=== PATIENT | male | born 1965 | race Caucasian/White ===

== ENCOUNTER 2020-08-06 10:02 | Inpatient (IN) | payer BC ==
[~2020-08-06 10:02] MED LIST: LIDOCAINE 1% (10MG/ML) FOR IV START INTRADERMA PRN
[2020-08-06] MEDS: LACTATED RINGERS 1,000 ML IV SCH (10:32)
[2020-08-06] MEDS ORDERED: PROPOFOL 10 MG/ML 20 ML VIAL IV ONE ×2 (10:53)
--- NOTE | 2020-08-06 11:28 | P.PCN ---
Date of Procedure: 08/06/20 Description of Procedure: BRIEF HISTORY: Patient is a 54-year-old male presenting for outpatient colonoscopy for evaluation of diarrhea. He reports 3 months of frequent loose bowel movements up to 15 times occurring during the day and night. He denies any blood per rectum. No abdominal pain. No family history of colon cancer or inflammatory bowel disease. No prior colonoscopies. PROCEDURE PERFORMED: Colonoscopy incomplete/aborted with biopsies and tattoo. PREOPERATIVE DIAGNOSIS: Diarrhea, no prior colonoscopies. ESTIMATED BLOOD LOSS: Minimal. IV sedation per Anesthesia. PROCEDURE: After informed consent was obtained, the patient, was brought into the endoscopy unit. IV sedation was administered by Anesthesia under continuous monitoring. Digital rectal examination was normal. Initially the Olympus pediatric then inserted in the rectum, gradually advanced into the rectum where a mass was noted approximately 10 cm from the anal verge. The mass was circumferential and encompassing approximately 90% of the lumen and malignant appearing with multiple biopsies taken and a tattoo placed just distal to the mass. The endoscope was unable to traverse the lumen and the procedure was aborted. The patient tolerated the procedure well. IMPRESSION: Malignant-appearing rectal mass, biopsied and tattooed. Incomplete colonoscopy/aborted colonoscopy, secondary to obstructing rectal mass which was unable to be traversed by the endoscope. RECOMMENDATIONS: Findings of this examination were discussed with the patient and his family. The surgical service has been consulted to see the patient in the postoperative area and plan will be either for close follow-up for results of biopsies in the GI clinic this week or possible direct admission for surgical intervention which will be discussed with the patient's family.
[2020-08-06] MEDS ORDERED: ONDANSETRON 4 MG/2 ML VIAL IVP PRN (12:21)
[2020-08-06] MEDS ORDERED: LACTATED RINGERS 1,000 ML IV ONE (12:21)
[2020-08-06] MEDS ORDERED: NALOXONE 0.4 MG/ML 1 ML VIAL IV PRN (12:21)
[2020-08-06] MEDS ORDERED: ACETAMINOPHEN TAB 325 MG TAB PO PRN (12:21)
[2020-08-06] MEDS ORDERED: HYDROmorphone 0.5 MG/0.5 ML SYRINGE IVP PRN (12:21)
[2020-08-06] MEDS ORDERED: IOPAMIDOL CONTRAST (ORAL USE) VIAL PO PRN (12:42)
--- NOTE | 2020-08-06 12:56 | P.CONS ---
History of Present Illness - Reason for Consult Consult date: 08/06/20 Rectal mass Requesting physician: Byron Frankel - Chief Complaint Rectal mass, diarrhea - History of Present Illness 54-year-old male with no significant prior medical history who presented for outpatient colonoscopy after experiencing 3 months of diarrhea and was subsequently found to have a rectal mass. The patient had reported 3 months of frequent loose bowel movement saying he had multiple bowel movements daily up to 15 per day. He denied any signs or symptoms of GI bleeding in association with the bowel movements. No pain in the abdomen associated with his diarrhea. He denied any prior episodes of similar complaints. He denies any family history of colon cancer or inflammatory bowel disease. He had not previously had any endoscopic evaluation with colonoscopy in the past. The patient was taken for colonoscopy on 08/06/20 with findings of a near complete obstructing rectal mass approximately 10 cm from the anal verge the mass was circumferential and malignant-appearing encompassing approximately 90% of the lumen. Multiple biopsies were taken of the mass and a tattoo was placed just proximal to the mass. The surgical service was called to see the patient and decision was made for direct admission for further evaluation. Review of Systems REVIEW OF SYSTEMS: CONSTITUTIONAL: Denies any fevers, chills, weight change or fatigue. CARDIOVASCULAR: Denies any chest pain, palpitations high or low blood pressures RESPIRATORY: Denies any shortness of breath, hemoptysis or cough. GENITOURINARY: No dysuria or hematuria. MUSCULOSKELETAL: No weakness reported. SKIN: Denies any new rashes or lesions, jaundice or pallor. PSYCHIATRIC: Denies any depression or anxiety. NEUROLOGY: Denies headache, denies any new focal deficits. EARS/NOSE/THROAT: No recent hearing change, congestion, nasal discharge or sore throat. EYES: No pain in eyes, discharge or change in vision. GASTROINTESTINAL: As per HPI. Past Medical History Past Medical History: GERD/Reflux Additional Past Medical History / Comment(s): freq diarrhea History of Any Multi-Drug Resistant Organisms: None Reported Past Surgical History: Orthopedic Surgery Additional Past Surgical History / Comment(s): knee repair Past Anesthesia/Blood Transfusion Reactions: No Reported Reaction Smoking Status: Never smoker - Past Family History Mother Family Medical History: No Reported History Medications and Allergies Home Medications Medication Instructions Recorded Confirmed Type Acetaminophen [Tylenol] 325 mg PO Q4H PRN 07/31/20 08/06/20 History Naproxen Sodium [Aleve] 220 mg PO BID PRN 07/31/20 08/06/20 History Allergies Allergy/AdvReac Type Severity Reaction Status Date / Time No Known Allergies Allergy Verified 08/06/20 10:23 Physical Exam Vitals: Vital Signs Temp Pulse Resp BP Pulse Ox 08/06/20 12:00 79 16 144/91 96 08/06/20 11:40 81 16 147/91 97 08/06/20 11:24 83 18 130/85 98 08/06/20 10:18 98.2 F 91 16 139/93 100 Intake and Output 08/05/20 08/06/20 08/06/20 22:59 06:59 14:59 Intake Total 600 Balance 600 Intake: IV 600 Other: Weight 66.7 kg On physical examination, patient appears comfortable in no apparent distress. HEAD: Normocephalic, atraumatic. EYES: No scleral icterus. No conjunctival injection. MOUTH: No lesions, tongue midline. NECK: Trachea midline, no gross abnormalities. CHEST: Clear to auscultation with no wheezing or rhonchi appreciated. HEART: Regular rate and rhythm. ABDOMEN: Soft, thin and nontender. Bowel sounds are positive. No organomegaly. No guarding or rigidity. EXTREMITIES: No pedal edema. SKIN: No rashes, no jaundice. NEUROLOGIC: Alert and oriented x3. No focal deficits. Results Comments: Colonoscopy with findings of rectal mass. Assessment and Plan (1) Mass in rectum Narrative/Plan: 54-year-old male who presented for outpatient colonoscopy for evaluation of diarrhea. Colonoscopy was significant for an almost completely obstructing rectal mass located approximately 10 cm from the anal verge circumferential and encompassing approximately 90% of the lumen with multiple biopsies taken. Plan was discussed with the surgical team and plan is for admission for further workup per their service. Current Visit: Yes Status: Acute Code(s): K62.89 - OTHER SPECIFIED DISEASES OF ANUS AND RECTUM SNOMED Code(s): 530060956 (2) Diarrhea Current Visit: Yes Status: Acute Code(s): R19.7 - DIARRHEA, UNSPECIFIED SNOMED Code(s): 53654577 Plan: Supportive care Clear liquid diet Surgical service is admitted the patient for further evaluation Plan is for imaging for further evaluation, to be ordered by the surgical service Await pathology from biopsies The case has been discussed with the patient and his mother at length who agree with the treatment plan Further recommendations will be continued on findings of the patient's continued workup Thank you for allowing us to participate in the care of the patient
[2020-08-06] MEDS ORDERED: IOPAMIDOL CONTRAST (ORAL USE) VIAL PO ONE (13:15)
[2020-08-06 13:31] LABS: Basophils # (A) 0.1 k/uL (0-0.2); Basophils % (A) 1 %; Eosinophils # (A) 0.1 k/uL (0-0.7); Eosinophils % (A) 1 %; Hypochromasia Marked; Lymphocytes # (A) 1.9 k/uL (1.0-4.8); Lymphocytes % (A) 17 %; MCH 18.5 pg (25.0-35.0); MCV 63.7 fL (80.0-100.0); Mean Platelet Volume 6.5; Microcytosis Marked; Monocytes # (A) 0.8 k/uL (0-1.0); Monocytes % (A) 8 %; Neutrophils # (A) 7.9 k/uL (1.3-7.7); Neutrophils % (A) 72 %; Platelet Count 607 k/uL (150-450); RBC 4.87 m/uL (4.30-5.90); RDW 15.7 % (11.5-15.5)
[2020-08-06 13:48] LABS: ALT 20 U/L (4-49); AST 33 U/L (17-59); African American GFR (CKD) >90 (>60 ml/min/1.73 sqM); Alkaline Phosphatase 144 U/L (38-126); Anion Gap 8 mmol/L; Blood Urea Nitrogen 11 mg/dL (9-20); Calcium 9.2 mg/dL (8.4-10.2); Carbon Dioxide 32 mmol/L (22-30); Chloride 97 mmol/L (98-107); Glucose 86 mg/dL (74-99); Non-African American GFR(CKD) >90 (>60 ml/min/1.73 sqM); Potassium 4.6 mmol/L (3.5-5.1); Sodium 137 mmol/L (137-145); Total Bilirubin 0.5 mg/dL (0.2-1.3); Total Protein 6.5 g/dL (6.3-8.2)
--- NOTE | 2020-08-06 15:12 | CT ---
EXAMINATION TYPE: CT abdomen pelvis w con DATE OF EXAM: 08/06/2020 COMPARISON: None HISTORY: Diarrhea. Rectal mass. CT DLP: 744.2 mGycm CONTRAST: CT scan of the abdomen and pelvis is performed with Oral Contrast and with IV Contrast, patient injec ernie with 100 mL of Isovue 300. FINDINGS: LUNG BASES-: No visible nodule. No infiltrate. LIVER/GB: Large infiltrative mass occupying most of the right hepatic lobe measuring 11.8 x 10.2 cm. The left hepatic lobe appears to be free of mass lesion at this time. The gallbladder is unremarkable . PANCREAS: No inflammation. No distinct mass. SPLEEN: No splenic enlargement. No lesion seen. ADRENALS: No nodule. No thickening. KIDNEYS/BLADDER: No hydronephrosis. No nephrolithiasis. No distinct renal mass. Urinary bladder g rossly unremarkable. BOWEL: Circumferential mass at the rectosigmoid junction to reflect malignancy until proven otherwise . There is a luminal narrowing noted with moderate fecal stasis noted proximally. GENITAL ORGANS: No gross abnormality. LYMPH NODES: No greater than 1cm abdominal or pelvic lymph nodes are appreciated. AORTA: No significant abnormality. OSSEOUS STRUCTURES: No significant abnormality is seen. OTHER: No significant additional abnormality is seen. IMPRESSION: 1. Rectosigmoid circumferential mass felt to reflect malignancy until proven otherwise. 2. Large infiltrative mass right hepatic lobe
--- NOTE | 2020-08-06 17:21 | P.GSHP ---
History of Present Illness H&P Date: 08/06/20 Chief Complaint: Rectal mass 54-year-old male came for colonoscopy after describing a 6-7 month history of intermittent abdominal cramps and frequent loose stools. Patient says he was having up to 15 bowel movements per day. Some bloating. Mild nausea at times. Mild cramps at times. No family history of colon cancer. Patient underwent colonoscopy by GI earlier today and was found to have a large rectal mass at approximately 10 cm. This was not able to be traversed by the endoscope. Biopsies were taken. We were consulted during the procedure and I evaluated the patient in the recovery room. Since his CAT scan the patient went for CT abdomen and pelvis. He was able to drink most of the oral contrast. Some abdominal cramps. He has had some additional loose stools since the CAT scan. White blood cell count is 11, hemoglobin is 9.0. CEA level is pending. CAT scan unfortunate shows a large mass involving the right lobe of the liver. No additional masses seen. The rectal masses also evident with mild to moderate proximal colonic dilation evident. - Review of Systems Comment: The patient denies any acute changes in vision or hearing, no dysphagia or odynophagia, no chest pain or shortness of breath, no dysuria or hematuria, no headache, no runny nose, no rectal bleeding or melena, no unexplained weight loss Past Medical History Past Medical History: GERD/Reflux Additional Past Medical History / Comment(s): freq diarrhea History of Any Multi-Drug Resistant Organisms: None Reported Past Surgical History: Orthopedic Surgery Additional Past Surgical History / Comment(s): knee repair Past Anesthesia/Blood Transfusion Reactions: No Reported Reaction Smoking Status: Never smoker - Past Family History Mother Family Medical History: No Reported History Medications and Allergies Home Medications Medication Instructions Recorded Confirmed Type Acetaminophen [Tylenol] 325 mg PO Q4H PRN 07/31/20 08/06/20 History Naproxen Sodium [Aleve] 220 mg PO BID PRN 07/31/20 08/06/20 History Allergies Allergy/AdvReac Type Severity Reaction Status Date / Time No Known Allergies Allergy Verified 08/06/20 10:23 Surgical - Exam Vital Signs Temp Pulse Resp BP Pulse Ox 98.2 F 91 16 139/93 100 08/06/20 10:18 08/06/20 10:18 08/06/20 10:18 08/06/20 10:18 08/06/20 10:18 Physical exam: General: Well-developed, well-nourished HEENT: Normocephalic, sclerae nonicteric Abdomen: Nontender, mild distention Extremities: No edema Neuro: Alert and oriented Results - Labs 08/06/20 13:12 08/06/20 13:15 Abnormal Lab Results - Last 24 Hours (Table) 08/06/20 08/06/20 Range/Units 13:12 13:15 WBC 11.0 H (3.8-10.6) k/uL Hgb 9.0 L (13.0-17.5) gm/dL Hct 31.0 L (39.0-53.0) % MCV 63.7 L (80.0-100.0) fL MCH 18.5 L (25.0-35.0) pg MCHC 29.0 L (31.0-37.0) g/dL RDW 15.7 H (11.5-15.5) % Plt Count 607 H (150-450) k/uL Neutrophils # 7.9 H (1.3-7.7) k/uL Chloride 97 L (98-107) mmol/L Carbon Dioxide 32 H (22-30) mmol/L Alkaline Phosphatase 144 H (38-126) U/L Diabetes panel 08/06/20 Range/Units 13:15 Sodium 137 (137-145) mmol/L Potassium 4.6 (3.5-5.1) mmol/L Chloride 97 L (98-107) mmol/L Carbon Dioxide 32 H (22-30) mmol/L BUN 11 (9-20) mg/dL Creatinine 0.79 (0.66-1.25) mg/dL Glucose 86 (74-99) mg/dL Calcium 9.2 (8.4-10.2) mg/dL AST 33 (17-59) U/L ALT 20 (4-49) U/L Alkaline Phosphatase 144 H (38-126) U/L Total Protein 6.5 (6.3-8.2) g/dL Albumin 4.0 (3.5-5.0) g/dL Calcium panel 08/06/20 Range/Units 13:15 Calcium 9.2 (8.4-10.2) mg/dL Albumin 4.0 (3.5-5.0) g/dL Pituitary panel 08/06/20 Range/Units 13:15 Sodium 137 (137-145) mmol/L Potassium 4.6 (3.5-5.1) mmol/L Chloride 97 L (98-107) mmol/L Carbon Dioxide 32 H (22-30) mmol/L BUN 11 (9-20) mg/dL Creatinine 0.79 (0.66-1.25) mg/dL Glucose 86 (74-99) mg/dL Calcium 9.2 (8.4-10.2) mg/dL Adrenal panel 08/06/20 Range/Units 13:15 Sodium 137 (137-145) mmol/L Potassium 4.6 (3.5-5.1) mmol/L Chloride 97 L (98-107) mmol/L Carbon Dioxide 32 H (22-30) mmol/L BUN 11 (9-20) mg/dL Creatinine 0.79 (0.66-1.25) mg/dL Glucose 86 (74-99) mg/dL Calcium 9.2 (8.4-10.2) mg/dL Total Bilirubin 0.5 (0.2-1.3) mg/dL AST 33 (17-59) U/L ALT 20 (4-49) U/L Alkaline Phosphatase 144 H (38-126) U/L Total Protein 6.5 (6.3-8.2) g/dL Albumin 4.0 (3.5-5.0) g/dL Assessment and Plan (1) Mass in rectum Narrative/Plan: Endoscopic findings, lab work, and CAT scan findings discussed in detail with the patient and his mother. Clinical scenario reviewed and options discussed. 2 primary options at this point would be diverting loop colostomy or tertiary care evaluation for possible endoscopic stent placement. Given the findings in the liver would favor tertiary care evaluation. Patient will consider and notify me of his decision. Meanwhile continue clear liquids and inpatient observation. Await CEA level. Monitor closely for signs of complete colonic obstruction. Current Visit: Yes Status: Acute Code(s): K62.89 - OTHER SPECIFIED DISEASES OF ANUS AND RECTUM SNOMED Code(s): 148980336
[2020-08-06] MEDS: HEPARIN SODIUM,PORCINE/PF 5,000 UNIT/0.5 ML SYRINGE SQ SCH ×2 (18:07→23:01)
[2020-08-07] MEDS: HEPARIN SODIUM,PORCINE/PF 5,000 UNIT/0.5 ML SYRINGE SQ SCH ×3 (08:43→23:34)
[2020-08-07] MEDS: LACTATED RINGERS 1,000 ML IV SCH (08:45)
--- NOTE | 2020-08-07 11:55 | P.DS ---
Providers Date of admission: 08/06/20 12:21 Expected date of discharge: 08/07/20 Attending physician: Byron Frankel Consults: 08/06/20 11:21 Consult Physician Routine Consulting Provider: Byron Frankel Consult Reason/Comments: Rectal mass Do you want consulting provider notified?: Already Contacted 08/06/20 12:21 Consult Physician Routine Consulting Provider: Darlene Corbin Consult Reason/Comments: med mgmt Do you want consulting provider notified?: Yes Consult Physician Routine Consulting Provider: James Hahn Consult Reason/Comments: rectal mass Do you want consulting provider notified?: Already Contacted 08/07/20 10:16 Consult Physician Urgent Consulting Provider: Ventura Glies Consult Reason/Comments: RECTAL MASS, LIVER LESIONS Do you want consulting provider notified?: Yes Primary care physician: Jovan Francois - Discharge Diagnosis(es) (1) Mass in rectum Patient minute yesterday after colonoscopy showed a near obstructing rectal mass. CAT scan showed both rectal mass and large right-sided liver mass. Hemoglobin 9.0, CEA over 200. Results discussed in detail with the patient and his family. Options were discussed in detail. At this time we are requesting transfer to [facility] for both colorectal surgery, advanced endoscopy, and hepatic surgery evaluation. Anticipate possible rectal stent placement with neoadjuvant chemoradiation. Patient is doing better today. Denies bloating. He did have multiple small loose stools. No pain. Current Visit: Yes Status: Acute Plan - Discharge Summary Discharge Rx Participant: No New Discharge Prescriptions: No Action Naproxen Sodium [Aleve] 220 mg PO BID PRN PRN Reason: Pain Acetaminophen [Tylenol] 325 mg PO Q4H PRN PRN Reason: Pain Discharge Medication List Acetaminophen [Tylenol] 325 mg PO Q4H PRN 07/31/20 [History] Naproxen Sodium [Aleve] 220 mg PO BID PRN 07/31/20 [History] Patient Instructions/Handouts: *Surgery [facility] - (Anesthesia) Endoscopy Discharge Instructions, Colonoscopy (DC)
[2020-08-07] MEDS ORDERED: RX INFO: IV CONTRAST WAS GIVEN 1 EACH MISC MISCELLANE PRN (13:35)
--- NOTE | 2020-08-07 13:35 | P.CONS ---
History of Present Illness - Reason for Consult Consult date: 08/07/20 Rectal Mass and Liver Lesions Requesting physician: Giuliana Zelaya - Chief Complaint New Rectal Mass with metastatic disease liver - History of Present Illness Beni is a 54-year-old male patient who was complained of intermittent abdominal cramping and diarrhea that started approximately 6 months ago. He feels a bit bloated, he set up colonoscopy with Dr. Frankel who found to have a large rectal mass at approximately [address] abdomen and pelvis revealed a large right liver lesion as well, suspicious for metastatic disease, however unable to fully characterize without further work-up. We have been asked to evaluate regarding the high suspicion of metastatic malignancy. Patient is being set up for transfer to tertiary care for stent placement, and can follow-up after he returns. Long discussion with patient later this evening, we did review pathology as pos itive poorly differentiated adenocarcinoma colorectal. Review of Systems All systems: negative Constitutional: Reports as per HPI Past Medical History Past Medical History: GERD/Reflux Additional Past Medical History / Comment(s): freq diarrhea History of Any Multi-Drug Resistant Organisms: None Reported Past Surgical History: Orthopedic Surgery Additional Past Surgical History / Comment(s): right knee repair Past Anesthesia/Blood Transfusion Reactions: No Reported Reaction Past Psychological History: No Psychological Hx Reported Smoking Status: Never smoker Past Alcohol Use History: Occasional Past Drug Use History: None Reported - Past Family History Mother Family Medical History: No Reported History Medications and Allergies Home Medications Medication Instructions Recorded Confirmed Type Acetaminophen [Tylenol] 325 mg PO Q4H PRN 07/31/20 08/06/20 History Naproxen Sodium [Aleve] 220 mg PO BID PRN 07/31/20 08/06/20 History Allergies Allergy/AdvReac Type Severity Reaction Status Date / Time No Known Allergies Allergy Verified 08/06/20 10:23 Physical Exam Vitals: Vital Signs Temp Pulse Resp BP Pulse Ox 08/07/20 08:21 97.8 F 77 13 142/83 97 08/07/20 01:14 98.4 F 73 14 141/90 96 08/06/20 19:28 98.9 F 77 14 139/84 97 08/06/20 18:08 98.6 F 81 18 143/86 98 08/06/20 15:00 84 16 144/90 98 Intake and Output 08/06/20 08/07/2008/07/21 22:59 06:59 14:59 Other: # Voids 2 # Bowel Movements 2 Weight 66.7 kg - Constitutional General appearance: cooperative, no acute distress - EENT Eyes: EOMI, PERRLA ENT: NA/AT - Neck Neck: normal ROM - Respiratory Respiratory: bilateral: CTA - Cardiovascular Rhythm: regular - Gastrointestinal General gastrointestinal: tenderness - Integumentary Integumentary: pale - Neurologic Neurologic: CNII-XII intact - Musculoskeletal Musculoskeletal: generalized weakness, strength equal bilaterally - Psychiatric Psychiatric: A&O x's 3, appropriate affect, intact judgment & insight Results CBC & Chem 7: 08/07/20 14:08 08/06/20 13:15 Labs: Abnormal Lab Results - Last 24 Hours (Table) 08/06/20 08/06/20 Range/Units 13:12 13:15 Chloride 97 L (98-107) mmol/L Carbon Dioxide 32 H (22-30) mmol/L Alkaline Phosphatase 144 H (38-126) U/L Carcinoembryonic Ag 205.0 H (0.0-4.9) ng/mL CT scan - abdomen: report reviewed CT scan - pelvis: report reviewed Assessment and Plan (1) Liver mass, right lobe Current Visit: Yes Status: Acute Code(s): R16.0 - HEPATOMEGALY, NOT ELSEWHERE CLASSIFIED SNOMED Code(s): 094135072 (2) Mass in rectum Current Visit: Yes Status: Acute Code(s): K62.89 - OTHER SPECIFIED DISEASES OF ANUS AND RECTUM SNOMED Code(s): 092775952 (3) Anemia Current Visit: Yes Status: Acute Code(s): D64.9 - ANEMIA, UNSPECIFIED SNOMED Code(s): 099137510 Plan: Large Rectal Mass and Lesion in liver. - Highly suspicious for a metastatic colorectal picture - CEA is increased 200 - CT chest and Bone scan will be ordered - Iron studies for likely gi blood loss anemia Pathology is positive for colorectal adenocarcinoma Prefer least invasive procedure to initiate treatment course chemo roberta He will need mediport placement Patient to follow-up after discharged from tertiary care and surgical intervention All patient questions answered Send tissue for molecular testing and PDL1 Follow-up after discharge [facility] Thank you for allowing us to participate in the care of this patient we will follow along
--- NOTE | 2020-08-07 13:48 | P.CONS ---
History of Present Illness - Reason for Consult Leukocytosis, colon Cancer - History of Present Illness 54-year-old male the was having frequent loose stools because of which patient underwent colonoscopy which showed a rectal mass about 10 cm. Patient is also found to have metastatic disease in the liver. Patient probably has rectal cancer. General surgery was consulted patient was subsequently admitted to general surgery for further evaluation and possible colectomy and the colostomy. Since patient has a metastatic disease patient either need just a diverticulum colostomy are a colonic stent and the patient chose to have colonic stent rather than diverticulitis colostomy. Patient is being transferred to [facility] for that reason patient does have leukocytosis without any fever chi lls. Patient denied any fever chills denied any cough denied any dysuria. Review of Systems REVIEW OF SYSTEMS: CONSTITUTIONAL: No fever, no malaise, no fatigue. HEENT: No recent visual problems or hearing problems. Denied any sore throat. CARDIOVASCULAR: No chest pain, orthopnea, PND, no palpitations, no syncope. PULMONARY: No shortness of breath, no cough, no hemoptysis. GASTROINTESTINAL: As mentioned in HPI NEUROLOGICAL: No headaches, no weakness, no numbness. HEMATOLOGICAL: Denies any bleeding or petechiae. GENITOURINARY: Denies any burning micturition, frequency, or urgency. MUSCULOSKELETAL/RHEUMATOLOGICAL: Denies any joint pain, swelling, or any muscle pain. ENDOCRINE: Denies any polyuria or polydipsia. The rest of the 14-point review of systems is negative. Past Medical History Past Medical History: GERD/Reflux Additional Past Medical History / Comment(s): freq diarrhea History of Any Multi-Drug Resistant Organisms: None Reported Past Surgical History: Orthopedic Surgery Additional Past Surgical History / Comment(s): right knee repair Past Anesthesia/Blood Transfusion Reactions: No Reported Reaction Past Psychological History: No Psychological Hx Reported Smoking Status: Never smoker Past Alcohol Use History: Occasional Past Drug Use History: None Reported - Past Family History Mother Family Medical History: No Reported History Medications and Allergies Home Medications Medication Instructions Recorded Confirmed Type Acetaminophen [Tylenol] 325 mg PO Q4H PRN 07/31/20 08/06/20 History Naproxen Sodium [Aleve] 220 mg PO BID PRN 07/31/20 08/06/20 History Allergies Allergy/AdvReac Type Severity Reaction Status Date / Time No Known Allergies Allergy Verified 08/06/20 10:23 Physical Exam Vitals: Vital Signs Temp Pulse Resp BP Pulse Ox 08/07/20 08:21 97.8 F 77 13 142/83 97 08/07/20 01:14 98.4 F 73 14 141/90 96 08/06/20 19:28 98.9 F 77 14 139/84 97 08/06/20 18:08 98.6 F 81 18 143/86 98 08/06/20 15:00 84 16 144/90 98 Intake and Output 08/06/20 08/07/20 08/07/20 22:59 06:59 14:59 Other: # Voids 2 # Bowel Movements 2 Weight 66.7 kg PHYSICAL EXAMINATION: GENERAL: The patient is alert and oriented x3, not in any acute distress. Well developed, well nourished. HEENT: Pupils are round and equally reacting to light. EOMI. No scleral icterus. No conjunctival pallor. Normocephalic, atraumatic. No pharyngeal erythema. No thyromegaly. CARDIOVASCULAR: S1 and S2 present. No murmurs, rubs, or gallops. PULMONARY: Chest is clear to auscultation, no wheezing or crackles. ABDOMEN: Soft, nontender, nondistended, normoactive bowel sounds. No palpable organomegaly. MUSCULOSKELETAL: No joint swelling or deformity. EXTREMITIES: No cyanosis, clubbing, or pedal edema. NEUROLOGICAL: Gross neurological examination did not reveal any focal deficits. SKIN: No rashes. Results CBC & Chem 7: 08/06/20 13:12 08/06/20 13:15 Labs: Abnormal Lab Results - Last 24 Hours (Table) 08/06/20 08/06/20 Range/Units 13:12 13:15 Chloride 97 L (98-107) mmol/L Carbon Dioxide 32 H (22-30) mmol/L Alkaline Phosphatase 144 H (38-126) U/L Carcinoembryonic Ag 205.0 H (0.0-4.9) ng/mL Assessment and Plan Plan: -Possible colon cancer: Patient is being transferred to [facility] for colonic stent placement. Patient is status post colonoscopy and biopsies. leukocytosis reactive without any evidence of infection clinically -Hepatic mass probably metastatic lesion.
[2020-08-07 14:40] LABS: Partial Thromboplastin Time 22.5 sec (22.0-30.0)
[2020-08-07 14:59] VITALS: BMI 23.7
--- NOTE | 2020-08-07 16:31 | P.PN ---
Subjective Progress Note Date: 08/07/20 Principal diagnosis: Rectal mass Subjective 54-year-old male patient who had an outpatient colonoscopy yesterday with complains of multiple episodes of loose stools for over the past year. Upon doing his colonoscopy he was found to have a obstructing rectal mass, for which the colonoscopy had to be aborted. Gen. surgery was consulted, Dr. Frankel and the patient have agreed on a plan of care to transfer the patient to a tertiary center such as [facility] for stent placement. Today the patient denies any abdominal pain, nausea, or vomiting. He denies any bowel movements today. His CEA came back elevated at 205. Objective - Vital Signs Vital signs: Vital Signs Temp 97.8 F 08/07/20 08:21 Pulse 77 08/07/20 08:21 Resp 13 08/07/20 08:21 BP 142/83 08/07/20 08:21 Pulse Ox 97 08/07/20 08:21 Intake & Output 08/06/20 08/07/20 08/07/20 18:59 06:59 18:59 Intake Total 950 Balance 950 Weight 66.7 kg Intake: IV 950 Other: # Voids 2 # Bowel Movements 2 - Exam General appearance: The patient is alert, oriented, appears in no acute distress. HET: Head is normocephalic and atraumatic. Conjunctiva pink. Sclera anicteric. Neck: Supple without lymphadenopathy. Abdomen: Soft, thin, nontender, nondistended with bowel sounds. No guarding or rigidity. Extremities: Normal skin color and turgor. No pedal edema Skin: No rashes, no jaundice Neurological: No focal deficits. Alert and oriented 3. - Labs CBC & Chem 7: 08/06/20 13:12 08/06/20 13:15 Labs: Abnormal Lab Results - Last 24 Hours (Table) 08/06/20 08/06/20 08/06/20 Range/Units 13:12 13:12 13:15 WBC 11.0 H (3.8-10.6) k/uL Hgb 9.0 L (13.0-17.5) gm/dL Hct 31.0 L (39.0-53.0) % MCV 63.7 L (80.0-100.0) fL MCH 18.5 L (25.0-35.0) pg MCHC 29.0 L (31.0-37.0) g/dL RDW 15.7 H (11.5-15.5) % Plt Count 607 H (150-450) k/uL Neutrophils # 7.9 H (1.3-7.7) k/uL Chloride 97 L (98-107) mmol/L Carbon Dioxide 32 H (22-30) mmol/L Alkaline Phosphatase 144 H (38-126) U/L Carcinoembryonic Ag 205.0 H (0.0-4.9) ng/mL Assessment and Plan (1) Mass in rectum Narrative/Plan: 54-year-old male who presented for outpatient colonoscopy for evaluation of diarrhea. Colonoscopy was significant for an almost completely obstructing rectal mass located approximately 10 cm from the anal verge circumferential and encompassing approximately 90% of the lumen with multiple biopsies taken. Plan was discussed with the surgical team and plan is for admission for further workup per their service. Current Visit: Yes Status: Acute Code(s): K62.89 - OTHER SPECIFIED DISEASES OF ANUS AND RECTUM SNOMED Code(s): 615485605 (2) Diarrhea Current Visit: Yes Status: Acute Code(s): R19.7 - DIARRHEA, UNSPECIFIED SNOMED Code(s): 72324823 Plan: Supportive care Clear liquid diet Surgical service admitted the patient for further evaluation CT of abdomen reviewed, with liver lesions noted Oncology service is consulted Await pathology from biopsies Patient is awaiting transfer to [facility] for advanced endoscopy, stent placement Further recommendations will be continued on findings of the patient's continued workup Thank you for this consultation, we will continue to follow Dr. Jackie De La Rosa I agree with the dictator's note, documented as a scribe by Giuliana Fatima.
[2020-08-07 19:21] LABS: HCT 29.9 % (39.6-50.0); HGB 8.4 g/dL (13.0-17.0); MCH 18.3 pg (27.0-32.0); MCHC 28.1 g/dL (32.0-37.0); MCV 65.1 fL (80.0-97.0); Mean Platelet Volume 9.9 fL (9.5-12.2); Platelet Count 626 X 10*3/uL (140-440); RBC 4.59 X 10*6/uL (4.40-5.60); Reticulocyte % 1.29 % (0.10-1.80); WBC 8.48 X 10*3/uL (4.50-10.00)
--- NOTE | 2020-08-07 19:22 | CT ---
EXAMINATION TYPE: CT chest w con DATE OF EXAM: 08/07/2020 COMPARISON: None HISTORY: follow up abnormal ct a/p CT DLP: 282 mGycm Automated exposure control for dose reduction was used. CONTRAST: Performed with IV Contrast, patient injected with 100 mL of Isovue 300. Images obtained from the thoracic inlet to the diaphragm with IV contrast. There is a minimal reticular infiltrate in the superior segment of the left lower lobe posteriorly. T here is no pleural effusion. Heart and mediastinum are normal. There are no hilar masses. Thoracic ao rta is intact. There is no evidence of aneurysm or dissection. There is no pericardial effusion. The thoracic spine is intact. There is no compression fracture. Sternum is intact. The ribs appear intact . There is large irregular hypodense area in the posterior right lobe of the liver measuring 12 cm. IMPRESSION: Minimal infiltrate in the left lower lobe superior segment is nonspecific. Inflammatory process more likely. No suspicious pulmonary mass. Large low density liver mass not changed compared to yesterday.
[2020-08-07 20:29] LABS: Basophils # (A) 0.04 X 10*3/uL (0.00-0.10); Basophils % (A) 0.5 %; Eosinophils # (A) 0.13 X 10*3/uL (0.04-0.35); Eosinophils % (A) 1.5 %; Lymphocytes # (A) 1.43 X 10*3/uL (0.90-5.00); Lymphocytes % (A) 16.9 %; Microcytosis (M) 2+; Monocytes # (A) 0.79 X 10*3/uL (0.20-1.00); Monocytes % (A) 9.3 %; Neutrophils # (A) 6.07 X 10*3/uL (1.80-7.70); Neutrophils % (A) 71.6 %
[2020-08-08 03:34] LABS: % Iron Saturation 1.92 (15.00-50.00); African American GFR (CKD) 118.2 (60.0-200.0); Albumin 4.1 g/dL (3.80-4.90); Albumin/Globulin Ratio 1.78 (1.60-3.17); Anion Gap 13.7 mmol/L (4.00-12.00); BUN/Creat Ratio 12.5 Ratio (12.00-20.00); Calcium 8.8 mg/dL (8.7-10.3); Carbon Dioxide 24.3 mmol/L (21.6-31.8); Ferritin 19.6 ng/mL (22.0-322.0); Folate, Serum 14.6 ng/mL; Globulin 2.3 g/dL (1.6-3.3); Potassium 4.3 mmol/L (3.5-5.5); Total Bilirubin 0.4 mg/dL (0.2-1.2); Total Protein 6.4 g/dL (6.2-8.2)
[2020-08-08 04:39] LABS: INR 1.06 (0.90-1.11); Prothrombin Time 11.5 sec (9.9-11.9)
[2020-08-08] MEDS: LACTATED RINGERS 1,000 ML IV SCH (08:40)
[2020-08-08] MEDS: HEPARIN SODIUM,PORCINE/PF 5,000 UNIT/0.5 ML SYRINGE SQ SCH ×3 (08:40→23:53)
--- NOTE | 2020-08-08 10:16 | P.PN ---
Subjective Progress Note Date: 08/08/20 Principal diagnosis: New colorectal cancer Iron deficiency noted secondary GI blood loss from Colorectal mass. IV Iron ordered and will start now, if transferred prior to completion on three doses can resume as outpatient or at tertiary clinic. CT Chest reviewed without definitive metastatic disease to Chest Bone Scan Pending Pathology did return yesterday positive for poorly differentiated carcinoma consistent with colorectal primary, molecular testing will be requested. Objective - Vital Signs Vital signs: Vital Signs Temp 98.5 F 08/08/20 08:03 Pulse 79 08/08/20 08:03 Resp 15 08/08/20 08:03 BP 137/83 08/08/20 08:03 Pulse Ox 96 08/08/20 08:03 Intake & Output 08/07/20 08/08/20 08/08/20 18:59 06:59 18:59 Weight 66.7 kg Other: # Voids 2 # Bowel Movements 4 - Exam - Constitutional General appearance: cooperative, no acute distress - EENT Eyes: EOMI, PERRLA ENT: NA/AT - Neck Neck: normal ROM - Respiratory Respiratory: bilateral: CTA - Cardiovascular Rhythm: regular - Gastrointestinal General gastrointestinal: tenderness - Integumentary Integumentary: pale - Neurologic Neurologic: CNII-XII intact - Musculoskeletal Musculoskeletal: generalized weakness, strength equal bilaterally - Psychiatric Psychiatric: A&O x's 3, appropriate affect, intact judgment & insight - Labs CBC & Chem 7: 08/07/20 14:08 08/07/20 14:08 Labs: Abnormal Lab Results - Last 24 Hours (Table) 08/07/20 08/07/20 Range/Units 14:08 14:08 Hgb 8.4 L (13.0-17.0) g/dL Hct 29.9 L (39.6-50.0) % MCV 65.1 L (80.0-97.0) fL MCH 18.3 L (27.0-32.0) pg MCHC 28.1 L (32.0-37.0) g/dL RDW 17.0 H (11.5-14.5) % Plt Count 626 H (140-440) X 10*3/uL Plt Count Comment INCREASED A Anion Gap 13.70 H (4.00-12.00) mmol/L Glucose 128 H (70-110) mg/dL Iron 7 L (65-175) ug/dL % Saturation 1.92 L (15.00-50.00) Ferritin 19.6 L (22.0-322.0) ng/mL Alkaline Phosphatase 137 H (41-126) U/L Vitamin D 25-Hydroxy 19.0 L (30.0-100.0) ng/mL Assessment and Plan (1) Liver mass, right lobe Current Visit: Yes Status: Acute Code(s): R16.0 - HEPATOMEGALY, NOT ELSEWHERE CLASSIFIED SNOMED Code(s): 371044302 (2) Mass in rectum Current Visit: Yes Status: Acute Code(s): K62.89 - OTHER SPECIFIED DISEASES OF ANUS AND RECTUM SNOMED Code(s): 391702318 (3) Anemia Current Visit: Yes Status: Acute Code(s): D64.9 - ANEMIA, UNSPECIFIED SNOMED Code(s): 035481087 Plan: Large Rectal Mass and Lesion in liver. - Liver lesion unable to be confirmed as metastatic given its large size and location (MRI and/or biopsy) for differential such as hemangioma - CEA is increased 200 - CT chest negative for metastatic disease - Bone scan pending - Iron studies for likely gi blood loss anemia show need for parental iron replacement, IV Ferrlicit ordered and will attempt three doses although if transferred prior will resume through [facility] care and/or outpatient Liver Lesion: - Not characteristic of metastatic lesion, therefore further characterizing needs to be determined. MRI with hemangioma protocol ordered Pathology is positive for colorectal adenocarcinoma Prefer least invasive procedure to initiate treatment course chemo roberta He will need mediport placement Patient to follow-up after discharged from tertiary care and surgical intervention stenting versus diverting ostomy All patient questions answered Send tissue for molecular testing and PDL1 Follow-up after discharge [facility] Physician attest: I have completed the full history and physical and developed the above impression and plan, agree with [employer] OPERATOR HELPER dictation, dictated as a scribe.
[2020-08-08] MEDS: SODIUM FERRIC GLUCONAT-SUCROSE 125 MG in SODIUM CHLORIDE 0.9% 100 ML IVPB SCH (12:31)
--- NOTE | 2020-08-08 13:12 | P.PN ---
Subjective Progress Note Date: 08/08/20 Principal diagnosis: Rectal mass Patient has been accepted for transfer to [facility]. Waiting for a bed at this time. In the meanwhile oncology was consulted. CT chest, bone scan, and liver MRI were ordered. Those results are pending. Patient is otherwise doing fairly well. Tolerating clear liquids. He has had 2 small bowel movements since yesterday. No significant abdominal pain. Objective - Vital Signs Vital signs: Vital Signs Temp 98.5 F 08/08/20 08:03 Pulse 79 08/08/20 08:03 Resp 15 08/08/20 08:03 BP 137/83 08/08/20 08:03 Pulse Ox 96 08/08/20 08:03 Intake & Output 08/07/20 08/08/20 08/08/20 18:59 06:59 18:59 Weight 66.7 kg Other: Voiding Method Toilet # Voids 2 # Bowel Movements 4 - Exam Abdomen: Soft, nontender, nondistended - Labs CBC & Chem 7: 08/07/20 14:08 08/07/20 14:08 Labs: Abnormal Lab Results - Last 24 Hours (Table) 08/07/20 08/07/20 Range/Units 14:08 14:08 Hgb 8.4 L (13.0-17.0) g/dL Hct 29.9 L (39.6-50.0) % MCV 65.1 L (80.0-97.0) fL MCH 18.3 L (27.0-32.0) pg MCHC 28.1 L (32.0-37.0) g/dL RDW 17.0 H (11.5-14.5) % Plt Count 626 H (140-440) X 10*3/uL Plt Count Comment INCREASED A Anion Gap 13.70 H (4.00-12.00) mmol/L Glucose 128 H (70-110) mg/dL Iron 7 L (65-175) ug/dL % Saturation 1.92 L (15.00-50.00) Ferritin 19.6 L (22.0-322.0) ng/mL Alkaline Phosphatase 137 H (41-126) U/L Vitamin D 25-Hydroxy 19.0 L (30.0-100.0) ng/mL Assessment and Plan (1) Mass in rectum Narrative/Plan: Patient doing well today. Await transfer to [facility] for possible rectal stent placement and evaluation of large hepatic mass. Current Visit: Yes Status: Acute Code(s): K62.89 - OTHER SPECIFIED DISEASES OF ANUS AND RECTUM SNOMED Code(s): 463210648
--- NOTE | 2020-08-08 13:41 | P.PN ---
Subjective 54-year-old male the was having frequent loose stools because of which patient underwent colonoscopy which showed a rectal mass about 10 cm. Patient is also found to have metastatic disease in the liver. Patient probably has rectal cancer. General surgery was consulted patient was subsequently admitted to general surgery for further evaluation and possible colectomy and the colostomy. Since patient has a metastatic disease patient either need just a diverticulum colostomy are a colonic stent and the patient chose to have colonic stent rather than diverticulitis colostomy. Patient is being transferred to [facility] for that reason patient does have leukocytosis without any fever chills. Patient denied any fever chills denied any cough denied any dysuria. 08/08/2020 and patient is on clear liquid diet the patient didn't have any bowel movements. Patient is awaiting discharge to [facility]. Constitutional: Denied any fatigue denied any fever. Cardio vascular: denied any chest pain, palpitations Gastrointestinal denied any nausea vomiting Pulmonary: Denied any shortness of breath cough Neurologic denied any new focal deficits All inpatient medications were reviewed and appropriate changes in these medicat ions as dictated in the interval history and assessment and plan. Objective - Vital Signs Vital signs: Vital Signs Temp 98.5 F 08/08/20 08:03 Pulse 79 08/08/20 08:03 Resp 15 08/08/20 08:03 BP 137/83 08/08/20 08:03 Pulse Ox 96 08/08/20 08:03 Intake & Output 08/07/20 08/08/20 08/08/20 18:59 06:59 18:59 Weight 66.7 kg Other: Voiding Method Toilet # Voids 2 # Bowel Movements 4 - Exam PHYSICAL EXAMINATION: GENERAL: The patient is alert and oriented x3, not in any acute distress. Well developed, well nourished. HEENT: Pupils are round and equally reacting to light. EOMI. No scleral icterus. No conjunctival pallor. Normocephalic, atraumatic. No pharyngeal erythema. No thyromegaly. CARDIOVASCULAR: S1 and S2 present. No murmurs, rubs, or gallops. PULMONARY: Chest is clear to auscultation, no wheezing or crackles. ABDOMEN: Soft, nontender, nondistended, normoactive bowel sounds. No palpable organomegaly. MUSCULOSKELETAL: No joint swelling or deformity. EXTREMITIES: No cyanosis, clubbing, or pedal edema. NEUROLOGICAL: Gross neurological examination did not reveal any focal deficits. SKIN: No rashes. - Labs CBC & Chem 7: 08/07/20 14:08 08/07/20 14:08 Labs: Abnormal Lab Results - Last 24 Hours (Table) 08/07/20 08/07/20 Range/Units 14:08 14:08 Hgb 8.4 L (13.0-17.0) g/dL Hct 29.9 L (39.6-50.0) % MCV 65.1 L (80.0-97.0) fL MCH 18.3 L (27.0-32.0) pg MCHC 28.1 L (32.0-37.0) g/dL RDW 17.0 H (11.5-14.5) % Plt Count 626 H (140-440) X 10*3/uL Plt Count Comment INCREASED A Anion Gap 13.70 H (4.00-12.00) mmol/L Glucose 128 H (70-110) mg/dL Iron 7 L (65-175) ug/dL % Saturation 1.92 L (15.00-50.00) Ferritin 19.6 L (22.0-322.0) ng/mL Alkaline Phosphatase 137 H (41-126) U/L Vitamin D 25-Hydroxy 19.0 L (30.0-100.0) ng/mL Assessment and Plan Plan: -Possible colon cancer: Patient is being transferred to [facility] for colonic stent placement. Patient is status post colonoscopy and biopsies. leukocytosis reactive without any evidence of infection clinically -Hepatic mass probably metastatic lesion.
--- NOTE | 2020-08-08 14:17 | NM ---
EXAMINATION TYPE: NM bone scan whole body DATE OF EXAM: 08/08/2020 COMPARISON: CT chest from yesterday. CT abdomen and pelvis from 2 days ago. HISTORY: Newly diagnosed colon cancer. Delayed whole-body scanning was performed following the injection of 23.3 mCi Tc 99m MDP. Images acq uired 5 hours post injection. FINDINGS: No increased radiotracer uptake to suggest metastatic disease to the bone or other abnormality. There is leak of urine noted overlying the lower pelvis. IMPRESSION: As above. Findings correlated with recent CT studies.
--- NOTE | 2020-08-08 15:42 | P.PN ---
Subjective Progress Note Date: 08/08/20 Principal diagnosis: Rectal mass Subjective 54-year-old male patient who had an outpatient colonoscopy yesterday with complains of multiple episodes of loose stools for over the past year. Upon doing his colonoscopy he was found to have a obstructing rectal mass, for which the colonoscopy had to be aborted. Gen. surgery was consulted, Dr. Frankel and the patient have agreed on a plan of care to transfer the patient to a tertiary center such as [facility] for stent placement. Still awaiting a bed at [facility]. Oncology is on consult, patient's post be scheduled for a PET scan today and possible MRI. He denies any abdominal pain, nausea, or vomiting. States he had loose bowel movement yesterday and none today. Objective - Vital Signs Vital signs: Vital Signs Temp 97.7 F 08/08/20 14:00 Pulse 87 08/08/20 14:00 Resp 12 08/08/20 14:00 BP 133/87 08/08/20 14:00 Pulse Ox 99 08/08/20 14:00 Intake & Output 08/07/20 08/08/20 08/08/20 18:59 06:59 18:59 Weight 66.7 kg Other: Voiding Method Toilet # Voids 2 # Bowel Movements 4 - Exam General appearance: The patient is alert, oriented, appears in no acute distress. HET: Head is normocephalic and atraumatic. Conjunctiva pink. Sclera anicteric. Neck: Supple without lymphadenopathy. Abdomen: Soft, thin, nontender, nondistended with bowel sounds. No guarding or rigidity. Extremities: Normal skin color and turgor. No pedal edema Skin: No rashes, no jaundice Neurological: No focal deficits. Alert and oriented 3. - Labs CBC & Chem 7: 08/07/20 14:08 08/07/20 14:08 Labs: Abnormal Lab Results - Last 24 Hours (Table) 08/07/20 08/07/20 Range/Units 14:08 14:08 Hgb 8.4 L (13.0-17.0) g/dL Hct 29.9 L (39.6-50.0) % MCV 65.1 L (80.0-97.0) fL MCH 18.3 L (27.0-32.0) pg MCHC 28.1 L (32.0-37.0) g/dL RDW 17.0 H (11.5-14.5) % Plt Count 626 H (140-440) X 10*3/uL Plt Count Comment INCREASED A Anion Gap 13.70 H (4.00-12.00) mmol/L Glucose 128 H (70-110) mg/dL Iron 7 L (65-175) ug/dL % Saturation 1.92 L (15.00-50.00) Ferritin 19.6 L (22.0-322.0) ng/mL Alkaline Phosphatase 137 H (41-126) U/L Vitamin D 25-Hydroxy 19.0 L (30.0-100.0) ng/mL Assessment and Plan (1) Mass in rectum Narrative/Plan: 54-year-old male who presented for outpatient colonoscopy for evaluation of diarrhea. Colonoscopy was significant for an almost completely obstructing rectal mass located approximately 10 cm from the anal verge circumferential and encompassing approximately 90% of the lumen with multiple biopsies taken. Plan was discussed with the surgical team and plan is for admission for further workup per their service. Current Visit: Yes Status: Acute Code(s): K62.89 - OTHER SPECIFIED DISEASES OF ANUS AND RECTUM SNOMED Code(s): 788124752 (2) Diarrhea Current Visit: Yes Status: Acute Code(s): R19.7 - DIARRHEA, UNSPECIFIED SNOMED Code(s): 73154676 Plan: Supportive care Clear liquid diet Surgical service admitted the patient for further evaluation CT of abdomen reviewed, with liver lesions noted Oncology service is consulted Await pathology from biopsies Patient is awaiting transfer to [facility] for advanced endoscopy, stent placement Further recommendations will be continued on findings of the patient's continued workup Thank you for this consultation, we will sign off at this time Dr. Hahn I agree with the dictator's note, documented as a scribe by Giuliana Fatima.
--- NOTE | 2020-08-08 16:10 | MR ---
EXAMINATION TYPE: MR liver wo/w con DATE OF EXAM: 08/08/2020 COMPARISON: CT abdomen and pelvis 2 days ago HISTORY: Metastatic versus hemangioma, abnormal CT. Newly diagnosed colorectal cancer. CONTRAST: Standard multiplanar, multisequence MRI departmental protocol utilizing 7 mL intravenous Gadavist yazan olinium contrast. Imaging performed of the abdomen focusing on the liver. FINDINGS: Liver: Corresponding to CT there is a large lobulated heterogeneous enhancing mass occupying posterio r right hepatic lobe measuring approximately 12.3 x 9.5 cm AP diameter axial image 39 series 601 by 1 1.5 cm craniocaudal diameter coronal image 25 series 301 thought to reflect large metastatic mass giv en patient's history, some smaller adjacent metastatic satellite nodules are identified along the per iphery of the lesion. Central nonenhancement or necrosis is present. Large hemangioma felt unlikely. Overall liver measures upper limits of normal in size. No ductal dilatation. No surrounding ascites. Other: The spleen, pancreas, both adrenal glands appear within normal limits. There is no concerning renal mass or hydronephrosis. No suspicious small or large bowel dilatation. Slight underlying scolio tic curvature. IMPRESSION: Confirmation of heterogeneous lobulated enhancing right hepatic lobe mass thought to refl ect metastatic lesion given the patient's history of recent colorectal cancer diagnosis.
[2020-08-09] MEDS: HEPARIN SODIUM,PORCINE/PF 5,000 UNIT/0.5 ML SYRINGE SQ SCH ×3 (07:46→23:07)
[2020-08-09] MEDS: LACTATED RINGERS 1,000 ML IV SCH (10:28)
[2020-08-09] MEDS: SODIUM FERRIC GLUCONAT-SUCROSE 125 MG in SODIUM CHLORIDE 0.9% 100 ML IVPB SCH (11:59)
--- NOTE | 2020-08-09 12:15 | P.PN ---
Subjective Progress Note Date: 08/09/20 Principal diagnosis: New colorectal cancer MRI reviewed and suspicious for malignant process, however with the presentation of the lesion a biopsy will need to further characterize if metastatic versus second primary. Discussed with RN, Radiology and patient. Will not hold disch arge to tertiary care for biopsy, however last phone call, there was no beds available and did not appear to plan transfer today. Objective - Vital Signs Vital signs: Vital Signs Temp 99.1 F 08/09/20 08:06 Pulse 88 08/09/20 12:06 Resp 16 08/09/20 12:06 BP 118/78 08/09/20 12:06 Pulse Ox 97 08/09/20 12:06 Intake & Output 08/08/20 08/09/20 08/09/20 18:59 06:59 18:59 Other: Voiding Method Toilet Toilet # Voids 2 1 - Exam - Constitutional General appearance: cooperative, no acute distress - EENT Eyes: EOMI, PERRLA ENT: NA/AT - Neck Neck: normal ROM - Respiratory Respiratory: bilateral: CTA - Cardiovascular Rhythm: regular - Gastrointestinal General gastrointestinal: tenderness - Integumentary Integumentary: pale - Neurologic Neurologic: CNII-XII intact - Musculoskeletal Musculoskeletal: generalized weakness, strength equal bilaterally - Psychiatric Psychiatric: A&O x's 3, appropriate affect, intact judgment & insight - Labs CBC & Chem 7: 08/07/20 14:08 08/07/20 14:08 Assessment and Plan (1) Liver mass, right lobe Current Visit: Yes Status: Acute Code(s): R16.0 - HEPATOMEGALY, NOT ELSEWHERE CLASSIFIED SNOMED Code(s): 564721870 (2) Mass in rectum Current Visit: Yes Status: Acute Code(s): K62.89 - OTHER SPECIFIED DISEASES OF ANUS AND RECTUM SNOMED Code(s): 174057722 (3) Anemia Current Visit: Yes Status: Acute Code(s): D64.9 - ANEMIA, UNSPECIFIED SNOMED Code(s): 614917949 Plan: Large Rectal Mass and Lesion in liver. - Liver lesion unable to be confirmed as metastatic given its large size and location (MRI and/or biopsy) for differential such as hemangioma - CEA is increased 200 - CT chest negative for metastatic disease - Bone scan pending - Iron studies for likely gi blood loss anemia show need for parental iron replacement, IV Ferrlicit ordered and will attempt three doses although if transferred prior will resume through [facility] care and/or outpatient Liver Lesion: - Not characteristic of metastatic lesion, therefore further characterizing needs to be determined. MRI with hemangioma protocol ordered Pathology is positive for colorectal adenocarcinoma Prefer least invasive procedure to initiate treatment course chemo roberta He will need mediport placement Patient to follow-up after discharged from tertiary care and surgical intervention stenting versus diverting ostomy All patient questions answered Send tissue for molecular testing and PDL1 Follow-up after discharge [facility] Biopsy of liver lesion not to delay transfer, discussed with radiology planning today IV Iron Discussed with Dr. Dowell and nursing Patient initially hesitant about liver biopsy Physician attest: I have completed the full history and physical and developed the above impression and plan, agree with STOCK HANGER dictation, dictated as a scribe.
--- NOTE | 2020-08-09 12:39 | P.PN ---
Subjective Progress Note Date: 08/09/20 Principal diagnosis: Rectal mass Patient without new complaints. Went for bone scan and MRI yesterday. Results noted. He is currently scheduled for percutaneous liver biopsy today. Apparently per [facility] the expected bed to be available later today. He has had a few small loose stools since yesterday. Denies pain. Objective - Vital Signs Vital signs: Vital Signs Temp 99.1 F 08/09/20 08:06 Pulse 87 08/09/20 12:15 Resp 16 08/09/20 12:15 BP 121/76 08/09/20 12:15 Pulse Ox 95 08/09/20 12:15 Intake & Output 08/08/20 08/09/20 08/09/20 18:59 06:59 18:59 Other: Voiding Method Toilet Toilet # Voids 2 1 - Exam Abdomen: Soft, nontender, nondistended - Labs CBC & Chem 7: 08/07/20 14:08 08/07/20 14:08 Assessment and Plan (1) Mass in rectum Narrative/Plan: 54-year-old male with recently diagnosed rectal cancer and suspected liver metastasis. Agree with plans for liver biopsy. Await tertiary care transferred for possible rectal stent placement. Current Visit: Yes Status: Acute Code(s): K62.89 - OTHER SPECIFIED DISEASES OF ANUS AND RECTUM SNOMED Code(s): 057913005
--- NOTE | 2020-08-09 13:28 | US ---
EXAMINATION TYPE: US biopsy liver DATE OF EXAM: 08/09/2020 HISTORY: Right lobe liver mass. FINDINGS: Maximal barrier technique was utilized. Hand hygiene achieved with soap and water and alco hol-based hand rub. The skin overlying a suitable path to the patient's mass in the right lobe of the liver was localized with ultrasound and the overlying skin prepped and draped. Ultrasound was utili zed with sterile technique. Lidocaine was used for local anesthesia. A skin vy was made with a georgi alpel. An 18-gauge needle was advanced under direct ultrasound guidance and core specimen obtained o f the mass. Single pass made. Specimen submitted in formalin to Pathology. Following the procedure, hemostasis achieved and the patient is discharged in stable condition without complication. IMPRESSION:STATUS POST ULTRASOUND GUIDED CORE BIOPSY OF liver MASS, PATHOLOGY IS PENDING. THIS PROCE DURE IS PERFORMED BY THE UNDERSIGNED.
--- NOTE | 2020-08-09 16:22 | P.CONS ---
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 The patient is currently hospitalized, and we planned to discuss the role of radiation in his treatment. The patient reports that he has had an abnormal change in his bowel habits for approximately 1 year. He states that at some point over the past year, his bowel movements became more loose. They have become increasingly frequent, especially over the past few months. He states he was having to wake up every couple hours to move his bowels and he wasn't sleeping well. He was referred for an outpatient colonoscopy which was performed on August 06. This revealed an obstructing rectal mass approximately 10 cm from the anal verge occupying 90% of the lumen. The pediatric scope could not traverse the mass. Biopsies from this procedure revealed adenocarcinoma consistent with colorectal origin arising and high-grade dysplasia. The patient was subsequently admitted for his workup. A CT scan of the abdomen and pelvis was performed later that same day. This revealed an approximate 12 x 10 cm mass occupying much of the right hepatic lobe. CEA testing was elevated at 205. The patient's CT scan of the chest was unremarkable. He subsequently underwent an MRI of the liver on August 08 revealing a heterogeneous, enhancing mass measuring 12 x 10 x 11 cm and the right hepatic lobe. There are a few smaller peripheral satellite nodules outside of the primary lesion. The patient underwent ultrasound-guided biopsy of the liver mass today. The patient reports at this time that he has continued to have loose stools, but has been moving his bowels every day. He denies difficulty with abdominal pain, and reports no pain when moving his bowels. He does report a nearly 20 pound weight loss over the past year. Review of Systems Constitutional: Denies chills, Denies fever Eyes: denies blurred vision Ears, nose, mouth and throat: Denies headache Cardiovascular: Denies chest pain, Denies dyspnea on exertion Respiratory: Denies cough Gastrointestinal: Reports change in bowel habits, Reports diarrhea, Denies BRBPR, Denies nausea, Denies vomiting Genitourinary: Denies dysuria Musculoskeletal: Denies low back pain Integumentary: Denies rash Neurological: Denies aphasia, Denies ataxia, Denies confusion Psychiatric: Denies anxiety, Denies depression Past Medical History Past Medical History: GERD/Reflux Additional Past Medical History / Comment(s): freq diarrhea History of Any Multi-Drug Resistant Organisms: None Reported Past Surgical History: Orthopedic Surgery Additional Past Surgical History / Comment(s): right knee repair Past Anesthesia/Blood Transfusion Reactions: No Reported Reaction Past Psychological History: No Psychological Hx Reported Smoking Status: Never smoker Past Alcohol Use History: Occasional Past Drug Use History: None Reported - Past Family History Mother Family Medical History: No Reported History Medications and Allergies Home Medications Medication Instructions Recorded Confirmed Type Acetaminophen [Tylenol] 325 mg PO Q4H PRN 07/31/20 08/06/20 History Naproxen Sodium [Aleve] 220 mg PO BID PRN 07/31/20 08/06/20 History Allergies Allergy/AdvReac Type Severity Reaction Status Date / Time No Known Allergies Allergy Verified 08/06/20 10:23 Physical Exam Vitals: Vital Signs Temp Pulse Resp BP Pulse Ox 08/09/20 12:45 98.4 F 91 112/74 91 L 08/09/20 12:30 98.4 F 89 135/77 99 08/09/20 12:15 87 16 121/76 95 08/09/20 12:06 88 16 118/78 97 08/09/20 11:56 89 16 134/87 100 08/09/20 08:06 99.1 F 84 12 120/77 96 08/09/20 00:00 98.5 F 76 14 120/76 97 08/08/20 20:00 99.2 F 88 18 133/80 96 Intake and Output 08/09/20 08/09/20 08/09/20 06:59 14:59 22:59 Other: # Voids 1 Weight 66.7 kg - Constitutional General appearance: no acute distress - EENT Eyes: EOMI, PERRLA ENT: hearing grossly normal - Neck Neck: no lymphadenopathy - Respiratory Respiratory: bilateral: CTA - Cardiovascular Rhythm: regular - Gastrointestinal General gastrointestinal: no distended, no tenderness - Integumentary Integumentary: no calor, no flushed - Neurologic Neurologic: CNII-XII intact - Musculoskeletal Musculoskeletal: no generalized weakness - Psychiatric Psychiatric: A&O x's 3, appropriate affect Results CBC & Chem 7: 08/07/20 14:08 08/07/20 14:08 CT scan - abdomen: report reviewed, image reviewed CT scan - chest: report reviewed, image reviewed CT scan - pelvis: report reviewed, image reviewed MRI - abdomen: report reviewed, image reviewed Assessment and Plan Assessment: The patient is a 54-year-old male with a history of a recently diagnosed 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 The patient is currently hospitalized, and we planned to discuss the role of radiation in his treatment. Plan: 1. Rectal mass: 90% lumen obstruction. I discussed with the patient that often the fastest way to alleviate bowel obstruction would be to have a diverting colostomy. The patient explained that he does not wish to have a diversion performed. He is tentatively planned to transfer to [facility] for discussion of a rectal stent placement, although they have not had any open beds for him. I am skeptical that a rectal stent would be very helpful in his situation. The patient at this time has no overt obstructive symptoms outside of the persistent loose bowels. I explained to the patient and may be reasonable to simply initiate his chemotherapy well keeping him on a specific diet targeted towards keeping the bowel movements loose. I explained that radiation therapy can help to decrease tumor size, but that this response typically takes longer than would be expected from a diversion procedure. 2. Likely metastatic disease to liver (large mass right lobe): Biopsy performed today, we'll hopefully have results early next week. I explained to the patient this was highly suspicious on imaging. This is why I feel the patient would likely benefit from starting chemotherapy in the near future, as he is likely to have treatment with multiagent chemotherapy to ensure response/lack of elsewhere progression before consideration of any local therapy to the liver or rectum. We will continue to follow along with the patient, but as he is not complaining of significant pain or bleeding and has no overt clinical obstruction I do not feel there is any urgent need for radiation at this time. Time: I spent 35 minutes with this patient, of which greater than 50% of that time was spent counseling and coordinating care. Time with Patient: Greater than 30
--- NOTE | 2020-08-09 17:09 | P.PN ---
Subjective Progress Note Date: 08/09/20 54-year-old male the was having frequent loose stools because of which patient underwent colonoscopy which showed a rectal mass about 10 cm. Patient is also found to have metastatic disease in the liver. Patient probably has rectal cancer. General surgery was consulted patient was subsequently admitted to general surgery for further evaluation and possible colectomy and the colostomy. Since patient has a metastatic disease patient either need just a diverticulum colostomy are a colonic stent and the patient chose to have colonic stent rather than diverticulitis colostomy. Patient is being transferred to [facility] for that reason patient does have leukocytosis without any fever chills . Patient denied any fever chills denied any cough denied any dysuria. 08/09/2020 Patient is seen and evaluated by radiation oncology for rectal mass which causes 90% luminal obstruction; patient has been refusing diversion colostomy; plan is for possible transfer to [facility] for possible corrective stent placement; patient is recommended possibly initiating chemotherapy along with radiation therapy to decrease tumor size Objective - Vital Signs Vital signs: Vital Signs Temp 98.4 F 08/09/20 12:45 Pulse 82 08/09/20 15:30 Resp 16 08/09/20 12:15 BP 122/71 08/09/20 15:30 Pulse Ox 96 08/09/20 15:30 Intake & Output 08/08/20 08/09/20 08/09/20 18:59 06:59 18:59 Weight 66.7 kg Other: Voiding Method Toilet Toilet # Voids 2 1 - Exam GENERAL: The patient is alert and oriented x3, not in any acute distress. Well developed, well nourished. HEENT: Pupils are round and equally reacting to light. EOMI. No scleral icterus. No conjunctival pallor. Normocephalic, atraumatic. No pharyngeal erythema. No thyromegaly. CARDIOVASCULAR: S1 and S2 present. No murmurs, rubs, or gallops. PULMONARY: Chest is clear to auscultation, no wheezing or crackles. ABDOMEN: Soft, nontender, nondistended, normoactive bowel sounds. No palpable organomegaly. MUSCULOSKELETAL: No joint swelling or deformity. EXTREMITIES: No cyanosis, clubbing, or pedal edema. NEUROLOGICAL: Gross neurological examination did not reveal any focal deficits. SKIN: No rashes. - Labs CBC & Chem 7: 05/26/21 14:08 08/07/20 14:08 Assessment and Plan Assessment: -Possible colon cancer: Patient is being transferred to [facility] for colonic stent placement. Patient is status post colonoscopy and biopsies. leukocytosis reactive without any evidence of infection clinically -Hepatic mass probably metastatic lesion.
[2020-08-10 08:03] VITALS: BP 139/82; PULSE 78; RESP 18; TEMP 98.3
[2020-08-10] MEDS: LACTATED RINGERS 1,000 ML IV SCH (09:48)
[2020-08-10] MEDS: SODIUM FERRIC GLUCONAT-SUCROSE 125 MG in SODIUM CHLORIDE 0.9% 100 ML IVPB SCH (09:48)
[2020-08-10] MEDS: HEPARIN SODIUM,PORCINE/PF 5,000 UNIT/0.5 ML SYRINGE SQ SCH (09:48)
--- NOTE | 2020-08-10 10:24 | P.DS ---
Providers Date of admission: 08/06/20 12:21 Expected date of discharge: 08/10/20 Attending physician: Byron Frankel Consults: 08/06/20 11:21 Consult Physician Routine Consulting Provider: Byron Frankel Consult Reason/Comments: Rectal mass Do you want consulting provider notified?: Already Contacted 08/06/20 12:21 Consult Physician Routine Consulting Provider: Darlene Corbin Consult Reason/Comments: med mgmt Do you want consulting provider notified?: Yes 08/07/20 10:16 Consult Physician Urgent Consulting Provider: Ventura Giles Consult Reason/Comments: RECTAL MASS, LIVER LESIONS Do you want consulting provider notified?: Yes 08/08/20 19:40 Consult Physician Routine Consulting Provider: Kirk Dowell Consult Reason/Comments: ?metastatic colorectal. Thoughts on stent versus initiation of treatment, Do you want consulting provider notified?: Yes Primary care physician: Jovan Francois - Discharge Diagnosis(es) (1) Mass in rectum Patient was newly diagnosed rectal mass. Biopsies are showing invasive adenocarcinoma. Workup has demonstrated a large liver mass as well. Patient was admitted after his endoscopy given the suggestion by history and endoscopic findings that this rectal mass was nearly obstructive. Patient has done well on a liquid diet post endoscopy. He has had liver biopsy, liver MRI, bone scan, CT chest in addition to abdomen and pelvis. Patient early on was given options of diverting ostomy versus neoadjuvant therapy versus stent placement. Given the degree of obstructive symptoms initially and the patient's refusal to have a diverting ostomy we asked for transfer to [facility] for evaluation and possible rectal stent placement. We have been waiting for a few days for transfer to take place in these other studies have taken place in the interim. He has now had a bed made available to him and we will pursue transfer although the patient realizes that rectal stent placement would be discussed with the oncology team at [facility] and we'll await their recommendations. Status: Acute Plan - Discharge Summary Discharge Rx Participant: No New Discharge Prescriptions: No Action Naproxen Sodium [Aleve] 220 mg PO BID PRN PRN Reason: Pain Acetaminophen [Tylenol] 325 mg PO Q4H PRN PRN Reason: Pain Discharge Medication List Acetaminophen [Tylenol] 325 mg PO Q4H PRN 07/31/20 [History] Naproxen Sodium [Aleve] 220 mg PO BID PRN 07/31/20 [History] Patient Instructions/Handouts: *Surgery [facility] - (Anesthesia) Endoscopy Discharge Instructions, Colonoscopy (DC) Discharge Disposition: TRANSFER TO SHORT TERM HOSP
== END 2020-08-10 09:59 | disposition short-term general hospital (02) | DRG 375 ==
LOC: ORWHC2ENDO 10:02 → 4SSUR 12:21
PROVIDERS: ADMIT Surgery; ATTEND Surgery
PROC: 0DBP8ZX Excision of Rectum, Via Natural or Artificial Opening Endoscopic, Diagnostic (ICD-10-PCS; principal; 2020-08-06 10:40)
DX: C19 Malignant neoplasm of rectosigmoid junction (principal); C78.7 Secondary malignant neoplasm of liver and intrahepatic bile duct; K92.89 Other specified diseases of the digestive system; K21.9 Gastro-esophageal reflux disease without esophagitis; E61.1 Iron deficiency; D72.829 Elevated white blood cell count, unspecified; D64.9 Anemia, unspecified; Z20.822 Contact with and (suspected) exposure to COVID-19
CPT/HCPCS: 44404; 45380; 47000; 71260; 74177; 74183; 76942; 78306; 80053; 82306; 82378; 82607; 82728; 82746; 83540; 83550; 83921; 84443; 85025; 85045; 85610; 85730; 87635; 88305; 88307; 88341; 88342

== ENCOUNTER → 2020-08-23 | Outpatient (CLI) | payer BC ==
--- NOTE | 2020-08-26 07:42 | PE ---
EXAMINATION TYPE: PET CT fusion skull to thigh DATE OF EXAM: 08/23/2020 COMPARISON: Chest CT August 07, 2020. CT abdomen and pelvis August 06, 2020 HISTORY: Colorectal cancer with liver metastatic disease on recent liver biopsy. TECHNIQUE: Following the intravenous administration of 9.8 mCi of F-18 FDG, whole body images are pe rformed from the skull base to the midthigh. Images are reviewed on the computer in the coronal, axi al, and sagittal planes. Reconstructed rotating images are created on independent workstation and re viewed on the computer. A localization and attenuation correction CT is performed in conjunction wi th the PET scan. Blood glucose level equals 92. SCAN: Initial Scan FINDINGS: SKULL BASE AND NECK: No areas of abnormal hypermetabolic uptake. CHEST, MEDIASTINUM, AND HILAR REGION: No areas of abnormal hypermetabolic uptake. ABDOMEN AND PELVIS: Large lobulated hypodense mass in the right hepatic lobe posterior aspect is hype rmetabolic, and measures roughly 13.2 cm long axis axial image 121 The max SUV is 10.68 along inferio r aspect axial image 139. Probable small adjacent satellite lesion inferiorly versus loculated extens ion of mass. Severe concentric wall thickening in the sigmoid rectal colon beginning near axial image 202 extendin g inferiorly to 220. Max SUV is 11.71 on axial image 208. OSSEOUS STRUCTURES: No areas of abnormal hypermetabolic uptake. OTHER CT: Coronary artery calcification is present. Nasal septum deviated to right of midline. Enlarged prostate consistent with BPH. Slight underlying scoliotic curvature. IMPRESSION: Rectosigmoid colonic neoplasm with large hepatic metastatic lesion. No additional metasta tic disease seen.
== END | disposition home or self-care (01) ==
LOC: RADPETMAIN 11:08
PROVIDERS: ATTEND Internal Medicine Hematology & Oncology
DX: C19 Malignant neoplasm of rectosigmoid junction (principal); C78.7 Secondary malignant neoplasm of liver and intrahepatic bile duct
CPT/HCPCS: 78815; A9552

== ENCOUNTER 2020-08-30 09:17 | Day surgery (SDC) | payer BC ==
[2020-08-29 13:02] VITALS: BMI 22.2
--- NOTE | 2020-08-30 08:12 | P.GSHP ---
History of Present Illness H&P Date: 08/30/20 Chief Complaint: Colon cancer 54-year-old male recently hospitalized after diagnosis of a nearly obstructing mass involving the rectosigmoid. Patient was found have a single liver metastasis. Patient initiated radiation therapy with improvement in his obstructive symptoms. Here today for Port-A-Cath for the initiation of neoadjuvant chemotherapy. Past Medical History Past Medical History: Cancer Additional Past Medical History / Comment(s): Hx freq diarrhea. Rectal cancer, mets to liver History of Any Multi-Drug Resistant Organisms: None Reported Past Surgical History: Orthopedic Surgery Additional Past Surgical History / Comment(s): Right knee repair. Colonoscopy 08/06/20 Past Anesthesia/Blood Transfusion Reactions: No Reported Reaction Smoking Status: Never smoker - Past Family History Mother Family Medical History: No Reported History Medications and Allergies Home Medications Medication Instructions Recorded Confirmed Type Acetaminophen [Tylenol] 500 - 1,000 mg PO Q4H PRN 07/31/20 08/29/20 History Naproxen Sodium [Aleve] 440 mg PO BID PRN 07/31/20 08/29/20 History Allergies Allergy/AdvReac Type Severity Reaction Status Date / Time No Known Allergies Allergy Verified 08/29/20 12:48 Surgical - Exam Physical exam: General: Well-developed, well-nourished HEENT: Normocephalic, sclerae nonicteric Abdomen: Nontender, nondistended Extremities: No edema Neuro: Alert and oriented - General severe distress Assessment and Plan (1) Colorectal cancer Narrative/Plan: 54-year-old male with recent diagnosis of colorectal cancer. We'll proceed with Port-A-Cath placement at this time. Risks of bleeding, infection, DVT, pneumothorax, catheter malfunction, anesthesia related complications were discussed. The patient understands and wishes to proceed. Status: Acute Code(s): C19 - MALIGNANT NEOPLASM OF RECTOSIGMOID JUNCTION SNOMED Code(s): 510292170
[~2020-08-30 09:17] MED LIST changes: +ACETAMINOPHEN TAB 500 MG TAB PO PRN; +DEXAMETHASONE SOD PHOSPHATE 4 MG/ML 1 ML VIAL IV ONE; +HEPARIN SODIUM,PORCINE/PF 5,000 UNIT/0.5 ML SYRINGE SQ PRN; +HYDROmorphone 0.5 MG/0.5 ML SYRINGE IVP PRN; +LACTATED RINGERS 1,000 ML IV SCH; -LIDOCAINE 1% (10MG/ML) FOR IV START INTRADERMA PRN; +MIDAZOLAM 2 MG/2 ML VIAL IV PRN; +ONDANSETRON 4 MG/2 ML VIAL IVP ONE; +Pre Op ABX Message 1 EACH MISC MISCELLANE ONE; +SCOPOLAMINE 1.5MG/72HR PATCH TRANSDERM ONE
[2020-08-30] MEDS ORDERED: LIDOCAINE 1% (10MG/ML) FOR IV START INTRADERMA ONE (09:46)
[2020-08-30] MEDS ORDERED: ONDANSETRON 4 MG/2 ML VIAL IVP ONE (09:54)
[2020-08-30] MEDS ORDERED: DEXAMETHASONE SOD PHOSPHATE 4 MG/ML 1 ML VIAL IVP ONE (09:54)
[2020-08-30] MEDS ORDERED: HEPARIN SODIUM,PORCINE 5,000 UNIT/ML 1 ML VIAL SQ ONE (09:55)
[2020-08-30] MEDS ORDERED: SCOPOLAMINE 1.5MG/72HR PATCH TRANSDERM ONE (09:55)
[2020-08-30] MEDS ORDERED: MIDAZOLAM 2 MG/2 ML VIAL ONE (10:42)
[2020-08-30] MEDS ORDERED: LIDOCAINE 1% INJ 10MG/ML (20 ML MDV) ONE (10:42)
[2020-08-30] MEDS ORDERED: fentaNYL (PF) 50 MCG/ML 2 ML AMP ONE (10:42)
[2020-08-30] MEDS ORDERED: PROPOFOL 10 MG/ML 20 ML VIAL IV ONE (10:42)
[2020-08-30] MEDS ORDERED: SODIUM CHLORIDE 0.9% 100 ML with ceFAZolin 2,000 MG IV ONE ×2 (10:43)
[2020-08-30] MEDS ORDERED: LACTATED RINGERS 1,000 ML IV ONE (10:56)
[2020-08-30] MEDS ORDERED: LIDOCAINE 1% INJ 10MG/ML (20 ML MDV) SQ ONE ×2 (11:06)
[2020-08-30] MEDS ORDERED: NALOXONE 0.4 MG/ML 1 ML VIAL IV PRN (11:39)
--- NOTE | 2020-08-30 11:41 | P.OP ---
Date of Procedure: 08/30/20 Procedure(s) Performed: PREOPERATIVE DIAGNOSIS: Colorectal cancer POSTOPERATIVE DIAGNOSIS: Same PROCEDURE: Port-A-Cath placement with fluoroscopic and ultrasound guidance SURGEON: Marlys EBL: Minimal ANESTHESIA: Sedation COMPLICATIONS: None OPERATIVE PROCEDURE: Patient was brought and placed on the operative table in the supine position. The patient was sedated per anesthesia that time. The chest and neck were prepped and draped in usual sterile fashion. The ultrasound probe was used to identify the location of the right internal jugular vein. The skin was localized with lidocaine. The Seldinger needle was advanced into the IJ under ultrasound guidance. The wire was advanced through the needle under fluoroscopic guidance into the superior vena cava. A port pocket was created in the right infraclavicular location. The catheter was tunneled from the wire entrance site to the port pocket. The port was then connected to the catheter. The dilator introducer was threaded over the guidewire. The guidewire and dilator were then removed. The catheter was advanced through the introducer and introducer was then removed. The tip was seen to be in the right atrial junction via fluoroscopy. A picture of the radiograph showing the tip at the radial digital junction was taken. Port was flushed with both saline and a Hep- Lock solution. There was good flow both in and out of the port. The port was sutured in underlying tissues using 3-0 silk sutures. The subcutaneous tissues were reapproximated using 3-0 Vicryl sutures and the skin at both locations using 4-0 Monocryl sutures. Skin glue and sterile dressings then applied. DISPOSITION: Stable to recovery room
[2020-08-30 11:43] VITALS: TEMP 98
--- NOTE | 2020-08-30 11:53 | FL ---
Fluoroscopy INDICATION: Pain FINDINGS: Fluoroscopy time: 5 seconds. Images obtained: 1. IMPRESSIONS: 1. Documentation of fluoroscopy.
[2020-08-30 12:07] VITALS: RESP 16
--- NOTE | 2020-08-30 12:07 | XR ---
EXAMINATION TYPE: XR chest 1V confirm line [facility] DATE OF EXAM: 08/30/2020 COMPARISON: NONE HISTORY: Line placement TECHNIQUE: Single frontal view of the chest is obtained. FINDINGS: The right-sided central line terminates in the superior vena cava region. Lungs are grossly clear. Cardiac silhouette is not enlarged. IMPRESSION: No acute process.
[2020-08-30 12:37] VITALS: BP 137/90; PULSE 73
== END 2020-08-30 12:52 | disposition home or self-care (01) ==
LOC: OR 09:17
PROVIDERS: ATTEND Surgery
DX: C19 Malignant neoplasm of rectosigmoid junction (principal); C78.7 Secondary malignant neoplasm of liver and intrahepatic bile duct
CPT/HCPCS: 77001; 36561; C1788; J2250; J1644; J1100; J2405; J0690; J2001; J3010; J1642; J2704

== ENCOUNTER → 2020-10-25 | Outpatient (CLI) | payer BC ==
[2020-10-25 10:59] LABS: African American GFR (CKD) >90 (>60 ml/min/1.73 sqM); Blood Urea Nitrogen 14 mg/dL (9-20); Non-African American GFR(CKD) >90 (>60 ml/min/1.73 sqM)
--- NOTE | 2020-10-25 12:55 | CT ---
EXAMINATION TYPE: CT ChestAbdPelvis w con DATE OF EXAM: 10/25/2020 COMPARISON: PET/CT 08/23/2020, MRI liver 08/08/2020 HISTORY: Rectal Cancer CT DLP: 1339 mGycm Automated exposure control for dose reduction was used. CONTRAST: CT scan of the chest, abdomen and pelvis is performed with Oral Contrast and with IV Contrast, patien t injected with 100 ml mL of Isovue 300. FINDINGS: LUNGS: The lungs are grossly clear, there is no concerning parenchymal mass or nodule identified. T here is no pleural effusion or pneumothorax seen. The tracheobronchial tree is patent. MEDIASTINUM: There are no greater than 1 cm hilar or mediastinal lymph nodes. No pericardial effusi on is seen. Coronary artery calcification. OTHER: No additional significant abnormality is seen. LIVER/GB: There is an 8.7 x 6.2 x 6.2 cm liver mass reduced in size from the prior MRI report measure d 12.3 cm in greatest dimension. PANCREAS: No significant abnormality is seen. SPLEEN: No significant abnormality is seen. ADRENALS: No significant abnormality is seen. KIDNEYS: No significant abnormality is seen. BOWEL: There is thickening of the wall of the left colon. Mild thickening of the rectal wall and sig moid colon noted. No evidence of bowel obstruction. LYMPH NODES: No greater than 1 cm abdominal or pelvic lymph nodes are appreciated. OSSEOUS STRUCTURES: Hypertrophic and degenerative changes of the spine OTHER: Mild bladder wall thickening. Prostate calcifications are seen. IMPRESSION: 1. Interval reduction in size of a large hepatic mass now measuring 8.7 x 6.2 x 6.2 cm and previously measuring 13.2 cm in greatest axis. 2. There is thickening of the wall the left colon, sigmoid colon and rectum. Although this could be i nflammatory consider direct visualization to exclude other etiologies including neoplasm. 3. Bladder wall thickening correlate for cystitis. 4. Prostate enlargement correlate with PSA.
== END | disposition home or self-care (01) ==
LOC: RADCTMAIN 10:00
PROVIDERS: ATTEND Internal Medicine Hematology & Oncology
DX: C20 Malignant neoplasm of rectum (principal); N40.0 Benign prostatic hyperplasia without lower urinary tract symptoms
CPT/HCPCS: 82565; 84520; 71260; 74177; J1642; Q9967

== ENCOUNTER 2021-01-08 16:53 | Emergency (ER) | payer BC ==
[2021-01-08 17:49] VITALS: TEMP 98.6
[2021-01-08 19:55] LABS: ALT 48 U/L (4-49); AST 45 U/L (17-59); African American GFR (CKD) >90 (>60 ml/min/1.73 sqM); Albumin 3.4 g/dL (3.5-5.0); Alkaline Phosphatase 216 U/L (38-126); Anion Gap 7 mmol/L; Blood Urea Nitrogen 15 mg/dL (9-20); Calcium 8.6 mg/dL (8.4-10.2); Carbon Dioxide 23 mmol/L (22-30); Chloride 102 mmol/L (98-107); Glucose 98 mg/dL (74-99); Non-African American GFR(CKD) >90 (>60 ml/min/1.73 sqM); Potassium 3.4 mmol/L (3.5-5.1); Sodium 132 mmol/L (137-145); Total Bilirubin 0.9 mg/dL (0.2-1.3); Total Protein 5.9 g/dL (6.3-8.2)
--- NOTE | 2021-01-08 19:56 | ED ---
General Adult HPI - General Chief complaint: Recheck/Abnormal Lab/Rx Stated complaint: Needs blood transfusion per PCP Time Seen by Provider: 01/08/21 19:14 Source: patient, RN notes reviewed, old records reviewed Mode of arrival: ambulatory Limitations: no limitations - History of Present Illness Initial comments: 55-year-old male history of metastatic rectal cancer presents for evaluation of anemia and thrombocytopenia. Patient had lab testing today and it indicated to his oncologist that he had had some rectal bleeding as well as hematuria. And nosebleeds. He was referred to the emergency department for evaluation. Patient denies significant pain. He is one-week status post chemotherapy. He is scheduled for his next chemotherapy in one week. He is not on any anticoagulation. - Related Data Home Medications Medication Instructions Recorded Confirmed Acetaminophen [Tylenol] 500 - 1,000 mg PO Q4H PRN 07/31/20 08/29/20 Naproxen Sodium [Aleve] 440 mg PO BID PRN 07/31/20 08/29/20 Allergies Allergy/AdvReac Type Severity Reaction Status Date / Time No Known Allergies Allergy Verified 01/08/21 17:49 Review of Systems ROS Statement: Those systems with pertinent positive or pertinent negative responses have been documented in the HPI. ROS Other: All systems not noted in ROS Statement are negative. Past Medical History Past Medical History: Cancer Additional Past Medical History / Comment(s): Hx freq diarrhea. Rectal cancer, mets to liver History of Any Multi-Drug Resistant Organisms: None Reported Past Surgical History: Orthopedic Surgery Additional Past Surgical History / Comment(s): Right knee repair. Colonoscopy 08/06/20 Past Anesthesia/Blood Transfusion Reactions: No Reported Reaction Past Psychological History: No Psychological Hx Reported Smoking Status: Never smoker Past Alcohol Use History: None Reported Past Drug Use History: None Reported - Past Family History Mother Family Medical History: No Reported History General Exam Limitations: no limitations General appearance: alert, in no apparent distress Head exam: Present: atraumatic, normocephalic Eye exam: Present: normal appearance, PERRL ENT exam: Present: normal exam Neck exam: Present: normal inspection. Absent: tenderness, meningismus Respiratory exam: Present: normal lung sounds bilaterally. Absent: respiratory distress, wheezes Cardiovascular Exam: Present: normal rhythm, tachycardia GI/Abdominal exam: Present: soft. Absent: distended, tenderness, guarding Extremities exam: Present: normal inspection, normal capillary refill. Absent: pedal edema Neurological exam: Present: alert, oriented X3, CN II-XII intact. Absent: motor sensory deficit Psychiatric exam: Present: normal affect, normal mood Skin exam: Present: warm, dry, pallor Course Vital Signs 01/08/21 01/08/21 01/08/21 17:47 19:58 20:43 Temperature 98.6 F Pulse Rate 111 H 101 H 99 Respiratory 20 18 16 Rate Blood Pressure 113/77 129/92 132/98 O2 Sat by Pulse 99 99 95 Oximetry EKG Findings - EKG Comments: EKG Findings:: EKG: Normal sinus rhythm, rate of 92, ME interval 140, QRS duration 76, QTC 452, no ST segment elevation. Medical Decision Making - Medical Decision Making 55-year-old male who had presented for evaluation of anemia and from cytopenia. Patient is currently undergoing chemotherapy for metastatic rectal cancer. He states he had some blood-tinged rectal bleeding and on nosebleed. He denies significant hemorrhage. He states that he was brought by the staff at his oncologist office to present to the emergency department. Patient denies anticoagulation. He states that he was told by his oncologist that one of the chemotherapeutic agents that he is currently receiving could cause minor bleeding. I did repeat his CBC, PT/INR, and CMP. His white blood cell count is 1.5 which is critical. There is no fever or infectious symptoms. Patient has a hemoglobin of 9.8 which is stable. His platelet count is 37. I did discuss case with Dr. Martins, who does not recommend transfusion at this time. Patient should have repeat laboratory testing done as an outpatient. He should monitor the minimal bleeding and return with increased bleeding. - Lab Data Result diagrams: 01/08/21 20:41 01/08/21 19:16 Lab Results 01/08/21 01/08/21 01/08/21 Range/Units 19:16 19:16 19:41 WBC (3.8-10.6) k/uL RBC (4.30-5.90) m/uL Hgb (13.0-17.5) gm/dL Hct (39.0-53.0) % MCV (80.0-100.0) fL MCH (25.0-35.0) pg MCHC (31.0-37.0) g/dL RDW (11.5-15.5) % Plt Count (150-450) k/uL MPV Neutrophils % (Manual) % Band Neuts % (Manual) % Lymphocytes % (Manual) % Monocytes % (Manual) % Neutrophils # (Manual) (1.3-7.7) k/uL Lymphocytes # (Manual) (1.0-4.8) k/uL Monocytes # (Manual) (0-1.0) k/uL Nucleated RBCs (0-0) /100 WBC Differential Comment Large Platelets Polychromasia Anisocytosis Macrocytosis PT (9.0-12.0) sec INR (<1.2) APTT (22.0-30.0) sec Sodium 132 L (137-145) mmol/L Potassium 3.4 L (3.5-5.1) mmol/L Chloride 102 (98-107) mmol/L Carbon Dioxide 23 (22-30) mmol/L Anion Gap 7 mmol/L BUN 15 (9-20) mg/dL Creatinine 0.58 L (0.66-1.25) mg/dL Est GFR (CKD-EPI)AfAm >90 (>60 ml/min/1.73 sqM) Est GFR (CKD-EPI)NonAf >90 (>60 ml/min/1.73 sqM) Glucose 98 (74-99) mg/dL Calcium 8.6 (8.4-10.2) mg/dL Total Bilirubin 0.9 (0.2-1.3) mg/dL AST 45 (17-59) U/L ALT 48 (4-49) U/L Alkaline Phosphatase 216 H (38-126) U/L Total Protein 5.9 L (6.3-8.2) g/dL Albumin 3.4 L (3.5-5.0) g/dL Blood Type B Positive Blood Type Confirm B Positive Blood Type Recheck No Previous Record Bld Type Recheck Status CABO Indicated Antibody Screen NEGATIVE Spec Expiration Date 01/11/2021 - 231501/08/21 01/08/21 Range/Units 20:41 20:41 WBC 1.3 L* (3.8-10.6) k/uL RBC 2.95 L (4.30-5.90) m/uL Hgb 9.8 L (13.0-17.5) gm/dL Hct 28.2 L (39.0-53.0) % MCV 95.5 (80.0-100.0) fL MCH 33.1 (25.0-35.0) pg MCHC 34.6 (31.0-37.0) g/dL RDW 20.5 H (11.5-15.5) % Plt Count 37 L (150-450) k/uL MPV 9.6 Neutrophils % (Manual) 62 % Band Neuts % (Manual) 1 % Lymphocytes % (Manual) 24 % Monocytes % (Manual) 13 % Neutrophils # (Manual) 0.80 L (1.3-7.7) k/uL Lymphocytes # (Manual) 0.31 L (1.0-4.8) k/uL Monocytes # (Manual) 0.17 (0-1.0) k/uL Nucleated RBCs 0 (0-0) /100 WBC Differential Comment P Large Platelets Present Polychromasia Present Anisocytosis Moderate Macrocytosis Slight PT 10.8 (9.0-12.0) sec INR 1.0 (<1.2) APTT 23.5 (22.0-30.0) sec Sodium (137-145) mmol/L Potassium (3.5-5.1) mmol/L Chloride (98-107) mmol/L Carbon Dioxide (22-30) mmol/L Anion Gap mmol/L BUN (9-20) mg/dL Creatinine (0.66-1.25) mg/dL Est GFR (CKD-EPI)AfAm (>60 ml/min/1.73 sqM) Est GFR (CKD-EPI)NonAf (>60 ml/min/1.73 sqM) Glucose (74-99) mg/dL Calcium (8.4-10.2) mg/dL Total Bilirubin (0.2-1.3) mg/dL AST (17-59) U/L ALT (4-49) U/L Alkaline Phosphatase (38-126) U/L Total Protein (6.3-8.2) g/dL Albumin (3.5-5.0) g/dL Blood Type Blood Type Confirm Blood Type Recheck Bld Type Recheck Status Antibody Screen Spec Expiration Date Disposition Clinical Impression: Anemia, Colorectal cancer, Leukopenia, Pancytopenia Disposition: HOME SELF-CARE Condition: Fair Instructions (If sedation given, give patient instructions): Anemia (ED), Pancytopenia (DC) Is patient prescribed a controlled substance at d/c from ED?: No Referrals: Ventura Giles MD [Family Provider] - 1-2 days Time of Disposition: 21:46
[2021-01-08 20:50] LABS: Anisocytosis Moderate; HCT 28.2 % (39.0-53.0); HGB 9.8 gm/dL (13.0-17.5); MCH 33.1 pg (25.0-35.0); MCHC 34.6 g/dL (31.0-37.0); MCV 95.5 fL (80.0-100.0); Macrocytosis Slight; Mean Platelet Volume 9.6; RBC 2.95 m/uL (4.30-5.90); RDW 20.5 % (11.5-15.5)
[2021-01-08 20:59] LABS: Partial Thromboplastin Time 23.5 sec (22.0-30.0); Prothrombin Time 10.8 sec (9.0-12.0)
[2021-01-08 21:04] LABS: WBC 1.3 k/uL (3.8-10.6)
[2021-01-08 22:00] LABS: Band Neutrophils % 1 %; Large Platelets Present; Lymphocytes # (M) 0.31 k/uL (1.0-4.8); Monocytes # (M) 0.17 k/uL (0-1.0); Neutrophils % (M) 62 %; Nucleated Red Blood Cells 0 /100 WBC (0-0); Platelet Count 37 k/uL (150-450); Polychromasia Present; Total Cells Counted 100
[2021-01-08 22:21] VITALS: BP 142/106; PULSE 88; RESP 18
== END 2021-01-08 22:20 | disposition home or self-care (01) ==
LOC: EC 16:53
DX: C19 Malignant neoplasm of rectosigmoid junction (principal); D64.9 Anemia, unspecified; D61.818 Other pancytopenia; D72.819 Decreased white blood cell count, unspecified
CPT/HCPCS: 36415; 80053; 85025; 85610; 85730; 86850; 86900; 86901; 93005; 99284

== ENCOUNTER 2021-01-22 00:53 | Inpatient (IN) | payer BC ==
[2021-01-22] MEDS ORDERED: SODIUM CHLORIDE 0.9% 1,000 ML IV STA ×2 (01:08→02:40)
[2021-01-22] MEDS ORDERED: ACETAMINOPHEN TAB 500 MG TAB PO STA (01:08)
[2021-01-22] MEDS ORDERED: IBUPROFEN 600 MG TAB PO STA (01:15)
--- NOTE | 2021-01-22 01:42 | ED ---
General Adult HPI - General Chief complaint: Weakness Stated complaint: Weakness Time Seen by Provider: 01/22/21 00:55 Source: patient, EMS Mode of arrival: EMS Limitations: no limitations - History of Present Illness Initial comments: 55-year-old male with a past medical history of rectal cancer, liver cancer on chemotherapy with the last treatment being Wednesday presents to the emergency room for a chief complaint of not feeling well. Patient states he is lightheaded. Patient states he has felt this way for the past several days. States he hasn't had anything be in 3 days and only has had minimal fluid intake. Patient denies fevers. Denies upper respiratory symptoms. Patient has no other complaints at this time including shortness of breath, chest pain, abdominal pain, nausea or vomiting, headache, or visual changes. - Related Data Home Medications Medication Instructions Recorded Confirmed Acetaminophen [Tylenol] 500 - 1,000 mg PO Q4H PRN 07/31/20 08/29/20 Naproxen Sodium [Aleve] 440 mg PO BID PRN 07/31/20 08/29/20 Allergies Allergy/AdvReac Type Severity Reaction Status Date / Time No Known Allergies Allergy Verified 01/08/21 17:49 Review of Systems ROS Statement: Those systems with pertinent positive or pertinent negative responses have been documented in the HPI. ROS Other: All systems not noted in ROS Statement are negative. Past Medical History Past Medical History: Cancer Additional Past Medical History / Comment(s): Hx freq diarrhea. Rectal cancer, mets to liver History of Any Multi-Drug Resistant Organisms: None Reported Past Surgical History: Orthopedic Surgery Additional Past Surgical History / Comment(s): Right knee repair. Colonoscopy 08/06/20 Past Anesthesia/Blood Transfusion Reactions: No Reported Reaction Past Psychological History: No Psychological Hx Reported Smoking Status: Never smoker Past Alcohol Use History: None Reported Past Drug Use History: None Reported - Past Family History Mother Family Medical History: No Reported History General Exam Limitations: no limitations General appearance: alert, in no apparent distress Head exam: Present: atraumatic Eye exam: Present: normal appearance, PERRL, EOMI. Absent: scleral icterus, conjunctival injection ENT exam: Present: normal exam, mucous membranes moist Neck exam: Present: normal inspection, full ROM. Absent: tenderness Respiratory exam: Present: normal lung sounds bilaterally. Absent: respiratory distress, wheezes Cardiovascular Exam: Present: regular rate, normal rhythm, normal heart sounds GI/Abdominal exam: Present: soft, normal bowel sounds. Absent: distended, tenderness Neurological exam: Present: alert Course Vital Signs 01/22/21 01:08 Temperature 100.4 F H Pulse Rate 137 H Respiratory 16 Rate Blood Pressure 130/85 O2 Sat by Pulse 100 Oximetry EKG Findings - EKG Comments: EKG Findings:: sinus tach, vent rate 139, NM int 122, QTc 429 Procedures - Sepsis Sepsis Focused Exam #1 Time Sepsis Criteria Met: 01:55 Sepsis Focused Exam Date: 01/22/21 Sepsis Focused Exam Time: 02:15 Sepsis Focused Exam Complete: Yes Vital Signs & RN Notes Reviewed: Yes Capillary Refill: < 2 Seconds: Fingers, Toes Peripheral Pulses: Normal: Radial (R) Skin Color: Normal for Patient, Ashen Respiratory Exam: normal lung sounds Cardiovascular Exam: tachycardia Medical Decision Making - Medical Decision Making Patient presents with a fever of 100.4 and tachycardia of 137. Suspect tachycardia secondary to fever as well as dehydration. Patient does appear very dry. EKG shows a sinus tachycardia. CBC was obtained which shows leukopenia with a white blood cell, 0.4. CMP does show evidence of dehydration. Lactic acid is 7.3. Chest x-ray showed no acute process. Urinalysis will be cultured. Patient started on broad-spectrum IV antibiotics and given 30 mL/kg of fluids. pt admitted for IV abx, case discussed with Tania. Blood cultures pending. - Lab Data Result diagrams: 01/22/21 01:30 01/22/21 01:30 Lab Results 01/22/21 01/22/21 01/22/21 Range/Units 01:29 01:30 01:30 WBC 0.4 L* (3.8-10.6) k/uL RBC 2.59 L (4.30-5.90) m/uL Hgb 8.8 L (13.0-17.5) gm/dL Hct 26.5 L (39.0-53.0) % MCV 102.4 H D (80.0-100.0) fL MCH 34.2 (25.0-35.0) pg MCHC 33.4 (31.0-37.0) g/dL RDW 21.0 H (11.5-15.5) % Plt Count 88 L D (150-450) k/uL MPV 10.2 Anisocytosis Moderate Macrocytosis Marked A Sodium 138 (137-145) mmol/L Potassium 3.9 (3.5-5.1) mmol/L Chloride 106 (98-107) mmol/L Carbon Dioxide 15 L (22-30) mmol/L Anion Gap 17 mmol/L BUN 41 H (9-20) mg/dL Creatinine 1.01 (0.66-1.25) mg/dL Est GFR (CKD-EPI)AfAm >90 (>60 ml/min/1.73 sqM) Est GFR (CKD-EPI)NonAf 84 (>60 ml/min/1.73 sqM) Glucose 165 H (74-99) mg/dL Plasma Lactic Acid Amado 7.3 H* (0.7-2.0) mmol/L Calcium 8.0 L (8.4-10.2) mg/dL Magnesium 2.3 (1.6-2.3) mg/dL Total Bilirubin 0.8 (0.2-1.3) mg/dL AST 35 (17-59) U/L ALT 55 H (4-49) U/L Alkaline Phosphatase 169 H (38-126) U/L Total Protein 5.4 L (6.3-8.2) g/dL Albumin 2.9 L (3.5-5.0) g/dL Coronavirus (PCR) (Not Detectd) 01/22/21 Range/Units 02:25 WBC (3.8-10.6) k/uL RBC (4.30-5.90) m/uL Hgb (13.0-17.5) gm/dL Hct (39.0-53.0) % MCV (80.0-100.0) fL MCH (25.0-35.0) pg MCHC (31.0-37.0) g/dL RDW (11.5-15.5) % Plt Count (150-450) k/uL MPV Anisocytosis Macrocytosis Sodium (137-145) mmol/L Potassium (3.5-5.1) mmol/L Chloride (98-107) mmol/L Carbon Dioxide (22-30) mmol/L Anion Gap mmol/L BUN (9-20) mg/dL Creatinine (0.66-1.25) mg/dL Est GFR (CKD-EPI)AfAm (>60 ml/min/1.73 sqM) Est GFR (CKD-EPI)NonAf (>60 ml/min/1.73 sqM) Glucose (74-99) mg/dL Plasma Lactic Acid Amado (0.7-2.0) mmol/L Calcium (8.4-10.2) mg/dL Magnesium (1.6-2.3) mg/dL Total Bilirubin (0.2-1.3) mg/dL AST (17-59) U/L ALT (4-49) U/L Alkaline Phosphatase (38-126) U/L Total Protein (6.3-8.2) g/dL Albumin (3.5-5.0) g/dL Coronavirus (PCR) Not Detected (Not Detectd) Disposition Clinical Impression: Dehydration Disposition: ADMITTED IP TO THIS HOSP Is patient prescribed a controlled substance at d/c from ED?: No Referrals: Joavn Francois DO [Primary Care Provider] - 1-2 days Time of Disposition: 03:19
[2021-01-22 01:49] LABS: Anisocytosis Moderate; HCT 26.5 % (39.0-53.0); HGB 8.8 gm/dL (13.0-17.5); MCH 34.2 pg (25.0-35.0); MCHC 33.4 g/dL (31.0-37.0); Macrocytosis Marked; Mean Platelet Volume 10.2; RBC 2.59 m/uL (4.30-5.90)
[2021-01-22 01:57] LABS: WBC 0.4 k/uL (3.8-10.6)
[2021-01-22 01:58] LABS: MCV 102.4 fL (80.0-100.0)
[2021-01-22 02:10] LABS: AST 35 U/L (17-59); African American GFR (CKD) >90 (>60 ml/min/1.73 sqM); Albumin 2.9 g/dL (3.5-5.0); Alkaline Phosphatase 169 U/L (38-126); Anion Gap 17 mmol/L; Blood Urea Nitrogen 41 mg/dL (9-20); Carbon Dioxide 15 mmol/L (22-30); Chloride 106 mmol/L (98-107); Glucose 165 mg/dL (74-99); Magnesium 2.3 mg/dL (1.6-2.3); Non-African American GFR(CKD) 84 (>60 ml/min/1.73 sqM); Potassium 3.9 mmol/L (3.5-5.1); Sodium 138 mmol/L (137-145); Total Bilirubin 0.8 mg/dL (0.2-1.3); Total Protein 5.4 g/dL (6.3-8.2)
[2021-01-22] MEDS ORDERED: VANCOMYCIN IV PER PHARMACY 1 EACH MISC MISCELLANE PRN (02:42)
[2021-01-22 02:48] LABS: Appearance,Urine Cloudy (Clear); Bacteria,Urine Rare /hpf; Bilirubin,Urine 1+ (Negative); Blood,Urine Large (Negative); Color,Urine Dark Brown; Glucose,Urine (UA) Negative (Negative); Hyaline Casts,Urine 124 /lpf (0-2); Ketones,Urine Negative (Negative); Leukocyte Esterase,Urine Trace (Negative); Mucus,Urine Few /hpf; Nitrite,Urine Negative (Negative); PH, Urine 5.5 (5.0-8.0); Protein,Urine 2+ (Negative); RBC,Urine >182 /hpf (0-5); Specific Gravity,Urine 1.029 (1.001-1.035); Squamous Epithelial Cell,Urine <1 /hpf (0-4); WBC,Urine 32 /hpf (0-5)
[2021-01-22] MEDS ORDERED: ONDANSETRON 4 MG/2 ML VIAL IVP STA (02:48)
[2021-01-22 02:57] LABS: ALT 55 U/L (4-49)
[2021-01-22] MEDS ORDERED: VANCOMYCIN 1,000 MG in SODIUM CHLORIDE 0.9% 250 ML IVPB ONE (03:00)
[2021-01-22] MEDS ORDERED: PIPERACILLIN-TAZOBACTAM 3.375 GM in SODIUM CHLORIDE 0.9% 100 ML IVPB ONE (03:00)
--- NOTE | 2021-01-22 03:07 | XR ---
EXAMINATION TYPE: XR chest 2V DATE OF EXAM: 01/22/2021 COMPARISON: 08/30/2020 HISTORY: Fever TECHNIQUE: 2 views FINDINGS: Heart and mediastinum are normal. Lungs are clear. Diaphragm is normal. There is right cent ral venous catheter with tip in the superior vena cava. There are chest leads. Bony thorax is intact. IMPRESSION: No active cardiopulmonary disease. Normal heart. No change.
[2021-01-22] MEDS ORDERED: NALOXONE 0.4 MG/ML 1 ML VIAL IV PRN (03:11)
[2021-01-22] MEDS ORDERED: IBUPROFEN 400 MG TAB PO PRN (03:11)
[2021-01-22] MEDS ORDERED: ONDANSETRON 4 MG/2 ML VIAL IVP PRN (03:11)
[2021-01-22] MEDS ORDERED: ACETAMINOPHEN TAB 325 MG TAB PO PRN (03:11)
[2021-01-22 03:35] LABS: Platelet Count 88 k/uL (150-450)
[2021-01-22 03:36] LABS: Poikilocytosis (M) Present
[2021-01-22] MEDS ORDERED: diphenhydrAMINE 50 MG/ML 1 ML VIAL IVP STA (03:36)
[2021-01-22] MEDS ORDERED: METOCLOPRAMIDE 5 MG/ML 2 ML VIAL IVP STA (03:36)
[2021-01-22] MEDS ORDERED: MORPHINE SULFATE 4 MG/ML SYRINGE IVP STA (03:36)
[2021-01-22] MEDS: SODIUM CHLORIDE 0.9% 1,000 ML IV SCH (04:00)
[2021-01-22 15:56] LABS: INR 1.5 (<1.2)
[2021-01-22 16:00] LABS: Partial Thromboplastin Time 18.6 sec (22.0-30.0)
[2021-01-22] MEDS ORDERED: VANCOMYCIN 1,000 MG in SODIUM CHLORIDE 0.9% 250 ML IVPB SCH (16:00)
--- NOTE | 2021-01-22 19:06 | P.CONS ---
History of Present Illness - Reason for Consult Consult date: 01/22/21 Neutropenic Fever Requesting physician: Tommy Dow - Chief Complaint Neutropenia and fever - History of Present Illness Mr. Montelongo is well known to us for treatment of metastatic rectal cancer. He recently completed cycle 10 of FOLFIRINOX on 12/17, neulasta on 12/18. He presents to Emergency with fevers and neutropenia. Blood cultures x2 (one port and one peripheral) urine cultures, and Chest xray and covid testing performed and pending. Broad spectrum antibiotics initiated in emergency department. Review of Systems All systems: negative Constitutional: Reports as per HPI Past Medical History Past Medical History: Cancer Additional Past Medical History / Comment(s): Hx freq diarrhea. Rectal cancer, mets to liver History of Any Multi-Drug Resistant Organisms: None Reported Past Surgical History: Orthopedic Surgery Additional Past Surgical History / Comment(s): Right knee repair. Colonoscopy 08/06/20, right side chemoport Past Anesthesia/Blood Transfusion Reactions: No Reported Reaction Past Psychological History: No Psychological Hx Reported Smoking Status: Never smoker Past Alcohol Use History: None Reported Past Drug Use History: None Reported - Past Family History Mother Family Medical History: No Reported History Medications and Allergies Home Medications Medication Instructions Recorded Confirmed Type Lidocaine-Prilocaine Cream [Emla 1 applic TOPICAL DAILY PRN 01/22/21 01/22/21 History Cream 2.5%/2.5%] Ondansetron Odt [Zofran Odt] 8 mg PO Q8HR PRN 01/22/21 01/22/21 History Vitamin B Complex 1 cap PO DAILY 01/22/21 01/22/21 History polyethylene glycoL 3350 [Miralax] 8.5 - 17 gm PO DAILY PRN 01/22/21 01/22/21 History Allergies Allergy/AdvReac Type Severity Reaction Status Date / Time gabapentin AdvReac dizzy Verified 01/22/21 06:53 Physical Exam Vitals: Vital Signs Temp Pulse Pulse Resp BP BP Pulse Ox 01/22/21 08:00 98.2 F 114 H 16 127/91 97 01/22/21 06:20 113 H 16 122/88 97 01/22/21 04:51 118 H 15 115/81 98 01/22/21 03:40 97.8 F 129 H 16 127/91 97 01/22/21 01:08 100.4 F H 137 H 16 130/85 100 Intake and Output 01/21/21 01/22/21 01/22/21 22:59 06:59 14:59 Other: Voiding Method Urinal Weight 55.338 kg - Constitutional General appearance: cooperative, no acute distress - EENT Eyes: EOMI, PERRLA ENT: NA/AT, normal oropharynx - Respiratory Respiratory: bilateral: diminished - Cardiovascular Rhythm: regularly irregular - Gastrointestinal General gastrointestinal: soft, tenderness - Integumentary Integumentary: pale - Neurologic Neurologic: CNII-XII intact - Musculoskeletal Musculoskeletal: generalized weakness - Psychiatric Psychiatric: A&O x's 3, appropriate affect, intact judgment & insight Results CBC & Chem 7: 01/23/21 10:18 01/23/21 06:13 Labs: Abnormal Lab Results - Last 24 Hours (Table) 01/22/21 01/22/21 01/22/21 Range/Units 01:29 01:30 01:30 WBC 0.4 L* (3.8-10.6) k/uL RBC 2.59 L (4.30-5.90) m/uL Hgb 8.8 L (13.0-17.5) gm/dL Hct 26.5 L (39.0-53.0) % MCV 102.4 H D (80.0-100.0) fL RDW 21.0 H (11.5-15.5) % Plt Count 88 L D (150-450) k/uL Macrocytosis Marked A Carbon Dioxide 15 L (22-30) mmol/L BUN 41 H (9-20) mg/dL Glucose 165 H (74-99) mg/dL Plasma Lactic Acid Amado 7.3 H* (0.7-2.0) mmol/L Calcium 8.0 L (8.4-10.2) mg/dL ALT 55 H (4-49) U/L Alkaline Phosphatase 169 H (38-126) U/L Total Protein 5.4 L (6.3-8.2) g/dL Albumin 2.9 L (3.5-5.0) g/dL Urine Protein (Negative) Urine Blood (Negative) Urine Bilirubin (Negative) Ur Leukocyte Esterase (Negative) Urine RBC (0-5) /hpf Urine WBC (0-5) /hpf Urine Bacteria (None) /hpf Hyaline Casts (0-2) /lpf Urine Mucus (None) /hpf 01/22/21 01/22/21 Range/Units 02:24 04:17 WBC (3.8-10.6) k/uL RBC (4.30-5.90) m/uL Hgb (13.0-17.5) gm/dL Hct (39.0-53.0) % MCV (80.0-100.0) fL RDW (11.5-15.5) % Plt Count (150-450) k/uL Macrocytosis Carbon Dioxide (22-30) mmol/L BUN (9-20) mg/dL Glucose (74-99) mg/dL Plasma Lactic Acid Amado 2.4 H* (0.7-2.0) mmol/L Calcium (8.4-10.2) mg/dL ALT (4-49) U/L Alkaline Phosphatase (38-126) U/L Total Protein (6.3-8.2) g/dL Albumin (3.5-5.0) g/dL Urine Protein 2+ H (Negative) Urine Blood Large H (Negative) Urine Bilirubin 1+ H (Negative) Ur Leukocyte Esterase Trace H (Negative) Urine RBC >182 H (0-5) /hpf Urine WBC 32 H (0-5) /hpf Urine Bacteria Rare H (None) /hpf Hyaline Casts 124 H (0-2) /lpf Urine Mucus Few H (None) /hpf Microbiology - Last 24 Hours (Table) 01/22/21 02:24 Urine Culture - Preliminary Urine,Voided Chest x-ray: report reviewed Assessment and Plan (1) Febrile neutropenia Current Visit: Yes Status: Acute Code(s): D70.9 - NEUTROPENIA, UNSPECIFIED; R50.81 - FEVER PRESENTING WITH CONDITIONS CLASSIFIED ELSEWHERE SNOMED Code(s): 918799354 (2) Rectal adenocarcinoma Current Visit: Yes Status: Acute Code(s): C20 - MALIGNANT NEOPLASM OF RECTUM SNOMED Code(s): 032204925 (3) Pancytopenia due to antineoplastic chemotherapy Current Visit: Yes Status: Acute Code(s): D61.810 - ANTINEOPLASTIC CHEMOTHERAPY INDUCED PANCYTOPENIA; T45.1X5A - ADVERSE EFFECT OF ANTINEOPLASTIC AND IMMUNOSUP DRUGS, INIT SNOMED Code(s): 727917884724413 (4) Fever Current Visit: Yes Status: Acute Code(s): R50.9 - FEVER, UNSPECIFIED SNOMED Code(s): 728096329 Plan: Assessment and Recommendations: GI Blood Loss Anemia:Likely secondary to vascular malignancy - PRBC Transfusions today - NPO - General Surgery - DIC Work-up - Platelet transfusion - If fibrinogen less than 100 give Cryoprecipitate - If INR increased FFP Febrile Neutropenia: - Continue antibiotics - ID following - Await brush culture results - Not a candidate for GCSF as he received neulasta on 01/18/21 Await brush Cultures Await surgery recs PPI BID IVp Stool Studies NPO neutropenic Colitis risk ID is following Keep Fibrinogen >150 - If not Cryoprecipitate if active bleeding Keep INR <1.5 - If not FFP if active bleeding Platelets above 50K if active bleeding Hemoglobin >7 NO NSAIDS, ASA or Anticoagulation Discussed in detail with patient and Mother
--- NOTE | 2021-01-22 23:14 | P.HPIM ---
History of Present Illness H&P Date: 01/22/21 Chief Complaint: Generalized weakness. Patient is a 55-year-old male with a known history of colorectal cancer with mets to liver and is currently undergoing chemotherapy cycle of 10, last dose on 12/17/2020 presents to ER with complaints of fever, generalized weakness and un able to take any oral intake. Patient was seen at [facility] yesterday and was given IV fluids and sent home. Patient was brought to the hospital due to generalized weakness and not tolerating oral diet and was also getting more weaker. Denied any complaints of chest pain or shortness breath. Patient does have nausea. No vomiting. No abdominal pain. No headache. On admission blood pressure 130/85 pulse is 137 respirations 16 and pulse ox 90% on room air and T-max 100.4. Chest x-ray showed no active cardiopulmonary disease. Normal heart. EKG showed sinus tachycardia Laboratory data showed Urinalysis showed 2+ protein, large blood, 1+ bilirubin, trace leukoesterase and elevated RBCs and WBCs 32 COVID-19 PCR not detected. WBCs 0.4 hemoglobin 8.8 and platelets 88 Sodium 138 potassium 3.9 chloride 25026 bicarb is 15 BUN 41 and creatinine 1.01 and blood sugar is 165 lactic acid 7.3 on admission Albumin 2.9 Review of Systems Constitutional: Patient does have fever at home. No chills. Generalized weakness, lethargy and loss of appetite.. Abdomen: + Nausea. Patient denied vomiting. + diarrhea and abdominal pain. Cardiovascular: Patient denies any chest pain or short of breath no palpitations. Respiratory: patient denied any cough or sputum production. No shortness of breath Neurologic: Patient denied any numbness or tingling headache. Musculoskeletal: Patient denies any complaints of joint swelling or deformity. Skin: Negative Psychiatric: Negative Endocrine: No heat or cold intolerance. No recent weight gain. Genitourinary: No dysuria or hematuria. All other 14 point ROS negative except the above Past Medical History Past Medical History: Cancer Additional Past Medical History / Comment(s): Hx freq diarrhea. Rectal cancer, mets to liver History of Any Multi-Drug Resistant Organisms: None Reported Past Surgical History: Orthopedic Surgery Additional Past Surgical History / Comment(s): Right knee repair. Colonoscopy 08/06/20, right side chemoport Past Anesthesia/Blood Transfusion Reactions: No Reported Reaction Past Psychological History: No Psychological Hx Reported Smoking Status: Never smoker Past Alcohol Use History: None Reported Past Drug Use History: None Reported - Past Family History Mother Family Medical History: No Reported History Medications and Allergies Home Medications Medication Instructions Recorded Confirmed Type Lidocaine-Prilocaine Cream [Emla 1 applic TOPICAL DAILY PRN 01/22/21 01/22/21 History Cream 2.5%/2.5%] Ondansetron Odt [Zofran Odt] 8 mg PO Q8HR PRN 01/22/21 01/22/21 History Vitamin B Complex 1 cap PO DAILY 01/22/21 01/22/21 History polyethylene glycoL 3350 [Miralax] 8.5 - 17 gm PO DAILY PRN 01/22/21 01/22/21 History Allergies Allergy/AdvReac Type Severity Reaction Status Date / Time gabapentin AdvReac dizzy Verified 01/22/21 06:53 Physical Exam Vitals: Vital Signs Temp Pulse Pulse Resp BP BP Pulse Ox 01/22/21 08:00 98.2 F 114 H 16 127/91 97 01/22/21 06:20 113 H 16 122/88 97 01/22/21 04:51 118 H 15 115/81 98 01/22/21 03:40 97.8 F 129 H 16 127/91 97 01/22/21 01:08 100.4 F H 137 H 16 130/85 100 Intake and Output 01/21/21 01/22/21 01/22/21 22:59 06:59 14:59 Other: Voiding Method Urinal Weight 55.338 kg PHYSICAL EXAMINATION: Patient is lying in the bed comfortably, no acute distress, awake alert and or iented.Patient is lethargic and cachectic.. HEENT: Normocephalic. Neck is supple. Pupils reactive. Nostrils clear. Oral cavity is dry. Neck reveals no JVD, carotid bruits, or thyromegaly. CHEST EXAMINATION: Trachea is central. Symmetrical expansion.Bibasilar diminished sounds. Lung melendrez clear to auscultation and percussion. CARDIAC: Normal S1, S2 with no gallops. No murmurs ABDOMEN: Soft. Bowel sounds normal. No organomegaly. No abdominal bruits. Extremities: reveal no edema. No clubbing or cyanosis Neurologically awake, alert, oriented x3 with well-coordinated movements. No focal deficits noted Skin: No rash or skin lesions. Psychiatric: Cooperative. Nonsuicidal Musculoskeletal: No joint swelling or deformity. Normal range of motion. Results CBC & Chem 7: 01/22/21 01:30 01/22/21 01:30 Labs: Abnormal Lab Results - Last 24 Hours (Table) 01/22/21 01/22/21 01/22/21 Range/Units 01:29 01:30 01:30 WBC 0.4 L* (3.8-10.6) k/uL RBC 2.59 L (4.30-5.90) m/uL Hgb 8.8 L (13.0-17.5) gm/dL Hct 26.5 L (39.0-53.0) % MCV 102.4 H D (80.0-100.0) fL RDW 21.0 H (11.5-15.5) % Plt Count 88 L D (150-450) k/uL Macrocytosis Marked A Carbon Dioxide 15 L (22-30) mmol/L BUN 41 H (9-20) mg/dL Glucose 165 H (74-99) mg/dL Plasma Lactic Acid Amado 7.3 H* (0.7-2.0) mmol/L Calcium 8.0 L (8.4-10.2) mg/dL ALT 55 H (4-49) U/L Alkaline Phosphatase 169 H (38-126) U/L Total Protein 5.4 L (6.3-8.2) g/dL Albumin 2.9 L (3.5-5.0) g/dL Urine Protein (Negative) Urine Blood (Negative) Urine Bilirubin (Negative) Ur Leukocyte Esterase (Negative) Urine RBC (0-5) /hpf Urine WBC (0-5) /hpf Urine Bacteria (None) /hpf Hyaline Casts (0-2) /lpf Urine Mucus (None) /hpf 01/22/21 01/22/21 Range/Units 02:24 04:17 WBC (3.8-10.6) k/uL RBC (4.30-5.90) m/uL Hgb (13.0-17.5) gm/dL Hct (39.0-53.0) % MCV (80.0-100.0) fL RDW (11.5-15.5) % Plt Count (150-450) k/uL Macrocytosis Carbon Dioxide (22-30) mmol/L BUN (9-20) mg/dL Glucose (74-99) mg/dL Plasma Lactic Acid Amado 2.4 H* (0.7-2.0) mmol/L Calcium (8.4-10.2) mg/dL ALT (4-49) U/L Alkaline Phosphatase (38-126) U/L Total Protein (6.3-8.2) g/dL Albumin (3.5-5.0) g/dL Urine Protein 2+ H (Negative) Urine Blood Large H (Negative) Urine Bilirubin 1+ H (Negative) Ur Leukocyte Esterase Trace H (Negative) Urine RBC >182 H (0-5) /hpf Urine WBC 32 H (0-5) /hpf Urine Bacteria Rare H (None) /hpf Hyaline Casts 124 H (0-2) /lpf Urine Mucus Few H (None) /hpf Microbiology - Last 24 Hours (Table) 01/22/21 02:24 Urine Culture - Preliminary Urine,Voided Thrombosis Risk Factor Assmnt - DVT/VTE Prophylaxis DVT/VTE Prophylaxis: Mechanical Prophylaxis ordered - Choose All That Apply Any of the Below Risk Factors Present?: Yes Each Factor Represents 1 point: Age 41-60 years, Sepsis (< 1month) Other Risk Factors: No Other congenital or acquired thrombophilia - If yes, enter type in comment: No Thrombosis Risk Factor Assessment Total Risk Factor Score: 2 Thrombosis Risk Factor Assessment Level: Low Risk Assessment and Plan Assessment: Neutropenic fever. Lactic acidosis 7.3 due to dehydration volume depletion Colorectal cancer/adenocarcinoma with mets to liver. Currently on cycle 10 chemotherapy last dose about 5 days back Pancytopenia secondary to chemotherapy Asymptomatic bacteriuria Mild to moderate protein calorie malnutrition Mild elevated liver enzymes Metabolic acidosis DVT prophylaxis not on heparin due to thrombocytopenia. Plan: Patient will be continued on IV hydration with normal saline and continue with broad-spectrum antibiotics. Follow-up urine and blood cultures. Continue symptomatic management for nausea and increase oral intake. ID and oncology was consulted. Continue to follow closely. Discussed with his mother at bedside in detail. Prognosis guarded at this time. Time with Patient: Greater than 30
[2021-01-22] MEDS ORDERED: IOPAMIDOL CONTRAST (ORAL USE) VIAL PO PRN (23:38)
--- NOTE | 2021-01-22 23:43 | P.CONS ---
History of Present Illness - Reason for Consult Consult date: 01/22/21 Febrile neutropenia Requesting physician: Yaquelin Chen - Chief Complaint Fever and weakness x 1 day - History of Present Illness History of present illness : Patient is 55-year male with a past medical history significant for metastatic colorectal cancer with mets to the liver in this patient on chemotherapy with the last chemo was on Wednesday about a week ago patient did have a Neulasta on Wednesday patient started not feeling well and weak on Wednesday that is 2 days before presentation to the hospital and the patient was evaluated: Yesterday and received IV fluid for possible dehydration patient did not have any fever at that time patient has been brought to the ER around midnight for evaluation of fever generalized weakness and unable to take anything oral has been feeling nauseated vomiting is also complaining of some diarrhea he also has some dull aching pain 3-4 out of 10 radiation with the symptom the patient was evaluated by ER physician on arrival to the ER the patient has been 100.4 degree form height patient did have a white count of 0.4 creatinine was normal lactic acid was elevated patient did have a UA mostly hematuria and also some pyuria patient is here to dose of Zosyn patient was also started on vancomycin has been admitted to hospital infectious was consulted for febrile neutropenia Review of system: CONSTITUTIONAL: Positive for weakness along with the fever. EYES: No complaint. ENT: No complaint. RESPIRATORY: No complaint. CARDIOVASCULAR: No complaint. GENITOURINARY: No complaint. GASTROINTESTINAL as per history of present illness. MUSCULOSKELETAL: No complaint. INTEGUMENTARY: No complaint. PSYCHOLOGIC: No complaint. ENDOCRINE: No complaint. NEUROLOGIC: No complaint. Past medical history : Reviewed, documented below Past surgical history : Reviewed, documented below Social history: Reviewed, documented below Medications: Reviewed, as documented below EXAMINATION: Vital sigans= Reviewed and documented below GENERAL DESCRIPTION: Middle-aged male lying in bed, no distress. No tachypnea or accessory muscle of respiration use. HEENT: Shows Pallor , no scleral icterus. Oral mucous membrane is dry. NECK: Trachea central, no thyromegaly. LUNGS: Unlabored breathing. Decreased breath sound at the base. No wheeze or crackle. HEART: S1, S2, regular rate and rhythm. ABDOMEN: Soft, mild tenderness , guarding or rigidity EXTREMITIES: No edema of feet. SKIN: No rash, no masses palpable. NEUROLOGICAL: The patient is awake, alert, oriented x3, mood and affect normal. LABS AND RADIOLOGY: Reviewed results see below Assessment : Patient presented to hospital with sepsis and suspected have fever significant leukopenia and neutropenia this patient who did have history of metastatic colorectal cancer with mets to the liver with last chemo about a week ago mostly with a GI symptom possible GI source of this infection and no need to cover for the enteric gram-negative with a likely pathogen less likely gram- positive infection Plan: 1-we will obtain a CT of abdominal pelvis with contrast 2-discontinue vancomycin 3-we will start the patient on Zosyn 3.375 g every 8 hours 4-check a stool for C. difficile in view of significant diarrhea We will follow on clinical condition and cultures to further adjust medication if needed Thank you for this consultation we will follow the patient along with you Past Medical History Past Medical History: Cancer Additional Past Medical History / Comment(s): Hx freq diarrhea. Rectal cancer, mets to liver History of Any Multi-Drug Resistant Organisms: None Reported Past Surgical History: Orthopedic Surgery Additional Past Surgical History / Comment(s): Right knee repair. Colonoscopy 08/06/20, right side chemoport Past Anesthesia/Blood Transfusion Reactions: No Reported Reaction Past Psychological History: No Psychological Hx Reported Smoking Status: Never smoker Past Alcohol Use History: None Reported Past Drug Use History: None Reported - Past Family History Mother Family Medical History: No Reported History Medications and Allergies Home Medications Medication Instructions Recorded Confirmed Type Lidocaine-Prilocaine Cream [Emla 1 applic TOPICAL DAILY PRN 01/22/21 01/22/21 History Cream 2.5%/2.5%] Ondansetron Odt [Zofran Odt] 8 mg PO Q8HR PRN 01/22/21 01/22/21 History Vitamin B Complex 1 cap PO DAILY 01/22/21 01/22/21 History polyethylene glycoL 3350 [Miralax] 8.5 - 17 gm PO DAILY PRN 01/22/21 01/22/21 History Allergies Allergy/AdvReac Type Severity Reaction Status Date / Time gabapentin AdvReac dizzy Verified 01/22/21 06:53 Physical Exam Vitals: Vital Signs Temp Pulse Pulse Resp BP BP Pulse Ox 01/22/21 20:00 98.1 F 105 H 18 119/78 99 01/22/21 17:22 110 H 18 124/87 97 01/22/21 14:00 110 H 15 01/22/21 12:00 110 H 15 125/90 98 01/22/21 08:00 98.2 F 114 H 16 127/91 97 01/22/21 06:20 113 H 16 122/88 97 01/22/21 04:51 118 H 15 115/81 98 01/22/21 03:40 97.8 F 129 H 16 127/91 97 01/22/21 01:08 100.4 F H 137 H 16 130/85 100 Intake and Output 01/22/21 01/22/21 01/23/21 14:59 22:59 06:59 Output Total 525 Balance -525 Output: Urine 525 Other: Voiding Method Urinal Urinal # Voids 1 # Bowel Movements 1 Results CBC & Chem 7: 01/22/21 01:30 01/22/21 01:30 Labs: Abnormal Lab Results - Last 24 Hours (Table) 01/22/21 01/22/21 01/22/21 Range/Units 01:29 01:30 01:30 WBC 0.4 L* (3.8-10.6) k/uL RBC 2.59 L (4.30-5.90) m/uL Hgb 8.8 L (13.0-17.5) gm/dL Hct 26.5 L (39.0-53.0) % MCV 102.4 H D (80.0-100.0) fL RDW 21.0 H (11.5-15.5) % Plt Count 88 L D (150-450) k/uL Macrocytosis Marked A PT (9.0-12.0) sec INR (<1.2) APTT (22.0-30.0) sec D-Dimer (<0.60) mg/L FEU Carbon Dioxide 15 L (22-30) mmol/L BUN 41 H (9-20) mg/dL Glucose 165 H (74-99) mg/dL Plasma Lactic Acid Amado 7.3 H* (0.7-2.0) mmol/L Calcium 8.0 L (8.4-10.2) mg/dL ALT 55 H (4-49) U/L Alkaline Phosphatase 169 H (38-126) U/L Total Protein 5.4 L (6.3-8.2) g/dL Albumin 2.9 L (3.5-5.0) g/dL Urine Protein (Negative) Urine Blood (Negative) Urine Bilirubin (Negative) Ur Leukocyte Esterase (Negative) Urine RBC (0-5) /hpf Urine WBC (0-5) /hpf Urine Bacteria (None) /hpf Hyaline Casts (0-2) /lpf Urine Mucus (None) /hpf 01/22/21 01/22/21 01/22/21 Range/Units 02:24 04:17 12:57 WBC (3.8-10.6) k/uL RBC (4.30-5.90) m/uL Hgb (13.0-17.5) gm/dL Hct (39.0-53.0) % MCV (80.0-100.0) fL RDW (11.5-15.5) % Plt Count (150-450) k/uL Macrocytosis PT 15.0 H (9.0-12.0) sec INR 1.5 H (<1.2) APTT 18.6 L (22.0-30.0) sec D-Dimer 0.77 H (<0.60) mg/L FEU Carbon Dioxide (22-30) mmol/L BUN (9-20) mg/dL Glucose (74-99) mg/dL Plasma Lactic Acid Amado 2.4 H* (0.7-2.0) mmol/L Calcium (8.4-10.2) mg/dL ALT (4-49) U/L Alkaline Phosphatase (38-126) U/L Total Protein (6.3-8.2) g/dL Albumin (3.5-5.0) g/dL Urine Protein 2+ H (Negative) Urine Blood Large H (Negative) Urine Bilirubin 1+ H (Negative) Ur Leukocyte Esterase Trace H (Negative) Urine RBC >182 H (0-5) /hpf Urine WBC 32 H (0-5) /hpf Urine Bacteria Rare H (None) /hpf Hyaline Casts 124 H (0-2) /lpf Urine Mucus Few H (None) /hpf Microbiology - Last 24 Hours (Table) 01/22/21 02:24 Urine Culture - Preliminary Urine,Voided
[2021-01-23] MEDS: PIPERACILLIN-TAZOBACTAM 3.375 GM in SODIUM CHLORIDE 0.9% 100 ML IVPB SCH ×3 (02:24→17:15)
[2021-01-23] MEDS: SODIUM CHLORIDE 0.9% 1,000 ML IV SCH ×5 (02:25→18:51)
[2021-01-23 08:03] LABS: ALT 31 U/L (4-49); AST 33 U/L (17-59); African American GFR (CKD) >90 (>60 ml/min/1.73 sqM); Albumin 2.1 g/dL (3.5-5.0); Alkaline Phosphatase 94 U/L (38-126); Anion Gap 5 mmol/L; Blood Urea Nitrogen 30 mg/dL (9-20); Calcium 7.1 mg/dL (8.4-10.2); Carbon Dioxide 19 mmol/L (22-30); Chloride 111 mmol/L (98-107); Glucose 88 mg/dL (74-99); Non-African American GFR(CKD) >90 (>60 ml/min/1.73 sqM); Potassium 3.7 mmol/L (3.5-5.1); Sodium 135 mmol/L (137-145); Total Bilirubin 0.7 mg/dL (0.2-1.3); Total Protein 4.1 g/dL (6.3-8.2)
[2021-01-23 08:28] LABS: Anisocytosis Moderate; MCHC 34.1 g/dL (31.0-37.0); MCV 102.4 fL (80.0-100.0); Macrocytosis Marked; Mean Platelet Volume 9.9; RBC 1.56 m/uL (4.30-5.90); RDW 21.2 % (11.5-15.5)
[2021-01-23 08:37] LABS: HCT 15.9 % (39.0-53.0); HGB 5.4 gm/dL (13.0-17.5)
[2021-01-23 08:39] LABS: WBC 0.2 k/uL (3.8-10.6)
[2021-01-23 09:17] LABS: Platelet Count 23 k/uL (150-450)
[2021-01-23 09:19] LABS: Tear Drop Cells Present
--- NOTE | 2021-01-23 09:43 | P.PN ---
Subjective Progress Note Date: 01/23/21 Principal diagnosis: Febrile Neutropenia Fever 100.2 within the last 24 hours, Infectious disease is following. CUltures pending. Spoke with nursing this am, active clots and bleeding noted. Hemoglobin 5.6, Platelets 23K today. PRBC has been ordered, not transfused yet. Will draw DIC Work-up and order platelets. General surgery to evaluate. Patient was at CT when attempted to see prior in day, seen later on in afternoon after transfer to ICU. Mother Keiko at bedside. He states he started bleeding and vomiting coffee ground emesis yesterday. INR 1.8. Hemoglobin down. PLatelets 23K. He was transfused a unit of platelets, then PRBC then FFP. Fibrogen ordered. Objective - Vital Signs Vital signs: Vital Signs Temp 98.5 F 01/23/21 04:00 Pulse 109 H 01/23/21 04:00 Resp 16 01/23/21 04:00 BP 95/61 01/23/21 04:00 Pulse Ox 98 01/23/21 04:00 Intake & Output 01/22/21 01/23/21 01/23/21 18:59 06:59 18:59 Intake Total 1160 Output Total 525 300 Balance -525 1160 -300 Weight 57.2 kg Intake: Intake, IV Titration 1040 Amount Sodium Chloride 0.9% 1, 1040 000 ml @ 130 mls/hr IV . Q7H42M [facility] Rx#:[id number] Oral 120 Output: Urine 525 300 Other: Voiding Method Urinal Urinal # Voids 1 8 # Bowel Movements 8 - Exam ALert and Oriented NAD Neck: Supple Lungs: CTA Heart: Tachy Abd: Tender Ext: No edema Calm - Labs CBC & Chem 7: 01/23/21 10:18 01/23/21 06:13 Labs: Abnormal Lab Results - Last 24 Hours (Table) 01/22/21 01/23/21 01/23/21 Range/Units 12:57 06:13 06:13 WBC 0.2 L* (3.8-10.6) k/uL RBC 1.56 L (4.30-5.90) m/uL Hgb 5.4 L* D (13.0-17.5) gm/dL Hct 15.9 L* (39.0-53.0) % MCV 102.4 H (80.0-100.0) fL RDW 21.2 H (11.5-15.5) % Plt Count 23 L D (150-450) k/uL Macrocytosis Marked A PT 15.0 H (9.0-12.0) sec INR 1.5 H (<1.2) APTT 18.6 L (22.0-30.0) sec D-Dimer 0.77 H (<0.60) mg/L FEU Sodium 135 L (137-145) mmol/L Chloride 111 H (98-107) mmol/L Carbon Dioxide 19 L (22-30) mmol/L BUN 30 H (9-20) mg/dL Calcium 7.1 L (8.4-10.2) mg/dL Total Protein 4.1 L (6.3-8.2) g/dL Albumin 2.1 L (3.5-5.0) g/dL Microbiology - Last 24 Hours (Table) 01/22/21 02:09 Blood Culture - Preliminary Blood No Growth after 24 hours 01/22/21 01:29 Blood Culture - Preliminary Blood No Growth after 24 hours 01/22/21 02:24 Urine Culture - Preliminary Urine,Voided Assessment and Plan (1) Febrile neutropenia Current Visit: Yes Status: Acute Code(s): D70.9 - NEUTROPENIA, UNSPECIFIED; R50.81 - FEVER PRESENTING WITH CONDITIONS CLASSIFIED ELSEWHERE SNOMED Code(s): 724482871 (2) Rectal adenocarcinoma Current Visit: Yes Status: Acute Code(s): C20 - MALIGNANT NEOPLASM OF RECTUM SNOMED Code(s): 761504864 (3) Pancytopenia due to antineoplastic chemotherapy Current Visit: Yes Status: Acute Code(s): D61.810 - ANTINEOPLASTIC CHEMOTHERAPY INDUCED PANCYTOPENIA; T45.1X5A - ADVERSE EFFECT OF ANTINEOPLASTIC AND IMMUNOSUP DRUGS, INIT SNOMED Code(s): 968905020125836 (4) Fever Current Visit: Yes Status: Acute Code(s): R50.9 - FEVER, UNSPECIFIED SNOMED Code(s): 782756334 Plan: Assessment and Recommendations: GI Blood Loss Anemia: - PRBC Transfusions today - NPO - General Surgery - DIC Work-up - Platelet transfusion - If fibrinogen less than 100 give Cryoprecipitate - If INR increased FFP Febrile Neutropenia: - Continue antibiotics - ID following - Await brush culture results - Not a candidate for GCSF as he received neulasta on 01/18/21 Await brush Cultures Await surgery recs PPI BID IVp Stool Studies NPO neutropenic Colitis risk ID is following Keep Fibrinogen >150 - If not Cryoprecipitate if active bleeding Keep INR <1.5 - If not FFP if active bleeding Platelets above 50K if active bleeding Hemoglobin >7 Discussed in detail with patient and Mother
[2021-01-23] MEDS: NON FORMULARY DRUG (Vitamin B Complex [Vitamin B Complex] 1 EACH Capsule) PO SCH (10:01)
[2021-01-23] MEDS: PANTOPRAZOLE 40 MG/10 ML VIAL IVP SCH ×2 (10:19→21:31)
--- NOTE | 2021-01-23 10:27 | CT ---
EXAMINATION TYPE: CT abdomen pelvis w con DATE OF EXAM: 01/23/2021 COMPARISON: Most recent CT October 25, 2020 and older studies HISTORY: Rectal cancer with liver mets CT DLP: 686.1 mGycm, Automated Exposure Control for Dose Reduction was Utilized. CONTRAST: CT scan of the abdomen and pelvis is performed with oral and with IV Contrast, patient injected with 100 ml mL of Isovue 300. FINDINGS: LUNG BASES: Coronary artery calcification or likely stent in the RCA distribution. LIVER/GB: Improved right hepatic irregular and lobulated metastatic lesion measuring 7.0 cm long axi s axial image 14 versus 9.1 cm prior study. Better definition of lesion on current study. Small amoun t of new adjacent ascites. PANCREAS: No significant abnormality is seen. SPLEEN: No significant abnormality is seen. ADRENALS: Stable thickening to both adrenal glands favors benign aplasia. KIDNEYS: Symmetric cortical uptake and excretion without hydronephrosis seen bilaterally. New Severe wall thickening of the urinary bladder BOWEL: Oral contrast only reaches jejunal loops in the left midabdomen. Stomach shows no suspicious d ilatation. There is prominence of small bowel loops with moderate wall thickening beginning at ligame nt of [place] extending into jejunal loops in the left abdomen. There is moderate to severe wall thick ening of small bowel loops in the right lower quadrant including terminal ileum. There is moderate to severe wall thickening in the cecum. Mild wall thickening with some dilatation of the transverse col on. Moderate to severe wall thickening from splenic flexure through the rectum. Mild prominence at th is level. No free air. PROSTATE/SEMINAL VESICLES: No gross abnormality seen. LYMPH NODES: No greater than 1cm abdominal or pelvic lymph nodes are appreciated. OSSEOUS STRUCTURES: Underlying scoliosis. Loss of normal lumbar lordosis. Multilevel spurring and dis c space narrowing. There is severe narrowing with sclerosis right L5-S1 level. OTHER: No significant additional abnormality is seen. IMPRESSION: 1. Continued positive treatment response to the posterior right hepatic lobe metastatic lesion. 2. There is however new moderate to severe wall thickening consistent with multifocal and diffuse ent erocolitis as detailed above. Findings could reflect nondesired posttreatment response, versus inflam matory, ischemic, and/or infectious etiologies. Relate clinically. There is new severe wall thickenin g in the bladder with similar differential, nondesired posttreatment response versus infectious and/o r inflammatory etiology. A Yellow level critical message alert has been initiated for Camelia Chapman MD via the [employer] Critical Results System on 01/23/2021 10:22 AM. This message alert has been sent to Camelia Chapman MD via the preferences provided by the clinician for the receipt of Radiology Critical Findings. [facility] ID [id number].
[2021-01-23 10:56] LABS: INR 1.8 (<1.2); Partial Thromboplastin Time 36.7 sec (22.0-30.0)
[2021-01-23 11:52] LABS: Glucose,Whole Blood 75 mg/dL (75-99)
--- NOTE | 2021-01-23 11:59 | P.GSCN ---
<Ora Haro - Last Filed: 01/23/21 11:37> History of Present Illness Consult date: 01/23/21 History of present illness: CHIEF COMPLAINT: Generalized weakness HISTORY OF PRESENT ILLNESS: This is a 55-year-old male with a known history of colorectal cancer with metastatic disease to the liver and his last chemotherapy was this past Wednesday. He presented to the emergency room with complaints of generalized weakness and poor oral intake. He is found to be neutropenic. He started on antibiotics with neutropenic sepsis. This morning patient started passing bright red blood with clots per rectum. He's had about 6 episodes since 8:00 this morning. He also had one episode of small amount of coffee ground emesis. He is complaining of some epigastric abdominal pain. He did have a low -grade temperature 100.2 last night has been mildly tachycardic and borderline hypotensive. Hemoglobin did drop from 8.8-5.4. He is scheduled to receive 1 unit of blood. He is being transferred to the ICU. His last colonoscopy was on 08/06/2020 and that was when the rectal mass was discovered. PAST MEDICAL HISTORY: See list. PAST SURGICAL HISTORY: See list. MEDICATIONS: See list. ALLERGIES: See list. SOCIAL HISTORY: No illicit drug use. REVIEW OF SYSTEMS: CONSTITUTIONAL: Denies fever or chills. HEENT: Denies blurred vision, vision changes, or eye pain. Denies hemoptysis CARDIOVASCULAR: Denies chest pain or pressure. RESPIRATORY: No shortness of breath. GASTROINTESTINAL: See HPI for pertinent findings HEMATOLOGIC: Denies bleeding disorders. GENITOURINARY: Denies any blood in urine or increased urinary frequency. SKIN: Denies pruitis. Denies rash. PHYSICAL EXAM: VITAL SIGNS: Reviewed GENERAL: Well-developed in no acute distress. HEENT: No sclera icterus. Extraocular movements grossly intact. Moist buccal mucosa. Head is atraumatic, normocephalic. No nasal drainage. ABDOMEN: Soft. Nondistended. Epigastric tenderness NEUROLOGIC: Alert and oriented. Cranial nerves II through XII grossly intact. LABORATORY DATA: WBC 0.2 HGB has dropped from 8.8-5.4 platelets 23 INR 1.8 d-dimer 1.13 Sodium 135 potassium 3.7 BUN 30 creatinine 0.81 Lactic acid 7.3 down to 1.6 Sodium 135 potassium 3.7 Na 130 creatinine 0.81 magnesium 2.3 AST 33 ALT 55, 31 alk phos 169 down to 94 albumin 2.1 IMAGING: Computed tomography scan abdomen and pelvis shows continued positive treatment response to the posterior right hepatic lobe metastatic lesion. There is however new moderate to severe wall thickening consistent with multifocal and diffuse enterocolitis as detailed above. Findings could reflect non-desired post treatment response versus inflammatory ischemic and/or infectious etiologies. Relate clinically. There is new severe wall thickening in the bladder was similar differential, non-desired post treatment response versus infectious and/or inflammatory etiology. ASSESSMENT: 1. Acute GI bleed with bright red blood with blood clots per rectum and an episode of coffee ground emesis. 2. Acute blood loss anemia due to GI bleed 3. Epigastric abdominal pain 4. There is moderate wall thickening into the jejunal loops in the left abdomen. Moderate to severe wall thickening of small bowel loops in the right lower quadrant including terminal ileum. And moderate to severe wall thickening of the cecum noted on computed tomography scan consistent with multifocal and diffuse enterocolitis. Findings could reflect non-desired post treatment response versus inflammatory ischemic and/or infectious etiologies 5. History of colorectal cancer with metastatic disease to the liver has been undergoing chemotherapy 6. Febrile Neutropenia PLAN: -Agree with transfusing patient with 1 unit of blood and platelets -Agree with transfer to ICU for closer monitoring -Continue IV fluids -Continue Protonix -Keep patient nothing by mouth -Continue to monitor CBC every 6 -Further recommendations forthcoming per surgeon Thank you for this consultation Physician Bag Machine Set Up Operator note has been reviewed by physician. Signing provider agrees with the documented findings, assessment, and plan of care. Past Medical History Past Medical History: Cancer Additional Past Medical History / Comment(s): Hx freq diarrhea. Rectal cancer, mets to liver History of Any Multi-Drug Resistant Organisms: None Reported Past Surgical History: Orthopedic Surgery Additional Past Surgical History / Comment(s): Right knee repair. Colonoscopy , right side chemoport Past Anesthesia/Blood Transfusion Reactions: No Reported Reaction Past Psychological History: No Psychological Hx Reported Smoking Status: Never smoker Past Alcohol Use History: None Reported Past Drug Use History: None Reported - Past Family History Mother Family Medical History: No Reported History Medications and Allergies Home Medications Medication Instructions Recorded Confirmed Type Lidocaine-Prilocaine Cream [Emla 1 applic TOPICAL DAILY PRN 01/22/21 01/22/21 History Cream 2.5%/2.5%] Ondansetron Odt [Zofran Odt] 8 mg PO Q8HR PRN 01/22/21 01/22/21 History Vitamin B Complex 1 cap PO DAILY 01/22/21 01/22/21 History polyethylene glycoL 3350 [Miralax] 8.5 - 17 gm PO DAILY PRN 01/22/21 01/22/21 History Allergies Allergy/AdvReac Type Severity Reaction Status Date / Time gabapentin AdvReac dizzy Verified 01/22/21 06:53 Surgical - Exam Vital Signs Temp Pulse Resp BP Pulse Ox 100.4 F H 137 H 16 130/85 100 01/22/21 01:08 01/22/21 01:08 01/22/21 01:08 01/22/21 01:08 01/22/21 01:08 Results - Labs 01/23/21 06:13 01/23/21 06:13 Abnormal Lab Results - Last 24 Hours (Table) 01/22/21 01/23/21 01/23/21 Range/Units 12:57 06:13 06:13 WBC 0.2 L* (3.8-10.6) k/uL RBC 1.56 L (4.30-5.90) m/uL Hgb 5.4 L* D (13.0-17.5) gm/dL Hct 15.9 L* (39.0-53.0) % MCV 102.4 H (80.0-100.0) fL RDW 21.2 H (11.5-15.5) % Plt Count 23 L D (150-450) k/uL Macrocytosis Marked A PT 15.0 H (9.0-12.0) sec INR 1.5 H (<1.2) APTT 18.6 L (22.0-30.0) sec Fibrinogen (200-500) mg/dL D-Dimer 0.77 H (<0.60) mg/L FEU Sodium 135 L (137-145) mmol/L Chloride 111 H (98-107) mmol/L Carbon Dioxide 19 L (22-30) mmol/L BUN 30 H (9-20) mg/dL Calcium 7.1 L (8.4-10.2) mg/dL Total Protein 4.1 L (6.3-8.2) g/dL Albumin 2.1 L (3.5-5.0) g/dL 01/23/21 Range/Units 10:18 WBC (3.8-10.6) k/uL RBC (4.30-5.90) m/uL Hgb (13.0-17.5) gm/dL Hct (39.0-53.0) % MCV (80.0-100.0) fL RDW (11.5-15.5) % Plt Count (150-450) k/uL Macrocytosis PT 18.0 H (9.0-12.0) sec INR 1.8 H (<1.2) APTT 36.7 H (22.0-30.0) sec Fibrinogen 534 H (200-500) mg/dL D-Dimer 1.13 H (<0.60) mg/L FEU Sodium (137-145) mmol/L Chloride (98-107) mmol/L Carbon Dioxide (22-30) mmol/L BUN (9-20) mg/dL Calcium (8.4-10.2) mg/dL Total Protein (6.3-8.2) g/dL Albumin (3.5-5.0) g/dL Microbiology - Last 24 Hours (Table) 01/22/21 02:09 Blood Culture - Preliminary Blood No Growth after 24 hours 01/22/21 01:29 Blood Culture - Preliminary Blood No Growth after 24 hours 01/22/21 02:24 Urine Culture - Preliminary Urine,Voided Diabetes panel 01/23/21 Range/Units 06:13 Sodium 135 L (137-145) mmol/L Potassium 3.7 (3.5-5.1) mmol/L Chloride 111 H (98-107) mmol/L Carbon Dioxide 19 L (22-30) mmol/L BUN 30 H (9-20) mg/dL Creatinine 0.81 (0.66-1.25) mg/dL Glucose 88 (74-99) mg/dL Calcium 7.1 L (8.4-10.2) mg/dL AST 33 (17-59) U/L ALT 31 (4-49) U/L Alkaline Phosphatase 94 (38-126) U/L Total Protein 4.1 L (6.3-8.2) g/dL Albumin 2.1 L (3.5-5.0) g/dL Calcium panel 01/23/21 Range/Units 06:13 Calcium 7.1 L (8.4-10.2) mg/dL Albumin 2.1 L (3.5-5.0) g/dL Pituitary panel 01/23/21 Range/Units 06:13 Sodium 135 L (137-145) mmol/L Potassium 3.7 (3.5-5.1) mmol/L Chloride 111 H (98-107) mmol/L Carbon Dioxide 19 L (22-30) mmol/L BUN 30 H (9-20) mg/dL Creatinine 0.81 (0.66-1.25) mg/dL Glucose 88 (74-99) mg/dL Calcium 7.1 L (8.4-10.2) mg/dL Adrenal panel 01/23/21 Range/Units 06:13 Sodium 135 L (137-145) mmol/L Potassium 3.7 (3.5-5.1) mmol/L Chloride 111 H (98-107) mmol/L Carbon Dioxide 19 L (22-30) mmol/L BUN 30 H (9-20) mg/dL Creatinine 0.81 (0.66-1.25) mg/dL Glucose 88 (74-99) mg/dL Calcium 7.1 L (8.4-10.2) mg/dL Total Bilirubin 0.7 (0.2-1.3) mg/dL AST 33 (17-59) U/L ALT 31 (4-49) U/L Alkaline Phosphatase 94 (38-126) U/L Total Protein 4.1 L (6.3-8.2) g/dL Albumin 2.1 L (3.5-5.0) g/dL <Byron Frankel - Last Filed: 01/23/21 16:58> History of Present Illness History of present illness: As above. Patient is known to our service from previous diagnosis of rectal cancer in July of this year. Patient has undergone neoadjuvant chemotherapy. Has a large mass in the liver as well. Patient came to the hospital with increased weakness. Labs demonstrated significant neutropenia and thrombocytopenia. Patient's blood count noted to be quite low. Patient had complaints of some mild epigastric pain and had a single episode of coffee- ground emesis. He has had significant hiccups. This has been going on for the last 2-3 days. Patient has had multiple bloody stools today although seems to be decreasing in frequency. INR is 1.8 platelets are 23 hemoglobin less than 5. Patient is not on pressors. He appears comfortable in bed in the ICU. No abdominal tenderness. Etiology unclear but certainly significant hematologic abnormalities need to be corrected. Will follow closely with you to decide on additional endoscopic intervention. Surgical - Exam Vital Signs Temp Pulse Resp BP Pulse Ox 100.4 F H 137 H 16 130/85 100 01/22/21 01:08 01/22/21 01:08 01/22/21 01:08 01/22/21 01:08 01/22/21 01:08 Results - Labs 01/23/21 10:18 01/23/21 06:13 Abnormal Lab Results - Last 24 Hours (Table) 01/23/21 01/23/21 01/23/21 Range/Units 06:12 06:13 06:13 WBC 0.2 L* (3.8-10.6) k/uL RBC 1.56 L (4.30-5.90) m/uL Hgb 5.4 L* D (13.0-17.5) gm/dL Hct 15.9 L* (39.0-53.0) % MCV 102.4 H (80.0-100.0) fL MCH (25.0-35.0) pg RDW 21.2 H (11.5-15.5) % Plt Count 23 L D (150-450) k/uL Macrocytosis Marked A PT (9.0-12.0) sec INR (<1.2) APTT (22.0-30.0) sec Fibrinogen (200-500) mg/dL D-Dimer (<0.60) mg/L FEU Sodium 135 L (137-145) mmol/L Chloride 111 H (98-107) mmol/L Carbon Dioxide 19 L (22-30) mmol/L BUN 30 H (9-20) mg/dL Calcium 7.1 L (8.4-10.2) mg/dL Iron 9 L (65-175) ug/dL TIBC 200 L (228-460) ug/dL % Saturation 4.49 L (15.00-50.00) Transferrin 143.0 L (204.0-354.0) mg/dL Ferritin 1207.0 H (22.0-322.0) ng/mL Total Protein 4.1 L (6.3-8.2) g/dL Albumin 2.1 L (3.5-5.0) g/dL Vitamin B12 >2000.0 H (200.0-944.0) pg/mL Crossmatch 01/23/21 01/23/21 01/23/21 Range/Units 10:18 10:18 10:18 WBC 0.2 L* (3.8-10.6) k/uL RBC 1.37 L (4.30-5.90) m/uL Hgb 4.8 L* (13.0-17.5) gm/dL Hct 14.1 L* (39.0-53.0) % MCV 103.2 H (80.0-100.0) fL MCH 35.5 H (25.0-35.0) pg RDW 21.5 H (11.5-15.5) % Plt Count 20 L (150-450) k/uL Macrocytosis Marked A PT 18.0 H (9.0-12.0) sec INR 1.8 H (<1.2) APTT 36.7 H (22.0-30.0) sec Fibrinogen 534 H (200-500) mg/dL D-Dimer 1.13 H (<0.60) mg/L FEU Sodium (137-145) mmol/L Chloride (98-107) mmol/L Carbon Dioxide (22-30) mmol/L BUN (9-20) mg/dL Calcium (8.4-10.2) mg/dL Iron (65-175) ug/dL TIBC (228-460) ug/dL % Saturation (15.00-50.00) Transferrin (204.0-354.0) mg/dL Ferritin (22.0-322.0) ng/mL Total Protein (6.3-8.2) g/dL Albumin (3.5-5.0) g/dL Vitamin B12 (200.0-944.0) pg/mL Crossmatch See Detail Microbiology - Last 24 Hours (Table) 01/22/21 02:24 Urine Culture - Final Urine,Voided 01/22/21 02:09 Blood Culture - Preliminary Blood No Growth after 24 hours 01/22/21 01:29 Blood Culture - Preliminary Blood No Growth after 24 hours Diabetes panel 01/23/21 Range/Units 06:13 Sodium 135 L (137-145) mmol/L Potassium 3.7 (3.5-5.1) mmol/L Chloride 111 H (98-107) mmol/L Carbon Dioxide 19 L (22-30) mmol/L BUN 30 H (9-20) mg/dL Creatinine 0.81 (0.66-1.25) mg/dL Glucose 88 (74-99) mg/dL Calcium 7.1 L (8.4-10.2) mg/dL AST 33 (17-59) U/L ALT 31 (4-49) U/L Alkaline Phosphatase 94 (38-126) U/L Total Protein 4.1 L (6.3-8.2) g/dL Albumin 2.1 L (3.5-5.0) g/dL Calcium panel 01/23/21 Range/Units 06:13 Calcium 7.1 L (8.4-10.2) mg/dL Albumin 2.1 L (3.5-5.0) g/dL Pituitary panel 01/23/21 Range/Units 06:13 Sodium 135 L (137-145) mmol/L Potassium 3.7 (3.5-5.1) mmol/L Chloride 111 H (98-107) mmol/L Carbon Dioxide 19 L (22-30) mmol/L BUN 30 H (9-20) mg/dL Creatinine 0.81 (0.66-1.25) mg/dL Glucose 88 (74-99) mg/dL Calcium 7.1 L (8.4-10.2) mg/dL Adrenal panel 01/23/21 Range/Units 06:13 Sodium 135 L (137-145) mmol/L Potassium 3.7 (3.5-5.1) mmol/L Chloride 111 H (98-107) mmol/L Carbon Dioxide 19 L (22-30) mmol/L BUN 30 H (9-20) mg/dL Creatinine 0.81 (0.66-1.25) mg/dL Glucose 88 (74-99) mg/dL Calcium 7.1 L (8.4-10.2) mg/dL Total Bilirubin 0.7 (0.2-1.3) mg/dL AST 33 (17-59) U/L ALT 31 (4-49) U/L Alkaline Phosphatase 94 (38-126) U/L Total Protein 4.1 L (6.3-8.2) g/dL Albumin 2.1 L (3.5-5.0) g/dL
[2021-01-23 12:31] LABS: Anisocytosis Moderate; MCH 35.5 pg (25.0-35.0); MCHC 34.4 g/dL (31.0-37.0); MCV 103.2 fL (80.0-100.0); Macrocytosis Marked; Mean Platelet Volume 9.8; RBC 1.37 m/uL (4.30-5.90); RDW 21.5 % (11.5-15.5)
[2021-01-23 13:29] LABS: Platelet Count 20 k/uL (150-450); WBC 0.2 k/uL (3.8-10.6)
[2021-01-23 13:34] LABS: HGB 4.8 gm/dL (13.0-17.5)
[2021-01-23 13:35] LABS: HCT 14.1 % (39.0-53.0)
[2021-01-23 16:35] LABS: % Iron Saturation 4.49 (15.00-50.00); Iron 9 ug/dL (65-175); Total Iron Binding Capacity 200 ug/dL (228-460)
[2021-01-23 16:56] LABS: Vitamin B12 >2000.0 pg/mL (200.0-944.0)
[2021-01-23] MEDS: PROCHLORPERAZINE INJ 10 MG/2 ML VIAL IVP PRN (16:57)
[2021-01-23] MEDS: CHOLESTYRAMINE (WITH SUGAR) 4 GM PACKET PO SCH (17:02)
[2021-01-23 20:50] LABS: Anisocytosis Moderate; MCHC 34.4 g/dL (31.0-37.0); MCV 98.7 fL (80.0-100.0); Macrocytosis Moderate; Mean Platelet Volume 11.3; RBC 1.77 m/uL (4.30-5.90); RDW 20.3 % (11.5-15.5)
[2021-01-23 21:01] LABS: INR 1.4 (<1.2); Partial Thromboplastin Time 32.2 sec (22.0-30.0); Prothrombin Time 13.9 sec (9.0-12.0)
[2021-01-23 21:12] LABS: Platelet Count 22 k/uL (150-450); WBC 0.3 k/uL (3.8-10.6)
[2021-01-23 21:14] LABS: HCT 17.5 % (39.0-53.0)
--- NOTE | 2021-01-23 22:17 | PN ---
PROGRESS NOTE DATE OF SERVICE: 01/23/2021 REASON FOR FOLLOWUP: Febrile neutropenia and enteritis. INTERVAL HISTORY: The patient is afebrile today. The patient is hemodynamically stable. The patient denies having any chest pain or shortness of breath or cough. Still complaining of abdominal pain. Did have diarrhea. Some nausea but no vomiting. PHYSICAL EXAMINATION: Blood pressure 119/79, pulse of 98, temperature 98. He is 99% on room air. General description is a middle-aged male lying in bed in no distress. Respiratory system: Unlabored breathing, decreased intensity of breath sounds. No wheeze. Heart S1, S2. Regular rate and rhythm. Abdomen soft, mildly tender. No guarding or rigidity. LABS: Hemoglobin is 6, white count 0.3, creatinine 0.81. Stool for C difficile was negative. Blood culture has been negative so far. Patient did have a CT of abdomen and pelvis completed this morning with moderate to severe wall thickening, concern for enterocolitis. DIAGNOSTIC IMPRESSION AND PLAN: Patient presented to hospital with and possible abdominal source with evidence of enterocolitis on the CT. Patient is currently covered with Zosyn. Stool studies have been requested. The patient seems to have some clinical improvement compared to yesterday. Continue with supportive care. MMODL / IJN: [id number] /
--- NOTE | 2021-01-23 22:22 | P.PN ---
Subjective Progress Note Date: 01/23/21 Patient is a 55-year-old male with a known history of colorectal cancer with mets to liver and is currently undergoing chemotherapy cycle of 10, last dose on 12/17/2020 presents to ER with complaints of fever, generalized weakness and unable to take any oral intake. Patient was seen at [facility] yesterday and was given IV fluids and sent home. Patient was brought to the hospital due to generalized weakness and not tolerating oral diet and was also getting more weaker. Denied any complaints of chest pain or shortness breath. Patient does have nausea. No vomiting. No abdominal pain. No headache. On admission blood pressure 130/85 pulse is 137 respirations 16 and pulse ox 90% on room air and T-max 100.4. Chest x-ray showed no active cardiopulmonary disease. Normal heart. EKG showed sinus tachycardia Laboratory data showed Urinalysis showed 2+ protein, large blood, 1+ bilirubin, trace leukoesterase and elevated RBCs and WBCs 32 COVID-19 PCR not detected. WBCs 0.4 hemoglobin 8.8 and platelets 88 Sodium 138 potassium 3.9 chloride 42410 bicarb is 15 BUN 41 and creatinine 1.01 and blood sugar is 165 lactic acid 7.3 on admission Albumin 2.9 01/23/2021 Patient was noted to have blood clots in the stool this morning as per nursing staff. Hemoglobin went down to 5.4 and platelet count 23,000. PRBC transfusion was ordered and patient was transferred to ICU for close monitoring. General surgery was consulted due to GI bleed. CT of the abdomen pelvis showed continued positive treatment response to the posterior right hepatic lobe metastatic lesion. There is however a new moderate to severe wall thickening consistent with multifocal and diffuse enterocolitis. There is new severe wall thickening in the bladder with similar differential nondesired posttreatment response versus infectious/inflammatory etiology. Patient is being continued antibiotics in the form of Zosyn. Vancomycin has been discontinued. ID and oncology is on board. Patient is being continued on IV hydration. Current medications reviewed. Objective - Vital Signs Vital signs: Vital Signs Temp 99.2 F 01/23/21 21:51 Pulse 121 H 01/23/21 21:51 Resp 18 01/23/21 21:51 BP 130/84 01/23/21 21:51 Pulse Ox 98 01/23/21 21:41 Intake & Output 01/23/21 01/23/21 01/24/21 06:59 18:59 06:59 Intake Total 1160 756 327 Output Total 300 Balance 1160 456 327 Weight 57.2 kg 57.2 kg Intake: IV 130 Sodium Chloride 0.9% 1, 130 000 ml @ 130 mls/hr IV . Q7H42M [facility] Rx#:[id number] Intake, IV Titration 1040 Amount Sodium Chloride 0.9% 1, 1040 000 ml @ 130 mls/hr IV . Q7H42M [facility] Rx#:[id number] Oral 120 Blood Product 626 327 Ffp 24 Cpd Unit 0 327 [id number] Platelet Pheresis Pas 316 Psoralen Unit [id number] Rc As-1 Unit 310 [id number] Rc As-1 Unit 0 [id number] Output: Urine 300 Other: Voiding Method Urinal Urinal # Voids 8 1 1 # Bowel Movements 8 1 1 - Exam PHYSICAL EXAMINATION: Patient is lying in the bed comfortably, no acute distress, awake alert and oriented. Patient is weak, lethargic and cachectic.. HEENT: Normocephalic. Neck is supple. Pupils reactive. Nostrils clear. Oral cavity is dry. Neck reveals no JVD, carotid bruits, or thyromegaly. CHEST EXAMINATION: Trachea is central. Symmetrical expansion.Bibasilar diminished sounds. Lung melendrez clear to auscultation and percussion. CARDIAC: Normal S1, S2 with no gallops. No murmurs ABDOMEN: Soft. Bowel sounds normal. No organomegaly. No abdominal bruits. Extremities: reveal no edema. No clubbing or cyanosis Neurologically awake, alert, oriented x3 with well-coordinated movements. No focal deficits noted Skin: No rash or skin lesions. Psychiatric: Cooperative. Nonsuicidal Musculoskeletal: No joint swelling or deformity. Normal range of motion. - Labs CBC & Chem 7: 01/23/21 20:45 01/23/21 06:13 Labs: Abnormal Lab Results - Last 24 Hours (Table) 01/23/21 01/23/21 01/23/21 Range/Units 06:12 06:13 06:13 WBC 0.2 L* (3.8-10.6) k/uL RBC 1.56 L (4.30-5.90) m/uL Hgb 5.4 L* D (13.0-17.5) gm/dL Hct 15.9 L* (39.0-53.0) % MCV 102.4 H (80.0-100.0) fL MCH (25.0-35.0) pg RDW 21.2 H (11.5-15.5) % Plt Count 23 L D (150-450) k/uL Macrocytosis Marked A PT (9.0-12.0) sec INR (<1.2) APTT (22.0-30.0) sec Fibrinogen (200-500) mg/dL D-Dimer (<0.60) mg/L FEU Sodium 135 L (137-145) mmol/L Chloride 111 H (98-107) mmol/L Carbon Dioxide 19 L (22-30) mmol/L BUN 30 H (9-20) mg/dL Calcium 7.1 L (8.4-10.2) mg/dL Iron 9 L (65-175) ug/dL TIBC 200 L (228-460) ug/dL % Saturation 4.49 L (15.00-50.00) Transferrin 143.0 L (204.0-354.0) mg/dL Ferritin 1207.0 H (22.0-322.0) ng/mL Total Protein 4.1 L (6.3-8.2) g/dL Albumin 2.1 L (3.5-5.0) g/dL Vitamin B12 >2000.0 H (200.0-944.0) pg/mL Crossmatch 01/23/21 01/23/21 01/23/21 Range/Units 10:18 10:18 10:18 WBC 0.2 L* (3.8-10.6) k/uL RBC 1.37 L (4.30-5.90) m/uL Hgb 4.8 L* (13.0-17.5) gm/dL Hct 14.1 L* (39.0-53.0) % MCV 103.2 H (80.0-100.0) fL MCH 35.5 H (25.0-35.0) pg RDW 21.5 H (11.5-15.5) % Plt Count 20 L (150-450) k/uL Macrocytosis Marked A PT 18.0 H (9.0-12.0) sec INR 1.8 H (<1.2) APTT 36.7 H (22.0-30.0) sec Fibrinogen 534 H (200-500) mg/dL D-Dimer 1.13 H (<0.60) mg/L FEU Sodium (137-145) mmol/L Chloride (98-107) mmol/L Carbon Dioxide (22-30) mmol/L BUN (9-20) mg/dL Calcium (8.4-10.2) mg/dL Iron (65-175) ug/dL TIBC (228-460) ug/dL % Saturation (15.00-50.00) Transferrin (204.0-354.0) mg/dL Ferritin (22.0-322.0) ng/mL Total Protein (6.3-8.2) g/dL Albumin (3.5-5.0) g/dL Vitamin B12 (200.0-944.0) pg/mL Crossmatch See Detail 01/23/21 01/23/21 Range/Units 20:45 20:45 WBC 0.3 L* (3.8-10.6) k/uL RBC 1.77 L (4.30-5.90) m/uL Hgb 6.0 L* (13.0-17.5) gm/dL Hct 17.5 L* (39.0-53.0) % MCV (80.0-100.0) fL MCH (25.0-35.0) pg RDW 20.3 H (11.5-15.5) % Plt Count 22 L (150-450) k/uL Macrocytosis PT 13.9 H (9.0-12.0) sec INR 1.4 H (<1.2) APTT 32.2 H (22.0-30.0) sec Fibrinogen 591 H (200-500) mg/dL D-Dimer (<0.60) mg/L FEU Sodium (137-145) mmol/L Chloride (98-107) mmol/L Carbon Dioxide (22-30) mmol/L BUN (9-20) mg/dL Calcium (8.4-10.2) mg/dL Iron (65-175) ug/dL TIBC (228-460) ug/dL % Saturation (15.00-50.00) Transferrin (204.0-354.0) mg/dL Ferritin (22.0-322.0) ng/mL Total Protein (6.3-8.2) g/dL Albumin (3.5-5.0) g/dL Vitamin B12 (200.0-944.0) pg/mL Crossmatch Microbiology - Last 24 Hours (Table) 01/22/21 02:24 Urine Culture - Final Urine,Voided 01/22/21 02:09 Blood Culture - Preliminary Blood No Growth after 24 hours 01/22/21 01:29 Blood Culture - Preliminary Blood No Growth after 24 hours Assessment and Plan Assessment: Acute GI bleed with bright red blood per rectum and an episode of coffee-ground emesis. Acute blood loss anemia due to GI bleed Moderate wall thickening in the jejunal loops inflammatory versus posttreatment response. Neutropenic fever. Lactic acidosis 7.3 due to dehydration volume depletion Colorectal cancer/adenocarcinoma with mets to liver. Currently on cycle 10 chem otherapy last dose about 5 days back Pancytopenia secondary to chemotherapy Asymptomatic bacteriuria Mild to moderate protein calorie malnutrition Mild elevated liver enzymes Metabolic acidosis DVT prophylaxis not on heparin due to thrombocytopenia. Plan: Patient was transferred to MICU due to new onset acute GI bleed and blood loss anemia. Patient is being transfused with 1 unit of PRBC and monitor H&H and respiratory status closely. Patient is being cannula IV hydration and antibiotics involve Zosyn. Continue with PPI. General surgery was consulted due to GI bleed. Follow-up urine and blood cultures. Continue symptomatic management for nausea and increase oral intake. ID and oncology was consulted. Continue to follow closely. Discussed with his mother at bedside in detail. Prognosis is guarded at this time. Time with Patient: Greater than 30
[2021-01-24] MEDS: MORPHINE SULFATE 4 MG/ML SYRINGE IVP PRN (00:53)
[2021-01-24] MEDS: PIPERACILLIN-TAZOBACTAM 3.375 GM in SODIUM CHLORIDE 0.9% 100 ML IVPB SCH ×3 (00:56→17:16)
[2021-01-24] MEDS: SODIUM CHLORIDE 0.9% 1,000 ML IV SCH ×3 (02:35→17:22)
[2021-01-24 05:45] LABS: ALT 30 U/L (4-49); AST 35 U/L (17-59); African American GFR (CKD) >90 (>60 ml/min/1.73 sqM); Albumin 2.1 g/dL (3.5-5.0); Alkaline Phosphatase 84 U/L (38-126); Anion Gap 5 mmol/L; Blood Urea Nitrogen 18 mg/dL (9-20); Calcium 7.2 mg/dL (8.4-10.2); Carbon Dioxide 21 mmol/L (22-30); Chloride 110 mmol/L (98-107); Glucose 90 mg/dL (74-99); LDH 489 U/L (313-618); Non-African American GFR(CKD) >90 (>60 ml/min/1.73 sqM); Potassium 3.2 mmol/L (3.5-5.1); Sodium 136 mmol/L (137-145); Total Bilirubin 0.9 mg/dL (0.2-1.3); Total Protein 4.2 g/dL (6.3-8.2)
[2021-01-24 05:59] LABS: INR 1.3 (<1.2); Partial Thromboplastin Time 33.1 sec (22.0-30.0); Prothrombin Time 13.6 sec (9.0-12.0)
[2021-01-24 06:19] LABS: Anisocytosis Slight; HCT 20.7 % (39.0-53.0); MCH 32.6 pg (25.0-35.0); MCHC 33.3 g/dL (31.0-37.0); MCV 98.2 fL (80.0-100.0); Macrocytosis Slight; Mean Platelet Volume 9.5; RBC 2.11 m/uL (4.30-5.90); RDW 18.6 % (11.5-15.5)
[2021-01-24 06:44] LABS: WBC 0.4 k/uL (3.8-10.6)
[2021-01-24 06:45] LABS: Platelet Count 20 k/uL (150-450)
[2021-01-24 06:47] LABS: HGB 6.9 gm/dL (13.0-17.5)
[2021-01-24] MEDS: PROCHLORPERAZINE INJ 10 MG/2 ML VIAL IVP PRN (06:59)
[2021-01-24] MEDS: POTASSIUM CHLORIDE 20 MEQ in WATER FOR INJECTION 1 100ML.BAG IVPB SCH ×2 (06:59→08:51)
[2021-01-24] MEDS: PANTOPRAZOLE 40 MG/10 ML VIAL IVP SCH ×2 (08:52→20:43)
[2021-01-24] MEDS: CHOLESTYRAMINE (WITH SUGAR) 4 GM PACKET PO SCH ×2 (08:52→17:16)
[2021-01-24 10:02] LABS: Poikilocytosis (M) Present
--- NOTE | 2021-01-24 10:34 | P.PN ---
<ZekeOra lópez - Last Filed: 01/24/21 10:16> Subjective Progress Note Date: 01/24/21 CHIEF COMPLAINT: Generalized weakness HISTORY OF PRESENT ILLNESS: Patient was sent to the ICU yesterday due to GI bleed. Patient is passing blood per rectum every hour. Sometimes it contains blood clots and a small amount of stool. He also is having hematuria. Patient reports that the hematuria is not new. He denies any abdominal pain. Denies any further nausea or vomiting. He does report feeling lightheaded and having some shortness of breath. He did get a total of 2 units of packed red blood cells, 1 unit of FFP and platelets. Hemoglobin did drop to 4.8 yesterday and is trending upwards to 6.9. WBC 0.4 platelets 20 sodium 136 potassium 3.2 BUN 18 creatinine 0.71 INR 1.3 d-dimer 4.49 stool cultures pending PHYSICAL EXAM: VITAL SIGNS: Reviewed. GENERAL: Well-developed in no acute distress. HEENT: No sclera icterus. Extraocular movements grossly intact. Moist buccal mucosa. Head is atraumatic, normocephalic. ABDOMEN: Soft. Nondistended. Nontender. NEUROLOGIC: Alert and oriented. Cranial nerves II through XII grossly intact. ASSESSMENT: 1. Acute GI bleed with bright red blood with blood clots per rectum and 1 episode of coffee ground emesis. 2. Acute blood loss anemia due to GI bleed 3. Epigastric abdominal pain improved 4. There is moderate wall thickening into the jejunal loops in the left abdomen. Moderate to severe wall thickening of small bowel loops in the right lower quadrant including terminal ileum. And moderate to severe wall thickening of the cecum noted on computed tomography scan consistent with multifocal and diffuse enterocolitis. Findings could reflect non-desired post treatment response versus inflammatory ischemic and/or infectious etiologies 5. History of colorectal cancer with metastatic disease to the liver has been undergoing chemotherapy 6. Febrile Neutropenia PLAN: -transfuse 1 unit PRBCs for hemoglobin is 6.9 with active bleeding, shortness of breath and dizziness -Continue to monitor hemoglobin -Continue to monitor signs and symptoms of bleeding -Continue IV Protonix -Continue IV fluids -Continue supportive care -Continue ICU management -Continue antibiotics per ID -Further recommendations forthcoming per surgeon -continue to follow closely and will make further decision on endoscopic intervention Physician Platform Power Technician note has been reviewed by physician. Signing provider agrees with the documented findings, assessment, and plan of care. Objective - Vital Signs Vital signs: Vital Signs Temp 98.4 F 01/24/21 04:00 Pulse 94 01/24/21 07:00 Resp 12 01/24/21 07:00 BP 133/90 01/24/21 07:00 Pulse Ox 98 01/24/21 07:00 Intake & Output 01/23/21 01/24/21 01/24/21 18:59 06:59 18:59 Intake Total 756 1257 230 Output Total 300 Balance 456 1257 230 Weight 57.2 kg 58.9 kg Intake: IV 130 620 230 Piperacillin-Tazobactam 3 100 .375 gm In Sodium Chloride 0.9% 100 ml @ 25 mls/hr IVPB Q8HR [facility] Rx# :[id number] Potassium Chloride 20 meq 100 In Water For Injection 1 100ml.bag @ 50 mls/hr IVPB Q2H [facility] Rx#: [id number] Sodium Chloride 0.9% 1, 130 520 130 000 ml @ 130 mls/hr IV . Q7H42M [facility] Rx#:[id number] Blood Product 626 637 Ffp 24 Cpd Unit 0 327 [id number] Platelet Pheresis Pas 316 Psoralen Unit [id number] Rc As-1 Unit 310 [id number] Rc As-1 Unit 310 [id number] Output: Urine 300 Other: Voiding Method Urinal Urinal # Voids 1 1 1 # Bowel Movements 1 1 1 - Labs CBC & Chem 7: 01/24/21 04:45 01/24/21 04:45 Labs: Abnormal Lab Results - Last 24 Hours (Table) 01/23/21 01/23/21 01/23/21 Range/Units 06:12 10:18 10:18 WBC (3.8-10.6) k/uL RBC (4.30-5.90) m/uL Hgb (13.0-17.5) gm/dL Hct (39.0-53.0) % MCV (80.0-100.0) fL MCH (25.0-35.0) pg RDW (11.5-15.5) % Plt Count (150-450) k/uL Macrocytosis PT 18.0 H (9.0-12.0) sec INR 1.8 H (<1.2) APTT 36.7 H (22.0-30.0) sec Fibrinogen 534 H (200-500) mg/dL D-Dimer 1.13 H (<0.60) mg/L FEU Sodium (137-145) mmol/L Potassium (3.5-5.1) mmol/L Chloride (98-107) mmol/L Carbon Dioxide (22-30) mmol/L Calcium (8.4-10.2) mg/dL Iron 9 L (65-175) ug/dL TIBC 200 L (228-460) ug/dL % Saturation 4.49 L (15.00-50.00) Transferrin 143.0 L (204.0-354.0) mg/dL Ferritin 1207.0 H (22.0-322.0) ng/mL Total Protein (6.3-8.2) g/dL Albumin (3.5-5.0) g/dL Vitamin B12 >2000.0 H (200.0-944.0) pg/mL Crossmatch See Detail 01/23/21 01/23/21 01/23/21 Range/Units 10:18 20:45 20:45 WBC 0.2 L* 0.3 L* (3.8-10.6) k/uL RBC 1.37 L 1.77 L (4.30-5.90) m/uL Hgb 4.8 L* 6.0 L* (13.0-17.5) gm/dL Hct 14.1 L* 17.5 L* (39.0-53.0) % MCV 103.2 H (80.0-100.0) fL MCH 35.5 H (25.0-35.0) pg RDW 21.5 H 20.3 H (11.5-15.5) % Plt Count 20 L 22 L (150-450) k/uL Macrocytosis Marked A PT 13.9 H (9.0-12.0) sec INR 1.4 H (<1.2) APTT 32.2 H (22.0-30.0) sec Fibrinogen 591 H (200-500) mg/dL D-Dimer (<0.60) mg/L FEU Sodium (137-145) mmol/L Potassium (3.5-5.1) mmol/L Chloride (98-107) mmol/L Carbon Dioxide (22-30) mmol/L Calcium (8.4-10.2) mg/dL Iron (65-175) ug/dL TIBC (228-460) ug/dL % Saturation (15.00-50.00) Transferrin (204.0-354.0) mg/dL Ferritin (22.0-322.0) ng/mL Total Protein (6.3-8.2) g/dL Albumin (3.5-5.0) g/dL Vitamin B12 (200.0-944.0) pg/mL Crossmatch 01/24/21 01/24/21 01/24/21 Range/Units 04:45 04:45 04:45 WBC 0.4 L* (3.8-10.6) k/uL RBC 2.11 L (4.30-5.90) m/uL Hgb 6.9 L* (13.0-17.5) gm/dL Hct 20.7 L (39.0-53.0) % MCV (80.0-100.0) fL MCH (25.0-35.0) pg RDW 18.6 H (11.5-15.5) % Plt Count 20 L (150-450) k/uL Macrocytosis PT 13.6 H (9.0-12.0) sec INR 1.3 H (<1.2) APTT 33.1 H (22.0-30.0) sec Fibrinogen 617 H (200-500) mg/dL D-Dimer 4.49 H (<0.60) mg/L FEU Sodium 136 L (137-145) mmol/L Potassium 3.2 L (3.5-5.1) mmol/L Chloride 110 H (98-107) mmol/L Carbon Dioxide 21 L (22-30) mmol/L Calcium 7.2 L (8.4-10.2) mg/dL Iron (65-175) ug/dL TIBC (228-460) ug/dL % Saturation (15.00-50.00) Transferrin (204.0-354.0) mg/dL Ferritin (22.0-322.0) ng/mL Total Protein 4.2 L (6.3-8.2) g/dL Albumin 2.1 L (3.5-5.0) g/dL Vitamin B12 (200.0-944.0) pg/mL Crossmatch Microbiology - Last 24 Hours (Table) 01/22/21 02:09 Blood Culture - Preliminary Blood No Growth after 48 hours 01/22/21 01:29 Blood Culture - Preliminary Blood No Growth after 48 hours 01/23/21 17:09 Stool Culture - Preliminary Stool 01/22/21 02:24 Urine Culture - Final Urine,Voided <Byron Frankel - Last Filed: 01/24/21 14:18> Subjective Patient denies abdominal pain or significant bloating. Having loose stools that are blood-tinged. Had some blood in his urine as well. Receiving additional transfusion today. Hemodynamically stable. No pressors. Continue supportive care. We'll follow Objective - Vital Signs Vital signs: Vital Signs Temp 98.2 F 01/24/21 13:24 Pulse 100 01/24/21 14:00 Resp 12 01/24/21 14:00 BP 126/96 01/24/21 14:00 Pulse Ox 100 01/24/21 13:24 Intake & Output 01/23/21 01/24/21 01/24/21 18:59 06:59 18:59 Intake Total 756 1257 1130 Output Total 300 Balance 456 1257 1130 Weight 57.2 kg 58.9 kg Intake: IV 130 620 820 Piperacillin-Tazobactam 3 100 100 .375 gm In Sodium Chloride 0.9% 100 ml @ 25 mls/hr IVPB Q8HR [facility] Rx# :[id number] Potassium Chloride 20 meq 200 In Water For Injection 1 100ml.bag @ 50 mls/hr IVPB Q2H [facility] Rx#: [id number] Sodium Chloride 0.9% 1, 130 520 520 000 ml @ 130 mls/hr IV . Q7H42M [facility] Rx#:[id number] Blood Product 626 637 310 Ffp 24 Cpd Unit 0 327 [id number] Platelet Pheresis Pas 316 Psoralen Unit [id number] Rc As-1 Unit 310 [id number] Rc As-1 Unit 310 [id number] Rc As-1 Unit 310 [id number] Output: Urine 300 Other: Voiding Method Urinal Urinal Bedside Commode # Voids 1 1 3 # Bowel Movements 1 1 3 - Labs CBC & Chem 7: 01/24/21 04:45 01/24/21 04:45 Labs: Abnormal Lab Results - Last 24 Hours (Table) 01/23/21 01/23/21 01/23/21 Range/Units 06:12 10:18 20:45 WBC 0.3 L* (3.8-10.6) k/uL RBC 1.77 L (4.30-5.90) m/uL Hgb 6.0 L* (13.0-17.5) gm/dL Hct 17.5 L* (39.0-53.0) % RDW 20.3 H (11.5-15.5) % Plt Count 22 L (150-450) k/uL PT (9.0-12.0) sec INR (<1.2) APTT (22.0-30.0) sec Fibrinogen (200-500) mg/dL D-Dimer (<0.60) mg/L FEU Sodium (137-145) mmol/L Potassium (3.5-5.1) mmol/L Chloride (98-107) mmol/L Carbon Dioxide (22-30) mmol/L Calcium (8.4-10.2) mg/dL Iron 9 L (65-175) ug/dL TIBC 200 L (228-460) ug/dL % Saturation 4.49 L (15.00-50.00) Transferrin 143.0 L (204.0-354.0) mg/dL Ferritin 1207.0 H (22.0-322.0) ng/mL Total Protein (6.3-8.2) g/dL Albumin (3.5-5.0) g/dL Vitamin B12 >2000.0 H (200.0-944.0) pg/mL Crossmatch See Detail 01/23/21 01/24/21 01/24/21 Range/Units 20:45 04:45 04:45 WBC (3.8-10.6) k/uL RBC (4.30-5.90) m/uL Hgb (13.0-17.5) gm/dL Hct (39.0-53.0) % RDW (11.5-15.5) % Plt Count (150-450) k/uL PT 13.9 H 13.6 H (9.0-12.0) sec INR 1.4 H 1.3 H (<1.2) APTT 32.2 H 33.1 H (22.0-30.0) sec Fibrinogen 591 H 617 H (200-500) mg/dL D-Dimer 4.49 H (<0.60) mg/L FEU Sodium 136 L (137-145) mmol/L Potassium 3.2 L (3.5-5.1) mmol/L Chloride 110 H (98-107) mmol/L Carbon Dioxide 21 L (22-30) mmol/L Calcium 7.2 L (8.4-10.2) mg/dL Iron (65-175) ug/dL TIBC (228-460) ug/dL % Saturation (15.00-50.00) Transferrin (204.0-354.0) mg/dL Ferritin (22.0-322.0) ng/mL Total Protein 4.2 L (6.3-8.2) g/dL Albumin 2.1 L (3.5-5.0) g/dL Vitamin B12 (200.0-944.0) pg/mL Crossmatch 01/24/21 Range/Units 04:45 WBC 0.4 L* (3.8-10.6) k/uL RBC 2.11 L (4.30-5.90) m/uL Hgb 6.9 L* (13.0-17.5) gm/dL Hct 20.7 L (39.0-53.0) % RDW 18.6 H (11.5-15.5) % Plt Count 20 L (150-450) k/uL PT (9.0-12.0) sec INR (<1.2) APTT (22.0-30.0) sec Fibrinogen (200-500) mg/dL D-Dimer (<0.60) mg/L FEU Sodium (137-145) mmol/L Potassium (3.5-5.1) mmol/L Chloride (98-107) mmol/L Carbon Dioxide (22-30) mmol/L Calcium (8.4-10.2) mg/dL Iron (65-175) ug/dL TIBC (228-460) ug/dL % Saturation (15.00-50.00) Transferrin (204.0-354.0) mg/dL Ferritin (22.0-322.0) ng/mL Total Protein (6.3-8.2) g/dL Albumin (3.5-5.0) g/dL Vitamin B12 (200.0-944.0) pg/mL Crossmatch Microbiology - Last 24 Hours (Table) 01/22/21 02:09 Blood Culture - Preliminary Blood No Growth after 48 hours 01/22/21 01:29 Blood Culture - Preliminary Blood No Growth after 48 hours 01/23/21 17:09 Stool Culture - Preliminary Stool 01/22/21 02:24 Urine Culture - Final Urine,Voided
--- NOTE | 2021-01-24 11:02 | P.CNPUL ---
History of Present Illness Consult date: 01/24/21 Requesting physician: Darlene Corbin Reason for consult: other (Critical care management) Chief complaint: Dizziness, weakness, poor appetite History of present illness: This is a very pleasant 55-year-old gentleman who was diagnosed with metastatic adenocarcinoma from colorectal cancer with metastasis to the liver in July 2020. He had declined bowel resection with diverting ostomy. 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 He was transferred to [facility] in August 2020 for possible colon stent placement due to 90% mechanical obstruction. They were unable to place a stent. He was given radiation treatments 5. The plan was to return there for possible bowel surgery 6 weeks after completion of his chemotherapy. He did undergo 10 of planned 12 rounds of Folfirinox with his 10th cycle being completed on 01/17/2021. He received Neulasta on 01/18/2021. presented here to the emergency room on 01/22/2021 with fever, weakness, poor appetite. He developed GI bleeding with liquid bright red/brown stools. He also had some coffee-ground emesis. He was transferred here to the intensive care unit yesterday afternoon. He is receiving his third unit of packed red blood cells this morning. He received 1 unit of fresh frozen plasma and 1 unit of platelets. White count 0.4. RBC 2.11. Hemoglobin 6.9. Platelets 20,000. PT 13.6. INR 1.3. PTT 33.1. Fibrinogen 617. D-dimer 4.49. Sodium 136. Potassium 3.2. Creatinine 0.71. Calcium 7.2. AST 35. ALT 30. Alk phos 84. LDH 489. Vitamin B12 greater than 2000. Chest x-ray reveals no active cardiopulmonary process. Presently, he is resting comfortably in bed. Awake and alert in no acute distress. He denies any shortness of breath, cough or congestion. Maintaining O2 saturations in the 90s on room air. Some dizziness and lightheadedness. Blood pressure stable in the 1 teens over 80s. Currently afebrile. He has 0.9 normal saline at 130 ML's per hour. He is currently on Zosyn. Computed tomography scan of the abdomen and pelvis revealed positive treatment response of the posterior right hepatic lobe metastatic lesion. There is however new moderate to severe wall thickening consistent with multifocal and diffuse enterocolitis. Could reflect no undesired posttreatment response versus inflammatory, ischemic or infectious etiologies. There is new severe wall thickening in the bladder with similar differential, no undesired post treatment response versus infectious/inflammatory etiology. Review of Systems REVIEW OF SYSTEMS: CONSTITUTIONAL: Positive for ongoing weight loss. EYES: Denies change in vision. EARS, NOSE, MOUTH, THROAT: Denies headaches, denies sore throat. CARDIOVASCULAR: Denies chest pain, palpitations or syncopal episodes. RESPIRATORY: Denies shortness of breath, cough, congestion or hemoptysis. GASTROINTESTINAL: Positive for change in appetite, abdominal pain and bloody diarrhea GENITOURINARY: Denies hematuria, denies infections. MUSKULOSKELETAL: Denies pain, denies swelling. INTEGUMENTARY: Denies rash, denies eczema. NEUROLOGICAL: Denies recent memory loss, no recent seizure activity. PSYCHIATRIC: Denies anxiety, denies depression. HEMATOLOGIC/LYMPHATIC: Denies anemia, denies enlarged lymph nodes. Past Medical History Past Medical History: Cancer Additional Past Medical History / Comment(s): Hx freq diarrhea. Rectal cancer, mets to liver History of Any Multi-Drug Resistant Organisms: None Reported Past Surgical History: Orthopedic Surgery Additional Past Surgical History / Comment(s): Right knee repair. Colonoscopy 08/06/20, right side chemoport Past Anesthesia/Blood Transfusion Reactions: No Reported Reaction Past Psychological History: No Psychological Hx Reported Smoking Status: Never smoker Past Alcohol Use History: None Reported Past Drug Use History: None Reported - Past Family History Mother Family Medical History: No Reported History Medications and Allergies Home Medications Medication Instructions Recorded Confirmed Type Lidocaine-Prilocaine Cream [Emla 1 applic TOPICAL DAILY PRN 01/22/21 01/22/21 History Cream 2.5%/2.5%] Ondansetron Odt [Zofran Odt] 8 mg PO Q8HR PRN 01/22/21 01/22/21 History Vitamin B Complex 1 cap PO DAILY 01/22/21 01/22/21 History polyethylene glycoL 3350 [Miralax] 8.5 - 17 gm PO DAILY PRN 01/22/21 01/22/21 History Allergies Allergy/AdvReac Type Severity Reaction Status Date / Time gabapentin AdvReac dizzy Verified 01/22/21 06:53 Physical Exam Vitals: Vital Signs Temp Pulse Resp BP Pulse Ox 01/24/21 10:00 88 13 113/80 01/24/21 09:00 87 10 L 124/87 99 01/24/21 08:00 98 F 96 11 L 118/81 100 01/24/21 07:00 94 12 133/90 98 01/24/21 06:00 94 16 112/80 01/24/21 05:00 94 11 L 108/79 01/24/21 04:00 98.4 F 100 12 109/77 97 01/24/21 03:00 105 H 13 119/78 97 01/24/21 02:00 104 H 11 L 113/72 95 01/24/21 01:00 113 H 15 120/89 94 L 01/24/21 00:46 118 H 10 L 120/89 98 01/24/21 00:00 117 H 24 127/81 96 01/23/21 23:53 99.1 F 117 H 13 120/89 97 01/23/21 23:00 134 H 21 135/82 97 01/23/21 22:21 99.2 F 112 H 16 114/57 01/23/21 22:00 137 H 22 130/84 96 01/23/21 21:51 99.2 F 121 H 18 130/84 01/23/21 21:41 99.1 F 106 H 16 130/84 98 01/23/21 21:00 106 H 18 121/80 97 01/23/21 20:00 98.9 F 104 H 16 119/79 99 01/23/21 19:06 98.0 F 98 18 119/79 99 01/23/21 19:00 99 14 129/92 98 01/23/21 18:24 98.0 F 129 H 18 129/92 100 01/23/21 18:00 99 17 111/83 99 01/23/21 17:54 98.1 F 98 18 130/93 100 01/23/21 17:44 98.1 F 99 18 111/83 100 01/23/21 17:00 99 20 127/84 99 01/23/21 16:41 98.1 F 99 18 124/84 100 01/23/21 16:00 98.1 F 101 H 15 123/85 99 01/23/21 15:19 98.2 F 96 18 115/73 100 01/23/21 15:00 103 H 21 110/76 99 01/23/21 14:49 98.1 F 101 H 19 110/76 98 01/23/21 14:39 98.1 F 102 H 18 120/82 99 01/23/21 14:20 98.2 F 102 H 18 121/79 99 01/23/21 14:00 130 H 23 116/74 100 01/23/21 13:28 97.9 F 97 18 105/73 99 01/23/21 13:00 33 H 124/74 100 01/23/21 12:58 97.9 F 105 H 18 94/68 100 01/23/21 12:48 98.1 F 104 H 17 109/80 99 01/23/21 12:00 98.1 F 98 13 100/70 100 Intake and Output 01/23/21 01/24/21 01/24/21 22:59 06:59 14:59 Intake Total 637 930 820 Balance 637 930 820 Intake: IV 620 820 Piperacillin-Tazobactam 3 100 100 .375 gm In Sodium Chloride 0.9% 100 ml @ 25 mls/hr IVPB Q8HR [facility] Rx# :[id number] Potassium Chloride 20 meq 200 In Water For Injection 1 100ml.bag @ 50 mls/hr IVPB Q2H [facility] Rx#: [id number] Sodium Chloride 0.9% 1, 520 520 000 ml @ 130 mls/hr IV . Q7H42M [facility] Rx#:[id number] Blood Product 637 310 Ffp 24 Cpd Unit 327 [id number] Rc As-1 Unit 310 [id number] Rc As-1 Unit 0 310 [id number] Other: Voiding Method Urinal Urinal Bedside Commode # Voids 1 1 1 # Bowel Movements 1 1 1 Weight 58.9 kg GENERAL EXAM: Alert, very pleasant 55-year-old gentleman, on room air,, comfortable in no apparent distress. HEAD: Normocephalic. EYES: Normal reaction of pupils, equal size. NOSE: Clear with pink turbinates. THROAT: No erythema or exudates. NECK: No masses, no JVD. CHEST: No chest wall deformity. LUNGS: Equal air entry with no crackles, wheeze, rhonchi or dullness. CVS: S1 and S2 normal with no audible murmur, regular rhythm. ABDOMEN: No hepatosplenomegaly, normal bowel sounds, no guarding or rigidity. SPINE: No scoliosis or deformity SKIN: No rashes CENTRAL NERVOUS SYSTEM: No focal deficits, tone is normal in all 4 extremities. EXTREMITIES: There is no peripheral edema. No clubbing, no cyanosis. Peripheral pulses are intact. Results - Laboratory Findings CBC and BMP: 01/24/21 04:45 01/24/21 04:45 PT/INR, D-dimer PT 13.6 sec (9.0-12.0) H 01/24/21 04:45 INR 1.3 (<1.2) H 01/24/21 04:45 D-Dimer 4.49 mg/L FEU (<0.60) H 01/24/21 04:45 Abnormal lab findings: Abnormal Labs 01/22/21 01/22/21 01/22/21 01:29 01:30 01:30 WBC 0.4 L* RBC 2.59 L Hgb 8.8 L Hct 26.5 L MCV 102.4 H D MCH RDW 21.0 H Plt Count 88 L D Macrocytosis Marked A PT INR APTT Fibrinogen D-Dimer Sodium Potassium Chloride Carbon Dioxide 15 L BUN 41 H Glucose 165 H Plasma Lactic Acid Amado 7.3 H* Calcium 8.0 L Iron TIBC % Saturation Transferrin Ferritin ALT 55 H Alkaline Phosphatase 169 H Total Protein 5.4 L Albumin 2.9 L Vitamin B12 Urine Protein Urine Blood Urine Bilirubin Ur Leukocyte Esterase Urine RBC Urine WBC Urine Bacteria Hyaline Casts Urine Mucus Crossmatch 01/22/21 01/22/21 01/22/21 02:24 04:17 12:57 WBC RBC Hgb Hct MCV MCH RDW Plt Count Macrocytosis PT 15.0 H INR 1.5 H APTT 18.6 L Fibrinogen D-Dimer 0.77 H Sodium Potassium Chloride Carbon Dioxide BUN Glucose Plasma Lactic Acid Amado 2.4 H* Calcium Iron TIBC % Saturation Transferrin Ferritin ALT Alkaline Phosphatase Total Protein Albumin Vitamin B12 Urine Protein 2+ H Urine Blood Large H Urine Bilirubin 1+ H Ur Leukocyte Esterase Trace H Urine RBC >182 H Urine WBC 32 H Urine Bacteria Rare H Hyaline Casts 124 H Urine Mucus Few H Crossmatch 01/23/21 01/23/21 01/23/21 06:12 06:13 06:13 WBC 0.2 L* RBC 1.56 L Hgb 5.4 L* D Hct 15.9 L* MCV 102.4 H MCH RDW 21.2 H Plt Count 23 L D Macrocytosis Marked A PT INR APTT Fibrinogen D-Dimer Sodium 135 L Potassium Chloride 111 H Carbon Dioxide 19 L BUN 30 H Glucose Plasma Lactic Acid Amado Calcium 7.1 L Iron 9 L TIBC 200 L % Saturation 4.49 L Transferrin 143.0 L Ferritin 1207.0 H ALT Alkaline Phosphatase Total Protein 4.1 L Albumin 2.1 L Vitamin B12 >2000.0 H Urine Protein Urine Blood Urine Bilirubin Ur Leukocyte Esterase Urine RBC Urine WBC Urine Bacteria Hyaline Casts Urine Mucus Crossmatch 01/23/21 01/23/21 01/23/21 10:18 10:18 10:18 WBC 0.2 L* RBC 1.37 L Hgb 4.8 L* Hct 14.1 L* MCV 103.2 H MCH 35.5 H RDW 21.5 H Plt Count 20 L Macrocytosis Marked A PT 18.0 H INR 1.8 H APTT 36.7 H Fibrinogen 534 H D-Dimer 1.13 H Sodium Potassium Chloride Carbon Dioxide BUN Glucose Plasma Lactic Acid Amado Calcium Iron TIBC % Saturation Transferrin Ferritin ALT Alkaline Phosphatase Total Protein Albumin Vitamin B12 Urine Protein Urine Blood Urine Bilirubin Ur Leukocyte Esterase Urine RBC Urine WBC Urine Bacteria Hyaline Casts Urine Mucus Crossmatch See Detail 01/23/21 01/23/21 01/24/21 20:45 20:45 04:45 WBC 0.3 L* RBC 1.77 L Hgb 6.0 L* Hct 17.5 L* MCV MCH RDW 20.3 H Plt Count 22 L Macrocytosis PT 13.9 H INR 1.4 H APTT 32.2 H Fibrinogen 591 H D-Dimer Sodium 136 L Potassium 3.2 L Chloride 110 H Carbon Dioxide 21 L BUN Glucose Plasma Lactic Acid Amado Calcium 7.2 L Iron TIBC % Saturation Transferrin Ferritin ALT Alkaline Phosphatase Total Protein 4.2 L Albumin 2.1 L Vitamin B12 Urine Protein Urine Blood Urine Bilirubin Ur Leukocyte Esterase Urine RBC Urine WBC Urine Bacteria Hyaline Casts Urine Mucus Crossmatch 01/24/21 01/24/21 04:45 04:45 WBC 0.4 L* RBC 2.11 L Hgb 6.9 L* Hct 20.7 L MCV MCH RDW 18.6 H Plt Count 20 L Macrocytosis PT 13.6 H INR 1.3 H APTT 33.1 H Fibrinogen 617 H D-Dimer 4.49 H Sodium Potassium Chloride Carbon Dioxide BUN Glucose Plasma Lactic Acid Amado Calcium Iron TIBC % Saturation Transferrin Ferritin ALT Alkaline Phosphatase Total Protein Albumin Vitamin B12 Urine Protein Urine Blood Urine Bilirubin Ur Leukocyte Esterase Urine RBC Urine WBC Urine Bacteria Hyaline Casts Urine Mucus Crossmatch - Diagnostic Findings Chest x-ray: image reviewed (No acute pulmonary process) Assessment and Plan Assessment: 1 Acute neutropenic fever secondary to round 10 of 12 planned FOLFOX completed 01/17/2021 2 Acute gastrointestinal bleeding with liquid bloody stools, coffee-ground emesis. Computed tomography scan of the abdomen reveals new moderate to severe wall thickening consistent with multifocal and diffuse enterocolitis. There is also new severe wall thickening in the bladder. The patient did receive radiation 5 at [facility] in August 2020 3 History of metastatic adenocarcinoma, colorectal primary with metastasis to the liver 4 Colonic mass unable to receive bowel stent at [facility] but may be considered for bowel surgery 6 weeks following chemotherapy 5 Acute GI blood loss anemia receiving his third unit of packed red blood cells today 6 Pancytopenia secondary to above, received 1 unit of fresh frozen plasma, one unit of platelets 7 Diarrhea status post colonoscopy with biopsy and found to have metastatic adenocarcinoma in July 2020 Plan: The patient was seen and evaluated by Dr. Morales Currently stable from the pulmonary standpoint Continue to monitor blood pressure, blood counts here in the ICU Surgical services on consult Continue to replace blood products as needed We will continue to follow and make further recommendations based on his clinical status I, the cosigning physician, performed a history & physical examination of the patient. Lungs sounds are clear. Maintaining good O2 saturations in the 90s on room air. I discussed the assessment and plan of care with my nurse practitioner, Rody Patel. I attest to the above consultation as dictated by her. Time with Patient: Greater than 30
--- NOTE | 2021-01-24 13:35 | P.PN ---
Subjective Progress Note Date: 01/24/21 Principal diagnosis: GI bleed In f/u today pt states ongoing penile bleeding, stool is brown and he denies BRBPR. No fever, vomiting, no other bleeding to report. Mother is at bedside Objective - Vital Signs Vital signs: Vital Signs Temp 98 F 01/24/21 12:00 Pulse 91 01/24/21 13:00 Resp 14 01/24/21 13:00 BP 137/102 01/24/21 13:00 Pulse Ox 99 01/24/21 12:00 Intake & Output 01/23/21 01/24/21 01/24/21 18:59 06:59 18:59 Intake Total 756 1257 1130 Output Total 300 Balance 456 1257 1130 Weight 57.2 kg 58.9 kg Intake: IV 130 620 820 Piperacillin-Tazobactam 3 100 100 .375 gm In Sodium Chloride 0.9% 100 ml @ 25 mls/hr IVPB Q8HR [facility] Rx# :[id number] Potassium Chloride 20 meq 200 In Water For Injection 1 100ml.bag @ 50 mls/hr IVPB Q2H [facility] Rx#: [id number] Sodium Chloride 0.9% 1, 130 520 520 000 ml @ 130 mls/hr IV . Q7H42M [facility] Rx#:[id number] Blood Product 626 637 310 Ffp 24 Cpd Unit 0 327 [id number] Platelet Pheresis Pas 316 Psoralen Unit [id number] Rc As-1 Unit 310 [id number] Rc As-1 Unit 310 [id number] Rc As-1 Unit 310 [id number] Output: Urine 300 Other: Voiding Method Urinal Urinal Bedside Commode # Voids 1 1 3 # Bowel Movements 1 1 3 - Constitutional General appearance: Present: cooperative, no acute distress, thin - EENT Eyes: Present: anicteric sclerae, EOMI ENT: Present: hearing grossly normal, normal oropharynx - Respiratory Respiratory: bilateral: CTA - Cardiovascular Heart sounds: normal: S1, S2 - Gastrointestinal General gastrointestinal: Present: normal bowel sounds, soft - Neurologic Neurologic: Present: CNII-XII intact - Musculoskeletal Musculoskeletal: Present: generalized weakness - Psychiatric Psychiatric: Present: A&O x's 3, appropriate affect, intact judgment & insight - Labs CBC & Chem 7: 01/24/21 04:45 01/24/21 04:45 Labs: Abnormal Lab Results - Last 24 Hours (Table) 01/23/21 01/23/21 01/23/21 Range/Units 06:12 10:18 10:18 WBC 0.2 L* (3.8-10.6) k/uL RBC 1.37 L (4.30-5.90) m/uL Hgb 4.8 L* (13.0-17.5) gm/dL Hct 14.1 L* (39.0-53.0) % MCV 103.2 H (80.0-100.0) fL MCH 35.5 H (25.0-35.0) pg RDW 21.5 H (11.5-15.5) % Plt Count 20 L (150-450) k/uL Macrocytosis Marked A PT (9.0-12.0) sec INR (<1.2) APTT (22.0-30.0) sec Fibrinogen (200-500) mg/dL D-Dimer (<0.60) mg/L FEU Sodium (137-145) mmol/L Potassium (3.5-5.1) mmol/L Chloride (98-107) mmol/L Carbon Dioxide (22-30) mmol/L Calcium (8.4-10.2) mg/dL Iron 9 L (65-175) ug/dL TIBC 200 L (228-460) ug/dL % Saturation 4.49 L (15.00-50.00) Transferrin 143.0 L (204.0-354.0) mg/dL Ferritin 1207.0 H (22.0-322.0) ng/mL Total Protein (6.3-8.2) g/dL Albumin (3.5-5.0) g/dL Vitamin B12 >2000.0 H (200.0-944.0) pg/mL Crossmatch See Detail 01/23/21 01/23/21 01/24/21 Range/Units 20:45 20:45 04:45 WBC 0.3 L* (3.8-10.6) k/uL RBC 1.77 L (4.30-5.90) m/uL Hgb 6.0 L* (13.0-17.5) gm/dL Hct 17.5 L* (39.0-53.0) % MCV (80.0-100.0) fL MCH (25.0-35.0) pg RDW 20.3 H (11.5-15.5) % Plt Count 22 L (150-450) k/uL Macrocytosis PT 13.9 H (9.0-12.0) sec INR 1.4 H (<1.2) APTT 32.2 H (22.0-30.0) sec Fibrinogen 591 H (200-500) mg/dL D-Dimer (<0.60) mg/L FEU Sodium 136 L (137-145) mmol/L Potassium 3.2 L (3.5-5.1) mmol/L Chloride 110 H (98-107) mmol/L Carbon Dioxide 21 L (22-30) mmol/L Calcium 7.2 L (8.4-10.2) mg/dL Iron (65-175) ug/dL TIBC (228-460) ug/dL % Saturation (15.00-50.00) Transferrin (204.0-354.0) mg/dL Ferritin (22.0-322.0) ng/mL Total Protein 4.2 L (6.3-8.2) g/dL Albumin 2.1 L (3.5-5.0) g/dL Vitamin B12 (200.0-944.0) pg/mL Crossmatch 01/24/21 01/24/21 Range/Units 04:45 04:45 WBC 0.4 L* (3.8-10.6) k/uL RBC 2.11 L (4.30-5.90) m/uL Hgb 6.9 L* (13.0-17.5) gm/dL Hct 20.7 L (39.0-53.0) % MCV (80.0-100.0) fL MCH (25.0-35.0) pg RDW 18.6 H (11.5-15.5) % Plt Count 20 L (150-450) k/uL Macrocytosis PT 13.6 H (9.0-12.0) sec INR 1.3 H (<1.2) APTT 33.1 H (22.0-30.0) sec Fibrinogen 617 H (200-500) mg/dL D-Dimer 4.49 H (<0.60) mg/L FEU Sodium (137-145) mmol/L Potassium (3.5-5.1) mmol/L Chloride (98-107) mmol/L Carbon Dioxide (22-30) mmol/L Calcium (8.4-10.2) mg/dL Iron (65-175) ug/dL TIBC (228-460) ug/dL % Saturation (15.00-50.00) Transferrin (204.0-354.0) mg/dL Ferritin (22.0-322.0) ng/mL Total Protein (6.3-8.2) g/dL Albumin (3.5-5.0) g/dL Vitamin B12 (200.0-944.0) pg/mL Crossmatch Microbiology - Last 24 Hours (Table) 01/22/21 02:09 Blood Culture - Preliminary Blood No Growth after 48 hours 01/22/21 01:29 Blood Culture - Preliminary Blood No Growth after 48 hours 01/23/21 17:09 Stool Culture - Preliminary Stool 01/22/21 02:24 Urine Culture - Final Urine,Voided Assessment and Plan (1) Pancytopenia due to antineoplastic chemotherapy Narrative/Plan: 1 unit today for Hgb 6.9. Transfuse to keep Hgb 7 or higher. Plt 20K, pt still having bleeding, 1 unit SDP ordered. Pt received GCSF on 01/17, anticipate increase in WBC in the next 36-48 hours, no additional GCSF at this time. Current Visit: Yes Status: Acute Priority: High Code(s): D61.810 - ANTINEOPLASTIC CHEMOTHERAPY INDUCED PANCYTOPENIA; T45.1X5A - ADVERSE EFFECT OF ANTINEOPLASTIC AND IMMUNOSUP DRUGS, INIT SNOMED Code(s): 021224549683850 (2) Rectal adenocarcinoma Narrative/Plan: New diagnosis, metastatic disease. He has stage IV disease but, was being treated with intent of reevaluation of liver lesions to eval number and size to see local therapy would be an option. Unfortunately, pt had not tolerated the last 3 cycles of treatment very well. He stated today that he no longer wants to do chemo. His appts for the same will be cancelled. Kept f/u appt with Dr. Giles. Current Visit: Yes Status: Acute Priority: High Code(s): C20 - MALIGNANT NEOPLASM OF RECTUM SNOMED Code(s): 934942174
[2021-01-24] MEDS: NON FORMULARY DRUG (Vitamin B Complex [Vitamin B Complex] 1 EACH Capsule) PO SCH (14:47)
[2021-01-24 15:02] LABS: Anisocytosis Slight; HCT 31.4 % (39.0-53.0); MCH 33.1 pg (25.0-35.0); MCHC 33.9 g/dL (31.0-37.0); MCV 97.8 fL (80.0-100.0); Macrocytosis Slight; Mean Platelet Volume 9.9; RBC 3.21 m/uL (4.30-5.90); RDW 17.5 % (11.5-15.5); WBC 2.6 k/uL (3.8-10.6)
[2021-01-24 15:11] LABS: HGB 10.6 gm/dL (13.0-17.5); Platelet Count 42 k/uL (150-450)
--- NOTE | 2021-01-24 17:40 | PN ---
PROGRESS NOTE DATE OF SERVICE: 01/24/2021 REASON FOR FOLLOWUP: Febrile neutropenia and enterocolitis. INTERVAL HISTORY: The patient is afebrile. The patient is feeling slightly better today. He is breathing comfortably. No chest pain, shortness of breath or cough. No abdominal pain. Diarrhea has slowed down. PHYSICAL EXAMINATION: Blood pressure 126/96, pulse 100, temperature 98. He is 99% on room air. General description is a middle-aged male lying in bed in no distress. Respiratory system: Unlabored breathing, clear to auscultation anteriorly. Heart S1, S2. Regular rate and rhythm. Abdomen soft, mildly distended. No guarding or rigidity. LABS: Hemoglobin is 6.9, white count 0.4, creatinine 0.71. DIAGNOSTIC IMPRESSION AND PLAN: Patient with febrile neutropenia. Source is likely abdominal with concern for enterocolitis. Patient is currently covered with Zosyn; to continue while waiting for the culture to finalize, and monitor his clinical course closely. Continue with supportive care. MMODL / IJN: [id number] /
[2021-01-25] MEDS: PIPERACILLIN-TAZOBACTAM 3.375 GM in SODIUM CHLORIDE 0.9% 100 ML IVPB SCH ×4 (00:58→23:07)
[2021-01-25 01:02] LABS: Glucose,Whole Blood 101 mg/dL (75-99)
[2021-01-25] MEDS: SODIUM CHLORIDE 0.9% 1,000 ML IV SCH ×3 (01:02→17:42)
[2021-01-25 04:47] LABS: Anisocytosis Slight; HCT 24.3 % (39.0-53.0); Hyperchromasia Slight; MCH 33.6 pg (25.0-35.0); MCHC 34.8 g/dL (31.0-37.0); MCV 96.6 fL (80.0-100.0); Macrocytosis Slight; Mean Platelet Volume 9.6; Poikilocytosis Slight; RBC 2.51 m/uL (4.30-5.90); RDW 18.3 % (11.5-15.5)
[2021-01-25 04:50] LABS: HGB 8.4 gm/dL (13.0-17.5)
[2021-01-25 04:51] LABS: Platelet Count 24 k/uL (150-450)
[2021-01-25 05:04] LABS: African American GFR (CKD) >90 (>60 ml/min/1.73 sqM); Anion Gap 4 mmol/L; Blood Urea Nitrogen 21 mg/dL (9-20); Calcium 7.5 mg/dL (8.4-10.2); Carbon Dioxide 20 mmol/L (22-30); Chloride 112 mmol/L (98-107); Glucose 84 mg/dL (74-99); Non-African American GFR(CKD) >90 (>60 ml/min/1.73 sqM); Potassium 3.3 mmol/L (3.5-5.1); Sodium 136 mmol/L (137-145)
[2021-01-25 05:23] LABS: Band Neutrophils % 42 %; Neutrophils % (M) 28 %; Nucleated Red Blood Cells 4 /100 WBC (0-0); Total Cells Counted 100
[2021-01-25 05:24] LABS: Lymphocytes # (M) 0.35 k/uL (1.0-4.8); Monocytes # (M) 0.31 k/uL (0-1.0); WBC 2.2 k/uL (3.8-10.6)
[2021-01-25 05:25] LABS: Anisocytosis (M) Present; Ovalocytes Present; Poikilocytosis (M) Present; Toxic Granulation Present
[2021-01-25] MEDS: POTASSIUM CHLORIDE 20 MEQ in WATER FOR INJECTION 1 100ML.BAG IVPB SCH ×2 (06:21→08:35)
[2021-01-25] MEDS: NON FORMULARY DRUG (Vitamin B Complex [Vitamin B Complex] 1 EACH Capsule) PO SCH (08:21)
[2021-01-25] MEDS: PANTOPRAZOLE 40 MG/10 ML VIAL IVP SCH ×2 (08:36→20:44)
--- NOTE | 2021-01-25 09:12 | P.PN ---
Subjective Progress Note Date: 01/25/21 This is a very pleasant 55-year-old gentleman who was diagnosed with metastatic adenocarcinoma from colorectal cancer with metastasis to the liver in July 2020. He had declined bowel resection with diverting ostomy. 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 He was transferred to [facility] in August 2020 for possible colon stent placement due to 90% mechanical obstruction. They were unable to place a stent. He was given radiation treatments 5. The plan was to return there for possible bowel surgery 6 weeks after completion of his chemotherapy. He did undergo 10 of planned 12 rounds of Folfirinox with his 10th cycle being completed on 01/17/2021. He received Neulasta on 01/18/2021. presented here to the emergency room on 01/22/2021 with fever, weakness, poor appetite. He developed GI bleeding with liquid bright red/brown stools. He also had some coffee-ground emesis. He was transferred here to the intensive care unit yesterday afternoon. He is receiving his third unit of packed red blood cells this morning. He received 1 unit of fresh frozen plasma and 1 unit of platelets. White count 0.4. RBC 2.11. Hemoglobin 6.9. Platelets 20,000. PT 13.6. INR 1.3. PTT 33.1. Fibrinogen 617. D-dimer 4.49. Sodium 136. Potassium 3.2. Creatinine 0.71. Calcium 7.2. AST 35. ALT 30. Alk phos 84. LDH 489. Vitamin B12 greater than 2000. Chest x-ray reveals no active cardiopu lmonary process. Presently, he is resting comfortably in bed. Awake and alert in no acute distress. He denies any shortness of breath, cough or congestion. Maintaining O2 saturations in the 90s on room air. Some dizziness and lightheadedness. Blood pressure stable in the 1 teens over 80s. Currently afebrile. He has 0.9 normal saline at 130 ML's per hour. He is currently on Zosyn. Computed tomography scan of the abdomen and pelvis revealed positive treatment response of the posterior right hepatic lobe metastatic lesion. There is however new moderate to severe wall thickening consistent with multifocal and diffuse enterocolitis. Could reflect no undesired posttreatment response versus inflammatory, ischemic or infectious etiologies. There is new severe wall thickening in the bladder with similar differential, no undesired post treatment response versus infectious/inflammatory etiology. On 01/25/2021 seen for a follow-up. The patient is in the intensive care unit for ongoing GI bleeding. Note that the patient has developed pancytopenia related to systemic chemotherapy and he also had received radiation therapy to his abdomen for his colorectal cancer. Subsequently, he came in for bleeding and the patient became thrombocytopenic and The Abdomen Showed Areas of Bowel Inflammation/Colitis. For Now, the Patient Is Doing Well. Since Yesterday, the patient had only 1 episode of bloody stool which probably are some leftovers as the patient's hemoglobin has essentially remained stable in the hemoglobin is at 8.4. Platelet count is at 24 and the rest of the hemodynamics are stable for now. Discussed the case with general surgery. With allow this patient some clear liquid diet for now. Otherwise, the patient has no other complaints. No chest pain. No dizziness. Sodium level is at 136, white cell count is up to 2.2 with a hemoglobin of 8.4. He remains on IV Zosyn. No abdominal pain. No nausea. No vomiting. No emesis. No other significant events overnight. IV fluids are running in the form of normal saline at the rate of 130s's an hour. Objective - Vital Signs Vital signs: Vital Signs Temp 97.7 F 01/25/21 08:00 Pulse 117 H 01/25/21 08:00 Resp 18 01/25/21 08:00 BP 132/90 01/25/21 08:00 Pulse Ox 99 01/25/21 08:00 Intake & Output 01/24/21 01/25/21 01/25/21 18:59 06:59 18:59 Intake Total 1880 1270 260 Output Total 50 Balance 1880 1270 210 Weight 58 kg Intake: IV 1570 1270 260 Piperacillin-Tazobactam 3 200 100 .375 gm In Sodium Chloride 0.9% 100 ml @ 25 mls/hr IVPB Q8HR [facility] Rx# :[id number] Potassium Chloride 20 meq 200 In Water For Injection 1 100ml.bag @ 50 mls/hr IVPB Q2H [facility] Rx#: [id number] Sodium Chloride 0.9% 1, 1170 1170 260 000 ml @ 130 mls/hr IV . Q7H42M [facility] Rx#:[id number] Blood Product 310 Rc As-1 Unit 310 [id number] Output: Stool 50 Other: Voiding Method Bedside Commode Bedside Commode # Voids 2 1 1 # Bowel Movements 2 1 - Exam GENERAL EXAM: Alert, very pleasant 55-year-old gentleman, on room air,, comfortable in no apparent distress. HEAD: Normocephalic. EYES: Normal reaction of pupils, equal size. NOSE: Clear with pink turbinates. THROAT: No erythema or exudates. NECK: No masses, no JVD. CHEST: No chest wall deformity. LUNGS: Equal air entry with no crackles, wheeze, rhonchi or dullness. CVS: S1 and S2 normal with no audible murmur, regular rhythm. ABDOMEN: No hepatosplenomegaly, normal bowel sounds, no guarding or rigidity. SPINE: No scoliosis or deformity SKIN: No rashes CENTRAL NERVOUS SYSTEM: No focal deficits, tone is normal in all 4 extremities. EXTREMITIES: There is no peripheral edema. No clubbing, no cyanosis. Peripheral pulses are intact. - Labs CBC & Chem 7: 01/25/21 04:27 01/25/21 04:27 Labs: Abnormal Lab Results - Last 24 Hours (Table) 01/23/21 01/24/21 01/25/21 Range/Units 10:18 14:59 01:01 WBC 2.6 L (3.8-10.6) k/uL RBC 3.21 L (4.30-5.90) m/uL Hgb 10.6 L D (13.0-17.5) gm/dL Hct 31.4 L (39.0-53.0) % RDW 17.5 H (11.5-15.5) % Plt Count 42 L D (150-450) k/uL Lymphocytes # (Manual) (1.0-4.8) k/uL Nucleated RBCs (0-0) /100 WBC Sodium (137-145) mmol/L Potassium (3.5-5.1) mmol/L Chloride (98-107) mmol/L Carbon Dioxide (22-30) mmol/L BUN (9-20) mg/dL POC Glucose (mg/dL) 101 H (75-99) mg/dL Calcium (8.4-10.2) mg/dL Crossmatch See Detail 01/25/21 01/25/21 Range/Units 04:27 04:27 WBC 2.2 L (3.8-10.6) k/uL RBC 2.51 L (4.30-5.90) m/uL Hgb 8.4 L D (13.0-17.5) gm/dL Hct 24.3 L (39.0-53.0) % RDW 18.3 H (11.5-15.5) % Plt Count 24 L (150-450) k/uL Lymphocytes # (Manual) 0.35 L (1.0-4.8) k/uL Nucleated RBCs 4 H (0-0) /100 WBC Sodium 136 L (137-145) mmol/L Potassium 3.3 L (3.5-5.1) mmol/L Chloride 112 H (98-107) mmol/L Carbon Dioxide 20 L (22-30) mmol/L BUN 21 H (9-20) mg/dL POC Glucose (mg/dL) (75-99) mg/dL Calcium 7.5 L (8.4-10.2) mg/dL Crossmatch Microbiology - Last 24 Hours (Table) 01/22/21 02:09 Blood Culture - Preliminary Blood No Growth after 72 hours 01/22/21 01:29 Blood Culture - Preliminary Blood No Growth after 72 hours Assessment and Plan Plan: 1 Acute neutropenic fever secondary to round 10 of 12 planned FOLFOX completed 01/17/2021, and the patient's course of treatment was completed by pancytopenia and subsequent GI bleeding. 2 Acute gastrointestinal bleeding with liquid bloody stools, coffee-ground emesis. Computed tomography scan of the abdomen reveals new moderate to severe wall thickening consistent with multifocal and diffuse enterocolitis. There is also new severe wall thickening in the bladder. The patient did receive radiation 5 at [facility] in August 2020. The bleeding was further complicated by some mild degree of coagulopathy and thrombocytopenia. The patient received a total of 2 units of packed RBC, platelets transfusion and a unit of fresh frozen plasma. Current platelet count is at 24. No evidence of any active bleeding since yesterday and the patient's hemodynamics are essentially stable for now. 3 History of metastatic adenocarcinoma, colorectal primary with metastasis to the liver 4 Colonic mass unable to receive bowel stent at [facility] but may be considered for bowel surgery 6 weeks following chemotherapy 5 Acute GI blood loss anemia receiving his third unit of packed red blood cells today 6 Pancytopenia secondary to above, received 1 unit of fresh frozen plasma, one unit of platelets 7 Diarrhea status post colonoscopy with biopsy and found to have metastatic adenocarcinoma in July 2020 Plan: Allow clear liquid diet Currently stable from the pulmonary standpoint Monitor hemoglobin I do not see the need for another platelet transfusion today Continue to monitor blood pressure, blood counts here in the ICU Surgical services on consult, discussed the case with general surgery Continued IV Zosyn Continued IV fluids Continue to replace blood products as needed We will continue to follow and make further recommendations based on his clinical status
--- NOTE | 2021-01-25 09:29 | P.PN ---
Subjective Progress Note Date: 01/25/21 Principal diagnosis: Enterocolitis Patient remains in the ICU. Patient had the urge to have a bowel movement quite a bit yesterday and it was until around 10:00 PM that he had some bloody clots that he evacuated and following that had a larger amount of liquid stools. He had a small amount of bloody stools this morning. Hemoglobin 8.4. Platelet levels 24. Patient is nothing by mouth but does have an appetite. Denies abdominal pain. No significant bloating. Objective - Vital Signs Vital signs: Vital Signs Temp 97.7 F 01/25/21 08:00 Pulse 117 H 01/25/21 08:00 Resp 18 01/25/21 08:00 BP 132/90 01/25/21 08:00 Pulse Ox 99 01/25/21 08:00 Intake & Output 01/24/21 01/25/21 01/25/21 18:59 06:59 18:59 Intake Total 1880 1270 260 Output Total 50 Balance 1880 1270 210 Weight 58 kg Intake: IV 1570 1270 260 Piperacillin-Tazobactam 3 200 100 .375 gm In Sodium Chloride 0.9% 100 ml @ 25 mls/hr IVPB Q8HR [facility] Rx# :[id number] Potassium Chloride 20 meq 200 In Water For Injection 1 100ml.bag @ 50 mls/hr IVPB Q2H [facility] Rx#: [id number] Sodium Chloride 0.9% 1, 1170 1170 260 000 ml @ 130 mls/hr IV . Q7H42M [facility] Rx#:[id number] Blood Product 310 Rc As-1 Unit 310 [id number] Output: Stool 50 Other: Voiding Method Bedside Commode Bedside Commode # Voids 2 1 1 # Bowel Movements 2 1 - Exam Abdomen: Soft, minimal distention, nontender - Labs CBC & Chem 7: 01/25/21 04:27 01/25/21 04:27 Labs: Abnormal Lab Results - Last 24 Hours (Table) 01/23/21 01/24/21 01/25/21 Range/Units 10:18 14:59 01:01 WBC 2.6 L (3.8-10.6) k/uL RBC 3.21 L (4.30-5.90) m/uL Hgb 10.6 L D (13.0-17.5) gm/dL Hct 31.4 L (39.0-53.0) % RDW 17.5 H (11.5-15.5) % Plt Count 42 L D (150-450) k/uL Lymphocytes # (Manual) (1.0-4.8) k/uL Nucleated RBCs (0-0) /100 WBC Sodium (137-145) mmol/L Potassium (3.5-5.1) mmol/L Chloride (98-107) mmol/L Carbon Dioxide (22-30) mmol/L BUN (9-20) mg/dL POC Glucose (mg/dL) 101 H (75-99) mg/dL Calcium (8.4-10.2) mg/dL Crossmatch See Detail 01/25/21 01/25/21 Range/Units 04:27 04:27 WBC 2.2 L (3.8-10.6) k/uL RBC 2.51 L (4.30-5.90) m/uL Hgb 8.4 L D (13.0-17.5) gm/dL Hct 24.3 L (39.0-53.0) % RDW 18.3 H (11.5-15.5) % Plt Count 24 L (150-450) k/uL Lymphocytes # (Manual) 0.35 L (1.0-4.8) k/uL Nucleated RBCs 4 H (0-0) /100 WBC Sodium 136 L (137-145) mmol/L Potassium 3.3 L (3.5-5.1) mmol/L Chloride 112 H (98-107) mmol/L Carbon Dioxide 20 L (22-30) mmol/L BUN 21 H (9-20) mg/dL POC Glucose (mg/dL) (75-99) mg/dL Calcium 7.5 L (8.4-10.2) mg/dL Crossmatch Microbiology - Last 24 Hours (Table) 01/22/21 02:09 Blood Culture - Preliminary Blood No Growth after 72 hours 01/22/21 01:29 Blood Culture - Preliminary Blood No Growth after 72 hours Assessment and Plan (1) Enterocolitis Narrative/Plan: Patient with intermittent bleeding and likely some component of partial colonic obstruction from tumor. Continue supportive care. Monitor hemoglobin. He can clear liquid diet. Will follow. Current Visit: Yes Status: Acute Code(s): K52.9 - NONINFECTIVE GASTROENTERITIS AND COLITIS, UNSPECIFIED SNOMED Code(s): 54285077
[2021-01-25] MEDS: CHOLESTYRAMINE (WITH SUGAR) 4 GM PACKET PO SCH ×2 (11:30→17:42)
--- NOTE | 2021-01-25 17:10 | P.GSCN ---
History of Present Illness Consult date: 01/25/21 History of present illness: I was asked to see this 55-year-old gentleman for catheter placement gross hematuria and urine retention. Patient was diagnosed with rectal cancer August 2020. The disease was about 6 inches from the anal verge. The patient was found to have liver metastases. He was sent to [facility] in [place].. There he underwent a short course of radiation apparently to control some rectal bleeding and prevent the patient. He also started on chemotherapy. He has had several courses of chemotherapy and apparently his tumor in the liver shrinking. the patient has hematuria and hematochezia after each chemotherapy. He was told that this would be normal for him. He does not have hematuria or hematochezia in between. Apparently he presented with neutropenia sepsis. He also has had blood in the stool. His hemoglobin is dropped to 5.4. He also has had gross hematuria and per the nursing staff he has been unable to urinate. He has not u rinated since 2 last night. They're unable to pass a catheter. He has no previous urethral catheter. He has no previous urethral instrumentation. He denies infections. He states that he is always had a slow stream. He has not seen a urologist prior to this. His bladder scan a couple of hours ago was proximal 180 mL. His bladder. He'll fall according to the patient. He denies pneumaturia or fecal urea. The urine was inflamed. The urine culture grew 10- 50,000 genital chas. Review of Systems All systems: negative - Constitutional Denies fever, Denies weight loss - EENT Eyes: denies blurred vision Ears, nose, mouth and throat: Denies dysphagia - Cardiovascular Denies chest pain, Denies shortness of breath - Respiratory Denies cough, Denies 7 - Gastrointestinal Reports as per HPI - Genitourinary Denies dysuria, Denies hematuria - Integumentary Denies rash, Denies unusual bruising - Neurological Denies headaches, Denies syncope - Hematologic/Lymphatic Denies easy bleeding, Denies easy bruising Past Medical History Past Medical History: Cancer Additional Past Medical History / Comment(s): Hx freq diarrhea. Rectal cancer, mets to liver History of Any Multi-Drug Resistant Organisms: None Reported Past Surgical History: Orthopedic Surgery Additional Past Surgical History / Comment(s): Right knee repair. Colonoscopy 08/06/20, right side chemoport Past Anesthesia/Blood Transfusion Reactions: No Reported Reaction Past Psychological History: No Psychological Hx Reported Smoking Status: Never smoker Past Alcohol Use History: None Reported Past Drug Use History: None Reported - Past Family History Mother Family Medical History: No Reported History Medications and Allergies Home Medications Medication Instructions Recorded Confirmed Type Lidocaine-Prilocaine Cream [Emla 1 applic TOPICAL DAILY PRN 01/22/21 01/22/21 History Cream 2.5%/2.5%] Ondansetron Odt [Zofran Odt] 8 mg PO Q8HR PRN 01/22/21 01/22/21 History Vitamin B Complex 1 cap PO DAILY 01/22/21 01/22/21 History polyethylene glycoL 3350 [Miralax] 8.5 - 17 gm PO DAILY PRN 01/22/21 01/22/21 History Allergies Allergy/AdvReac Type Severity Reaction Status Date / Time gabapentin AdvReac dizzy Verified 01/22/21 06:53 Surgical - Exam Vital Signs Temp Pulse Resp BP Pulse Ox 100.4 F H 137 H 16 130/85 100 01/22/21 01:08 01/22/21 01:08 01/22/21 01:08 01/22/21 01:08 01/22/21 01:08 - General well developed, chronically ill - Eyes PERRL - ENT no hearing loss - Neck no masses - Respiratory normal expansion - Cardiovascular Rhythm: regular - Abdomen The bladder feels full suprapubically. - Genitourinary Penis is circumcised. There is blood at the meatus. Testes and epididymis are unremarkable. - Integumentary no rash, no growths - Neurologic normal sensation - Musculoskeletal normal posture - Psychiatric oriented to time, oriented to person, oriented to place, speech is normal, memory intact Results - Labs 01/25/21 04:27 01/25/21 14:37 Abnormal Lab Results - Last 24 Hours (Table) 01/25/21 01/25/21 01/25/21 Range/Units 01:01 04:27 04:27 WBC 2.2 L (3.8-10.6) k/uL RBC 2.51 L (4.30-5.90) m/uL Hgb 8.4 L D (13.0-17.5) gm/dL Hct 24.3 L (39.0-53.0) % RDW 18.3 H (11.5-15.5) % Plt Count 24 L (150-450) k/uL Lymphocytes # (Manual) 0.35 L (1.0-4.8) k/uL Nucleated RBCs 4 H (0-0) /100 WBC Sodium 136 L (137-145) mmol/L Potassium 3.3 L (3.5-5.1) mmol/L Chloride 112 H (98-107) mmol/L Carbon Dioxide 20 L (22-30) mmol/L BUN 21 H (9-20) mg/dL POC Glucose (mg/dL) 101 H (75-99) mg/dL Calcium 7.5 L (8.4-10.2) mg/dL Microbiology - Last 24 Hours (Table) 01/22/21 02:09 Blood Culture - Preliminary Blood No Growth after 72 hours 01/22/21 01:29 Blood Culture - Preliminary Blood No Growth after 72 hours Diabetes panel 01/25/21 01/25/21 Range/Units 04:27 14:37 Sodium 136 L (137-145) mmol/L Potassium 3.3 L 3.6 (3.5-5.1) mmol/L Chloride 112 H (98-107) mmol/L Carbon Dioxide 20 L (22-30) mmol/L BUN 21 H (9-20) mg/dL Creatinine 0.74 (0.66-1.25) mg/dL Glucose 84 (74-99) mg/dL Calcium 7.5 L (8.4-10.2) mg/dL Calcium panel 01/25/21 Range/Units 04:27 Calcium 7.5 L (8.4-10.2) mg/dL Pituitary panel 01/25/21 01/25/21 Range/Units 04:27 14:37 Sodium 136 L (137-145) mmol/L Potassium 3.3 L 3.6 (3.5-5.1) mmol/L Chloride 112 H (98-107) mmol/L Carbon Dioxide 20 L (22-30) mmol/L BUN 21 H (9-20) mg/dL Creatinine 0.74 (0.66-1.25) mg/dL Glucose 84 (74-99) mg/dL Calcium 7.5 L (8.4-10.2) mg/dL Adrenal panel 01/25/21 01/25/21 Range/Units 04:27 14:37 Sodium 136 L (137-145) mmol/L Potassium 3.3 L 3.6 (3.5-5.1) mmol/L Chloride 112 H (98-107) mmol/L Carbon Dioxide 20 L (22-30) mmol/L BUN 21 H (9-20) mg/dL Creatinine 0.74 (0.66-1.25) mg/dL Glucose 84 (74-99) mg/dL Calcium 7.5 L (8.4-10.2) mg/dL - Imaging CT scan - abdomen: report reviewed, image reviewed CT scan - pelvis: report reviewed, image reviewed Assessment and Plan Assessment: Impression: Metastatic rectal cancer. Hematochezia with anemia. Neutropenia sepsis. Hematuria. Inability to pass a catheter. Recommendations: Catheter placement. Eventual evaluation of his bladder to rule out local invasion of the tumor into the bladder. This can be done as an outpatient.
--- NOTE | 2021-01-25 17:12 | P.PCN ---
Date of Procedure: 01/25/21 Preoperative Diagnosis: Urine retention, gross hematuria, inability to pass a catheter Postoperative Diagnosis: Same secondary to urethral stricture, possible post chemotherapy hematuria Procedure(s) Performed: Urethral dilation, difficult catheter placement Anesthesia: none Surgeon: Mehul Rob Pathology: none sent Condition: stable Disposition: floor Indications for Procedure: The patient is 55. He is in the hospital, ICU with hematochezia, anemia, neutropenia sepsis, urine retention and gross hematuria. I been asked to place a catheter Description of Procedure: The patient is prepped and draped sterilely. A 16 coud-tip catheter meet resistance in the bulbar urethra. I then passed to spiraled filiforms the second enters into the bladder. I then dilate the urethra ,which is stricture in the bulbar urethra ,with followers [id number]. I then pass a 16-Czech coud-tip catheter into the bladder and there is old blood urine return. Impression: Successful dilation of urethral stricture with catheter placement. Recommendations the catheter should stay in at least 72 hours and then can be removed. The patient should have an outpatient cystoscopy eventually.
[2021-01-25 17:52] LABS: Glucose,Whole Blood 142 mg/dL (75-99)
[2021-01-25] MEDS ORDERED: POTASSIUM BICARBONATE/CIT AC 20 MEQ TABLET.EFF NG-TUBE SCH (18:00)
[2021-01-25] MEDS ORDERED: Potassium Replacement Protocol 1 EACH MISC MISCELLANE PRN (18:00)
--- NOTE | 2021-01-25 21:30 | PN ---
PROGRESS NOTE DATE OF SERVICE: 01/25/2021 REASON FOR FOLLOWUP: Febrile neutropenia and enterocolitis. INTERVAL HISTORY: The patient is afebrile. The patient is breathing slightly comfortably. The patient denies having any abdominal pain. Diarrhea has slowed down. No chest pain, shortness of breath no cough. PHYSICAL EXAMINATION: Blood pressure 119/88 with a pulse of 93, temperature 98. He is 95% on room air. General description is a middle-aged male lying in bed in no distress. Respiratory system: Unlabored breathing, clear to auscultation anteriorly. Heart S1, S2. Regular rate and rhythm. Abdomen soft, no tenderness. Extremities no edema of the feet. LABS: Hemoglobin is 8.4, white count of 2.2, creatinine 0.74. DIAGNOSTIC IMPRESSION AND PLAN: Patient admitted to hospital with febrile neutropenia with underlying enterocolitis. Stool for C difficile was negative. Stool cultures are pending. Patient seems to be responding to Zosyn. That will be continued while monitoring his clinical course closely. Continue with supportive care. MMODL / IJN: [id number] /
--- NOTE | 2021-01-26 00:24 | P.PN ---
Subjective Progress Note Date: 01/24/21 Principal diagnosis: Acute GI bleed with bright red blood per rectum and an episode of coffee-ground emesis. Acute blood loss anemia due to GI bleed Moderate wall thickening in the jejunal loops inflammatory versus posttreatment response. Neutropenic fever. Patient is a 55-year-old male with a known history of colorectal cancer with mets to liver and is currently undergoing chemotherapy cycle of 10, last dose on 12/17/2020 presents to ER with complaints of fever, generalized weakness and unable to take any oral intake. Patient was seen at [facility] yesterday and was given IV fluids and sent home. Patient was brought to the hospital due to generalized weakness and not tolerating oral diet and was also getting more weaker. Denied any complaints of chest pain or shortness breath. Patient does have nausea. No vomiting. No abdominal pain. No headache. On admission blood pressure 130/85 pulse is 137 respirations 16 and pulse ox 90% on room air and T-max 100.4. Chest x-ray showed no active cardiopulmonary disease. Normal heart. EKG showed sinus tachycardia Laboratory data showed Urinalysis showed 2+ protein, large blood, 1+ bilirubin, trace leukoesterase and elevated RBCs and WBCs 32 COVID-19 PCR not detected. WBCs 0.4 hemoglobin 8.8 and platelets 88 Sodium 138 potassium 3.9 chloride 20001 bicarb is 15 BUN 41 and creatinine 1.01 and blood sugar is 165 lactic acid 7.3 on admission Albumin 2.9 01/23/2021 Patient was noted to have blood clots in the stool this morning as per nursing staff. Hemoglobin went down to 5.4 and platelet count 23,000. PRBC transfusion was ordered and patient was transferred to ICU for close monitoring. General surgery was consulted due to GI bleed. CT of the abdomen pelvis showed continued positive treatment response to the posterior right hepatic lobe metastatic lesion. There is however a new moderate to severe wall thickening consistent with multifocal and diffuse enterocolitis. There is new severe wall thickening in the bladder with similar differential nondesired posttreatment response versus infectious/inflammatory etiology. Patient is being continued antibiotics in the form of Zosyn. Vancomycin has been discontinued. ID and oncology is on board. Patient is being continued on IV hydration. 01/24/2021 Patient is currently in the MICU. Awake alert and oriented but seems to be weak and lethargic. Patient is on the bedside commode. Patient still having blood per rectum. Mainly blood clots and small amount of stool. Denied any complaints of nausea or vomiting or abdominal pain. Patient lightheaded otherwise. Patient received 2 units of PRBC today. Hemoglobin went up to 10.6 after tr ansfusion. Laboratory test showed sodium 136 potassium 3.2 chloride 110 and bicarb is 21 Patient is on antibiotics involve Zosyn. General surgery, ID and pulmonary is on board. Current medications reviewed. Objective - Vital Signs Vital signs: Vital Signs Temp 98.2 F 01/24/21 13:24 Pulse 110 H 01/24/21 19:00 Resp 6 L 01/24/21 19:00 BP 175/124 01/24/21 19:00 Pulse Ox 99 01/24/21 18:00 Intake & Output 01/24/21 01/24/21 01/25/21 06:59 18:59 06:59 Intake Total 1257 1880 520 Balance 1257 1880 520 Weight 58.9 kg Intake: IV 620 1570 520 Piperacillin-Tazobactam 3 100 200 .375 gm In Sodium Chloride 0.9% 100 ml @ 25 mls/hr IVPB Q8HR [facility] Rx# :[id number] Potassium Chloride 20 meq 200 In Water For Injection 1 100ml.bag @ 50 mls/hr IVPB Q2H [facility] Rx#: [id number] Sodium Chloride 0.9% 1, 520 1170 520 000 ml @ 130 mls/hr IV . Q7H42M [facility] Rx#:[id number] Blood Product 637 310 Ffp 24 Cpd Unit 327 [id number] As-1 Unit 310 [id number] As-1 Unit 310 [id number] Other: Voiding Method Urinal Bedside Commode # Voids 1 2 1 # Bowel Movements 1 2 1 - Exam PHYSICAL EXAMINATION: Patient is lying in the bed comfortably, no acute distress, awake alert and oriented. Patient is weak, lethargic and cachectic.. HEENT: Normocephalic. Neck is supple. Pupils reactive. Nostrils clear. Oral cavity is dry. Neck reveals no JVD, carotid bruits, or thyromegaly. CHEST EXAMINATION: Trachea is central. Symmetrical expansion.Bibasilar diminished sounds. Lung melendrez clear to auscultation and percussion. CARDIAC: Normal S1, S2 with no gallops. No murmurs ABDOMEN: Soft. Bowel sounds normal. No organomegaly. No abdominal bruits. Extremities: reveal no edema. No clubbing or cyanosis Neurologically awake, alert, oriented x3 with well-coordinated movements. No focal deficits noted Skin: No rash or skin lesions. Psychiatric: Cooperative. Nonsuicidal Musculoskeletal: No joint swelling or deformity. Normal range of motion. - Labs CBC & Chem 7: 01/25/21 04:27 01/25/21 14:37 Labs: Abnormal Lab Results - Last 24 Hours (Table) 01/23/21 01/24/21 01/24/21 Range/Units 10:18 04:45 04:45 WBC (3.8-10.6) k/uL RBC (4.30-5.90) m/uL Hgb (13.0-17.5) gm/dL Hct (39.0-53.0) % RDW (11.5-15.5) % Plt Count (150-450) k/uL PT 13.6 H (9.0-12.0) sec INR 1.3 H (<1.2) APTT 33.1 H (22.0-30.0) sec Fibrinogen 617 H (200-500) mg/dL D-Dimer 4.49 H (<0.60) mg/L FEU Sodium 136 L (137-145) mmol/L Potassium 3.2 L (3.5-5.1) mmol/L Chloride 110 H (98-107) mmol/L Carbon Dioxide 21 L (22-30) mmol/L Calcium 7.2 L (8.4-10.2) mg/dL Total Protein 4.2 L (6.3-8.2) g/dL Albumin 2.1 L (3.5-5.0) g/dL Crossmatch See Detail 01/24/21 01/24/21 Range/Units 04:45 14:59 WBC 0.4 L* 2.6 L (3.8-10.6) k/uL RBC 2.11 L 3.21 L (4.30-5.90) m/uL Hgb 6.9 L* 10.6 L D (13.0-17.5) gm/dL Hct 20.7 L 31.4 L (39.0-53.0) % RDW 18.6 H 17.5 H (11.5-15.5) % Plt Count 20 L 42 L D (150-450) k/uL PT (9.0-12.0) sec INR (<1.2) APTT (22.0-30.0) sec Fibrinogen (200-500) mg/dL D-Dimer (<0.60) mg/L FEU Sodium (137-145) mmol/L Potassium (3.5-5.1) mmol/L Chloride (98-107) mmol/L Carbon Dioxide (22-30) mmol/L Calcium (8.4-10.2) mg/dL Total Protein (6.3-8.2) g/dL Albumin (3.5-5.0) g/dL Crossmatch Microbiology - Last 24 Hours (Table) 01/22/21 02:09 Blood Culture - Preliminary Blood No Growth after 48 hours 01/22/21 01:29 Blood Culture - Preliminary Blood No Growth after 48 hours 01/23/21 17:09 Stool Culture - Preliminary Stool Assessment and Plan Assessment: Acute GI bleed with bright red blood per rectum and an episode of coffee-ground emesis. Acute blood loss anemia due to GI bleed Moderate wall thickening in the jejunal loops inflammatory versus posttreatment response. Neutropenic fever. Lactic acidosis 7.3 due to dehydration volume depletion Colorectal cancer/adenocarcinoma with mets to liver. Currently on cycle 10 chemotherapy last dose about 5 days back Pancytopenia secondary to chemotherapy Asymptomatic bacteriuria Mild to moderate protein calorie malnutrition Mild elevated liver enzymes Metabolic acidosis DVT prophylaxis not on heparin due to thrombocytopenia. Plan: Patient was transferred to MICU due to new onset acute GI bleed and blood loss anemia. Patient is being transfused with 2 unit of PRBC and monitor H&H and respiratory status closely. Patient is being cannula IV hydration and antibiotics involve Zosyn. Continue with PPI. General surgery was consulted due to GI bleed. Follow-up urine and blood cultures. Continue symptomatic management for nausea and increase oral intake. ID and oncology is following. Continue to follow closely. Discussed with his mother at bedside in detail. Prognosis is guarded at this time. Time with Patient: Greater than 30
[2021-01-26 05:35] LABS: Glucose,Whole Blood 128 mg/dL (75-99)
[2021-01-26 05:45] LABS: Anisocytosis Slight; HCT 25.9 % (39.0-53.0); MCHC 34.8 g/dL (31.0-37.0); MCV 97.5 fL (80.0-100.0); Macrocytosis Slight; Mean Platelet Volume 10.3; Poikilocytosis Slight; RBC 2.65 m/uL (4.30-5.90); RDW 17.8 % (11.5-15.5); WBC 8.9 k/uL (3.8-10.6)
[2021-01-26 06:00] LABS: African American GFR (CKD) >90 (>60 ml/min/1.73 sqM); Anion Gap 6 mmol/L; Blood Urea Nitrogen 18 mg/dL (9-20); Calcium 7.6 mg/dL (8.4-10.2); Carbon Dioxide 19 mmol/L (22-30); Chloride 114 mmol/L (98-107); Glucose 129 mg/dL (74-99); Non-African American GFR(CKD) >90 (>60 ml/min/1.73 sqM); Potassium 3.3 mmol/L (3.5-5.1); Sodium 139 mmol/L (137-145)
[2021-01-26] MEDS: POTASSIUM CHLORIDE 20 MEQ in WATER FOR INJECTION 1 100ML.BAG IVPB SCH ×2 (06:37→08:55)
[2021-01-26 07:01] LABS: Platelet Count 31 k/uL (150-450)
[2021-01-26] MEDS: SODIUM CHLORIDE 0.9% 1,000 ML IV SCH ×3 (08:25→17:47)
[2021-01-26] MEDS: NON FORMULARY DRUG (Vitamin B Complex [Vitamin B Complex] 1 EACH Capsule) PO SCH (08:28)
--- NOTE | 2021-01-26 08:37 | P.PN ---
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 He had declined bowel resection with diverting ostomy. 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 He was transferred to [facility] in August 2020 for possible colon stent placement due to 90% mechanical obstruction. They were unable to place a stent. He was given radiation treatments 5. The plan was to return there for possible bowel surgery 6 weeks after completion of his chemotherapy. He did undergo 10 of planned 12 rounds of Folfirinox with his 10th cycle being completed on 01/17/2021. He received Neulasta on 01/18/2021. presented here to the emergency room on 01/22/2021 with fever, weakness, poor appetite. He developed GI bleeding with liquid bright red/brown stools. He also had some coffee-ground emesis. He was transferred here to the intensive care unit yesterday afternoon. He is receiving his third unit of packed red blood cells this morning. He received 1 unit of fresh frozen plasma and 1 unit of platelets. White count 0.4. RBC 2.11. Hemoglobin 6.9. Platelets 20,000. PT 13.6. INR 1.3. PTT 33.1. Fibrinogen 617. D-dimer 4.49. Sodium 136. Potassium 3.2. Creatinine 0.71. Calcium 7.2. AST 35. ALT 30. Alk phos 84. LDH 489. Vitamin B12 greater than 2000. Chest x-ray reveals no active cardiopu lmonary process. Presently, he is resting comfortably in bed. Awake and alert in no acute distress. He denies any shortness of breath, cough or congestion. Maintaining O2 saturations in the 90s on room air. Some dizziness and lightheadedness. Blood pressure stable in the 1 teens over 80s. Currently afebrile. He has 0.9 normal saline at 130 ML's per hour. He is currently on Zosyn. Computed tomography scan of the abdomen and pelvis revealed positive treatment response of the posterior right hepatic lobe metastatic lesion. There is however new moderate to severe wall thickening consistent with multifocal and diffuse enterocolitis. Could reflect no undesired posttreatment response versus inflammatory, ischemic or infectious etiologies. There is new severe wall thickening in the bladder with similar differential, no undesired post treatment response versus infectious/inflammatory etiology. On 01/25/2021 seen for a follow-up. The patient is in the intensive care unit for ongoing GI bleeding. Note that the patient has developed pancytopenia related to systemic chemotherapy and he also had received radiation therapy to his abdomen for his colorectal cancer. Subsequently, he came in for bleeding and the patient became thrombocytopenic and The Abdomen Showed Areas of Bowel Inflammation/Colitis. For Now, the Patient Is Doing Well. Since Yesterday, the patient had only 1 episode of bloody stool which probably are some leftovers as the patient's hemoglobin has essentially remained stable in the hemoglobin is at 8.4. Platelet count is at 24 and the rest of the hemodynamics are stable for now. Discussed the case with general surgery. With allow this patient some clear liquid diet for now. Otherwise, the patient has no other complaints. No chest pain. No dizziness. Sodium level is at 136, white cell count is up to 2.2 with a hemoglobin of 8.4. He remains on IV Zosyn. No abdominal pain. No nausea. No vomiting. No emesis. No other significant events overnight. IV fluids are running in the form of normal saline at the rate of 130s's an hour. 01/26/2021, the patient is essentially stable. Overnight, he had several bouts of liquidy somewhat bloody and reddish bowel movement activity. I'm not sure this is a representation of acute bleeding knowing that this hemoglobin has remained stable at 9.0. Platelet count currently is pending. The count from yesterday was 24. Meanwhile, the blood work and electrodes are normal, potassium is to be replaced. He did have an issue with urinary retention. He was apparently having some issues with hematuria prior to this hospitalization. I was able to get urology and and Lugo cath was inserted and the patient produced approximately 800 mL of urine output immediately. He is currently producing adequate urine output for now. He remains on IV Zosyn. He did have a 1 bouts of emesis. He is currently taking clear liquid diet. In terms of the rest of the medication, the patient remains on IV Zosyn. The patient remains on IV fluids. Morphine on an as-needed basis for pain. No other significant events otherwise for now. He is awake and alert. His normal saline is running at the rate of 130s cc an hour. Objective - Vital Signs Vital signs: Vital Signs Temp 97.9 F 01/26/21 08:00 Pulse 96 01/26/21 08:00 Resp 14 01/26/21 08:00 BP 124/95 01/26/21 08:00 Pulse Ox 95 01/26/21 08:00 Intake & Output 01/25/21 01/26/21 01/26/21 18:59 06:59 18:59 Intake Total 1560 1560 130 Output Total 275 395 40 Balance 1285 1165 90 Weight 58.4 kg Intake: IV 1560 1560 130 Sodium Chloride 0.9% 1, 1560 1560 130 000 ml @ 130 mls/hr IV . Q7H42M [facility] Rx#:[id number] Output: Urine 225 395 40 Stool 50 Other: Voiding Method Bedside Commode Indwelling Catheter Indwelling Catheter # Voids 1 # Bowel Movements 1 - Exam GENERAL EXAM: Alert, very pleasant 55-year-old gentleman, on room air,, comfortable in no apparent distress. HEAD: Normocephalic. EYES: Normal reaction of pupils, equal size. NOSE: Clear with pink turbinates. THROAT: No erythema or exudates. NECK: No masses, no JVD. CHEST: No chest wall deformity. LUNGS: Equal air entry with no crackles, wheeze, rhonchi or dullness. CVS: S1 and S2 normal with no audible murmur, regular rhythm. ABDOMEN: No hepatosplenomegaly, normal bowel sounds, no guarding or rigidity. SPINE: No scoliosis or deformity SKIN: No rashes CENTRAL NERVOUS SYSTEM: No focal deficits, tone is normal in all 4 extremities. EXTREMITIES: There is no peripheral edema. No clubbing, no cyanosis. Peripheral pulses are intact. - Labs CBC & Chem 7: 01/26/21 05:36 01/26/21 05:36 Labs: Abnormal Lab Results - Last 24 Hours (Table) 01/25/21 01/26/21 01/26/21 Range/Units 17:51 05:33 05:36 RBC 2.65 L (4.30-5.90) m/uL Hgb 9.0 L (13.0-17.5) gm/dL Hct 25.9 L (39.0-53.0) % RDW 17.8 H (11.5-15.5) % Potassium (3.5-5.1) mmol/L Chloride (98-107) mmol/L Carbon Dioxide (22-30) mmol/L Glucose (74-99) mg/dL POC Glucose (mg/dL) 142 H 128 H (75-99) mg/dL Calcium (8.4-10.2) mg/dL 01/26/21 Range/Units 05:36 RBC (4.30-5.90) m/uL Hgb (13.0-17.5) gm/dL Hct (39.0-53.0) % RDW (11.5-15.5) % Potassium 3.3 L (3.5-5.1) mmol/L Chloride 114 H (98-107) mmol/L Carbon Dioxide 19 L (22-30) mmol/L Glucose 129 H (74-99) mg/dL POC Glucose (mg/dL) (75-99) mg/dL Calcium 7.6 L (8.4-10.2) mg/dL Microbiology - Last 24 Hours (Table) 01/22/21 02:09 Blood Culture - Preliminary Blood No Growth after 96 hours 01/22/21 01:29 Blood Culture - Preliminary Blood No Growth after 96 hours 01/23/21 17:09 Stool Culture - Preliminary Stool Assessment and Plan Plan: 1 Acute neutropenic fever secondary to round 10 of 12 planned FOLFOX completed 01/17/2021, and the patient's course of treatment was completed by pancytopenia and subsequent GI bleeding. The patient's white cell count today is 8.9 and he is afebrile Remains on IV Zosyn. Cultures are all negative for now. 2 Acute gastrointestinal bleeding with liquid bloody stools, coffee-ground emesis. Computed tomography scan of the abdomen reveals new moderate to severe wall thickening consistent with multifocal and diffuse enterocolitis. There is also new severe wall thickening in the bladder. The patient did receive radiation 5 at [facility] in August 2020. The bleeding was further complicated by some mild degree of coagulopathy and thrombocytopenia. The patient received a total of 2 units of packed RBC, platelets transfusion and a unit of fresh frozen plasma. Current platelet count is at 24. No evidence of any active bleeding since yesterday and the patient's hemodynamics are essentially stable for now. No further bouts of acute bleeding. The patient's platelet count is pending for today. He may need a platelet transfusion if the count is under 20. Otherwise, his hemoglobin is stable at 9.0 and he is hem odynamically stable. Clinically, he doesn't have any acute bleeding. 3 History of metastatic adenocarcinoma, colorectal primary with metastasis to the liver 4 Colonic mass unable to receive bowel stent at [facility] but may be considered for bowel surgery 6 weeks following chemotherapy 5 Acute GI blood loss anemia receiving his third unit of packed red blood cells today 6 Pancytopenia secondary to above, received 1 unit of fresh frozen plasma, one unit of platelets 7 Diarrhea status post colonoscopy with biopsy and found to have metastatic adenocarcinoma in July 2020 8 BPH with urinary retention, currently has a Lugo catheter in place Plan: Allow clear liquid diet Currently stable from the pulmonary standpoint Monitor hemoglobin Transfuse with platelets if his numbers are under 20 K Continue to monitor blood pressure, blood counts here in the ICU Surgical services on consult, discussed the case with general surgery Urology has been involved in the case and the patient has a Lugo catheter in place for urinary retention Continued IV Zosyn Continued IV fluids Continue to replace blood products as needed We will continue to follow and make further recommendations based on his clinical status
[2021-01-26] MEDS: PANTOPRAZOLE 40 MG/10 ML VIAL IVP SCH ×2 (08:54→20:22)
[2021-01-26] MEDS: PIPERACILLIN-TAZOBACTAM 3.375 GM in SODIUM CHLORIDE 0.9% 100 ML IVPB SCH ×2 (08:54→17:47)
[2021-01-26 09:53] LABS: Band Neutrophils % 14 %; Dohle Bodies Present; Lymphocytes # (M) 0.09 k/uL (1.0-4.8); Monocytes # (M) 0.45 k/uL (0-1.0); Neutrophils % (M) 81 %; Nucleated Red Blood Cells 0 /100 WBC (0-0); Total Cells Counted 200; Toxic Vacuolation Present
--- NOTE | 2021-01-26 10:18 | P.PN ---
Subjective Progress Note Date: 01/26/21 Principal diagnosis: Enterocolitis Patient overnight had multiple small bloody maroon-colored stools. He'll better overall. His labs are improved. White blood cell count is up to 8.9. Hemoglobin is 9. Describes only mild abdominal bloating. Objective - Vital Signs Vital signs: Vital Signs Temp 97.9 F 01/26/21 08:00 Pulse 93 01/26/21 09:00 Resp 19 01/26/21 09:00 BP 113/77 01/26/21 09:00 Pulse Ox 97 01/26/21 09:00 Intake & Output 01/25/21 01/26/21 01/26/21 18:59 06:59 18:59 Intake Total 1560 1560 130 Output Total 275 395 40 Balance 1285 1165 90 Weight 58.4 kg Intake: IV 1560 1560 130 Sodium Chloride 0.9% 1, 1560 1560 130 000 ml @ 130 mls/hr IV . Q7H42M [facility] Rx#:[id number] Output: Urine 225 395 40 Stool 50 Other: Voiding Method Bedside Commode Indwelling Catheter Indwelling Catheter # Voids 1 # Bowel Movements 1 - Exam Abdomen: Soft, mild distention, no appreciable tenderness - Labs CBC & Chem 7: 01/26/21 05:36 01/26/21 05:36 Labs: Abnormal Lab Results - Last 24 Hours (Table) 01/25/21 01/26/21 01/26/21 Range/Units 17:51 05:33 05:36 RBC 2.65 L (4.30-5.90) m/uL Hgb 9.0 L (13.0-17.5) gm/dL Hct 25.9 L (39.0-53.0) % RDW 17.8 H (11.5-15.5) % Plt Count 31 L (150-450) k/uL Neutrophils # (Manual) 8.40 H (1.3-7.7) k/uL Lymphocytes # (Manual) 0.09 L (1.0-4.8) k/uL Potassium (3.5-5.1) mmol/L Chloride (98-107) mmol/L Carbon Dioxide (22-30) mmol/L Glucose (74-99) mg/dL POC Glucose (mg/dL) 142 H 128 H (75-99) mg/dL Calcium (8.4-10.2) mg/dL 01/26/21 Range/Units 05:36 RBC (4.30-5.90) m/uL Hgb (13.0-17.5) gm/dL Hct (39.0-53.0) % RDW (11.5-15.5) % Plt Count (150-450) k/uL Neutrophils # (Manual) (1.3-7.7) k/uL Lymphocytes # (Manual) (1.0-4.8) k/uL Potassium 3.3 L (3.5-5.1) mmol/L Chloride 114 H (98-107) mmol/L Carbon Dioxide 19 L (22-30) mmol/L Glucose 129 H (74-99) mg/dL POC Glucose (mg/dL) (75-99) mg/dL Calcium 7.6 L (8.4-10.2) mg/dL Microbiology - Last 24 Hours (Table) 01/22/21 02:09 Blood Culture - Preliminary Blood No Growth after 96 hours 01/22/21 01:29 Blood Culture - Preliminary Blood No Growth after 96 hours 01/23/21 17:09 Stool Culture - Preliminary Stool Assessment and Plan (1) Enterocolitis Narrative/Plan: Continue monitoring the patient's lab work. Hold chemotherapy for now. Discuss ed with patient that need for diverting ostomy remains possibility. Will follow. Current Visit: Yes Status: Acute Code(s): K52.9 - NONINFECTIVE GASTROENTERITIS AND COLITIS, UNSPECIFIED SNOMED Code(s): 03817084
[2021-01-26] MEDS: CHOLESTYRAMINE (WITH SUGAR) 4 GM PACKET PO SCH ×2 (12:32→13:05)
--- NOTE | 2021-01-26 22:17 | P.PN ---
Subjective Progress Note Date: 01/25/21 Principal diagnosis: Acute GI bleed with bright red blood per rectum and an episode of coffee-ground emesis. Acute blood loss anemia due to GI bleed Moderate wall thickening in the jejunal loops inflammatory versus posttreatment response. Neutropenic fever. Patient is a 55-year-old male with a known history of colorectal cancer with mets to liver and is currently undergoing chemotherapy cycle of 10, last dose on 12/17/2020 presents to ER with complaints of fever, generalized weakness and unable to take any oral intake. Patient was seen at [facility] yesterday and was given IV fluids and sent home. Patient was brought to the hospital due to generalized weakness and not tolerating oral diet and was also getting more weaker. Denied any complaints of chest pain or shortness breath. Patient does have nausea. No vomiting. No abdominal pain. No headache. On admission blood pressure 130/85 pulse is 137 respirations 16 and pulse ox 90% on room air and T-max 100.4. Chest x-ray showed no active cardiopulmonary disease. Normal heart. EKG showed sinus tachycardia Laboratory data showed Urinalysis showed 2+ protein, large blood, 1+ bilirubin, trace leukoesterase and elevated RBCs and WBCs 32 COVID-19 PCR not detected. WBCs 0.4 hemoglobin 8.8 and platelets 88 Sodium 138 potassium 3.9 chloride 98352 bicarb is 15 BUN 41 and creatinine 1.01 and blood sugar is 165 lactic acid 7.3 on admission Albumin 2.9 01/23/2021 Patient was noted to have blood clots in the stool this morning as per nursing staff. Hemoglobin went down to 5.4 and platelet count 23,000. PRBC transfusion was ordered and patient was transferred to ICU for close monitoring. General surgery was consulted due to GI bleed. CT of the abdomen pelvis showed continued positive treatment response to the posterior right hepatic lobe metastatic lesion. There is however a new moderate to severe wall thickening consistent with multifocal and diffuse enterocolitis. There is new severe wall thickening in the bladder with similar differential nondesired posttreatment response versus infectious/inflammatory etiology. Patient is being continued antibiotics in the form of Zosyn. Vancomycin has been discontinued. ID and oncology is on board. Patient is being continued on IV hydration. 01/24/2021 Patient is currently in the MICU. Awake alert and oriented but seems to be weak and lethargic. Patient is on the bedside commode. Patient still having blood per rectum. Mainly blood clots and small amount of stool. Denied any complaints of nausea or vomiting or abdominal pain. Patient lightheaded otherwise. Patient received 2 units of PRBC today. Hemoglobin went up to 10.6 after tr ansfusion. Laboratory test showed sodium 136 potassium 3.2 chloride 110 and bicarb is 21 Patient is on antibiotics involve Zosyn. General surgery, ID and pulmonary is on board. 01/25/2021 Patient is currently in the intensive care unit. Was admitted to the hospital due to neutropenic fever and also GI bleed. Patient had one episode of bloody stool yesterday. Hemoglobin is stable at 8.4 today. Patient is pancytopenic likely due to recent chemotherapy. General surgery is following. Denied any nausea or vomiting. No significant abdominal pain. Patient has been afebrile. No cough or sputum production. Laboratory data showed sodium 136 potassium 3.3 replaced. Chloride 112 bicarb is 20 BUN 21 creatinine 0.7 and calcium 7.5. Patient is being transferred to medical floor today. Current medications reviewed. Objective - Vital Signs Vital signs: Vital Signs Temp 98.4 F 01/25/21 16:00 Pulse 97 01/25/21 22:00 Resp 22 01/25/21 22:00 BP 133/94 01/25/21 22:00 Pulse Ox 99 01/25/21 22:00 Intake & Output 01/25/21 01/25/21 01/26/21 06:59 18:59 06:59 Intake Total 1270 1560 520 Output Total 275 185 Balance 1270 1285 335 Weight 58 kg Intake: IV 1270 1560 520 Piperacillin-Tazobactam 3 100 .375 gm In Sodium Chloride 0.9% 100 ml @ 25 mls/hr IVPB Q8HR [facility] Rx# :[id number] Sodium Chloride 0.9% 1, 1170 1560 520 000 ml @ 130 mls/hr IV . Q7H42M [facility] Rx#:[id number] Output: Urine 225 185 Stool 50 Other: Voiding Method Bedside Commode Bedside Commode Indwelling Catheter # Voids 1 1 # Bowel Movements 1 - Exam PHYSICAL EXAMINATION: Patient is lying in the bed comfortably, no acute distress, awake alert and oriented. Patient is weak, lethargic and cachectic.. HEENT: Normocephalic. Neck is supple. Pupils reactive. Nostrils clear. Oral cavity is dry. Neck reveals no JVD, carotid bruits, or thyromegaly. CHEST EXAMINATION: Trachea is central. Symmetrical expansion.Bibasilar diminished sounds. Lung melendrez clear to auscultation and percussion. CARDIAC: Normal S1, S2 with no gallops. No murmurs ABDOMEN: Soft. Bowel sounds normal. No organomegaly. No abdominal bruits. Extremities: reveal no edema. No clubbing or cyanosis Neurologically awake, alert, oriented x3 with well-coordinated movements. No focal deficits noted Skin: No rash or skin lesions. Psychiatric: Cooperative. Nonsuicidal Musculoskeletal: No joint swelling or deformity. Normal range of motion. - Labs CBC & Chem 7: 01/26/21 05:36 01/26/21 17:04 Labs: Abnormal Lab Results - Last 24 Hours (Table) 01/25/21 01/25/21 01/25/21 Range/Units 01:01 04:27 04:27 WBC 2.2 L (3.8-10.6) k/uL RBC 2.51 L (4.30-5.90) m/uL Hgb 8.4 L D (13.0-17.5) gm/dL Hct 24.3 L (39.0-53.0) % RDW 18.3 H (11.5-15.5) % Plt Count 24 L (150-450) k/uL Lymphocytes # (Manual) 0.35 L (1.0-4.8) k/uL Nucleated RBCs 4 H (0-0) /100 WBC Sodium 136 L (137-145) mmol/L Potassium 3.3 L (3.5-5.1) mmol/L Chloride 112 H (98-107) mmol/L Carbon Dioxide 20 L (22-30) mmol/L BUN 21 H (9-20) mg/dL POC Glucose (mg/dL) 101 H (75-99) mg/dL Calcium 7.5 L (8.4-10.2) mg/dL 01/25/21 Range/Units 17:51 WBC (3.8-10.6) k/uL RBC (4.30-5.90) m/uL Hgb (13.0-17.5) gm/dL Hct (39.0-53.0) % RDW (11.5-15.5) % Plt Count (150-450) k/uL Lymphocytes # (Manual) (1.0-4.8) k/uL Nucleated RBCs (0-0) /100 WBC Sodium (137-145) mmol/L Potassium (3.5-5.1) mmol/L Chloride (98-107) mmol/L Carbon Dioxide (22-30) mmol/L BUN (9-20) mg/dL POC Glucose (mg/dL) 142 H (75-99) mg/dL Calcium (8.4-10.2) mg/dL Microbiology - Last 24 Hours (Table) 01/23/21 17:09 Stool Culture - Preliminary Stool 01/22/21 02:09 Blood Culture - Preliminary Blood No Growth after 72 hours 01/22/21 01:29 Blood Culture - Preliminary Blood No Growth after 72 hours Assessment and Plan Assessment: Acute GI bleed with bright red blood per rectum and an episode of coffee-ground emesis. Acute blood loss anemia due to GI bleed Moderate wall thickening in the jejunal loops inflammatory versus posttreatment response. Neutropenic fever. Lactic acidosis 7.3 due to dehydration volume depletion Colorectal cancer/adenocarcinoma with mets to liver. Currently on cycle 10 chemotherapy last dose about 5 days back Pancytopenia secondary to chemotherapy Asymptomatic bacteriuria Mild to moderate protein calorie malnutrition Mild elevated liver enzymes Metabolic acidosis DVT prophylaxis not on heparin due to thrombocytopenia. Plan: Patient was transferred to MICU due to new onset acute GI bleed and blood loss anemia. Patient is being transfused with 2 unit of PRBC and monitor H&H and respiratory status closely. Patient is being cannula IV hydration and antibiotics involve Zosyn. Continue with PPI. General surgery was consulted due to GI bleed. Follow-up urine and blood cultures. Continue symptomatic management for nausea and increase oral intake. ID and oncology is following. Continue to follow closely. Discussed with his mother at bedside in detail. Prognosis is guarded at this time.
--- NOTE | 2021-01-26 22:52 | P.PN ---
Subjective Progress Note Date: 01/26/21 Principal diagnosis: Acute GI bleed with bright red blood per rectum and an episode of coffee-ground emesis. Acute blood loss anemia due to GI bleed Moderate wall thickening in the jejunal loops inflammatory versus posttreatment response. Neutropenic fever. Patient is a 55-year-old male with a known history of colorectal cancer with mets to liver and is currently undergoing chemotherapy cycle of 10, last dose on 12/17/2020 presents to ER with complaints of fever, generalized weakness and unable to take any oral intake. Patient was seen at [facility] yesterday and was given IV fluids and sent home. Patient was brought to the hospital due to generalized weakness and not tolerating oral diet and was also getting more weaker. Denied any complaints of chest pain or shortness breath. Patient does have nausea. No vomiting. No abdominal pain. No headache. On admission blood pressure 130/85 pulse is 137 respirations 16 and pulse ox 90% on room air and T-max 100.4. Chest x-ray showed no active cardiopulmonary disease. Normal heart. EKG showed sinus tachycardia Laboratory data showed Urinalysis showed 2+ protein, large blood, 1+ bilirubin, trace leukoesterase and elevated RBCs and WBCs 32 COVID-19 PCR not detected. WBCs 0.4 hemoglobin 8.8 and platelets 88 Sodium 138 potassium 3.9 chloride 90101 bicarb is 15 BUN 41 and creatinine 1.01 and blood sugar is 165 lactic acid 7.3 on admission Albumin 2.9 01/23/2021 Patient was noted to have blood clots in the stool this morning as per nursing staff. Hemoglobin went down to 5.4 and platelet count 23,000. PRBC transfusion was ordered and patient was transferred to ICU for close monitoring. General surgery was consulted due to GI bleed. CT of the abdomen pelvis showed continued positive treatment response to the posterior right hepatic lobe metastatic lesion. There is however a new moderate to severe wall thickening consistent with multifocal and diffuse enterocolitis. There is new severe wall thickening in the bladder with similar differential nondesired posttreatment response versus infectious/inflammatory etiology. Patient is being continued antibiotics in the form of Zosyn. Vancomycin has been discontinued. ID and oncology is on board. Patient is being continued on IV hydration. 01/24/2021 Patient is currently in the MICU. Awake alert and oriented but seems to be weak and lethargic. Patient is on the bedside commode. Patient still having blood per rectum. Mainly blood clots and small amount of stool. Denied any complaints of nausea or vomiting or abdominal pain. Patient lightheaded otherwise. Patient received 2 units of PRBC today. Hemoglobin went up to 10.6 after tr ansfusion. Laboratory test showed sodium 136 potassium 3.2 chloride 110 and bicarb is 21 Patient is on antibiotics involve Zosyn. General surgery, ID and pulmonary is on board. 01/25/2021 Patient is currently in the intensive care unit. Was admitted to the hospital due to neutropenic fever and also GI bleed. Patient had one episode of bloody stool yesterday. Hemoglobin is stable at 8.4 today. Patient is pancytopenic likely due to recent chemotherapy. General surgery is following. Denied any nausea or vomiting. No significant abdominal pain. Patient has been afebrile. No cough or sputum production. Laboratory data showed sodium 136 potassium 3.3 replaced. Chloride 112 bicarb is 20 BUN 21 creatinine 0.7 and calcium 7.5. Patient is being transferred to medical floor today. 01/26/2021 Patient is currently surgical unit. Does have dark brown-colored stools. No bright red or tarry stool noted today. Hemoglobin is 9 today. WBC went up to 8.9 and platelet count 31 today. Denied any abdominal pain. Patient has been afebrile. Currently on clear liquid diet. Laboratory showed sodium 139 potassium 3.3 chloride 114 bicarb is 19 BUN 18 and creatinine 0.83 and calcium 7.6 General surgery is on board. Current medications reviewed. Objective - Vital Signs Vital signs: Vital Signs Temp 98.1 F 01/26/21 14:00 Pulse 82 01/26/21 14:00 Resp 18 01/26/21 14:00 BP 106/70 01/26/21 14:00 Pulse Ox 97 01/26/21 09:00 Intake & Output 01/25/21 01/26/21 01/26/21 18:59 06:59 18:59 Intake Total 1560 1560 370 Output Total 275 395 140 Balance 1285 1165 230 Weight 58.4 kg Intake: IV 1560 1560 130 Sodium Chloride 0.9% 1, 1560 1560 130 000 ml @ 130 mls/hr IV . Q7H42M [facility] Rx#:[id number] Oral 240 Output: Urine 225 395 140 Stool 50 Other: Voiding Method Bedside Commode Indwelling Catheter Indwelling Catheter # Voids 1 # Bowel Movements 1 4 - Exam PHYSICAL EXAMINATION: Patient is lying in the bed comfortably, no acute distress, awake alert and oriented. Patient is weak, lethargic and cachectic.. HEENT: Normocephalic. Neck is supple. Pupils reactive. Nostrils clear. Oral c avity is dry. Neck reveals no JVD, carotid bruits, or thyromegaly. CHEST EXAMINATION: Trachea is central. Symmetrical expansion.Bibasilar diminished sounds. Lung melendrez clear to auscultation and percussion. CARDIAC: Normal S1, S2 with no gallops. No murmurs ABDOMEN: Soft. Bowel sounds normal. No organomegaly. No abdominal bruits. Extremities: reveal no edema. No clubbing or cyanosis Neurologically awake, alert, oriented x3 with well-coordinated movements. No focal deficits noted Skin: No rash or skin lesions. Psychiatric: Cooperative. Nonsuicidal Musculoskeletal: No joint swelling or deformity. Normal range of motion. - Labs CBC & Chem 7: 01/26/21 05:36 01/26/21 17:04 Labs: Abnormal Lab Results - Last 24 Hours (Table) 01/25/21 01/26/21 01/26/21 Range/Units 17:51 05:33 05:36 RBC 2.65 L (4.30-5.90) m/uL Hgb 9.0 L (13.0-17.5) gm/dL Hct 25.9 L (39.0-53.0) % RDW 17.8 H (11.5-15.5) % Plt Count 31 L (150-450) k/uL Neutrophils # (Manual) 8.40 H (1.3-7.7) k/uL Lymphocytes # (Manual) 0.09 L (1.0-4.8) k/uL Potassium (3.5-5.1) mmol/L Chloride (98-107) mmol/L Carbon Dioxide (22-30) mmol/L Glucose (74-99) mg/dL POC Glucose (mg/dL) 142 H 128 H (75-99) mg/dL Calcium (8.4-10.2) mg/dL 01/26/21 Range/Units 05:36 RBC (4.30-5.90) m/uL Hgb (13.0-17.5) gm/dL Hct (39.0-53.0) % RDW (11.5-15.5) % Plt Count (150-450) k/uL Neutrophils # (Manual) (1.3-7.7) k/uL Lymphocytes # (Manual) (1.0-4.8) k/uL Potassium 3.3 L (3.5-5.1) mmol/L Chloride 114 H (98-107) mmol/L Carbon Dioxide 19 L (22-30) mmol/L Glucose 129 H (74-99) mg/dL POC Glucose (mg/dL) (75-99) mg/dL Calcium 7.6 L (8.4-10.2) mg/dL Microbiology - Last 24 Hours (Table) 01/22/21 02:09 Blood Culture - Preliminary Blood No Growth after 96 hours 01/22/21 01:29 Blood Culture - Preliminary Blood No Growth after 96 hours 01/23/21 17:09 Stool Culture - Preliminary Stool Assessment and Plan Assessment: Acute GI bleed with bright red blood per rectum and an episode of coffee-ground emesis. improved. Hb is stable now. Acute blood loss anemia due to GI bleed Moderate wall thickening in the jejunal loops inflammatory versus posttreatment response. Neutropenic fever. Lactic acidosis 7.3 due to dehydration volume depletion Colorectal cancer/adenocarcinoma with mets to liver. Currently on cycle 10 c hemotherapy last dose about 5 days back Pancytopenia secondary to chemotherapy Asymptomatic bacteriuria Mild to moderate protein calorie malnutrition Mild elevated liver enzymes Metabolic acidosis DVT prophylaxis not on heparin due to thrombocytopenia. Plan: Patient was transferred back to medical floor. Status post 3 units of PRBC transfusion altogether. Hemoglobin is stable and improved to 9.0 today. Follow-up CBC tomorrow. Potassium was replaced. Patient is being continued IV hydration and antibiotics involve Zosyn. Continue with PPI. General surgery is following due to GI bleed. Follow-up urine and blood cultures. Continue symptomatic management for nausea and increase oral intake. ID and oncology is on board. Continue to follow closely. Discussed with his mother at bedside in detail. Prognosis is guarded at this time. Time with Patient: Greater than 30
--- NOTE | 2021-01-26 23:26 | PN ---
PROGRESS NOTE DATE OF SERVICE: 01/26/2021 REASON FOR FOLLOWUP: Febrile neutropenia and concern for enterocolitis. INTERVAL HISTORY: The patient is afebrile. The patient is currently breathing comfortably. Denies having any chest pain or shortness of breath or cough. No abdominal pain and no further diarrhea. PHYSICAL EXAMINATION: Blood pressure 117/80 with a pulse of 103, temperature 97.8. He is 100% on room air. General description is a middle-aged male up in the chair in no distress. Respiratory system: Unlabored breathing, clear to auscultation. Heart S1, S2. Regular rate and rhythm. Abdomen soft, no tenderness. LABS: Hemoglobin 9, white count 8.9, creatinine 0.83. Stool culture and blood culture have been negative. DIAGNOSTIC IMPRESSION AND PLAN: Patient was febrile neutropenia, predominantly with abdominal symptoms in this patient who also had significant diarrhea. CT was suspicious for enterocolitis. Patient clinically responded to Zosyn; to continue antibiotic on discharge. Continue supportive care. MMODL / IJN: [id number] /
[2021-01-27] MEDS: PIPERACILLIN-TAZOBACTAM 3.375 GM in SODIUM CHLORIDE 0.9% 100 ML IVPB SCH ×4 (01:40→23:12)
[2021-01-27] MEDS: SODIUM CHLORIDE 0.9% 1,000 ML IV SCH ×4 (04:47→20:52)
[2021-01-27 06:25] LABS: Anisocytosis Slight; Basophils % (A) 0 %; Eosinophils % (A) 0 %; HCT 21.9 % (39.0-53.0); Lymphocytes # (A) 0.4 k/uL (1.0-4.8); Lymphocytes % (A) 5 %; MCH 33.5 pg (25.0-35.0); MCHC 34.2 g/dL (31.0-37.0); MCV 97.8 fL (80.0-100.0); Macrocytosis Slight; Mean Platelet Volume 9.6; Monocytes # (A) 0.6 k/uL (0-1.0); Monocytes % (A) 7 %; Neutrophils # (A) 7.4 k/uL (1.3-7.7); Neutrophils % (A) 86 %; Poikilocytosis Slight; RBC 2.24 m/uL (4.30-5.90); WBC 8.6 k/uL (3.8-10.6)
[2021-01-27 06:28] LABS: HGB 7.5 gm/dL (13.0-17.5); Platelet Count 29 k/uL (150-450)
[2021-01-27 07:14] LABS: ALT 25 U/L (4-49); AST 32 U/L (17-59); African American GFR (CKD) >90 (>60 ml/min/1.73 sqM); Alkaline Phosphatase 184 U/L (38-126); Anion Gap 5 mmol/L; Blood Urea Nitrogen 15 mg/dL (9-20); Calcium 7.6 mg/dL (8.4-10.2); Carbon Dioxide 18 mmol/L (22-30); Chloride 115 mmol/L (98-107); Glucose 116 mg/dL (74-99); Non-African American GFR(CKD) >90 (>60 ml/min/1.73 sqM); Sodium 138 mmol/L (137-145); Total Bilirubin 0.8 mg/dL (0.2-1.3)
[2021-01-27] MEDS: PANTOPRAZOLE 40 MG/10 ML VIAL IVP SCH ×2 (09:44→20:49)
[2021-01-27] MEDS: CHOLESTYRAMINE (WITH SUGAR) 4 GM PACKET PO SCH ×2 (09:44→17:51)
[2021-01-27] MEDS: NON FORMULARY DRUG (Vitamin B Complex [Vitamin B Complex] 1 EACH Capsule) PO SCH (09:45)
--- NOTE | 2021-01-27 10:47 | P.PN ---
<Ora Haro - Last Filed: 01/27/21 10:40> Subjective Progress Note Date: 01/27/21 CHIEF COMPLAINT: Generalized weakness HISTORY OF PRESENT ILLNESS: Surgical service is following regards to patient's GI bleed and enterocolitis. Patient transferred out of the ICU yesterday to regular medical floor. He is still having watery maroon-colored stools. Stools are less frequent. He denies any abdominal pain. Denies any nausea or vomiting. He is currently on a clear liquid diet. Afebrile. WBC is 8.6 Hgb did drop from 9 to 7.5 platelets 29 sodium 138 potassium 3.0 BUN 15 creatinine 0.96 magnesium 2.0. Patient is scheduled for another unit of blood today. PHYSICAL EXAM: VITAL SIGNS: Reviewed. GENERAL: Well-developed in no acute distress. HEENT: No sclera icterus. Extraocular movements grossly intact. Moist buccal mucosa. Head is atraumatic, normocephalic. ABDOMEN: Soft. Nondistended. Nontender. NEUROLOGIC: Alert and oriented. Cranial nerves II through XII grossly intact. ASSESSMENT: 1. Acute GI bleed with acute blood loss anemia 2. Enterocolitis 3. History of colorectal cancer with metastatic disease to the liver has been undergoing chemotherapy 4. Febrile Neutropenia 5. Hypokalemia PLAN: -Continue to monitor hemoglobin -Continue to monitor signs and symptoms of bleeding -Continue IV Protonix -Continue IV fluids -Hold chemotherapy for now -Possible need for a diverting ostomy. Further recommendations forthcoming per surgeon -Potassium being replaced Physician Grid Trimmer note has been reviewed by physician. Signing provider agrees with the documented findings, assessment, and plan of care. Objective - Vital Signs Vital signs: Vital Signs Temp 97.6 F 01/27/21 05:00 Pulse 96 01/27/21 05:00 Resp 16 01/27/21 05:00 BP 105/69 01/27/21 05:00 Pulse Ox 98 01/27/21 05:00 Intake & Output 01/26/21 01/27/21 01/27/21 18:59 06:59 18:59 Intake Total 370 Output Total 140 500 Balance 230 -500 Intake: IV 130 Sodium Chloride 0.9% 1, 130 000 ml @ 130 mls/hr IV . Q7H42M [facility] Rx#:[id number] Oral 240 Output: Urine 140 500 Other: Voiding Method Indwelling Catheter Indwelling Catheter # Voids 3 # Bowel Movements 4 3 - Labs CBC & Chem 7: 01/27/21 06:13 01/27/21 06:13 Labs: Abnormal Lab Results - Last 24 Hours (Table) 01/27/21 01/27/21 Range/Units 06:13 06:13 RBC 2.24 L (4.30-5.90) m/uL Hgb 7.5 L D (13.0-17.5) gm/dL Hct 21.9 L (39.0-53.0) % RDW 18.0 H (11.5-15.5) % Plt Count 29 L (150-450) k/uL Lymphocytes # 0.4 L (1.0-4.8) k/uL Potassium 3.0 L (3.5-5.1) mmol/L Chloride 115 H (98-107) mmol/L Carbon Dioxide 18 L (22-30) mmol/L Glucose 116 H (74-99) mg/dL Calcium 7.6 L (8.4-10.2) mg/dL Alkaline Phosphatase 184 H (38-126) U/L Total Protein 4.0 L (6.3-8.2) g/dL Albumin 2.0 L (3.5-5.0) g/dL Microbiology - Last 24 Hours (Table) 01/22/21 02:09 Blood Culture - Preliminary Blood No Growth after 120 hours 01/22/21 01:29 Blood Culture - Preliminary Blood No Growth after 120 hours 01/23/21 17:09 Stool Culture - Final Stool <Byron Frankel - Last Filed: 01/27/21 15:51> Subjective As above. Patient is having an easier time with bowel movements at this time. Denies bloating or pain. Still some blood mixed with the stool. Blood product replacement ordered and noted. Will increase diet to full liquids. Will follow. Objective - Vital Signs Vital signs: Vital Signs Temp 98.2 F 01/27/21 14:45 Pulse 88 01/27/21 14:45 Resp 18 01/27/21 12:24 BP 133/86 01/27/21 14:45 Pulse Ox 100 01/27/21 14:45 Intake & Output 01/26/21 01/27/21 01/27/21 18:59 06:59 18:59 Intake Total 370 0 Output Total 140 500 50 Balance 230 -500 -50 Weight 58.4 kg Intake: IV 130 Sodium Chloride 0.9% 1, 130 000 ml @ 130 mls/hr IV . Q7H42M [facility] Rx#:[id number] Oral 240 Blood Product 0 Rc As-1 Unit 0 [id number] Output: Urine 140 500 Stool 50 Other: Voiding Method Indwelling Catheter Indwelling Catheter Indwelling Catheter # Voids 3 # Bowel Movements 4 3 - Labs CBC & Chem 7: 01/27/21 06:13 01/27/21 06:13 Labs: Abnormal Lab Results - Last 24 Hours (Table) 01/27/21 01/27/21 01/27/21 Range/Units 06:13 06:13 10:05 RBC 2.24 L (4.30-5.90) m/uL Hgb 7.5 L D (13.0-17.5) gm/dL Hct 21.9 L (39.0-53.0) % RDW 18.0 H (11.5-15.5) % Plt Count 29 L (150-450) k/uL Lymphocytes # 0.4 L (1.0-4.8) k/uL Potassium 3.0 L (3.5-5.1) mmol/L Chloride 115 H (98-107) mmol/L Carbon Dioxide 18 L (22-30) mmol/L Glucose 116 H (74-99) mg/dL Calcium 7.6 L (8.4-10.2) mg/dL Alkaline Phosphatase 184 H (38-126) U/L Total Protein 4.0 L (6.3-8.2) g/dL Albumin 2.0 L (3.5-5.0) g/dL Crossmatch See Detail Microbiology - Last 24 Hours (Table) 01/22/21 02:09 Blood Culture - Preliminary Blood No Growth after 120 hours 01/22/21 01:29 Blood Culture - Preliminary Blood No Growth after 120 hours 01/23/21 17:09 Stool Culture - Final Stool Assessment and Plan (1) Enterocolitis Current Visit: Yes Status: Acute Code(s): K52.9 - NONINFECTIVE GASTROENTERITIS AND COLITIS, UNSPECIFIED SNOMED Code(s): 72748417
[2021-01-27] MEDS ORDERED: Potassium Replacement Protocol 1 EACH MISC MISCELLANE PRN (11:01)
[2021-01-27] MEDS: POTASSIUM CHLORIDE ER 20 MEQ TAB.ER PO SCH ×2 (11:02→11:03)
--- NOTE | 2021-01-27 12:10 | P.PN ---
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 He had declined bowel resection with diverting ostomy. 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 He was transferred to [facility] in August 2020 for possible colon stent placement due to 90% mechanical obstruction. They were unable to place a stent. He was given radiation treatments 5. The plan was to return there for possible bowel surgery 6 weeks after completion of his chemotherapy. He did undergo 10 of planned 12 rounds of Folfirinox with his 10th cycle being completed on 01/17/2021. He received Neulasta on 01/18/2021. presented here to the emergency room on 01/22/2021 with fever, weakness, poor appetite. He developed GI bleeding with liquid bright red/brown stools. He also had some coffee-ground emesis. He was transferred here to the intensive care unit yesterday afternoon. He is receiving his third unit of packed red blood cells this morning. He received 1 unit of fresh frozen plasma and 1 unit of platelets. White count 0.4. RBC 2.11. Hemoglobin 6.9. Platelets 20,000. PT 13.6. INR 1.3. PTT 33.1. Fibrinogen 617. D-dimer 4.49. Sodium 136. Potassium 3.2. Creatinine 0.71. Calcium 7.2. AST 35. ALT 30. Alk phos 84. LDH 489. Vitamin B12 greater than 2000. Chest x-ray reveals no active cardiopulmonary process. Presently, he is resting comfortably in bed. Awake and alert in no acute distress. He denies any shortness of breath, cough or congestion. Maintaining O2 saturations in the 90s on room air. Some dizziness and lightheadedness. Blood pressure stable in the 1 teens over 80s. Currently afebrile. He has 0.9 normal saline at 130 ML's per hour. He is currently on Zosyn. Computed tomography scan of the abdomen and pelvis revealed positive treatment response of the posterior right hepatic lobe metastatic lesion. There is however new moderate to severe wall thickening consistent with multifocal and diffuse enterocolitis. Could reflect no undesired posttreatment response versus inflammatory, ischemic or infectious etiologies. There is new severe wall thickening in the bladder with similar differential, no undesired post treatment response versus infectious/inflammatory etiology. On 01/25/2021 seen for a follow-up. The patient is in the intensive care unit for ongoing GI bleeding. Note that the patient has developed pancytopenia related to systemic chemotherapy and he also had received radiation therapy to his abdomen for his colorectal cancer. Subsequently, he came in for bleeding and the patient became thrombocytopenic and The Abdomen Showed Areas of Bowel In flammation/Colitis. For Now, the Patient Is Doing Well. Since Yesterday, the patient had only 1 episode of bloody stool which probably are some leftovers as the patient's hemoglobin has essentially remained stable in the hemoglobin is at 8.4. Platelet count is at 24 and the rest of the hemodynamics are stable for now. Discussed the case with general surgery. With allow this patient some clear liquid diet for now. Otherwise, the patient has no other complaints. No chest pain. No dizziness. Sodium level is at 136, white cell count is up to 2.2 with a hemoglobin of 8.4. He remains on IV Zosyn. No abdominal pain. No nausea. No vomiting. No emesis. No other significant events overnight. IV fluids are running in the form of normal saline at the rate of 130s's an hour. 01/26/2021, the patient is essentially stable. Overnight, he had several bouts of liquidy somewhat bloody and reddish bowel movement activity. I'm not sure this is a representation of acute bleeding knowing that this hemoglobin has remained stable at 9.0. Platelet count currently is pending. The count from yesterday was 24. Meanwhile, the blood work and electrodes are normal, potassium is to be replaced. He did have an issue with urinary retention. He was apparently having some issues with hematuria prior to this hospitalization. I was able to get urology and and Lugo cath was inserted and the patient produced approximately 800 mL of urine output immediately. He is currently producing adequate urine output for now. He remains on IV Zosyn. He did have a 1 bouts of emesis. He is currently taking clear liquid diet. In terms of the rest of the medication, the patient remains on IV Zosyn. The patient remains on IV fluids. Morphine on an as-needed basis for pain. No other significant events otherwise for now. He is awake and alert. His normal saline is running at the rate of 130s cc an hour. On 01/27/2021 patient seen in follow-up on medical surgical floor. He is weak, frail, a bit pale looking, but not any acute distress, room air pulse ox is 9200%, hemodynamically stable, blood pressures 03/19/1967, with a mean of 81, he is afebrile, breathing is nonlabored. He states he continues to have liquid maroon-colored stools. Abdomen is nontender, nondistended, today's labs have been reviewed, white blood cell count is 8.6, hemoglobin is 7.5 and that's a decrease from 9.0 on yesterday's labs, platelet count is currently 29, sodium is 138, potassium is 3.0, chloride is 115, CO2 is 18, B1 is 15 creatinine 0.90. No nausea or vomiting, no hematemesis. His blood urine and stool cultures have been negative. he continues on Zosyn for empiric antibiotic coverage, he con tinues on Protonix 40 mg twice daily, and IV fluids with 0.9 normal saline at a rate of 130 ML per hour. His tolerating clear liquid diet. No altered mentation, he is answering questions appropriately. Surgery, medical oncology and ID service are following. Objective - Vital Signs Vital signs: Vital Signs Temp 97.6 F 01/27/21 05:00 Pulse 96 01/27/21 05:00 Resp 16 01/27/21 05:00 BP 105/69 01/27/21 05:00 Pulse Ox 98 01/27/21 05:00 Intake & Output 01/26/21 01/27/21 01/27/21 18:59 06:59 18:59 Intake Total 370 Output Total 140 500 50 Balance 230 -500 -50 Intake: IV 130 Sodium Chloride 0.9% 1, 130 000 ml @ 130 mls/hr IV . Q7H42M [facility] Rx#:[id number] Oral 240 Output: Urine 140 500 Stool 50 Other: Voiding Method Indwelling Catheter Indwelling Catheter Indwelling Catheter # Voids 3 # Bowel Movements 4 3 - Exam GENERAL EXAM: 55-year-old frail looking white male, on room air with a pulse ox of 98-100%, resting in bed, comfortable in no apparent distress. HEAD: Normocephalic/atraumatic. EYES: Normal reaction of pupils, equal size. Conjunctiva pink, sclera white. NOSE: Clear with pink turbinates. THROAT: No erythema or exudates. NECK: No masses, no JVD, no thyroid enlargement, no adenopathy. CHEST: No chest wall deformity. Symmetrical expansion. LUNGS: Equal air entry with no crackles, wheeze, rhonchi or dullness. CVS: Regular rate and rhythm, normal S1 and S2, no gallops, no murmurs, no rubs ABDOMEN: Soft, nontender. No hepatosplenomegaly, normal bowel sounds, no guarding or rigidity. EXTREMITIES: No clubbing, no edema, no cyanosis, 2+ pulses and upper and lower extremities. MUSCULOSKELETAL: Muscle strength and tone normal. SPINE: No scoliosis or deformity SKIN: No rashes CENTRAL NERVOUS SYSTEM: Alert and oriented -3. No focal deficits, tone is normal in all 4 extremities. PSYCHIATRIC: Alert and oriented -3. Appropriate affect. Intact judgment and insight. - Labs CBC & Chem 7: 01/27/21 06:13 01/27/21 06:13 Labs: Abnormal Lab Results - Last 24 Hours (Table) 01/27/21 01/27/21 01/27/21 Range/Units 06:13 06:13 10:05 RBC 2.24 L (4.30-5.90) m/uL Hgb 7.5 L D (13.0-17.5) gm/dL Hct 21.9 L (39.0-53.0) % RDW 18.0 H (11.5-15.5) % Plt Count 29 L (150-450) k/uL Lymphocytes # 0.4 L (1.0-4.8) k/uL Potassium 3.0 L (3.5-5.1) mmol/L Chloride 115 H (98-107) mmol/L Carbon Dioxide 18 L (22-30) mmol/L Glucose 116 H (74-99) mg/dL Calcium 7.6 L (8.4-10.2) mg/dL Alkaline Phosphatase 184 H (38-126) U/L Total Protein 4.0 L (6.3-8.2) g/dL Albumin 2.0 L (3.5-5.0) g/dL Crossmatch See Detail Microbiology - Last 24 Hours (Table) 01/22/21 02:09 Blood Culture - Preliminary Blood No Growth after 120 hours 01/22/21 01:29 Blood Culture - Preliminary Blood No Growth after 120 hours 01/23/21 17:09 Stool Culture - Final Stool Assessment and Plan Plan: Assessment: #1. Acute neutropenic fever secondary to chemotherapy, patient completed around 10 of 12 Folfox on 01/17/2021 #2. Pancytopenia and subsequent GI bleeding requiring his fusion with 3 units of packed red blood cells, 1 unit of fresh frozen plasma and 1 unit of multiple #3. Acute GI bleeding with liquid bloody stools, coffee-ground emesis. CT scan of the abdomen reveals new moderate to severe wall thickening consistent with multifocal and diffuse enterocolitis. There was also severe wall thickening in the bladder. Patient received 5 radiation treatments at [facility] in August 2020 #4. History of metastatic adenocarcinoma, colorectal primary with diastasis to the liver #5. Colonic mass, unable to receive bowel stent at [facility] but may be considered for bowel surgery 6 weeks following chemotherapy #6. Acute GI blood loss anemia receiving his fourth unit of packed red blood cells today for hemoglobin of 7.5 #7. Diarrhea, status post colonoscopy with biopsy and patient was found to have metastatic adenocarcinoma in July 2020 #8. BPH with urinary retention, patient currently has a Lugo catheter in place Plan: Today's labs have been noted Patient continues to have maroon-colored liquid bloody bowel movements Surgical services are following, Today's hemoglobin is 7.5, we will give the patient another unit of packed red blood cells Continue Protonix, continue IV fluids Continue Zosyn Hemodynamically patient is stable Monitor for any further bleeding I performed a history & physical examination of the patient and discussed their management with my nurse practitioner, Steff Celaya. I reviewed the nurse practitioner's note and agree with the documented findings and plan of care. Lung sounds are positive for diminished breath sounds throughout the lung melendrez. The findings and the impression was discussed with the patient. I attest to the documentation by the nurse practitioner. Time with Patient: Less than 30
[2021-01-27] MEDS: POTASSIUM BICARBONATE/CIT AC 20 MEQ TABLET.EFF NG-TUBE SCH ×2 (12:46→15:02)
--- NOTE | 2021-01-27 13:25 | P.PN ---
Subjective Progress Note Date: 01/27/21 Principal diagnosis: GI bleed In f/u today pt has phan cath inserted by Urology, stricture caused difficulty with insertion. Note goldy urine, can see some small blood clots. Pt reporting maroon stool and dark blood when wiping rectal area after BM. No gross bleeding. Objective - Vital Signs Vital signs: Vital Signs Temp 98.3 F 01/27/21 12:24 Pulse 96 01/27/21 12:24 Resp 18 01/27/21 12:24 BP 110/82 01/27/21 12:24 Pulse Ox 100 01/27/21 12:24 Intake & Output 01/26/21 01/27/21 01/27/21 18:59 06:59 18:59 Intake Total 370 Output Total 140 500 50 Balance 230 -500 -50 Intake: IV 130 Sodium Chloride 0.9% 1, 130 000 ml @ 130 mls/hr IV . Q7H42M [facility] Rx#:[id number] Oral 240 Output: Urine 140 500 Stool 50 Other: Voiding Method Indwelling Catheter Indwelling Catheter Indwelling Catheter # Voids 3 # Bowel Movements 4 3 - Constitutional General appearance: Present: cooperative, no acute distress, thin - EENT Eyes: Present: anicteric sclerae, EOMI ENT: Present: hearing grossly normal - Respiratory Respiratory: bilateral: CTA - Cardiovascular Rhythm: regular Heart sounds: normal: S1, S2 Abnormal Heart Sounds: Absent: systolic murmur, diastolic murmur, rub, S3 Gallop, S4 Gallop, click, other - Peripheral edema leg Peripheral Edema: bilateral: Trace - Gastrointestinal Gastrointestinal Comment(s): abd is firm, mild generalized discomfort, distant BS - Neurologic Neurologic: Present: CNII-XII intact - Musculoskeletal Musculoskeletal: Present: generalized weakness - Psychiatric Psychiatric: Present: A&O x's 3, appropriate affect, intact judgment & insight - Labs CBC & Chem 7: 01/27/21 06:13 01/27/21 06:13 Labs: Abnormal Lab Results - Last 24 Hours (Table) 01/27/21 01/27/21 01/27/21 Range/Units 06:13 06:13 10:05 RBC 2.24 L (4.30-5.90) m/uL Hgb 7.5 L D (13.0-17.5) gm/dL Hct 21.9 L (39.0-53.0) % RDW 18.0 H (11.5-15.5) % Plt Count 29 L (150-450) k/uL Lymphocytes # 0.4 L (1.0-4.8) k/uL Potassium 3.0 L (3.5-5.1) mmol/L Chloride 115 H (98-107) mmol/L Carbon Dioxide 18 L (22-30) mmol/L Glucose 116 H (74-99) mg/dL Calcium 7.6 L (8.4-10.2) mg/dL Alkaline Phosphatase 184 H (38-126) U/L Total Protein 4.0 L (6.3-8.2) g/dL Albumin 2.0 L (3.5-5.0) g/dL Crossmatch See Detail Microbiology - Last 24 Hours (Table) 01/22/21 02:09 Blood Culture - Preliminary Blood No Growth after 120 hours 01/22/21 01:29 Blood Culture - Preliminary Blood No Growth after 120 hours 01/23/21 17:09 Stool Culture - Final Stool Assessment and Plan (1) Pancytopenia due to antineoplastic chemotherapy Narrative/Plan: Hgb 7.5. Unit of blood already ordered this AM Plt 29K, pt still having bleeding, 1 unit SDP ordered. Pt received GCSF on 01/17, WBC/ANC normal now Coags in AM Current Visit: Yes Status: Acute Priority: High Code(s): D61.810 - ANTINEOPLASTIC CHEMOTHERAPY INDUCED PANCYTOPENIA; T45.1X5A - ADVERSE EFFECT OF ANTINEOPLASTIC AND IMMUNOSUP DRUGS, INIT SNOMED Code(s): 741063326642089 (2) Rectal adenocarcinoma Narrative/Plan: New diagnosis, metastatic disease. He has stage IV disease but, was being treated with intent of reevaluation of liver lesions to eval number and size to see local therapy would be an option. Unfortunately, pt had not tolerated the last 3 cycles of treatment very well. He stated today that he no longer wants to do chemo. His appts for the same will be cancelled. Kept f/u appt with Dr. Giles. Pt has both melana and hematuria. CT reports abnormal findings in the colon and bladder. Reviewed Surgery and Urology notes. Will look to review the case with both Consults for recommendations. Intent of any interventions would be palliation of symptoms as pt does not want to pursue active treatment, he wants to treat symptoms. Will plan a family meeting to discussed palliative care services on discharge. Current Visit: Yes Status: Acute Priority: High Code(s): C20 - MALIGNANT NEOPLASM OF RECTUM SNOMED Code(s): 268396576
--- NOTE | 2021-01-27 13:57 | P.PN ---
Subjective Progress Note Date: 01/27/21 Acute GI bleed with bright red blood per rectum and an episode of coffee-ground emesis. Acute blood loss anemia due to GI bleed Moderate wall thickening in the jejunal loops inflammatory versus posttreatment response. Neutropenic fever. Patient is a 55-year-old male with a known history of colorectal cancer with mets to liver and is currently undergoing chemotherapy cycle of 10, last dose on 12/17/2020 presents to ER with complaints of fever, generalized weakness and unable to take any oral intake. Patient was seen at [facility] yesterday and was given IV fluids and sent home. Patient was brought to the hospital due to generalized weakness and not tolerating oral diet and was also getting more weaker. Denied any complaints of chest pain or shortness breath. Patient does have nausea. No vomiting. No abdominal pain. No headache. On admission blood pressure 130/85 pulse is 137 respirations 16 and pulse ox 90% on room air and T-max 100.4. Chest x-ray showed no active cardiopulmonary disease. Normal heart. EKG showed sinus tachycardia Laboratory data showed Urinalysis showed 2+ protein, large blood, 1+ bilirubin, trace leukoesterase and elevated RBCs and WBCs 32 COVID-19 PCR not detected. WBCs 0.4 hemoglobin 8.8 and platelets 88 Sodium 138 potassium 3.9 chloride 82280 bicarb is 15 BUN 41 and creatinine 1.01 and blood sugar is 165 lactic acid 7.3 on admission Albumin 2.9 01/23/2021 Patient was noted to have blood clots in the stool this morning as per nursing staff. Hemoglobin went down to 5.4 and platelet count 23,000. PRBC transfusion was ordered and patient was transferred to ICU for close monitoring. General surgery was consulted due to GI bleed. CT of the abdomen pelvis showed continued positive treatment response to the posterior right hepatic lobe metastatic lesion. There is however a new moderate to severe wall thickening consistent with multifocal and diffuse enterocolitis. There is new severe wall thickening in the bladder with similar differential nondesired posttreatment response versus infectious/inflammatory etiology. Patient is being continued antibiotics in the form of Zosyn. Vancomycin has been discontinued. ID and oncology is on board. Patient is being continued on IV hydration. 01/24/2021 Patient is currently in the MICU. Awake alert and oriented but seems to be weak and lethargic. Patient is on the bedside commode. Patient still having blood per rectum. Mainly blood clots and small amount of stool. Denied any complain ts of nausea or vomiting or abdominal pain. Patient lightheaded otherwise. Patient received 2 units of PRBC today. Hemoglobin went up to 10.6 after transfusion. Laboratory test showed sodium 136 potassium 3.2 chloride 110 and bicarb is 21 Patient is on antibiotics involve Zosyn. General surgery, ID and pulmonary is on board. 01/25/2021 Patient is currently in the intensive care unit. Was admitted to the hospital due to neutropenic fever and also GI bleed. Patient had one episode of bloody stool yesterday. Hemoglobin is stable at 8.4 today. Patient is pancytopenic likely due to recent chemotherapy. General surgery is following. Denied any nausea or vomiting. No significant abdominal pain. Patient has been afebrile. No cough or sputum production. Laboratory data showed sodium 136 potassium 3.3 replaced. Chloride 112 bicarb is 20 BUN 21 creatinine 0.7 and calcium 7.5. Patient is being transferred to medical floor today. 01/26/2021 Patient is currently surgical unit. Does have dark brown-colored stools. No bright red or tarry stool noted today. Hemoglobin is 9 today. WBC went up to 8.9 and platelet count 31 today. Denied any abdominal pain. Patient has been afebrile. Currently on clear liquid diet. Laboratory showed sodium 139 potassium 3.3 chloride 114 bicarb is 19 BUN 18 and creatinine 0.83 and calcium 7.6 General surgery is on board. 01/27/2021 Patient is evaluated today resting in bed. He states that he had 3 maroon colored stools through out the evening. Hemoglobin today is 7.5 down from 9. 1 unit of PRBCs was ordered for today. Patient continues on IV Zosyn for the enterocolitis. Additional labs include potassium is 3, was replaced per protocol, chloride 1155, CO2 18. Patient is afebrile, heart rate elevated at 103 sinus tachycardia, blood pressure 110/82 and he is 100% on room air. Blood culture urine culture and stool culture are negative. Patient denied any nausea vomiting, states that he is tolerating a clear liquid diet. Lugo catheter was inserted by urology due to a stricture. Patient discussed at bedside that he no longer wishes to proceed with chemotherapy. Upon review of oncology notes, plan is for a palliative care meeting with family. Current medications reviewed. ROS Constitutional: Denied any fatigue denied any fever. Cardio vascular: denied any chest pain, palpitations Gastrointestinal denied any nausea vomiting, reports ongoing maroon liquid bowel movements Pulmonary: Denied any shortness of breath cough Neurologic denied any new focal deficits All inpatient medications were reviewed and appropriate changes in these medications as dictated in the interval history and assessment and plan. PHYSICAL EXAMINATION: GENERAL: The patient is alert and oriented x3, not in any acute distress. Well developed, well nourished. HEENT: Pupils are round and equally reacting to light. EOMI. No scleral icterus. No conjunctival pallor. Normocephalic, atraumatic. No pharyngeal erythema. No thyromegaly. CARDIOVASCULAR: S1 and S2 present. No murmurs, rubs, or gallops. PULMONARY: Chest is clear to auscultation, no wheezing or crackles. ABDOMEN: Soft, nontender, nondistended, normoactive bowel sounds. No palpable organomegaly. MUSCULOSKELETAL: No joint swelling or deformity. EXTREMITIES: No cyanosis, clubbing, or pedal edema. NEUROLOGICAL: Gross neurological examination did not reveal any focal deficits. SKIN: No rashes. Assessment and plan Assessment Acute GI bleed with maroon-colored stools ongoing Acute blood loss anemia due to GI bleed Moderate wall thickening in the jejunal loops inflammatory versus posttreatment response. Neutropenic fever secondary to chemotherapy Lactic acidosis 7.3 due to dehydration volume depletion improved to 1.6 Colorectal cancer/adenocarcinoma with mets to liver. Currently on cycle 10 chemotherapy last dose about 5 days back, patient does not want any further chemotherapy. Pancytopenia secondary to chemotherapy Asymptomatic bacteriuria Mild elevated liver enzymes, resolved Metabolic acidosis DVT prophylaxis not on heparin due to thrombocytopenia. Urinary stricture with hematuria Plan: Transfuse 1 unit of PRBCs today, 4 units given total, hemoglobin 7. 5 repeat tomorrow Potassium replaced per protocol Patient is being continued IV hydration and antibiotics involve Zosyn. Continue with PPI. General surgery is following due to GI bleed. Indwelling catheter inserted by urology Continue to follow closely. Repeat labs tomorrow. Objective - Vital Signs Vital signs: Vital Signs Temp 97.6 F 01/27/21 05:00 Pulse 96 01/27/21 05:00 Resp 16 01/27/21 05:00 BP 105/69 01/27/21 05:00 Pulse Ox 98 01/27/21 05:00 Intake & Output 01/26/21 01/27/21 01/27/21 18:59 06:59 18:59 Intake Total 370 Output Total 140 500 Balance 230 -500 Intake: IV 130 Sodium Chloride 0.9% 1, 130 000 ml @ 130 mls/hr IV . Q7H42M [facility] Rx#:[id number] Oral 240 Output: Urine 140 500 Other: Voiding Method Indwelling Catheter Indwelling Catheter # Voids 3 # Bowel Movements 4 3 - Labs CBC & Chem 7: 01/27/21 06:13 01/27/21 06:13 Labs: Abnormal Lab Results - Last 24 Hours (Table) 01/26/21 01/27/21 01/27/21 Range/Units 05:36 06:13 06:13 RBC 2.24 L (4.30-5.90) m/uL Hgb 7.5 L D (13.0-17.5) gm/dL Hct 21.9 L (39.0-53.0) % RDW 18.0 H (11.5-15.5) % Plt Count 31 L 29 L (150-450) k/uL Neutrophils # (Manual) 8.40 H (1.3-7.7) k/uL Lymphocytes # 0.4 L (1.0-4.8) k/uL Lymphocytes # (Manual) 0.09 L (1.0-4.8) k/uL Potassium 3.0 L (3.5-5.1) mmol/L Chloride 115 H (98-107) mmol/L Carbon Dioxide 18 L (22-30) mmol/L Glucose 116 H (74-99) mg/dL Calcium 7.6 L (8.4-10.2) mg/dL Alkaline Phosphatase 184 H (38-126) U/L Total Protein 4.0 L (6.3-8.2) g/dL Albumin 2.0 L (3.5-5.0) g/dL Microbiology - Last 24 Hours (Table) 01/22/21 02:09 Blood Culture - Preliminary Blood No Growth after 120 hours 01/22/21 01:29 Blood Culture - Preliminary Blood No Growth after 120 hours 01/23/21 17:09 Stool Culture - Final Stool Assessment and Plan Time with Patient: Greater than 30
[2021-01-27 14:33] VITALS: BMI 20.7
--- NOTE | 2021-01-27 15:18 | CDI ---
Documentation Clarification Form Date: 01/27/2021 02:41:27 PM From: Jessica Gonzalez RN, CCDS Admit Date: 01/22/2021 03:28:00 AM Patient Name: Beni Montelongo Visit Number: [id number] Discharge Date: ATTENTION: The Clinical Documentation Specialists (CDI) and [facility] Coding Staff appreciate your assistance in clarifying documentation. Please respond to the clarification below the line at the bottom and electronically sign. The CDI & [facility] Coding staff will review the response and follow-up if needed. Please note: Queries are made part of the Legal Health Record. If you have any questions, please contact the author of this message via ITS. Dr. Alejandra Evans The patient presented with the following clinical indicators. Additional clarification regarding the etiology/cause of the clinical indicators is requested. 01/22 ID consult: Patient preset to hospital with sepsis and suspected have fever significant leukopenia and neutropenia with history of metastatic colorectal ca with mets to liver mostly GI symptom possible GI source of this infection 01/25 Urology consult: Apparently he presented with neutropenia sepsis. He also had blood in stool. He also has had gross hematuria, unable to urinate. History/Risk Factors: Rectal Cancer with mets to liver Clinical Indicators: 55-year-old male present to emergency room with weakness, minimal fluid intake. ED exam found fever of 100.4, and tachycardia of 137. 01/22 WBC: 0.4, Covid not detected 01/22 Lactic acid: 7.3 03/24 CXR: no acute process 01/23 CT ABD: posterior right hepatic lobe metastatic lesion. New moderate to severe wall thickening consistent with multifocal and diffuse enterocolitis. Findings could reflect nondesired posttreatment response, versus inflammatory, ischemic, and/or infectious etiology 01/22 Blood cultures: No growth after 120 hrs. 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 3.375 GM Q 8 HRS .9NS@ 130 MLS/HR Protonix 40 MG IVP BID Monitor labs, Basic Metabolic Panel, per orders In your professional opinion, please clarify if these findings signify one of the following conditions: [ ] Sepsis, Neutropenic POA [ ] Sepsis, Not POA [ ] Sepsis ruled out [ ] Severe Sepsis with organ failure [ ] Septic Shock [ ] SIRS, without underlying infectious process [ ] Other, please specify [ x ] Unable to determine SIRS Criteria: 2 or more of the following may indicate SIRS -Temperature < 96.8F (36C) or > 101.0F (38.3C) -Heart Rate > 90 bpm -Respiratory Rate > 20 breaths/min or PaCO2 < 32 mmHg -White Blood Cell Count > 12,000 or < 4,000 cells/mm3 or > 10% bands (Template Last Reviewed: April 2020) MTDD
--- NOTE | 2021-01-27 19:36 | PN ---
PROGRESS NOTE DATE OF SERVICE: 01/27/2021 REASON FOR FOLLOWUP: Febrile neutropenia with enterocolitis. INTERVAL HISTORY: The patient is afebrile. The patient is currently breathing comfortably. The patient denies having any chest pain or shortness of breath or cough. No abdominal pain. Diarrhea has slowed down. No blood in the stool. PHYSICAL EXAMINATION: Blood pressure 133/86, pulse of 88, temperature 98.2. He is 100% on room air. General description is a middle-aged male up in the bed in no distress. Respiratory system: Unlabored breathing, clear to auscultation anteriorly. Heart S1, S2. Regular rate and rhythm. Abdomen soft, no tenderness. LABS: Hemoglobin 7.5, white count 8.6, creatinine 0.90. DIAGNOSTIC IMPRESSION AND PLAN: Patient with febrile neutropenia, predominantly abdominal symptoms and concerning for enterocolitis. Patient clinically responding to Zosyn; to continue. Transition to oral antibiotic on discharge. Continue with supportive care. MMODL / IJN: [id number] /
[2021-01-28] MEDS: SODIUM CHLORIDE 0.9% 1,000 ML IV SCH ×2 (04:26→21:23)
[2021-01-28 06:46] LABS: African American GFR (CKD) >90 (>60 ml/min/1.73 sqM); Anion Gap 4 mmol/L; Blood Urea Nitrogen 9 mg/dL (9-20); Calcium 7.4 mg/dL (8.4-10.2); Carbon Dioxide 18 mmol/L (22-30); Chloride 118 mmol/L (98-107); Glucose 126 mg/dL (74-99); Magnesium 1.8 mg/dL (1.6-2.3); Non-African American GFR(CKD) >90 (>60 ml/min/1.73 sqM); Sodium 140 mmol/L (137-145)
[2021-01-28 06:49] LABS: INR 1.3 (<1.2); Prothrombin Time 13.3 sec (9.0-12.0)
[2021-01-28 06:50] LABS: Potassium 2.4 mmol/L (3.5-5.1)
[2021-01-28] MEDS ORDERED: Magnesium Replacement Protocol 1 EACH MISC MISCELLANE PRN (06:58)
[2021-01-28 07:03] LABS: Anisocytosis Slight; Basophils % (A) 0 %; Eosinophils % (A) 0 %; HCT 26.3 % (39.0-53.0); Hyperchromasia Slight; Lymphocytes # (A) 0.4 k/uL (1.0-4.8); Lymphocytes % (A) 4 %; MCH 33.1 pg (25.0-35.0); MCV 94.6 fL (80.0-100.0); Macrocytosis Slight; Mean Platelet Volume 9.7; Monocytes # (A) 0.6 k/uL (0-1.0); Monocytes % (A) 6 %; Neutrophils # (A) 8.8 k/uL (1.3-7.7); Neutrophils % (A) 89 %; Poikilocytosis Slight; RBC 2.78 m/uL (4.30-5.90); RDW 18.8 % (11.5-15.5); WBC 9.9 k/uL (3.8-10.6)
[2021-01-28 07:13] LABS: HGB 9.2 gm/dL (13.0-17.5); Platelet Count 58 k/uL (150-450)
[2021-01-28] MEDS: CHOLESTYRAMINE (WITH SUGAR) 4 GM PACKET PO SCH ×2 (07:52→18:03)
[2021-01-28] MEDS: POTASSIUM CHLORIDE 20 MEQ in WATER FOR INJECTION 1 100ML.BAG IVPB SCH ×4 (07:53→14:23)
[2021-01-28] MEDS: PIPERACILLIN-TAZOBACTAM 3.375 GM in SODIUM CHLORIDE 0.9% 100 ML IVPB SCH ×2 (07:53→17:12)
[2021-01-28] MEDS: PANTOPRAZOLE 40 MG/10 ML VIAL IVP SCH ×2 (07:53→21:21)
[2021-01-28] MEDS: NON FORMULARY DRUG (Vitamin B Complex [Vitamin B Complex] 1 EACH Capsule) PO SCH (07:54)
[2021-01-28] MEDS ORDERED: Potassium Replacement Protocol 1 EACH MISC MISCELLANE PRN (08:00)
[2021-01-28] MEDS ORDERED: POTASSIUM CHLORIDE ER 20 MEQ TAB.ER PO SCH (08:00)
[2021-01-28] MEDS: POTASSIUM BICARBONATE/CIT AC 20 MEQ TABLET.EFF NG-TUBE SCH ×3 (09:56→14:24)
--- NOTE | 2021-01-28 11:02 | P.PN ---
<Ora Haro - Last Filed: 01/28/21 10:51> Subjective Progress Note Date: 01/28/21 CHIEF COMPLAINT: Generalized weakness HISTORY OF PRESENT ILLNESS: Surgical service is following in regards to patient's GI bleed and enterocolitis. Patient reports that he is having watery brown stools. He did not have any further blood in the stools through the night or this morning. Patient denies any abdominal pain. Oncology is following closely and they have a family meeting planned to discuss palliative care services on discharge. Afebrile. WBC is 9.9 Hgb is up from 7.5 to 9.2 platelets are up from 29 to 58 potassium 2.4 magnesium 1.8 He is currently on a full liquid diet. PHYSICAL EXAM: VITAL SIGNS: Reviewed. GENERAL: Well-developed in no acute distress. HEENT: No sclera icterus. Extraocular movements grossly intact. Moist buccal mucosa. Head is atraumatic, normocephalic. ABDOMEN: Soft. Nondistended. Nontender. NEUROLOGIC: Alert and oriented. Cranial nerves II through XII grossly intact. ASSESSMENT: 1. Acute GI bleed with acute blood loss anemia 2. Enterocolitis 3. History of colorectal cancer with metastatic disease to the liver has been undergoing chemotherapy 4. Febrile Neutropenia 5. Hypokalemia 6. Hypomagnesemia PLAN: -Continue full liquid diet -Potassium and magnesium are being replaced -Continue to monitor hemoglobin -Continue to monitor signs and symptoms of bleeding -Continue IV Protonix -Continue IV fluids -Hold chemotherapy for now -No surgical intervention planned at this time -will continue to follow Physician Labeling Specialist note has been reviewed by physician. Signing provider agrees with the documented findings, assessment, and plan of care. Objective - Vital Signs Vital signs: Vital Signs Temp 97.4 F L 01/28/21 05:00 Pulse 70 01/28/21 10:10 Resp 16 01/28/21 05:00 BP 114/66 01/28/21 10:10 Pulse Ox 98 01/28/21 05:00 Intake & Output 01/27/21 01/28/21 01/28/21 18:59 06:59 18:59 Intake Total 1950 326 Output Total 50 800 50 Balance 1900 -474 -50 Weight 58.4 kg Intake: IV 1040 Sodium Chloride 0.9% 1, 1040 000 ml @ 130 mls/hr IV . Q[facility]H42M [facility] Rx#:[id number] Oral 600 Blood Product 310 326 Platelet Pheresis Pas 0 326 Psoralen Unit [id number] Rc As-1 Unit 310 [id number] Output: Urine 800 Stool 50 50 Other: Voiding Method Indwelling Catheter Indwelling Catheter Indwelling Catheter # Bowel Movements 1 - Labs CBC & Chem 7: 01/28/21 06:12 01/28/21 06:12 Labs: Abnormal Lab Results - Last 24 Hours (Table) 01/27/21 01/28/21 01/28/21 Range/Units 10:05 06:12 06:12 RBC 2.78 L (4.30-5.90) m/uL Hgb 9.2 L D (13.0-17.5) gm/dL Hct 26.3 L (39.0-53.0) % RDW 18.8 H (11.5-15.5) % Plt Count 58 L D (150-450) k/uL Neutrophils # 8.8 H (1.3-7.7) k/uL Lymphocytes # 0.4 L (1.0-4.8) k/uL PT (9.0-12.0) sec INR (<1.2) Potassium 2.4 L* (3.5-5.1) mmol/L Chloride 118 H (98-107) mmol/L Carbon Dioxide 18 L (22-30) mmol/L Glucose 126 H (74-99) mg/dL Calcium 7.4 L (8.4-10.2) mg/dL Crossmatch See Detail 01/28/21 Range/Units 06:12 RBC (4.30-5.90) m/uL Hgb (13.0-17.5) gm/dL Hct (39.0-53.0) % RDW (11.5-15.5) % Plt Count (150-450) k/uL Neutrophils # (1.3-7.7) k/uL Lymphocytes # (1.0-4.8) k/uL PT 13.3 H (9.0-12.0) sec INR 1.3 H (<1.2) Potassium (3.5-5.1) mmol/L Chloride (98-107) mmol/L Carbon Dioxide (22-30) mmol/L Glucose (74-99) mg/dL Calcium (8.4-10.2) mg/dL Crossmatch Microbiology - Last 24 Hours (Table) 01/23/21 17:09 Stool Culture - Final Stool 01/22/21 02:09 Blood Culture - Final Blood No Growth after 144 hours 01/22/21 01:29 Blood Culture - Final Blood No Growth after 144 hours <Byron Frankel - Last Filed: 01/28/21 15:04> Subjective As above. Patient with a small amount of blood in the stools. Tolerating full liquids. Denies abdominal pain. No abdominal bloating. Does not feel obstructed. Continue to monitor bowel activity. We'll follow with you. Objective - Vital Signs Vital signs: Vital Signs Temp 97.5 F L 01/28/21 12:32 Pulse 96 01/28/21 12:32 Resp 16 01/28/21 12:32 BP 118/89 01/28/21 12:32 Pulse Ox 100 01/28/21 12:32 Intake & Output 01/27/21 01/28/21 01/28/21 18:59 06:59 18:59 Intake Total 1950 326 Output Total 50 800 50 Balance 1900 -474 -50 Weight 58.4 kg Intake: IV 1040 Sodium Chloride 0.9% 1, 1040 000 ml @ 130 mls/hr IV . Q7H42M [facility] Rx#:[id number] Oral 600 Blood Product 310 326 Platelet Pheresis Pas 0 326 Psoralen Unit [id number] Rc As-1 Unit 310 [id number] Output: Urine 800 Stool 50 50 Other: Voiding Method Indwelling Catheter Indwelling Catheter Indwelling Catheter # Bowel Movements 1 - Labs CBC & Chem 7: 01/28/21 06:12 01/28/21 06:12 Labs: Abnormal Lab Results - Last 24 Hours (Table) 01/27/21 01/28/21 01/28/21 Range/Units 10:05 06:12 06:12 RBC 2.78 L (4.30-5.90) m/uL Hgb 9.2 L D (13.0-17.5) gm/dL Hct 26.3 L (39.0-53.0) % RDW 18.8 H (11.5-15.5) % Plt Count 58 L D (150-450) k/uL Neutrophils # 8.8 H (1.3-7.7) k/uL Lymphocytes # 0.4 L (1.0-4.8) k/uL PT (9.0-12.0) sec INR (<1.2) Potassium 2.4 L* (3.5-5.1) mmol/L Chloride 118 H (98-107) mmol/L Carbon Dioxide 18 L (22-30) mmol/L Glucose 126 H (74-99) mg/dL Calcium 7.4 L (8.4-10.2) mg/dL Crossmatch See Detail 01/28/21 Range/Units 06:12 RBC (4.30-5.90) m/uL Hgb (13.0-17.5) gm/dL Hct (39.0-53.0) % RDW (11.5-15.5) % Plt Count (150-450) k/uL Neutrophils # (1.3-7.7) k/uL Lymphocytes # (1.0-4.8) k/uL PT 13.3 H (9.0-12.0) sec INR 1.3 H (<1.2) Potassium (3.5-5.1) mmol/L Chloride (98-107) mmol/L Carbon Dioxide (22-30) mmol/L Glucose (74-99) mg/dL Calcium (8.4-10.2) mg/dL Crossmatch Microbiology - Last 24 Hours (Table) 01/23/21 17:09 Stool Culture - Final Stool 01/22/21 02:09 Blood Culture - Final Blood No Growth after 144 hours 01/22/21 01:29 Blood Culture - Final Blood No Growth after 144 hours Assessment and Plan (1) Enterocolitis Current Visit: Yes Status: Acute Code(s): K52.9 - NONINFECTIVE GASTROENTERITIS AND COLITIS, UNSPECIFIED SNOMED Code(s): 89822250
--- NOTE | 2021-01-28 11:55 | P.PN ---
Subjective Progress Note Date: 01/28/21 Principal diagnosis: Acute GI bleeding This is a very pleasant 55-year-old gentleman who was diagnosed with metastatic adenocarcinoma from colorectal cancer with metastasis to the liver in July 2020. He had declined bowel resection with diverting ostomy. 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 He was transferred to [facility] in August 2020 for possible colon stent placement due to 90% mechanical obstruction. They were unable to place a stent. He was given radiation treatments 5. The plan was to return there for possible bowel surgery 6 weeks after completion of his chemotherapy. He did undergo 10 of planned 12 rounds of Folfirinox with his 10th cycle being completed on 01/17/2021. He received Neulasta on 01/18/2021. presented here to the emergency room on 01/22/2021 with fever, weakness, poor appetite. He developed GI bleeding with liquid bright red/brown stools. He also had some coffee-ground emesis. He was transferred here to the intensive care unit yesterday afternoon. He is receiving his third unit of packed red blood cells this morning. He received 1 unit of fresh frozen plasma and 1 unit of platelets. White count 0.4. RBC 2.11. Hemoglobin 6.9. Platelets 20,000. PT 13.6. INR 1.3. PTT 33.1. Fibrinogen 617. D-dimer 4.49. Sodium 136. Potassium 3.2. Creatinine 0.71. Calcium 7.2. AST 35. ALT 30. Alk phos 84. LDH 489. Vitamin B12 greater than 2000. Chest x-ray reveals no active cardiopulmonary process. Presently, he is resting comfortably in bed. Awake and alert in no acute distress. He denies any shortness of breath, cough or congestion. Maintaining O2 saturations in the 90s on room air. Some dizziness and lightheadedness. Blood pressure stable in the 1 teens over 80s. Currently afebrile. He has 0.9 normal saline at 130 ML's per hour. He is currently on Zosyn. Computed tomography scan of the abdomen and pelvis revealed positive treatment response of the posterior right hepatic lobe metastatic lesion. There is however new moderate to severe wall thickening consistent with multifocal and diffuse enterocolitis. Could reflect no undesired posttreatment response versus inflammatory, ischemic or infectious etiologies. There is new severe wall thickening in the bladder with similar differential, no undesired post treatment response versus infectious/inflammatory etiology. On 01/25/2021 seen for a follow-up. The patient is in the intensive care unit for ongoing GI bleeding. Note that the patient has developed pancytopenia related to systemic chemotherapy and he also had received radiation therapy to his abdomen for his colorectal cancer. Subsequently, he came in for bleeding and the patient became thrombocytopenic and The Abdomen Showed Areas of Bowel Inflammation/Colitis. For Now, the Patient Is Doing Well. Since Yesterday, the patient had only 1 episode of bloody stool which probably are some leftovers as the patient's hemoglobin has essentially remained stable in the hemoglobin is at 8.4. Platelet count is at 24 and the rest of the hemodynamics are stable for now. Discussed the case with general surgery. With allow this patient some clear liquid diet for now. Otherwise, the patient has no other complaints. No chest pain. No dizziness. Sodium level is at 136, white cell count is up to 2.2 with a hemoglobin of 8.4. He remains on IV Zosyn. No abdominal pain. No nausea. No vomiting. No emesis. No other significant events overnight. IV fluids are running in the form of normal saline at the rate of 130s's an hour. 01/26/2021, the patient is essentially stable. Overnight, he had several bouts of liquidy somewhat bloody and reddish bowel movement activity. I'm not sure this is a representation of acute bleeding knowing that this hemoglobin has remained stable at 9.0. Platelet count currently is pending. The count from yesterday was 24. Meanwhile, the blood work and electrodes are normal, potassium is to be replaced. He did have an issue with urinary retention. He was apparently having some issues with hematuria prior to this hospitalization. I was able to get urology and and [place] cath was inserted and the patient produced approximately 800 mL of urine output immediately. He is currently producing adequate urine output for now. He remains on IV Zosyn. He did have a 1 bouts of emesis. He is currently taking clear liquid diet. In terms of the rest of the medication, the patient remains on IV Zosyn. The patient remains on IV fluids. Morphine on an as-needed basis for pain. No other significant events otherwise for now. He is awake and alert. His normal saline is running at the rate of 130s cc an hour. On 01/27/2021 patient seen in follow-up on medical surgical floor. He is weak, frail, a bit pale looking, but not any acute distress, room air pulse ox is 9200%, hemodynamically stable, blood pressures 03/19/1967, with a mean of 81, he is afebrile, breathing is nonlabored. He states he continues to have liquid ma roon-colored stools. Abdomen is nontender, nondistended, today's labs have been reviewed, white blood cell count is 8.6, hemoglobin is 7.5 and that's a decrease from 9.0 on yesterday's labs, platelet count is currently 29, sodium is 138, potassium is 3.0, chloride is 115, CO2 is 18, B1 is 15 creatinine 0.90. No nausea or vomiting, no hematemesis. His blood urine and stool cultures have been negative. he continues on Zosyn for empiric antibiotic coverage, he continues on Protonix 40 mg twice daily, and IV fluids with 0.9 normal saline at a rate of 130 ML per hour. His tolerating clear liquid diet. No altered mentation, he is answering questions appropriately. Surgery, medical oncology and ID service are following. The patient is seen today 01/28/2021 in follow-up on the regular medical floor. He is currently resting comfortably in bed. Awake and alert in no acute distress. Yesterday he was having ongoing issues with bloody stools. Nonetheless far today. He is feeling a bit stronger. He is maintaining O2 saturation in the 90s on room air. His hemoglobin is 9.2. Platelets 58,000. He is status post 4 units of packed red blood cells, 1 unit of fresh frozen plasma. 2 units of platelets thus far this admission. Blood culture revealed no growth. Urine culture revealed no growth. Stool culture revealed no growth, negative for lactoferrin, Cryptosporidium, Giardia. White count 9.9. INR 1.3. Sodium 140. Potassium 2.4. Chloride 118. Bicarb 18. Creatinine 0.81. Glucose 126. He remains on Zosyn. 0.9 normal saline at 130 ML's per hour. Objective - Vital Signs Vital signs: Vital Signs Temp 97.4 F L 01/28/21 05:00 Pulse 70 01/28/21 10:10 Resp 16 01/28/21 05:00 BP 114/66 01/28/21 10:10 Pulse Ox 98 01/28/21 05:00 Intake & Output 01/27/21 01/28/21 01/28/21 18:59 06:59 18:59 Intake Total 1950 326 Output Total 50 800 50 Balance 1900 -474 -50 Weight 58.4 kg Intake: IV 1040 Sodium Chloride 0.9% 1, 1040 000 ml @ 130 mls/hr IV . Q7H42M [facility] Rx#:[id number] Oral 600 Blood Product 310 326 Platelet Pheresis Pas 0 326 Psoralen Unit [id number] Rc As-1 Unit 310 [id number] Output: Urine 800 Stool 50 50 Other: Voiding Method Indwelling Catheter Indwelling Catheter Indwelling Catheter # Bowel Movements 1 - Exam GENERAL EXAM: 55-year-old frail looking male patient, on room air with a pulse ox of 98%, resting in bed, comfortable in no apparent distress. HEAD: Normocephalic/atraumatic. EYES: Normal reaction of pupils, equal size. Conjunctiva pink, sclera white. NOSE: Clear with pink turbinates. THROAT: No erythema or exudates. NECK: No masses, no JVD, no thyroid enlargement, no adenopathy. CHEST: No chest wall deformity. Symmetrical expansion. LUNGS: Equal air entry with no crackles, wheeze, rhonchi or dullness. CVS: Regular rate and rhythm, normal S1 and S2, no gallops, no murmurs, no rubs ABDOMEN: Soft, nontender. No hepatosplenomegaly, normal bowel sounds, no guarding or rigidity. EXTREMITIES: No clubbing, no edema, no cyanosis, 2+ pulses and upper and lower extremities. MUSCULOSKELETAL: Muscle strength and tone normal. SPINE: No scoliosis or deformity SKIN: No rashes CENTRAL NERVOUS SYSTEM: Alert and oriented -3. No focal deficits, tone is normal in all 4 extremities. PSYCHIATRIC: Alert and oriented -3. Appropriate affect. Intact judgment and insight. - Labs CBC & Chem 7: 01/28/21 06:12 01/28/21 06:12 Labs: Abnormal Lab Results - Last 24 Hours (Table) 01/27/21 01/28/21 01/28/21 Range/Units 10:05 06:12 06:12 RBC 2.78 L (4.30-5.90) m/uL Hgb 9.2 L D (13.0-17.5) gm/dL Hct 26.3 L (39.0-53.0) % RDW 18.8 H (11.5-15.5) % Plt Count 58 L D (150-450) k/uL Neutrophils # 8.8 H (1.3-7.7) k/uL Lymphocytes # 0.4 L (1.0-4.8) k/uL PT (9.0-12.0) sec INR (<1.2) Potassium 2.4 L* (3.5-5.1) mmol/L Chloride 118 H (98-107) mmol/L Carbon Dioxide 18 L (22-30) mmol/L Glucose 126 H (74-99) mg/dL Calcium 7.4 L (8.4-10.2) mg/dL Crossmatch See Detail 01/28/21 Range/Units 06:12 RBC (4.30-5.90) m/uL Hgb (13.0-17.5) gm/dL Hct (39.0-53.0) % RDW (11.5-15.5) % Plt Count (150-450) k/uL Neutrophils # (1.3-7.7) k/uL Lymphocytes # (1.0-4.8) k/uL PT 13.3 H (9.0-12.0) sec INR 1.3 H (<1.2) Potassium (3.5-5.1) mmol/L Chloride (98-107) mmol/L Carbon Dioxide (22-30) mmol/L Glucose (74-99) mg/dL Calcium (8.4-10.2) mg/dL Crossmatch Microbiology - Last 24 Hours (Table) 01/23/21 17:09 Stool Culture - Final Stool 01/22/21 02:09 Blood Culture - Final Blood No Growth after 144 hours 01/22/21 01:29 Blood Culture - Final Blood No Growth after 144 hours Assessment and Plan Assessment: 1 Acute neutropenic fever secondary to round 10 of 12 planned FOLFOX completed 01/17/2021 2 Acute gastrointestinal bleeding with liquid bloody stools, coffee-ground emesis. Computed tomography scan of the abdomen reveals new moderate to severe wall thickening consistent with multifocal and diffuse enterocolitis. There is also new severe wall thickening in the bladder. The patient did receive radiation 5 at [facility] in August 2020 3 History of metastatic adenocarcinoma, colorectal primary with metastasis to the liver 4 Colonic mass unable to receive bowel stent at [facility] but may be considered for bowel surgery 6 weeks following chemotherapy 5 Acute GI blood loss anemia and has received 4 units of packed red blood cells this admission. Current hemoglobin 9.2. 6 Pancytopenia secondary to above, received 1 unit of fresh frozen plasma, two units of platelets current platelet count 58,000. 7 Diarrhea status post colonoscopy with biopsy and found to have metastatic adenocarcinoma in July 2020 Plan: The patient was seen and evaluated by Dr. Elizabeth Ann from the pulmonary and critical care standpoint We will see on an as-needed basis I, the cosigning physician, performed a history & physical examination of the patient. Lungs sounds are clear. Maintaining good O2 saturations in the 90s on room air. I discussed the assessment and plan of care with my nurse practitioner, Rody Patel. I attest to the above note as dictated by her.
--- NOTE | 2021-01-28 14:35 | P.PN ---
Subjective Progress Note Date: 01/28/21 Acute GI bleed with bright red blood per rectum and an episode of coffee-ground emesis. Acute blood loss anemia due to GI bleed Moderate wall thickening in the jejunal loops inflammatory versus posttreatment response. Neutropenic fever. Patient is a 55-year-old male with a known history of colorectal cancer with mets to liver and is currently undergoing chemotherapy cycle of 10, last dose on 12/17/2020 presents to ER with complaints of fever, generalized weakness and unable to take any oral intake. Patient was seen at [facility] yesterday and was given IV fluids and sent home. Patient was brought to the hospital due to generalized weakness and not tolerating oral diet and was also getting more weaker. Denied any complaints of chest pain or shortness breath. Patient does have nausea. No vomiting. No abdominal pain. No headache. On admission blood pressure 130/85 pulse is 137 respirations 16 and pulse ox 90% on room air and T-max 100.4. Chest x-ray showed no active cardiopulmonary disease. Normal heart. EKG showed sinus tachycardia Laboratory data showed Urinalysis showed 2+ protein, large blood, 1+ bilirubin, trace leukoesterase and elevated RBCs and WBCs 32 COVID-19 PCR not detected. WBCs 0.4 hemoglobin 8.8 and platelets 88 Sodium 138 potassium 3.9 chloride 31056 bicarb is 15 BUN 41 and creatinine 1.01 and blood sugar is 165 lactic acid 7.3 on admission Albumin 2.9 01/23/2021 Patient was noted to have blood clots in the stool this morning as per nursing staff. Hemoglobin went down to 5.4 and platelet count 23,000. PRBC transfusion was ordered and patient was transferred to ICU for close monitoring. General surgery was consulted due to GI bleed. CT of the abdomen pelvis showed continued positive treatment response to the posterior right hepatic lobe metastatic lesion. There is however a new moderate to severe wall thickening consistent with multifocal and diffuse enterocolitis. There is new severe wall thickening in the bladder with similar differential nondesired posttreatment response versus infectious/inflammatory etiology. Patient is being continued antibiotics in the form of Zosyn. Vancomycin has been discontinued. ID and oncology is on board. Patient is being continued on IV hydration. 01/24/2021 Patient is currently in the MICU. Awake alert and oriented but seems to be weak and lethargic. Patient is on the bedside commode. Patient still having blood per rectum. Mainly blood clots and small amount of stool. Denied any complain ts of nausea or vomiting or abdominal pain. Patient lightheaded otherwise. Patient received 2 units of PRBC today. Hemoglobin went up to 10.6 after transfusion. Laboratory test showed sodium 136 potassium 3.2 chloride 110 and bicarb is 21 Patient is on antibiotics involve Zosyn. General surgery, ID and pulmonary is on board. 01/25/2021 Patient is currently in the intensive care unit. Was admitted to the hospital due to neutropenic fever and also GI bleed. Patient had one episode of bloody stool yesterday. Hemoglobin is stable at 8.4 today. Patient is pancytopenic likely due to recent chemotherapy. General surgery is following. Denied any nausea or vomiting. No significant abdominal pain. Patient has been afebrile. No cough or sputum production. Laboratory data showed sodium 136 potassium 3.3 replaced. Chloride 112 bicarb is 20 BUN 21 creatinine 0.7 and calcium 7.5. Patient is being transferred to medical floor today. 01/26/2021 Patient is currently surgical unit. Does have dark brown-colored stools. No bright red or tarry stool noted today. Hemoglobin is 9 today. WBC went up to 8.9 and platelet count 31 today. Denied any abdominal pain. Patient has been afebrile. Currently on clear liquid diet. Laboratory showed sodium 139 potassium 3.3 chloride 114 bicarb is 19 BUN 18 and creatinine 0.83 and calcium 7.6 General surgery is on board. 01/27/2021 Patient is evaluated today resting in bed. He states that he had 3 maroon colored stools through out the evening. Hemoglobin today is 7.5 down from 9. 1 unit of PRBCs was ordered for today. Patient continues on IV Zosyn for the enterocolitis. Additional labs include potassium is 3, was replaced per protocol, chloride 1155, CO2 18. Patient is afebrile, heart rate elevated at 103 sinus tachycardia, blood pressure 110/82 and he is 100% on room air. Blood culture urine culture and stool culture are negative. Patient denied any nausea vomiting, states that he is tolerating a clear liquid diet. Lugo catheter was inserted by urology due to a stricture. Patient discussed at bedside that he no longer wishes to proceed with chemotherapy. Upon review of oncology notes, plan is for a palliative care meeting with family. 01/28/2021 Hemoglobin today is up to 9.2, patient is still having liquid bowel movements however there is no more blood. His diet was advanced to full liquid. INR was 1.3. Potassium is 2.4, we did replace per protocol we will recheck and continue to replace as needed. Magnesium was 1.8 patient received 2 bags. Vital signs show a temp of 97.5, 96 heart rate, blood pressure 118/89 he is 100% on room air. No surgical intervention as planned and patient does not wish to continue with chemotherapy. patient will follow-up with oncology in the office on DC to discuss care plan going forward. Current medications reviewed. ROS Constitutional: Denied any fatigue denied any fever. Cardio vascular: denied any chest pain, palpitations Gastrointestinal denied any nausea vomiting, reports liquid BM, denies blood in the stool Pulmonary: Denied any shortness of breath cough Neurologic denied any new focal deficits All inpatient medications were reviewed and appropriate changes in these medications as dictated in the interval history and assessment and plan. PHYSICAL EXAMINATION: GENERAL: The patient is alert and oriented x3, not in any acute distress. Well developed, well nourished. HEENT: Pupils are round and equally reacting to light. EOMI. No scleral icterus. No conjunctival pallor. Normocephalic, atraumatic. No pharyngeal erythema. No thyromegaly. CARDIOVASCULAR: S1 and S2 present. No murmurs, rubs, or gallops. PULMONARY: Chest is clear to auscultation, no wheezing or crackles. ABDOMEN: Soft, nontender, nondistended, normoactive bowel sounds. No palpable organomegaly. MUSCULOSKELETAL: No joint swelling or deformity. EXTREMITIES: No cyanosis, clubbing, or pedal edema. NEUROLOGICAL: Gross neurological examination did not reveal any focal deficits. SKIN: No rashes. Assessment and plan Assessment Acute GI bleed with maroon-colored stools ongoing Acute blood loss anemia due to GI bleed, hemoglobin today 9.2 Moderate wall thickening in the jejunal loops inflammatory versus posttreatment response. Neutropenic fever secondary to chemotherapy Lactic acidosis 7.3 due to dehydration volume depletion improved to 1.6 Colorectal cancer/adenocarcinoma with mets to liver. Currently on cycle 10 chemotherapy last dose about 5 days back, patient does not want any further chemotherapy. Pancytopenia secondary to chemotherapy Asymptomatic bacteriuria Mild elevated liver enzymes, resolved Metabolic acidosis DVT prophylaxis not on heparin due to thrombocytopenia. Urinary stricture with hematuria Plan: Transfuse 1 unit of PRBCs today, 4 units given total, hemoglobin 9.2, repeat tomorrow, monitor for signs of bleeding - do not give red food. Potassium replaced per protocol, recheck this afternoon and replace again if needed Patient is being continued IV hydration and antibiotics involve Zosyn. Continue with PPI. General surgery is following due to GI bleed. Indwelling catheter inserted by urology - can be removed tomorrow for voiding tr ial per urology recommendations continue with Flomax. Continue to follow closely. Repeat labs tomorrow. Objective - Vital Signs Vital signs: Vital Signs Temp 97.5 F L 01/28/21 12:32 Pulse 96 01/28/21 12:32 Resp 16 01/28/21 12:32 BP 118/89 01/28/21 12:32 Pulse Ox 100 01/28/21 12:32 Intake & Output 01/27/21 01/28/21 01/28/21 18:59 06:59 18:59 Intake Total 1950 326 Output Total 50 800 50 Balance 1900 -474 -50 Weight 58.4 kg Intake: IV 1040 Sodium Chloride 0.9% 1, 1040 000 ml @ 130 mls/hr IV . Q7H42M [facility] Rx#:[id number] Oral 600 Blood Product 310 326 Platelet Pheresis Pas 0 326 Psoralen Unit [id number] Rc As-1 Unit 310 [id number] Output: Urine 800 Stool 50 50 Other: Voiding Method Indwelling Catheter Indwelling Catheter Indwelling Catheter # Bowel Movements 1 - Labs CBC & Chem 7: 01/28/21 06:12 01/28/21 06:12 Labs: Abnormal Lab Results - Last 24 Hours (Table) 01/27/21 01/28/21 01/28/21 Range/Units 10:05 06:12 06:12 RBC 2.78 L (4.30-5.90) m/uL Hgb 9.2 L D (13.0-17.5) gm/dL Hct 26.3 L (39.0-53.0) % RDW 18.8 H (11.5-15.5) % Plt Count 58 L D (150-450) k/uL Neutrophils # 8.8 H (1.3-7.7) k/uL Lymphocytes # 0.4 L (1.0-4.8) k/uL PT (9.0-12.0) sec INR (<1.2) Potassium 2.4 L* (3.5-5.1) mmol/L Chloride 118 H (98-107) mmol/L Carbon Dioxide 18 L (22-30) mmol/L Glucose 126 H (74-99) mg/dL Calcium 7.4 L (8.4-10.2) mg/dL Crossmatch See Detail 01/28/21 Range/Units 06:12 RBC (4.30-5.90) m/uL Hgb (13.0-17.5) gm/dL Hct (39.0-53.0) % RDW (11.5-15.5) % Plt Count (150-450) k/uL Neutrophils # (1.3-7.7) k/uL Lymphocytes # (1.0-4.8) k/uL PT 13.3 H (9.0-12.0) sec INR 1.3 H (<1.2) Potassium (3.5-5.1) mmol/L Chloride (98-107) mmol/L Carbon Dioxide (22-30) mmol/L Glucose (74-99) mg/dL Calcium (8.4-10.2) mg/dL Crossmatch Microbiology - Last 24 Hours (Table) 01/23/21 17:09 Stool Culture - Final Stool 01/22/21 02:09 Blood Culture - Final Blood No Growth after 144 hours 01/22/21 01:29 Blood Culture - Final Blood No Growth after 144 hours Assessment and Plan Time with Patient: Greater than 30
[2021-01-28] MEDS: MAGNESIUM SULFATE-D5W PMX 1 GM in DEXTROSE/WATER 1 100ML.BAG IVPB SCH ×2 (17:11→21:11)
--- NOTE | 2021-01-28 18:01 | P.PN ---
Subjective Progress Note Date: 01/28/21 Principal diagnosis: GI bleed In f/u today pt cont to have phan in place, no penile bleeding, he is still having watery diarrhea, the amount of blood (and what looks like tissue) is less then yesterday. He has stool urgency still. He is tolerating the diet he is given at this time, denies nausea, abd pain or cramping. Pt states he walked the hallway. Objective - Vital Signs Vital signs: Vital Signs Temp 97.6 F 01/28/21 15:23 Pulse 96 01/28/21 16:25 Resp 17 01/28/21 16:25 BP 121/84 01/28/21 15:23 Pulse Ox 97 01/28/21 15:23 Intake & Output 01/27/21 01/28/21 01/28/21 18:59 06:59 18:59 Intake Total 1950 326 Output Total 50 800 50 Balance 1900 -474 -50 Weight 58.4 kg Intake: IV 1040 Sodium Chloride 0.9% 1, 1040 000 ml @ 130 mls/hr IV . Q7H42M [facility] Rx#:[id number] Oral 600 Blood Product 310 326 Platelet Pheresis Pas 0 326 Psoralen Unit [id number] Rc As-1 Unit 310 [id number] Output: Urine 800 Stool 50 50 Other: Voiding Method Indwelling Catheter Indwelling Catheter Indwelling Catheter # Bowel Movements 1 - Constitutional General appearance: Present: cooperative, no acute distress, thin - EENT Eyes: Present: anicteric sclerae, edentulous ENT: Present: hearing grossly normal - Respiratory Respiratory: bilateral: CTA - Cardiovascular Heart sounds: normal: S1, S2 - Peripheral edema leg Peripheral Edema: bilateral: None - Gastrointestinal General gastrointestinal: Present: soft - Integumentary Integumentary: Present: pale - Neurologic Neurologic: Present: CNII-XII intact - Musculoskeletal Musculoskeletal: Present: generalized weakness - Psychiatric Psychiatric: Present: A&O x's 3, appropriate affect, intact judgment & insight - Labs CBC & Chem 7: 01/28/21 06:12 01/28/21 06:12 Labs: Abnormal Lab Results - Last 24 Hours (Table) 01/28/21 01/28/21 01/28/21 Range/Units 06:12 06:12 06:12 RBC 2.78 L (4.30-5.90) m/uL Hgb 9.2 L D (13.0-17.5) gm/dL Hct 26.3 L (39.0-53.0) % RDW 18.8 H (11.5-15.5) % Plt Count 58 L D (150-450) k/uL Neutrophils # 8.8 H (1.3-7.7) k/uL Lymphocytes # 0.4 L (1.0-4.8) k/uL PT 13.3 H (9.0-12.0) sec INR 1.3 H (<1.2) Potassium 2.4 L* (3.5-5.1) mmol/L Chloride 118 H (98-107) mmol/L Carbon Dioxide 18 L (22-30) mmol/L Glucose 126 H (74-99) mg/dL Calcium 7.4 L (8.4-10.2) mg/dL Microbiology - Last 24 Hours (Table) 01/23/21 17:09 Stool Culture - Final Stool 01/22/21 02:09 Blood Culture - Final Blood No Growth after 144 hours 01/22/21 01:29 Blood Culture - Final Blood No Growth after 144 hours Assessment and Plan (1) Pancytopenia due to antineoplastic chemotherapy Narrative/Plan: Hgb 9.2 today Plt 58K today s/p 1 unit SPD-?recovering from chemo now. Pt received GCSF on 01/17, WBC normal, ANC 8.8 Coags improved Current Visit: Yes Status: Acute Priority: High Code(s): D61.810 - ANTINEOPLASTIC CHEMOTHERAPY INDUCED PANCYTOPENIA; T45.1X5A - ADVERSE EFFECT OF ANTINEOPLASTIC AND IMMUNOSUP DRUGS, INIT SNOMED Code(s): 927184591079816 (2) Rectal adenocarcinoma Narrative/Plan: New diagnosis, metastatic disease. He has stage IV disease but, was being treated with intent of reevaluation of liver lesions to eval number and size to see local therapy would be an option. Unfortunately, pt had not tolerated the last 3 cycles of treatment very well. He stated today that he no longer wants to do chemo. His appts for the same will be cancelled. Kept f/u appt with Dr. Giles. CT abnormal thickening in the colon and bladder, decrease in liver mass from 9.1cm to 7 cm, results reviewed again with pt and mother. Pt has had both melana and hematuria. The blood with the stool is decreasing in amount. Hematuria has stopped. For now, pt and mother want to plan f/u with Dr. Giles to discuss his case and then decide how pt would like to proceed. We will cont to monitor CBC for pt and provide transfusions as needed. Effects of chemo induced pancytopneia are resolving. Bowel/bladder irritation is recovering with non-invasive treatment/supportive care. Current Visit: Yes Status: Acute Priority: High Code(s): C20 - MALIGNANT NEOPLASM OF RECTUM SNOMED Code(s): 275903811
--- NOTE | 2021-01-28 22:12 | PN ---
PROGRESS NOTE DATE OF SERVICE: 01/28/2021 REASON FOR FOLLOWUP: Febrile neutropenia with enterocolitis. INTERVAL HISTORY: The patient is afebrile, has been breathing comfortably. Diarrhea has slowed down. Still having some bleeding per rectum. Denies any chest pain, shortness of breath or cough. PHYSICAL EXAMINATION: Blood pressure 106/71 with a pulse of 93, temperature 98.3. He is 98% on room air. General description is a middle-aged male lying in bed in no distress. Respiratory system: Unlabored breathing, clear to auscultation anteriorly. Heart S1, S2. Regular rate and rhythm. Abdomen soft, no tenderness. LABS: Hemoglobin is 9.2 with a white count of 9.9. Creatinine is 0.81. Stool culture has been negative. DIAGNOSTIC IMPRESSION AND PLAN: Patient with febrile neutropenia and predominant GI symptoms with evidence of enterocolitis. Clinically responded to Zosyn. That will be continued while monitoring his clinical course closely. Continue with supportive care. MMODL / IJN: [id number] /
[2021-01-28] MEDS ORDERED: POTASSIUM CHLORIDE ER 20 MEQ TAB.ER PO STA (23:08)
[2021-01-29] MEDS: PIPERACILLIN-TAZOBACTAM 3.375 GM in SODIUM CHLORIDE 0.9% 100 ML IVPB SCH ×3 (00:47→16:31)
[2021-01-29] MEDS: SODIUM CHLORIDE 0.9% 1,000 ML IV SCH ×4 (01:17→19:44)
[2021-01-29] MEDS ORDERED: POTASSIUM CHLORIDE ER 20 MEQ TAB.ER PO ONE (02:00)
[2021-01-29] MEDS ORDERED: POTASSIUM BICARBONATE/CIT AC 20 MEQ TABLET.EFF PO ONE (02:35)
[2021-01-29 06:52] LABS: Anisocytosis Slight; Basophils % (A) 0 %; Eosinophils % (A) 1 %; HCT 24.3 % (39.0-53.0); HGB 8.6 gm/dL (13.0-17.5); Hyperchromasia Slight; Lymphocytes # (A) 0.3 k/uL (1.0-4.8); Lymphocytes % (A) 5 %; MCH 33.7 pg (25.0-35.0); MCHC 35.3 g/dL (31.0-37.0); MCV 95.5 fL (80.0-100.0); Macrocytosis Slight; Mean Platelet Volume 9.6; Monocytes # (A) 0.4 k/uL (0-1.0); Monocytes % (A) 5 %; Neutrophils # (A) 5.6 k/uL (1.3-7.7); Neutrophils % (A) 87 %; Platelet Count 56 k/uL (150-450); Poikilocytosis Slight; RBC 2.55 m/uL (4.30-5.90); RDW 19.4 % (11.5-15.5); WBC 6.4 k/uL (3.8-10.6)
[2021-01-29] MEDS: PANTOPRAZOLE 40 MG/10 ML VIAL IVP SCH ×2 (08:46→20:41)
[2021-01-29] MEDS: NON FORMULARY DRUG (Vitamin B Complex [Vitamin B Complex] 1 EACH Capsule) PO SCH (09:11)
[2021-01-29] MEDS: CHOLESTYRAMINE (WITH SUGAR) 4 GM PACKET PO SCH ×2 (09:45→18:34)
[2021-01-29 09:46] LABS: African American GFR (CKD) 117.4 (60.0-200.0); BUN/Creat Ratio 7.88 Ratio (12.00-20.00); Blood Urea Nitrogen 6.3 mg/dL (9.0-27.0); Calcium 7.1 mg/dL (8.7-10.3); Non-African American GFR(CKD) 101.3 (60.0-200.0)
[2021-01-29 10:04] LABS: INR 1.4 (<1.2)
[2021-01-29 10:05] LABS: Prothrombin Time 14.1 sec (9.0-12.0)
[2021-01-29] MEDS: POTASSIUM CHLORIDE 20 MEQ in WATER FOR INJECTION 1 100ML.BAG IVPB SCH ×2 (10:52→12:58)
--- NOTE | 2021-01-29 12:46 | P.PN ---
Subjective Progress Note Date: 01/29/21 Acute GI bleed with bright red blood per rectum and an episode of coffee-ground emesis. Acute blood loss anemia due to GI bleed Moderate wall thickening in the jejunal loops inflammatory versus posttreatment response. Neutropenic fever. Patient is a 55-year-old male with a known history of colorectal cancer with mets to liver and is currently undergoing chemotherapy cycle of 10, last dose on 12/17/2020 presents to ER with complaints of fever, generalized weakness and unable to take any oral intake. Patient was seen at [facility] yesterday and was given IV fluids and sent home. Patient was brought to the hospital due to generalized weakness and not tolerating oral diet and was also getting more weaker. Denied any complaints of chest pain or shortness breath. Patient does have nausea. No vomiting. No abdominal pain. No headache. On admission blood pressure 130/85 pulse is 137 respirations 16 and pulse ox 90% on room air and T-max 100.4. Chest x-ray showed no active cardiopulmonary disease. Normal heart. EKG showed sinus tachycardia Laboratory data showed Urinalysis showed 2+ protein, large blood, 1+ bilirubin, trace leukoesterase and elevated RBCs and WBCs 32 COVID-19 PCR not detected. WBCs 0.4 hemoglobin 8.8 and platelets 88 Sodium 138 potassium 3.9 chloride 22910 bicarb is 15 BUN 41 and creatinine 1.01 and blood sugar is 165 lactic acid 7.3 on admission Albumin 2.9 01/23/2021 Patient was noted to have blood clots in the stool this morning as per nursing staff. Hemoglobin went down to 5.4 and platelet count 23,000. PRBC transfusion was ordered and patient was transferred to ICU for close monitoring. General surgery was consulted due to GI bleed. CT of the abdomen pelvis showed continued positive treatment response to the posterior right hepatic lobe metastatic lesion. There is however a new moderate to severe wall thickening consistent with multifocal and diffuse enterocolitis. There is new severe wall thickening in the bladder with similar differential nondesired posttreatment response versus infectious/inflammatory etiology. Patient is being continued antibiotics in the form of Zosyn. Vancomycin has been discontinued. ID and oncology is on board. Patient is being continued on IV hydration. 01/24/2021 Patient is currently in the MICU. Awake alert and oriented but seems to be weak and lethargic. Patient is on the bedside commode. Patient still having blood per rectum. Mainly blood clots and small amount of stool. Denied any complain ts of nausea or vomiting or abdominal pain. Patient lightheaded otherwise. Patient received 2 units of PRBC today. Hemoglobin went up to 10.6 after transfusion. Laboratory test showed sodium 136 potassium 3.2 chloride 110 and bicarb is 21 Patient is on antibiotics involve Zosyn. General surgery, ID and pulmonary is on board. 01/25/2021 Patient is currently in the intensive care unit. Was admitted to the hospital due to neutropenic fever and also GI bleed. Patient had one episode of bloody stool yesterday. Hemoglobin is stable at 8.4 today. Patient is pancytopenic likely due to recent chemotherapy. General surgery is following. Denied any nausea or vomiting. No significant abdominal pain. Patient has been afebrile. No cough or sputum production. Laboratory data showed sodium 136 potassium 3.3 replaced. Chloride 112 bicarb is 20 BUN 21 creatinine 0.7 and calcium 7.5. Patient is being transferred to medical floor today. 01/26/2021 Patient is currently surgical unit. Does have dark brown-colored stools. No bright red or tarry stool noted today. Hemoglobin is 9 today. WBC went up to 8.9 and platelet count 31 today. Denied any abdominal pain. Patient has been afebrile. Currently on clear liquid diet. Laboratory showed sodium 139 potassium 3.3 chloride 114 bicarb is 19 BUN 18 and creatinine 0.83 and calcium 7.6 General surgery is on board. 01/27/2021 Patient is evaluated today resting in bed. He states that he had 3 maroon colored stools through out the evening. Hemoglobin today is 7.5 down from 9. 1 unit of PRBCs was ordered for today. Patient continues on IV Zosyn for the enterocolitis. Additional labs include potassium is 3, was replaced per protocol, chloride 1155, CO2 18. Patient is afebrile, heart rate elevated at 103 sinus tachycardia, blood pressure 110/82 and he is 100% on room air. Blood culture urine culture and stool culture are negative. Patient denied any nausea vomiting, states that he is tolerating a clear liquid diet. Lugo catheter was inserted by urology due to a stricture. Patient discussed at bedside that he no longer wishes to proceed with chemotherapy. Upon review of oncology notes, plan is for a palliative care meeting with family. 01/28/2021 Hemoglobin today is up to 9.2, patient is still having liquid bowel movements however there is no more blood. His diet was advanced to full liquid. INR was 1.3. Potassium is 2.4, we did replace per protocol we will recheck and continue to replace as needed. Magnesium was 1.8 patient received 2 bags. Vital signs show a temp of 97.5, 96 heart rate, blood pressure 118/89 he is 100% on room air. No surgical intervention as planned and patient does not wish to continue with chemotherapy. patient will follow-up with oncology in the office on DC to discuss care plan going forward. 01/29/2021 Patient states that his bowel movements have slowed down however they're still loose and there was a small clot in his bowel movement this morning. Hemoglobin today was 8.6. Platelet count remained stable at 56. INR today is 1.4, PT 14.1. Potassium today was 3, chloride 119, bicarb 17, magnesium 2. Vital signs; the patient remains afebrile, heart rate 90, blood pressure 114/77 and he is 99% on room air. Patient denies any nausea or vomiting. He states that he is tolerating a full liquid diet, abdomen is slightly bloated today. He is passing gas and burping. Continue to follow and replace electrolytes. Current medications reviewed. ROS Constitutional: Denied any fatigue denied any fever. Cardio vascular: denied any chest pain, palpitations Gastrointestinal denied any nausea vomiting, reports liquid BM, small blood clot in stool today Pulmonary: Denied any shortness of breath cough Neurologic denied any new focal deficits All inpatient medications were reviewed and appropriate changes in these medications as dictated in the interval history and assessment and plan. PHYSICAL EXAMINATION: GENERAL: The patient is alert and oriented x3, not in any acute distress. Well developed, well nourished. HEENT: Pupils are round and equally reacting to light. EOMI. No scleral icterus. No conjunctival pallor. Normocephalic, atraumatic. No pharyngeal erythema. No thyromegaly. CARDIOVASCULAR: S1 and S2 present. No murmurs, rubs, or gallops. PULMONARY: Chest is clear to auscultation, no wheezing or crackles. ABDOMEN: Soft, nontender, mild distention, normoactive bowel sounds. No palpable organomegaly. MUSCULOSKELETAL: No joint swelling or deformity. EXTREMITIES: No cyanosis, clubbing, or pedal edema. NEUROLOGICAL: Gross neurological examination did not reveal any focal deficits. SKIN: No rashes. Assessment and plan Assessment Acute GI bleed with maroon-colored stools ongoing Acute blood loss anemia due to GI bleed, hemoglobin today 8.6 Moderate wall thickening in the jejunal loops inflammatory versus posttreatment response. Neutropenic fever secondary to chemotherapy Lactic acidosis 7.3 due to dehydration volume depletion improved to 1.6 Colorectal cancer/adenocarcinoma with mets to liver. Currently on cycle 10 chemotherapy last dose about 5 days back, patient does not want any further chemotherapy. Pancytopenia secondary to chemotherapy Asymptomatic bacteriuria Mild elevated liver enzymes, resolved Metabolic acidosis DVT prophylaxis not on heparin due to thrombocytopenia. Urinary stricture with hematuria Plan: Transfuse 1 unit of PRBCs today, 4 units given total, hemoglobin 9.2, repeat t omorrow, monitor for signs of bleeding - do not give red food. Potassium replaced per protocol, recheck this afternoon and replace again if needed Patient is being continued IV hydration and antibiotics involve Zosyn. Continue with PPI. General surgery is following due to GI bleed. Indwelling catheter inserted by urology - can be removed today for voiding trial per urology recommendations continue with Flomax. Follow urinary retention protocol the patient is unable to void after 6 hours. Continue to follow closely. Repeat labs tomorrow. Objective - Vital Signs Vital signs: Vital Signs Temp 98.4 F 01/29/21 04:06 Pulse 84 01/29/21 04:06 Resp 16 01/29/21 04:06 BP 115/75 01/29/21 04:06 Pulse Ox 99 01/29/21 04:06 Intake & Output 01/28/21 01/29/21 01/29/21 18:59 06:59 18:59 Intake Total 100 Output Total 650 405 Balance -650 -305 Intake: Oral 100 Output: Urine 600 400 Stool 50 5 Other: Voiding Method Indwelling Catheter Indwelling Catheter - Labs CBC & Chem 7: 01/29/21 06:26 01/29/21 06:26 Labs: Abnormal Lab Results - Last 24 Hours (Table) 01/28/21 01/29/21 01/29/21 Range/Units 19:26 06:26 06:26 RBC 2.55 L (4.30-5.90) m/uL Hgb 8.6 L (13.0-17.5) gm/dL Hct 24.3 L (39.0-53.0) % RDW 19.4 H (11.5-15.5) % Plt Count 56 L (150-450) k/uL Lymphocytes # 0.3 L (1.0-4.8) k/uL PT (9.0-12.0) sec INR (<1.2) Potassium 3.1 L 3.0 L (3.5-5.1) mmol/L Chloride 119 H (96-109) mmol/L Carbon Dioxide 17.0 L (21.6-31.8) mmol/L BUN 6.3 L (9.0-27.0) mg/dL BUN/Creatinine Ratio 7.88 L (12.00-20.00) Ratio Calcium 7.1 L (8.7-10.3) mg/dL 01/29/21 Range/Units 09:30 RBC (4.30-5.90) m/uL Hgb (13.0-17.5) gm/dL Hct (39.0-53.0) % RDW (11.5-15.5) % Plt Count (150-450) k/uL Lymphocytes # (1.0-4.8) k/uL PT 14.1 H (9.0-12.0) sec INR 1.4 H (<1.2) Potassium (3.5-5.1) mmol/L Chloride (96-109) mmol/L Carbon Dioxide (21.6-31.8) mmol/L BUN (9.0-27.0) mg/dL BUN/Creatinine Ratio (12.00-20.00) Ratio Calcium (8.7-10.3) mg/dL Microbiology - Last 24 Hours (Table) 01/23/21 17:09 Stool Culture - Final Stool Assessment and Plan Time with Patient: Greater than 30
[2021-01-29] MEDS: POTASSIUM BICARBONATE/CIT AC 20 MEQ TABLET.EFF NG-TUBE SCH ×5 (13:03→22:43)
--- NOTE | 2021-01-29 15:14 | P.PN ---
Subjective Progress Note Date: 01/29/21 Principal diagnosis: GI bleed In f/u today pt cont to have phan in place, no penile bleeding per pt, the urine in the collection device does not look grossly bloody. Stool in the commode is less watery, some solid, few blood clots, red tinge. Persistent stool urgency. He is tolerating the diet he is given at this time, denies nausea, continues to deny abd pain or cramping. Objective - Vital Signs Vital signs: Vital Signs Temp 98.4 F 01/29/21 04:06 Pulse 84 01/29/21 04:06 Resp 16 01/29/21 04:06 BP 115/75 01/29/21 04:06 Pulse Ox 99 01/29/21 04:06 Intake & Output 01/28/21 01/29/21 01/29/21 18:59 06:59 18:59 Intake Total 100 Output Total 650 405 Balance -650 -305 Intake: Oral 100 Output: Urine 600 400 Stool 50 5 Other: Voiding Method Indwelling Catheter Indwelling Catheter - Constitutional General appearance: Present: cooperative, no acute distress, thin - EENT Eyes: Present: anicteric sclerae, EOMI ENT: Present: hearing grossly normal - Respiratory Respiratory: bilateral: CTA - Cardiovascular Rhythm: regular Heart sounds: normal: S1, S2 Abnormal Heart Sounds: Absent: systolic murmur, diastolic murmur, rub, S3 Gallop, S4 Gallop, click, other - Peripheral edema leg Peripheral Edema: bilateral: Trace - Gastrointestinal General gastrointestinal: Present: distended, normal bowel sounds, soft. Absent: absent bowel sounds, decreased bowel sounds, hepatomegaly, hyperactive bowel sounds, organomegaly, rigid, scaphoid, splenomegaly, tenderness, umbilical hernia, ventral hernia - Neurologic Neurologic: Present: CNII-XII intact - Musculoskeletal Musculoskeletal: Present: generalized weakness, strength equal bilaterally - Psychiatric Psychiatric: Present: A&O x's 3, appropriate affect, intact judgment & insight - Labs CBC & Chem 7: 01/29/21 06:26 01/29/21 06:26 Labs: Abnormal Lab Results - Last 24 Hours (Table) 01/28/21 01/29/21 01/29/21 Range/Units 19:26 06:26 06:26 RBC 2.55 L (4.30-5.90) m/uL Hgb 8.6 L (13.0-17.5) gm/dL Hct 24.3 L (39.0-53.0) % RDW 19.4 H (11.5-15.5) % Plt Count 56 L (150-450) k/uL Lymphocytes # 0.3 L (1.0-4.8) k/uL PT (9.0-12.0) sec INR (<1.2) Potassium 3.1 L 3.0 L (3.5-5.1) mmol/L Chloride 119 H (96-109) mmol/L Carbon Dioxide 17.0 L (21.6-31.8) mmol/L BUN 6.3 L (9.0-27.0) mg/dL BUN/Creatinine Ratio 7.88 L (12.00-20.00) Ratio Calcium 7.1 L (8.7-10.3) mg/dL 01/29/21 Range/Units 09:30 RBC (4.30-5.90) m/uL Hgb (13.0-17.5) gm/dL Hct (39.0-53.0) % RDW (11.5-15.5) % Plt Count (150-450) k/uL Lymphocytes # (1.0-4.8) k/uL PT 14.1 H (9.0-12.0) sec INR 1.4 H (<1.2) Potassium (3.5-5.1) mmol/L Chloride (96-109) mmol/L Carbon Dioxide (21.6-31.8) mmol/L BUN (9.0-27.0) mg/dL BUN/Creatinine Ratio (12.00-20.00) Ratio Calcium (8.7-10.3) mg/dL Microbiology - Last 24 Hours (Table) 01/23/21 17:09 Stool Culture - Final Stool Assessment and Plan (1) Pancytopenia due to antineoplastic chemotherapy Narrative/Plan: Hgb 9.2 today Plt 58K today s/p 1 unit SPD-?recovering from chemo now. Pt received GCSF on 01/17, WBC normal, ANC 8.8 Coags improved Current Visit: Yes Status: Acute Priority: High Code(s): D61.810 - ANTINEOPLASTIC CHEMOTHERAPY INDUCED PANCYTOPENIA; T45.1X5A - ADVERSE EFFECT OF ANTINEOPLASTIC AND IMMUNOSUP DRUGS, INIT SNOMED Code(s): 778839509433822 (2) Rectal adenocarcinoma Narrative/Plan: New diagnosis, metastatic disease. He has stage IV disease but, was being treated with intent of reevaluation of liver lesions to eval number and size to see local therapy would be an option. Unfortunately, pt had not tolerated the last 3 cycles of treatment very well. He stated today that he no longer wants to do chemo. His appts for the same will be cancelled. Kept f/u appt with Dr. Giles. CT abnormal thickening in the colon and bladder, decrease in liver mass from 9.1cm to 7 cm. Pt has had both melana and hematuria. The blood with the stool was more today, some form to the stool noted. Gross hematuria not visible. For now, pt and mother want to plan f/u with Dr. Giles to discuss his case and then decide how pt would like to proceed. We will cont to monitor CBC for pt and provide transfusions as needed. Effects of chemo induced pancytopneia are resolving. Bowel/bladder irritation slowly recovering with non-invasive treatment/supportive care. Did communicate with Surgical PA. Current Visit: Yes Status: Acute Priority: High Code(s): C20 - MALIGNANT NEOPLASM OF RECTUM SNOMED Code(s): 540036803
--- NOTE | 2021-01-29 16:21 | P.PN ---
Subjective Progress Note Date: 01/29/21 CHIEF COMPLAINT: Generalized weakness HISTORY OF PRESENT ILLNESS: Surgical service is following in regards to patient's GI bleed and enterocolitis. Patient is still having small amounts of blood in the stools. He had a small blood clot this morning. But his stools are becoming more formed and less frequent. He denies any abdominal pain. Denies any nausea or vomiting. Afebrile. WBC is 6.4 Hgb 8.6 down from 9.2 platelets 56 INR 1.4 sodium 143 potassium 3.0 creatinine 0.8 magnesium 2.0 PHYSICAL EXAM: VITAL SIGNS: Reviewed. GENERAL: Well-developed in no acute distress. HEENT: No sclera icterus. Extraocular movements grossly intact. Moist buccal mucosa. Head is atraumatic, normocephalic. ABDOMEN: Soft. Mildly distended. Nontender. NEUROLOGIC: Alert and oriented. Cranial nerves II through XII grossly intact. ASSESSMENT: 1. Acute GI bleed with acute blood loss anemia 2. Enterocolitis 3. History of colorectal cancer with metastatic disease to the liver has been undergoing chemotherapy 4. Febrile Neutropenia 5. Hypokalemia 6. Hypomagnesemia PLAN: -Continue full liquid diet for at least today and tomorrow -Potassium is being replaced -Continue to monitor hemoglobin -Continue to monitor signs and symptoms of bleeding -Continue IV Protonix -Continue IV fluids -Hold chemotherapy for now -No surgical intervention planned at this time -will continue to follow Physician Fender Finisher note has been reviewed by physician. Signing provider agrees with the documented findings, assessment, and plan of care. Objective - Vital Signs Vital signs: Vital Signs Temp 97.6 F 01/29/21 14:14 Pulse 100 01/29/21 14:14 Resp 16 01/29/21 14:14 BP 130/95 01/29/21 14:14 Pulse Ox 99 01/29/21 14:14 Intake & Output 01/28/21 01/29/21 01/29/21 18:59 06:59 18:59 Intake Total 100 Output Total 650 405 Balance -650 -305 Intake: Oral 100 Output: Urine 600 400 Stool 50 5 Other: Voiding Method Indwelling Catheter Indwelling Catheter - Labs CBC & Chem 7: 01/29/21 06:26 01/29/21 06:26 Labs: Abnormal Lab Results - Last 24 Hours (Table) 1101/29/21 01/29/21 Range/Units 19:26 06:26 06:26 RBC 2.55 L (4.30-5.90) m/uL Hgb 8.6 L (13.0-17.5) gm/dL Hct 24.3 L (39.0-53.0) % RDW 19.4 H (11.5-15.5) % Plt Count 56 L (150-450) k/uL Lymphocytes # 0.3 L (1.0-4.8) k/uL PT (9.0-12.0) sec INR (<1.2) Potassium 3.1 L 3.0 L (3.5-5.1) mmol/L Chloride 119 H (96-109) mmol/L Carbon Dioxide 17.0 L (21.6-31.8) mmol/L BUN 6.3 L (9.0-27.0) mg/dL BUN/Creatinine Ratio 7.88 L (12.00-20.00) Ratio Calcium 7.1 L (8.7-10.3) mg/dL 01/29/21 Range/Units 09:30 RBC (4.30-5.90) m/uL Hgb (13.0-17.5) gm/dL Hct (39.0-53.0) % RDW (11.5-15.5) % Plt Count (150-450) k/uL Lymphocytes # (1.0-4.8) k/uL PT 14.1 H (9.0-12.0) sec INR 1.4 H (<1.2) Potassium (3.5-5.1) mmol/L Chloride (96-109) mmol/L Carbon Dioxide (21.6-31.8) mmol/L BUN (9.0-27.0) mg/dL BUN/Creatinine Ratio (12.00-20.00) Ratio Calcium (8.7-10.3) mg/dL
[2021-01-30] MEDS: SODIUM CHLORIDE 0.9% 1,000 ML IV SCH (03:05)
[2021-01-30] MEDS: MORPHINE SULFATE 4 MG/ML SYRINGE IVP PRN (05:04)
[2021-01-30 05:37] LABS: African American GFR (CKD) >90 (>60 ml/min/1.73 sqM); Anion Gap 5 mmol/L; Blood Urea Nitrogen 6 mg/dL (9-20); Calcium 7.5 mg/dL (8.4-10.2); Carbon Dioxide 15 mmol/L (22-30); Chloride 120 mmol/L (98-107); Glucose 106 mg/dL (74-99); Non-African American GFR(CKD) >90 (>60 ml/min/1.73 sqM); Potassium 3.2 mmol/L (3.5-5.1); Sodium 140 mmol/L (137-145)
[2021-01-30] MEDS: POTASSIUM BICARBONATE/CIT AC 20 MEQ TABLET.EFF NG-TUBE SCH ×2 (06:10→08:58)
[2021-01-30] MEDS: NON FORMULARY DRUG (Vitamin B Complex [Vitamin B Complex] 1 EACH Capsule) PO SCH (08:56)
[2021-01-30] MEDS: PANTOPRAZOLE 40 MG/10 ML VIAL IVP SCH ×2 (08:58→21:05)
[2021-01-30] MEDS: CEFDINIR 300 MG CAP PO SCH ×2 (08:58→21:05)
[2021-01-30] MEDS: metroNIDAZOLE 500 MG TAB PO SCH ×3 (08:58→21:18)
[2021-01-30] MEDS: CHOLESTYRAMINE (WITH SUGAR) 4 GM PACKET PO SCH ×2 (09:09→17:22)
--- NOTE | 2021-01-30 10:02 | PN ---
PROGRESS NOTE DATE OF SERVICE: 01/29/2021 REASON FOR FOLLOWUP: Febrile neutropenia with enterocolitis. INTERVAL HISTORY: The patient is afebrile. The patient is breathing comfortably. The patient still mentioned having diarrhea but no blood in the stool. No chest pain, shortness of breath or cough. PHYSICAL EXAMINATION: Blood pressure 130/89 with a pulse of 103, temperature 98.2. He is 98% on room air. General description is a middle-aged male up in the bed in no distress. Respiratory system: Unlabored breathing, decreased intensity of breath sounds. No wheeze. Heart S1, S2. Regular rate and rhythm. Abdomen soft, no tenderness. LABS: Hemoglobin 8.6, white count 6.4. BUN of 6, creatinine 0.8. DIAGNOSTIC IMPRESSION AND PLAN: Patient with febrile neutropenia with concern for enterocolitis. Stool culture has been negative. The patient is still having diarrhea; could be component of antibiotic- associated. We will switch him over to Ceftin and Flagyl of the Zosyn. May need Questran for symptomatic relief. Continue supportive care. MMODL / IJN: [id number] /
[2021-01-30] MEDS ORDERED: POTASSIUM BICARBONATE/CIT AC 20 MEQ TABLET.EFF PO ONE (10:34)
--- NOTE | 2021-01-30 10:36 | P.PN ---
Subjective Progress Note Date: 01/30/21 CHIEF COMPLAINT: Generalized weakness HISTORY OF PRESENT ILLNESS: Surgical service is following in regards to patient's GI bleed and enterocolitis. Patient still having frequent bowel movements that are loose with small amounts of stool and small amounts of blood. He denies any abdominal pain. Denies any nausea or vomiting. He is complaining of leg swelling. Medicine service is decreased IV fluids Afebrile. CBC pending Potassium 3.2 albumin from January 27 was 2.0 PHYSICAL EXAM: VITAL SIGNS: Reviewed. GENERAL: Well-developed in no acute distress. HEENT: No sclera icterus. Extraocular movements grossly intact. Moist buccal mucosa. Head is atraumatic, normocephalic. ABDOMEN: Soft. distended. Nontender. NEUROLOGIC: Alert and oriented. Cranial nerves II through XII grossly intact. ASSESSMENT: 1. Acute GI bleed with acute blood loss anemia 2. Enterocolitis 3. History of colorectal cancer with metastatic disease to the liver has been undergoing chemotherapy 4. Febrile Neutropenia 5. Hypokalemia 6. Hypomagnesemia resolved PLAN: -Continue full liquid diet -Potassium is being replaced -Continue to monitor hemoglobin -Continue to monitor signs and symptoms of bleeding -Continue Protonix -Hold chemotherapy for now -No surgical intervention planned at this time -will continue to follow Physician Box Estimator note has been reviewed by physician. Signing provider agrees with the documented findings, assessment, and plan of care. Objective - Vital Signs Vital signs: Vital Signs Temp 97.7 F 01/30/21 04:43 Pulse 96 01/30/21 04:43 Resp 18 01/30/21 04:43 BP 135/88 01/30/21 04:43 Pulse Ox 100 01/30/21 04:43 Intake & Output 01/29/21 01/30/21 01/30/21 18:59 06:59 18:59 Intake Total 2000 Output Total 450 260 Balance -450 1740 Intake: IV 1500 Sodium Chloride 0.9% 1, 1500 000 ml @ 130 mls/hr IV . [id number] [facility] Rx#:[id number] Oral 500 Output: Urine 450 150 Post Void Residual 110 Other: Voiding Method Indwelling Catheter Bedside Commode Urinal # Bowel Movements 3 6 - Labs CBC & Chem 7: 01/29/21 06:26 01/30/21 05:12 Labs: Abnormal Lab Results - Last 24 Hours (Table) 01/29/21 01/30/21 Range/Units 19:55 05:12 Potassium 3.1 L 3.2 L (3.5-5.1) mmol/L Chloride 120 H (98-107) mmol/L Carbon Dioxide 15 L (22-30) mmol/L BUN 6 L (9-20) mg/dL Glucose 106 H (74-99) mg/dL Calcium 7.5 L (8.4-10.2) mg/dL
[2021-01-30 10:44] LABS: Anisocytosis Moderate; Basophils % (A) 0 %; Eosinophils % (A) 0 %; HCT 23.9 % (39.0-53.0); Lymphocytes # (A) 0.4 k/uL (1.0-4.8); Lymphocytes % (A) 7 %; MCH 33.3 pg (25.0-35.0); MCHC 33.6 g/dL (31.0-37.0); MCV 98.9 fL (80.0-100.0); Macrocytosis Slight; Mean Platelet Volume 9.1; Monocytes # (A) 0.4 k/uL (0-1.0); Monocytes % (A) 7 %; Neutrophils # (A) 4.9 k/uL (1.3-7.7); Neutrophils % (A) 85 %; Poikilocytosis Slight; RBC 2.41 m/uL (4.30-5.90); RDW 20.2 % (11.5-15.5); WBC 5.8 k/uL (3.8-10.6)
[2021-01-30 10:46] LABS: ALT 32 U/L (4-49); AST 36 U/L (17-59)
[2021-01-30 10:49] LABS: Platelet Count 65 k/uL (150-450)
[2021-01-30 11:01] LABS: ALT 28 U/L (4-49); AST 32 U/L (17-59); African American GFR (CKD) >90 (>60 ml/min/1.73 sqM); Albumin 1.8 g/dL (3.5-5.0); Albumin/Globulin Ratio 0.9; Alkaline Phosphatase 145 U/L (38-126); Anion Gap 2 mmol/L; Blood Urea Nitrogen 5 mg/dL (9-20); Calcium 7.3 mg/dL (8.4-10.2); Carbon Dioxide 17 mmol/L (22-30); Chloride 122 mmol/L (98-107); Glucose 103 mg/dL (74-99); Non-African American GFR(CKD) >90 (>60 ml/min/1.73 sqM); Potassium 3.6 mmol/L (3.5-5.1); Sodium 141 mmol/L (137-145); Total Bilirubin 0.6 mg/dL (0.2-1.3); Total Protein 3.8 g/dL (6.3-8.2)
[2021-01-30] MEDS ORDERED: FUROSEMIDE 10 MG/ML 4 ML VIAL IV STA (11:22)
--- NOTE | 2021-01-30 12:29 | P.PN ---
Subjective Progress Note Date: 01/30/21 Acute GI bleed with bright red blood per rectum and an episode of coffee-ground emesis. Acute blood loss anemia due to GI bleed Moderate wall thickening in the jejunal loops inflammatory versus posttreatment response. Neutropenic fever. Patient is a 55-year-old male with a known history of colorectal cancer with mets to liver and is currently undergoing chemotherapy cycle of 10, last dose on 12/17/2020 presents to ER with complaints of fever, generalized weakness and unable to take any oral intake. Patient was seen at [facility] yesterday and was given IV fluids and sent home. Patient was brought to the hospital due to generalized weakness and not tolerating oral diet and was also getting more weaker. Denied any complaints of chest pain or shortness breath. Patient does have nausea. No vomiting. No abdominal pain. No headache. On admission blood pressure 130/85 pulse is 137 respirations 16 and pulse ox 90% on room air and T-max 100.4. Chest x-ray showed no active cardiopulmonary disease. Normal heart. EKG showed sinus tachycardia Laboratory data showed Urinalysis showed 2+ protein, large blood, 1+ bilirubin, trace leukoesterase and elevated RBCs and WBCs 32 COVID-19 PCR not detected. WBCs 0.4 hemoglobin 8.8 and platelets 88 Sodium 138 potassium 3.9 chloride 91717 bicarb is 15 BUN 41 and creatinine 1.01 and blood sugar is 165 lactic acid 7.3 on admission Albumin 2.9 01/23/2021 Patient was noted to have blood clots in the stool this morning as per nursing staff. Hemoglobin went down to 5.4 and platelet count 23,000. PRBC transfusion was ordered and patient was transferred to ICU for close monitoring. General surgery was consulted due to GI bleed. CT of the abdomen pelvis showed continued positive treatment response to the posterior right hepatic lobe metastatic lesion. There is however a new moderate to severe wall thickening consistent with multifocal and diffuse enterocolitis. There is new severe wall thickening in the bladder with similar differential nondesired posttreatment response versus infectious/inflammatory etiology. Patient is being continued antibiotics in the form of Zosyn. Vancomycin has been discontinued. ID and oncology is on board. Patient is being continued on IV hydration. 01/24/2021 Patient is currently in the MICU. Awake alert and oriented but seems to be weak and lethargic. Patient is on the bedside commode. Patient still having blood per rectum. Mainly blood clots and small amount of stool. Denied any complain ts of nausea or vomiting or abdominal pain. Patient lightheaded otherwise. Patient received 2 units of PRBC today. Hemoglobin went up to 10.6 after transfusion. Laboratory test showed sodium 136 potassium 3.2 chloride 110 and bicarb is 21 Patient is on antibiotics involve Zosyn. General surgery, ID and pulmonary is on board. 01/25/2021 Patient is currently in the intensive care unit. Was admitted to the hospital due to neutropenic fever and also GI bleed. Patient had one episode of bloody stool yesterday. Hemoglobin is stable at 8.4 today. Patient is pancytopenic likely due to recent chemotherapy. General surgery is following. Denied any nausea or vomiting. No significant abdominal pain. Patient has been afebrile. No cough or sputum production. Laboratory data showed sodium 136 potassium 3.3 replaced. Chloride 112 bicarb is 20 BUN 21 creatinine 0.7 and calcium 7.5. Patient is being transferred to medical floor today. 01/26/2021 Patient is currently surgical unit. Does have dark brown-colored stools. No bright red or tarry stool noted today. Hemoglobin is 9 today. WBC went up to 8.9 and platelet count 31 today. Denied any abdominal pain. Patient has been afebrile. Currently on clear liquid diet. Laboratory showed sodium 139 potassium 3.3 chloride 114 bicarb is 19 BUN 18 and creatinine 0.83 and calcium 7.6 General surgery is on board. 01/27/2021 Patient is evaluated today resting in bed. He states that he had 3 maroon colored stools through out the evening. Hemoglobin today is 7.5 down from 9. 1 unit of PRBCs was ordered for today. Patient continues on IV Zosyn for the enterocolitis. Additional labs include potassium is 3, was replaced per protocol, chloride 1155, CO2 18. Patient is afebrile, heart rate elevated at 103 sinus tachycardia, blood pressure 110/82 and he is 100% on room air. Blood culture urine culture and stool culture are negative. Patient denied any nausea vomiting, states that he is tolerating a clear liquid diet. Lugo catheter was inserted by urology due to a stricture. Patient discussed at bedside that he no longer wishes to proceed with chemotherapy. Upon review of oncology notes, plan is for a palliative care meeting with family. 01/28/2021 Hemoglobin today is up to 9.2, patient is still having liquid bowel movements however there is no more blood. His diet was advanced to full liquid. INR was 1.3. Potassium is 2.4, we did replace per protocol we will recheck and continue to replace as needed. Magnesium was 1.8 patient received 2 bags. Vital signs show a temp of 97.5, 96 heart rate, blood pressure 118/89 he is 100% on room air. No surgical intervention as planned and patient does not wish to continue with chemotherapy. patient will follow-up with oncology in the office on DC to discuss care plan going forward. 01/29/2021 Patient states that his bowel movements have slowed down however they're still loose and there was a small clot in his bowel movement this morning. Hemoglobin today was 8.6. Platelet count remained stable at 56. INR today is 1.4, PT 14.1. Potassium today was 3, chloride 119, bicarb 17, magnesium 2. Vital signs; the patient remains afebrile, heart rate 90, blood pressure 114/77 and he is 99% on room air. Patient denies any nausea or vomiting. He states that he is tolerating a full liquid diet, abdomen is slightly bloated today. He is passing gas and burping. Continue to follow and replace electrolytes. 01/30/2021 Patient is evaluated today resting in bed. He states that he is having increased liquid bowel movements again throughout the evening and today, they are reddish orange in color. Abdomen is still bloated and appears more distended than yesterday. Catheter was removed at 6 PM yesterday, postvoid residuals were negative for any retention. He denies any nausea or vomiting today. Denies any dysuria urgency or frequency. Denies any shortness of breath, cough, chest pain, chest pressure. He is on chronic liquid diet. Lower extremity edema is increased as compared to yesterday he is about 3+ pitting. Vitals; blood pressure 135/80, 100% room air, heart rate 96 and he is afebrile. Potassium level today is 3.2, hemoglobin 8.0. Current medications reviewed. ROS Constitutional: Denied any fatigue denied any fever. Cardio vascular: denied any chest pain, palpitations Gastrointestinal denied any nausea vomiting, reports liquid BM Pulmonary: Denied any shortness of breath cough Neurologic denied any new focal deficits All inpatient medications were reviewed and appropriate changes in these medications as dictated in the interval history and assessment and plan. PHYSICAL EXAMINATION: GENERAL: The patient is alert and oriented x3, not in any acute distress. Well developed, well nourished. HEENT: Pupils are round and equally reacting to light. EOMI. No scleral icterus. No conjunctival pallor. Normocephalic, atraumatic. No pharyngeal erythema. No thyromegaly. CARDIOVASCULAR: S1 and S2 present. No murmurs, rubs, or gallops. PULMONARY: Chest is clear to auscultation, no wheezing or crackles. ABDOMEN: Soft, nontender, mild distention, normoactive bowel sounds. No palpable organomegaly. MUSCULOSKELETAL: No joint swelling or deformity. EXTREMITIES: No cyanosis, clubbing, + 3 lower extremity pitting edema NEUROLOGICAL: Gross neurological examination did not reveal any focal deficits. SKIN: No rashes. Assessment and plan Assessment -Acute GI bleed with redish/orange colored stools ongoing -Acute blood loss anemia due to GI bleed, hemoglobin today 8.0 s/p 4 units PRBC's -Moderate wall thickening in the jejunal loops inflammatory versus posttreatment response -Colorectal cancer/adenocarcinoma with mets to liver. Currently on cycle 10 chemotherapy last dose about 7 days back, patient does not want any further chemotherapy. -Hypokalemia secondary to ongoing diarrhea from enterocolitis -Neutropenic fever secondary to recent chemotherapy, resolved -Lactic acidosis 7.3 due to dehydration volume depletion improved to 1.6 -Pancytopenia secondary to chemotherapy, platelet count improving to 65 -Asymptomatic bacteriuria -Mild elevated liver enzymes, resolved -Metabolic acidosis -DVT prophylaxis not on heparin due to thrombocytopenia. -Urinary stricture with hematuria s/p dilation with indwelling catheter by urology -Peripheral edema, BNP 338, lungs clear GI Prophylaxis: Protonix DVT Prophylaxis: Deferred due to pancytopenia FULL CODE Plan: Replace electrolytes per protocol Continue with clear liquid diet Stop IV fluids and give IV lasix today Continue PO antibiotics; Ceftin and Flagyl - Zosyn discontinued Indwelling catheter removed continue bladder scan every 6 hours, notify if retention Continue to follow closely. Repeat labs tomorrow. Objective - Vital Signs Vital signs: Vital Signs Temp 97.7 F 01/30/21 04:43 Pulse 96 01/30/21 04:43 Resp 18 01/30/21 04:43 BP 135/88 01/30/21 04:43 Pulse Ox 100 01/30/21 04:43 Intake & Output 01/29/21 01/30/21 01/30/21 18:59 06:59 18:59 Intake Total 2000 Output Total 450 260 Balance -450 1740 Intake: IV 1500 Sodium Chloride 0.9% 1, 1500 000 ml @ 130 mls/hr IV . Q7H42M [facility] Rx#:[id number] Oral 500 Output: Urine 450 150 Post Void Residual 110 Other: Voiding Method Indwelling Catheter Bedside Commode Urinal # Bowel Movements 3 6 - Labs CBC & Chem 7: 01/30/21 10:30 01/30/21 10:30 Labs: Abnormal Lab Results - Last 24 Hours (Table) 01/29/21 01/29/21 01/29/21 Range/Units 06:26 09:30 19:55 PT 14.1 H (9.0-12.0) sec INR 1.4 H (<1.2) Potassium 3.0 L 3.1 L (3.5-5.5) mmol/L Chloride 119 H (96-109) mmol/L Carbon Dioxide 17.0 L (21.6-31.8) mmol/L BUN 6.3 L (9.0-27.0) mg/dL BUN/Creatinine Ratio 7.88 L (12.00-20.00) Ratio Glucose (74-99) mg/dL Calcium 7.1 L (8.7-10.3) mg/dL 01/30/21 Range/Units 05:12 PT (9.0-12.0) sec INR (<1.2) Potassium 3.2 L (3.5-5.5) mmol/L Chloride 120 H (96-109) mmol/L Carbon Dioxide 15 L (21.6-31.8) mmol/L BUN 6 L (9.0-27.0) mg/dL BUN/Creatinine Ratio (12.00-20.00) Ratio Glucose 106 H (74-99) mg/dL Calcium 7.5 L (8.7-10.3) mg/dL Assessment and Plan Time with Patient: Greater than 30
--- NOTE | 2021-01-30 14:46 | P.PN ---
Subjective Progress Note Date: 01/30/21 Principal diagnosis: GI bleed In f/u today pt phan discontinued, no urination since removal, no penile bleeding yet. His abd is distended but not painful, he cont to have multiple BMs a day, still watery, maroon colored per mother. Objective - Vital Signs Vital signs: Vital Signs Temp 97.7 F 01/30/21 04:43 Pulse 96 01/30/21 04:43 Resp 18 01/30/21 04:43 BP 135/88 01/30/21 04:43 Pulse Ox 100 01/30/21 04:43 Intake & Output 01/29/21 01/30/21 01/30/21 18:59 06:59 18:59 Intake Total 2000 Output Total 450 260 Balance -450 1740 Intake: IV 1500 Sodium Chloride 0.9% 1, 1500 000 ml @ 130 mls/hr IV . Q7H42M [facility] Rx#:[id number] Oral 500 Output: Urine 450 150 Post Void Residual 110 Other: Voiding Method Indwelling Catheter Bedside Commode Urinal # Bowel Movements 3 6 - Constitutional General appearance: Present: cooperative, no acute distress, thin - EENT Eyes: Present: anicteric sclerae, EOMI ENT: Present: hearing grossly normal, normal oropharynx - Respiratory Respiratory: bilateral: CTA - Cardiovascular Rhythm: regular Heart sounds: normal: S1, S2 Abnormal Heart Sounds: Absent: systolic murmur, diastolic murmur, rub, S3 Gallop, S4 Gallop, click, other - Peripheral edema leg Peripheral Edema: bilateral: None - Gastrointestinal General gastrointestinal: Present: distended (visually), normal bowel sounds, soft. Absent: absent bowel sounds, decreased bowel sounds, hepatomegaly, hyperactive bowel sounds, organomegaly, rigid, scaphoid, splenomegaly, t enderness, umbilical hernia, ventral hernia - Integumentary Integumentary: Present: pale - Neurologic Neurologic: Present: CNII-XII intact - Musculoskeletal Musculoskeletal: Present: generalized weakness - Psychiatric Psychiatric: Present: A&O x's 3, appropriate affect, intact judgment & insight - Labs CBC & Chem 7: 01/30/21 10:30 01/30/21 10:30 Labs: Abnormal Lab Results - Last 24 Hours (Table) 01/29/21 01/30/21 Range/Units 19:55 05:12 Potassium 3.1 L 3.2 L (3.5-5.1) mmol/L Chloride 120 H (98-107) mmol/L Carbon Dioxide 15 L (22-30) mmol/L BUN 6 L (9-20) mg/dL Glucose 106 H (74-99) mg/dL Calcium 7.5 L (8.4-10.2) mg/dL Assessment and Plan (1) Pancytopenia due to antineoplastic chemotherapy Narrative/Plan: Hgb 8 today, cont to drop, Lower GI bleeding, seen in stool. Conservative management at this time. Surgery following Plt 65K today. Pt received GCSF on 01/17, WBC normal, ANC 4.9 Effects of chemo induced pancytopneia are resolving, other then the anemia. Current Visit: Yes Status: Acute Priority: High Code(s): D61.810 - ANTINEOPLASTIC CHEMOTHERAPY INDUCED PANCYTOPENIA; T45.1X5A - ADVERSE EFFECT OF ANTINEOPLASTIC AND IMMUNOSUP DRUGS, INIT SNOMED Code(s): 435337920801030 (2) Rectal adenocarcinoma Narrative/Plan: New diagnosis, metastatic disease. He has stage IV disease but, was being treated with intent of reevaluation of liver lesions to eval number and size to see local therapy would be an option. Unfortunately, pt had not tolerated the last 3 cycles of treatment very well. He stated today that he no longer wants to do chemo. His appts for the same will be cancelled. Spoke with pt and mother and answered their questions about Tx, stopping and what the next steps are. He will still f/u with Dr. Lopez and Dr. Klein for surgical evaluation as soon as his diarrhea and GI bleeding is stable. Check for c-diff CT abnormal thickening in the colon and bladder, decrease in liver mass from 9.1cm to 7 cm. GI bleeding persistent as evidenced by bloody diarrhea. 2/2 colitis vs chemo induced. Conservative mgmt. ID and Surgery following Hematuria previously, phan removed, no urine since DC. Urology following We will cont to monitor CBC for pt and provide transfusions as needed. Current Visit: Yes Status: Acute Priority: High Code(s): C20 - MALIGNANT NEOPLASM OF RECTUM SNOMED Code(s): 659215112 Plan: Attests: I have performed H&P, seen and examined pt, developed impression and plan of care. Discussed with dictator. Agree with dictation, documented as a scribe Time with Patient: Greater than 30
--- NOTE | 2021-01-30 22:36 | PN ---
PROGRESS NOTE DATE OF SERVICE: 01/30/2021 REASON FOR FOLLOWUP: Febrile neutropenia with enterocolitis. INTERVAL HISTORY: The patient is afebrile. The patient is breathing comfortably. The patient denies any chest pain or shortness of breath or cough. No abdominal pain. The patient's diarrhea has decreased in frequency and no more blood in the stool. PHYSICAL EXAMINATION: Blood pressure 129/85, pulse of 69, temperature 97.7. He is 99% on room air. General description is a middle-aged male lying in bed in no distress. Respiratory system: Unlabored breathing, clear to auscultation anteriorly. Heart S1, S2. Regular rate and rhythm. Abdomen soft, no tenderness. LABS: Hemoglobin is 8, white count 5.8. Creatinine 0.77. DIAGNOSTIC IMPRESSION AND PLAN: Patient with febrile neutropenia with predominantly abdominal symptoms. The patient is currently covered with Ceftin and Flagyl; to continue while monitoring his clinical course closely. Continue with supportive care. MMODL / IJN: [id number] /
[2021-01-31] MEDS: NON FORMULARY DRUG (Vitamin B Complex [Vitamin B Complex] 1 EACH Capsule) PO SCH (07:42)
[2021-01-31] MEDS: PANTOPRAZOLE 40 MG/10 ML VIAL IVP SCH ×2 (09:04→20:38)
[2021-01-31] MEDS: CHOLESTYRAMINE (WITH SUGAR) 4 GM PACKET PO SCH ×2 (09:05→15:52)
[2021-01-31] MEDS: metroNIDAZOLE 500 MG TAB PO SCH ×3 (09:05→21:11)
[2021-01-31] MEDS: CEFDINIR 300 MG CAP PO SCH ×2 (09:05→20:38)
[2021-01-31 13:26] LABS: African American GFR (CKD) 101.6 (60.0-200.0); Albumin 2.1 g/dL (3.8-4.9); Albumin/Globulin Ratio 1.31 (1.60-3.17); Anion Gap 10.3 mmol/L (4.00-12.00); BUN/Creat Ratio 6.28 Ratio (12.00-20.00); Blood Urea Nitrogen 6.1 mg/dL (9.0-27.0); Calcium 7.3 mg/dL (8.7-10.3); Carbon Dioxide 15.6 mmol/L (21.6-31.8); Globulin 1.6 g/dL (1.6-3.3); Non-African American GFR(CKD) 87.7 (60.0-200.0); Potassium 3.3 mmol/L (3.5-5.5); Total Bilirubin 0.5 mg/dL (0.30-1.20); Total Protein 3.6 g/dL (6.2-8.2)
[2021-01-31] MEDS ORDERED: POTASSIUM BICARBONATE/CIT AC 20 MEQ TABLET.EFF PO ONE (14:00)
--- NOTE | 2021-01-31 14:17 | P.PN ---
Subjective Progress Note Date: 01/31/21 CHIEF COMPLAINT: Generalized weakness HISTORY OF PRESENT ILLNESS: Surgical service is following in regards to patient's GI bleed and enterocolitis. Patient is lying in bed comfortably. Patient is still having diarrhea with small amounts of blood. He denies any abdominal pain. Denies any nausea or vomiting. Afebrile. Hgb 8.0 Potassium 3.3 albumin 2.1 CBC for today pending Patient seen and examined with Dr. casanova PHYSICAL EXAM: VITAL SIGNS: Reviewed. GENERAL: Well-developed in no acute distress. HEENT: No sclera icterus. Extraocular movements grossly intact. Moist buccal mucosa. Head is atraumatic, normocephalic. ABDOMEN: Soft. Mildly distended. Nontender. NEUROLOGIC: Alert and oriented. Cranial nerves II through XII grossly intact. ASSESSMENT: 1. Acute GI bleed with acute blood loss anemia 2. Enterocolitis 3. History of colorectal cancer with metastatic disease to the liver has been undergoing chemotherapy 4. Febrile Neutropenia 5. Hypokalemia 6. Hypomagnesemia resolved PLAN: -Advance diet to low fiber -Potassium is being replaced -Continue to monitor hemoglobin -Continue to monitor signs and symptoms of bleeding -Continue Protonix -Hold chemotherapy for now -No surgical intervention planned at this time -will continue to follow Physician Hogshead Stripper note has been reviewed by physician. Signing provider agrees with the documented findings, assessment, and plan of care. Objective - Vital Signs Vital signs: Vital Signs Temp 97.6 F 01/31/21 11:00 Pulse 90 01/31/21 11:00 Resp 18 01/31/21 11:00 BP 108/72 01/31/21 11:00 Pulse Ox 98 01/31/21 11:00 Intake & Output 01/30/21 01/31/21 01/31/21 18:59 06:59 18:59 Intake Total 800 Output Total 138 Balance 662 Weight 58.4 kg Intake: Oral 800 Output: Urine 15 Post Void Residual 120 Urine/Stool Mix 3 Other: Voiding Method Bedside Commode Toilet Toilet Urinal Bedside Commode Bedside Commode Urinal Urinal # Voids 4 - Labs CBC & Chem 7: 01/30/21 10:30 01/31/21 05:50 Labs: Abnormal Lab Results - Last 24 Hours (Table) 01/31/21 Range/Units 05:50 Potassium 3.3 L (3.5-5.5) mmol/L Chloride 118 H (96-109) mmol/L Carbon Dioxide 15.6 L (21.6-31.8) mmol/L BUN 6.1 L (9.0-27.0) mg/dL BUN/Creatinine Ratio 6.28 L (12.00-20.00) Ratio Calcium 7.3 L (8.7-10.3) mg/dL AST 43 H (14-35) U/L Alkaline Phosphatase 150 H (41-126) U/L Total Protein 3.6 L (6.2-8.2) g/dL Albumin 2.1 L (3.8-4.9) g/dL Albumin/Globulin Ratio 1.31 L (1.60-3.17) g/dL
[2021-01-31 17:10] LABS: Anisocytosis Moderate; Basophils % (A) 0 %; Eosinophils % (A) 0 %; HCT 25.6 % (39.0-53.0); HGB 8.8 gm/dL (13.0-17.5); Hyperchromasia Slight; Lymphocytes # (A) 0.6 k/uL (1.0-4.8); Lymphocytes % (A) 7 %; MCH 33.5 pg (25.0-35.0); MCHC 34.3 g/dL (31.0-37.0); MCV 97.8 fL (80.0-100.0); Macrocytosis Moderate; Mean Platelet Volume 9.4; Monocytes # (A) 0.4 k/uL (0-1.0); Monocytes % (A) 5 %; Neutrophils # (A) 7.6 k/uL (1.3-7.7); Neutrophils % (A) 86 %; Poikilocytosis Moderate; RBC 2.62 m/uL (4.30-5.90); RDW 21.5 % (11.5-15.5); WBC 8.8 k/uL (3.8-10.6)
[2021-01-31 17:17] LABS: Platelet Count 106 k/uL (150-450)
--- NOTE | 2021-01-31 17:31 | PN ---
PROGRESS NOTE DATE OF SERVICE: 01/31/2021 REASON FOR FOLLOWUP: Febrile neutropenia with enterocolitis. INTERVAL HISTORY: The patient is afebrile. The patient is currently breathing comfortably. The patient's diarrhea has slowed down. No blood in the stool. No chest pain, shortness of breath or cough. PHYSICAL EXAMINATION: Blood pressure 108/72 with a pulse of 90, temperature 97.6. He is 98% on room air. General description is a middle-aged male lying in bed in no distress. Respiratory system: Unlabored breathing, clear to auscultation anteriorly. Heart S1, S2. Regular rate and rhythm. Abdomen soft, no tenderness. LABS: BUN of 6, creatinine 1.0. Cultures have been negative. DIAGNOSTIC IMPRESSION AND PLAN: Patient with febrile neutropenia in this patient with predominantly GI symptoms with evidence of enterocolitis on the CT. Patient is covered with Ceftin and Flagyl; to continue for about a week and close outpatient followup. Continue with supportive care. MMODL / IJN: [id number] /
--- NOTE | 2021-01-31 20:22 | P.PN ---
Subjective Progress Note Date: 01/31/21 Principal diagnosis: Febrile Neutropenia C diff is negative, he is still having diarrhea, We will start sandostatin low dose Objective - Vital Signs Vital signs: Vital Signs Temp 97.6 F 01/31/21 11:00 Pulse 90 01/31/21 11:00 Resp 18 01/31/21 11:00 BP 108/72 01/31/21 11:00 Pulse Ox 98 01/31/21 11:00 Intake & Output 01/30/21 01/31/21 01/31/21 18:59 06:59 18:59 Intake Total 800 Output Total 138 Balance 662 Weight 58.4 kg Intake: Oral 800 Output: Urine 15 Post Void Residual 120 Urine/Stool Mix 3 Other: Voiding Method Bedside Commode Toilet Toilet Urinal Bedside Commode Bedside Commode Urinal Urinal # Voids 4 - Exam - Constitutional General appearance: Present: cooperative, no acute distress, thin - EENT Eyes: Present: anicteric sclerae, EOMI ENT: Present: hearing grossly normal, normal oropharynx - Respiratory Respiratory: bilateral: CTA - Cardiovascular Rhythm: regular Heart sounds: normal: S1, S2 Abnormal Heart Sounds: Absent: systolic murmur, diastolic murmur, rub, S3 Gallop, S4 Gallop, click, other - Peripheral edema leg Peripheral Edema: bilateral: None - Gastrointestinal General gastrointestinal: Present: distended (visually), normal bowel sounds, soft. Absent: absent bowel sounds, decreased bowel sounds, hepatomegaly, hyperactive bowel sounds, organomegaly, rigid, scaphoid, splenomegaly, tenderness, umbilical hernia, ventral hernia - Integumentary Integumentary: Present: pale - Neurologic Neurologic: Present: CNII-XII intact - Musculoskeletal Musculoskeletal: Present: generalized weakness - Psychiatric Psychiatric: Present: A&O x's 3, appropriate affect, intact judgment & insight - Labs CBC & Chem 7: 01/31/21 17:00 01/31/21 05:50 Labs: Abnormal Lab Results - Last 24 Hours (Table) 01/31/21 Range/Units 05:50 Potassium 3.3 L (3.5-5.5) mmol/L Chloride 118 H (96-109) mmol/L Carbon Dioxide 15.6 L (21.6-31.8) mmol/L BUN 6.1 L (9.0-27.0) mg/dL BUN/Creatinine Ratio 6.28 L (12.00-20.00) Ratio Calcium 7.3 L (8.7-10.3) mg/dL AST 43 H (14-35) U/L Alkaline Phosphatase 150 H (41-126) U/L Total Protein 3.6 L (6.2-8.2) g/dL Albumin 2.1 L (3.8-4.9) g/dL Albumin/Globulin Ratio 1.31 L (1.60-3.17) g/dL Assessment and Plan (1) Febrile neutropenia Current Visit: Yes Status: Acute Code(s): D70.9 - NEUTROPENIA, UNSPECIFIED; R50.81 - FEVER PRESENTING WITH CONDITIONS CLASSIFIED ELSEWHERE SNOMED Code(s): 216984203 (2) Rectal adenocarcinoma Current Visit: Yes Status: Acute Priority: High Code(s): C20 - MALIGNANT NEOPLASM OF RECTUM SNOMED Code(s): 164335036 (3) Pancytopenia due to antineoplastic chemotherapy Current Visit: Yes Status: Acute Priority: High Code(s): D61.810 - ANTINEOPLASTIC CHEMOTHERAPY INDUCED PANCYTOPENIA; T45.1X5A - ADVERSE EFFECT OF ANTINEOPLASTIC AND IMMUNOSUP DRUGS, INIT SNOMED Code(s): 374238404604890 (4) Fever Current Visit: Yes Status: Acute Code(s): R50.9 - FEVER, UNSPECIFIED SNOMED Code(s): 603352001 Plan: Assessment and Plan (1) Pancytopenia due to antineoplastic chemotherapy Narrative/Plan: Hgb Pendingtoday Lower GI bleeding, seen in stool. Conservative management at this time. Surgery following Plt pending Pt received GCSF on 01/17, WBC normal, ANC 4.9 Effects of chemo induced pancytopneia are resolving, other then the anemia. Current Visit: Yes Status: Acute Priority: High Code(s): D61.810 - ANTINEOPLASTIC CHEMOTHERAPY INDUCED PANCYTOPENIA; T45.1X5A - ADVERSE EFFECT OF ANTINEOPLASTIC AND IMMUNOSUP DRUGS, INIT SNOMED Code(s): 941766274339453 (2) Rectal adenocarcinoma Narrative/Plan: - New diagnosis, metastatic disease. He has stage IV disease but, was being treated with intent of reevaluation of liver lesions to eval number and size to see local therapy would be an option. - Unfortunately, pt had not tolerated the last 3 cycles of treatment very well. He stated today that he no longer wants to do chemo. His appts for the same will be cancelled. Stool studies pending CT abnormal thickening in the colon and bladder, decrease in liver mass from 9.1cm to 7 cm. GI bleeding persistent as evidenced by bloody diarrhea. 2/2 colitis vs chemo induced. - Conservative mgmt. ID and Surgery following Mother at bedside Current Visit: Yes Status: Acute Priority: High Code(s): C20 - MALIGNANT NEOPLASM OF RECTUM SNOMED Code(s): 789777308 Start Sandostatin 50q8
--- NOTE | 2021-01-31 23:53 | P.PN ---
Subjective Progress Note Date: 01/31/21 Acute GI bleed with bright red blood per rectum and an episode of coffee-ground emesis. Acute blood loss anemia due to GI bleed Moderate wall thickening in the jejunal loops inflammatory versus posttreatment response. Neutropenic fever. Patient is a 55-year-old male with a known history of colorectal cancer with mets to liver and is currently undergoing chemotherapy cycle of 10, last dose on 12/17/2020 presents to ER with complaints of fever, generalized weakness and unable to take any oral intake. Patient was seen at [facility] yesterday and was given IV fluids and sent home. Patient was brought to the hospital due to generalized weakness and not tolerating oral diet and was also getting more weaker. Denied any complaints of chest pain or shortness breath. Patient does have nausea. No vomiting. No abdominal pain. No headache. On admission blood pressure 130/85 pulse is 137 respirations 16 and pulse ox 90% on room air and T-max 100.4. Chest x-ray showed no active cardiopulmonary disease. Normal heart. EKG showed sinus tachycardia Laboratory data showed Urinalysis showed 2+ protein, large blood, 1+ bilirubin, trace leukoesterase and elevated RBCs and WBCs 32 COVID-19 PCR not detected. WBCs 0.4 hemoglobin 8.8 and platelets 88 Sodium 138 potassium 3.9 chloride 03377 bicarb is 15 BUN 41 and creatinine 1.01 and blood sugar is 165 lactic acid 7.3 on admission Albumin 2.9 01/23/2021 Patient was noted to have blood clots in the stool this morning as per nursing staff. Hemoglobin went down to 5.4 and platelet count 23,000. PRBC transfusion was ordered and patient was transferred to ICU for close monitoring. General surgery was consulted due to GI bleed. CT of the abdomen pelvis showed continued positive treatment response to the posterior right hepatic lobe metastatic lesion. There is however a new moderate to severe wall thickening consistent with multifocal and diffuse enterocolitis. There is new severe wall thickening in the bladder with similar differential nondesired posttreatment response versus infectious/inflammatory etiology. Patient is being continued antibiotics in the form of Zosyn. Vancomycin has been discontinued. ID and oncology is on board. Patient is being continued on IV hydration. 01/24/2021 Patient is currently in the MICU. Awake alert and oriented but seems to be weak and lethargic. Patient is on the bedside commode. Patient still having blood per rectum. Mainly blood clots and small amount of stool. Denied any compla ints of nausea or vomiting or abdominal pain. Patient lightheaded otherwise. Patient received 2 units of PRBC today. Hemoglobin went up to 10.6 after transfusion. Laboratory test showed sodium 136 potassium 3.2 chloride 110 and bicarb is 21 Patient is on antibiotics involve Zosyn. General surgery, ID and pulmonary is on board. 01/25/2021 Patient is currently in the intensive care unit. Was admitted to the hospital due to neutropenic fever and also GI bleed. Patient had one episode of bloody stool yesterday. Hemoglobin is stable at 8.4 today. Patient is pancytopenic likely due to recent chemotherapy. General surgery is following. Denied any nausea or vomiting. No significant abdominal pain. Patient has been afebrile. No cough or sputum production. Laboratory data showed sodium 136 potassium 3.3 replaced. Chloride 112 bicarb is 20 BUN 21 creatinine 0.7 and calcium 7.5. Patient is being transferred to medical floor today. 01/26/2021 Patient is currently surgical unit. Does have dark brown-colored stools. No bright red or tarry stool noted today. Hemoglobin is 9 today. WBC went up to 8.9 and platelet count 31 today. Denied any abdominal pain. Patient has been afebrile. Currently on clear liquid diet. Laboratory showed sodium 139 potassium 3.3 chloride 114 bicarb is 19 BUN 18 and creatinine 0.83 and calcium 7.6 General surgery is on board. 01/27/2021 Patient is evaluated today resting in bed. He states that he had 3 maroon colored stools through out the evening. Hemoglobin today is 7.5 down from 9. 1 unit of PRBCs was ordered for today. Patient continues on IV Zosyn for the enterocolitis. Additional labs include potassium is 3, was replaced per protoc ol, chloride 1155, CO2 18. Patient is afebrile, heart rate elevated at 103 sinus tachycardia, blood pressure 110/82 and he is 100% on room air. Blood culture urine culture and stool culture are negative. Patient denied any nausea vomiting, states that he is tolerating a clear liquid diet. Lugo catheter was inserted by urology due to a stricture. Patient discussed at bedside that he no longer wishes to proceed with chemotherapy. Upon review of oncology notes, plan is for a palliative care meeting with family. 01/28/2021 Hemoglobin today is up to 9.2, patient is still having liquid bowel movements however there is no more blood. His diet was advanced to full liquid. INR was 1.3. Potassium is 2.4, we did replace per protocol we will recheck and continue to replace as needed. Magnesium was 1.8 patient received 2 bags. Vital signs show a temp of 97.5, 96 heart rate, blood pressure 118/89 he is 100% on room air. No surgical intervention as planned and patient does not wish to continue with chemotherapy. patient will follow-up with oncology in the office on DC to discuss care plan going forward. 01/29/2021 Patient states that his bowel movements have slowed down however they're still loose and there was a small clot in his bowel movement this morning. Hemoglobin today was 8.6. Platelet count remained stable at 56. INR today is 1.4, PT 14.1. Potassium today was 3, chloride 119, bicarb 17, magnesium 2. Vital signs; the patient remains afebrile, heart rate 90, blood pressure 114/77 and he is 99% on room air. Patient denies any nausea or vomiting. He states that he is tolerating a full liquid diet, abdomen is slightly bloated today. He is passing gas and burping. Continue to follow and replace electrolytes. 01/30/2021 Patient is evaluated today resting in bed. He states that he is having increased liquid bowel movements again throughout the evening and today, they are reddish orange in color. Abdomen is still bloated and appears more distended than yesterday. Catheter was removed at 6 PM yesterday, postvoid residuals were negative for any retention. He denies any nausea or vomiting today. Denies any dysuria urgency or frequency. Denies any shortness of breath, cough, chest pain, chest pressure. He is on chronic liquid diet. Lower extremity edema is increased as compared to yesterday he is about 3+ pitting. Vitals; blood pressure 135/80, 100% room air, heart rate 96 and he is afebrile. Potassium level today is 3.2, hemoglobin 8.0. 01/31/2021 Patient is seen and evaluated in follow up and being closely monitored by multiple medical consultations including oncology, surgery, and infectious disease. Patient is maintained on oral antibiotics. Patient continues with multiple episodes of loose stools. Potassium low today and will replace per protocol. Hemoglobin is stable. Patient tolerating diet although continues to have decreased oral intake. Patient is extremely fatigued. No reports of chest pain or palpitations. Denies shortness of breath or cough. Afebrile. Labs: WBC is 8.8, hgb is 8.8, platelets are 106, sodium is 144, potassium is 3.3, cr is 1.0, magnesium is 1.8 Review of systems: Constitutional: reports fatigue, denied any fever. Cardio vascular: denied any chest pain, palpitations Gastrointestinal denied any nausea vomiting, reports liquid BM persists Pulmonary: Denied any shortness of breath cough Neurologic denied any new focal deficits, reports generalized weakness All inpatient medications were reviewed Active Medications Acetaminophen (Acetaminophen Tab 325 Mg Tab) 650 mg PO Q6HR PRN PRN Reason: Mild Pain or Fever > 100.5 Last Admin: 01/22/21 23:36 Dose: 650 mg Documented by: Cefdinir (Cefdinir 300 Mg Cap) 300 mg PO BID [facility] Last Admin: 01/31/21 20:38 Dose: 300 mg Documented by: Cholestyramine Resin (Cholestyramine (With Sugar) 4 Gm Packet) 4 gm PO BID @1000,1800 [facility] Last Admin: 01/31/21 15:52 Dose: 4 gm Documented by: Metronidazole (Metronidazole 500 Mg Tab) 500 mg PO TID [facility] Last Admin: 01/31/21 21:11 Dose: 500 mg Documented by: Miscellaneous Information (Potassium Replacement Protocol 1 Each Misc) 1 each MISCELLANE DAILY PRN; Protocol PRN Reason: Per Protocol Miscellaneous Information (Magnesium Replacement Protocol 1 Each Mis) 1 each MISCELLANE DAILY PRN; Protocol PRN Reason: Per Protocol Morphine Sulfate (Morphine Sulfate 4 Mg/Ml Syringe) 4 mg IVP Q4HR PRN PRN Reason: Pain Last Admin: 01/30/21 05:04 Dose: 4 mg Documented by: Naloxone HCl (Naloxone 0.4 Mg/Ml 1 Ml Vial) 0.2 mg IV Q2M PRN PRN Reason: Opioid Reversal Non-Formulary Medication (Vitamin B Complex [Vitamin B Complex]) 1 cap PO DAILY [facility] Last Admin: 01/31/21 07:42 Dose: Not Given Documented by: Ondansetron HCl (Ondansetron 4 Mg/2 Ml Vial) 4 mg IVP Q8HR PRN PRN Reason: Nausea And Vomiting Pantoprazole Sodium (Pantoprazole 40 Mg/10 Ml Vial) 40 mg IVP BID [facility] Last Admin: 01/31/21 20:38 Dose: 40 mg Documented by: Prochlorperazine Edisylate (Prochlorperazine Inj 10 Mg/2 Ml Vial) 10 mg IVP Q6HR PRN PRN Reason: Nausea And Vomiting Last Admin: 01/24/21 06:59 Dose: 10 mg Documented by: PHYSICAL EXAMINATION: GENERAL: The patient is alert and oriented x3, thin built. Well developed, well nourished. Temp is 97.6F, pulse is 90, resp are 18, blood pressure is 108/72, pulse ox is 98% on room air. HEENT: Pupils are round and equally reacting to light. EOMI. No scleral icterus. No conjunctival pallor. Normocephalic, atraumatic. No pharyngeal erythema. No thyromegaly. CARDIOVASCULAR: S1 and S2 muffled PULMONARY: diminished breath sounds bilaterally with no wheezing or crackles. ABDOMEN: Soft, nontender, mild distention, normoactive bowel sounds. No palpable organomegaly. MUSCULOSKELETAL: No joint swelling or deformity. EXTREMITIES: No cyanosis, clubbing, + 3 lower extremity pitting edema NEUROLOGICAL: Gross neurological examination did not reveal any focal deficits. diffuse weakness SKIN: No rashes. Assessment: -Acute GI bleed -Acute blood loss anemia due to GI bleed s/p 4 units PRBC's -Moderate wall thickening in the jejunal loops inflammatory versus post- treatment response -Colorectal cancer/adenocarcinoma with mets to liver. Patient refusing any further chemo treatment -Hypokalemia secondary to ongoing diarrhea from enterocolitis -Neutropenic fever secondary to recent chemotherapy, resolved -Lactic acidosis 7.3 due to dehydration and volume depletion, improved -Pancytopenia secondary to chemotherapy -Asymptomatic bacteriuria -Mild elevated liver enzymes, resolved -Metabolic acidosis -DVT prophylaxis not on heparin due to thrombocytopenia. -Urinary stricture with hematuria s/p dilation with indwelling catheter by urology -Peripheral edema -GI Prophylaxis -DVT Prophylaxis: Deferred due to pancytopenia -FULL CODE Plan: Recommend to continue with current medications, management, and symptomatic treatment. Patient potassium is 3.3 and will replace per protocol. Surgery, oncology, and ID following and maintained on oral antibiotics and will continue. Continued multiple episodes of loose stools. Diet being advanced as tolerated. No plans for surgical interventions and conservative management. Patient states he no longer wants any further chemo treatments with oncology following closely. Encouraged increase activity as tolerated. PT/OT to evaluate. Will repeat am labs and continue to closely monitor lab values and any further signs of worsening bleeding. Hemoglobin is 8.8 today. Due to multiple complex medical issues, prognosis is guarded. Further recommendations to follow. Objective - Vital Signs Vital signs: Vital Signs Temp 97.9 F 01/31/21 07:25 Pulse 99 01/31/21 07:25 Resp 14 01/31/21 07:25 BP 110/74 01/31/21 07:25 Pulse Ox 99 01/31/21 07:25 Intake & Output 01/30/21 01/31/21 01/31/21 18:59 06:59 18:59 Intake Total 800 Output Total 138 Balance 662 Weight 58.4 kg Intake: Oral 800 Output: Urine 15 Post Void Residual 120 Urine/Stool Mix 3 Other: Voiding Method Bedside Commode Toilet Urinal Bedside Commode Urinal # Voids 4 - Labs CBC & Chem 7: 01/31/21 17:00 01/31/21 05:50 Labs: Abnormal Lab Results - Last 24 Hours (Table) 01/30/21 01/30/21 Range/Units 10:30 10:30 RBC 2.41 L (4.30-5.90) m/uL Hgb 8.0 L (13.0-17.5) gm/dL Hct 23.9 L (39.0-53.0) % RDW 20.2 H (11.5-15.5) % Plt Count 65 L (150-450) k/uL Lymphocytes # 0.4 L (1.0-4.8) k/uL Chloride 122 H (98-107) mmol/L Carbon Dioxide 17 L (22-30) mmol/L BUN 5 L (9-20) mg/dL Glucose 103 H (74-99) mg/dL Calcium 7.3 L (8.4-10.2) mg/dL Alkaline Phosphatase 145 H (38-126) U/L Total Protein 3.8 L (6.3-8.2) g/dL Albumin 1.8 L (3.5-5.0) g/dL
[2021-02-01 06:37] LABS: Anisocytosis Moderate; Basophils % (A) 0 %; Eosinophils % (A) 0 %; HCT 26.1 % (39.0-53.0); HGB 8.6 gm/dL (13.0-17.5); Hypochromasia Slight; Lymphocytes # (A) 0.8 k/uL (1.0-4.8); Lymphocytes % (A) 9 %; MCH 32.6 pg (25.0-35.0); Macrocytosis Moderate; Mean Platelet Volume 8.9; Monocytes # (A) 0.4 k/uL (0-1.0); Monocytes % (A) 5 %; Neutrophils # (A) 7.3 k/uL (1.3-7.7); Neutrophils % (A) 84 %; Platelet Count 116 k/uL (150-450); Poikilocytosis Moderate; RBC 2.64 m/uL (4.30-5.90); RDW 21.1 % (11.5-15.5); WBC 8.7 k/uL (3.8-10.6)
[2021-02-01 06:55] LABS: African American GFR (CKD) >90 (>60 ml/min/1.73 sqM); Anion Gap 5 mmol/L; Blood Urea Nitrogen 7 mg/dL (9-20); Calcium 7.5 mg/dL (8.4-10.2); Carbon Dioxide 17 mmol/L (22-30); Chloride 118 mmol/L (98-107); Glucose 107 mg/dL (74-99); Magnesium 1.7 mg/dL (1.6-2.3); Non-African American GFR(CKD) >90 (>60 ml/min/1.73 sqM); Sodium 140 mmol/L (137-145)
[2021-02-01] MEDS: PANTOPRAZOLE 40 MG/10 ML VIAL IVP SCH ×2 (09:33→21:28)
[2021-02-01] MEDS: CEFDINIR 300 MG CAP PO SCH ×2 (09:34→21:28)
[2021-02-01] MEDS: NON FORMULARY DRUG (Vitamin B Complex [Vitamin B Complex] 1 EACH Capsule) PO SCH (09:34)
[2021-02-01] MEDS: metroNIDAZOLE 500 MG TAB PO SCH ×3 (09:34→21:28)
[2021-02-01] MEDS: CHOLESTYRAMINE (WITH SUGAR) 4 GM PACKET PO SCH ×2 (09:34→17:40)
--- NOTE | 2021-02-01 11:11 | P.PN ---
Progress Note - Text Progress Note Date: 02/01/21 Patient remained stable. His hemoglobin was 8.6. His abdomen soft. Patient will continue to receive supportive care.
[2021-02-01] MEDS ORDERED: Magnesium Replacement Protocol 1 EACH MISC MISCELLANE PRN (18:06)
[2021-02-01] MEDS ORDERED: POTASSIUM CHLORIDE ER 20 MEQ TAB.ER PO SCH (18:06)
[2021-02-01] MEDS ORDERED: Potassium Replacement Protocol 1 EACH MISC MISCELLANE PRN (18:06)
[2021-02-01] MEDS: POTASSIUM CHLORIDE 20 MEQ in WATER FOR INJECTION 1 100ML.BAG IVPB SCH ×2 (18:47→21:28)
[2021-02-01] MEDS: OCTREOTIDE 100 MCG/ML INJ SQ SCH ×2 (18:48→23:46)
--- NOTE | 2021-02-01 21:20 | PN ---
PROGRESS NOTE DATE OF SERVICE: 02/01/2021 This is a 55 -year-old gentleman who was admitted with acute GI bleed also had moderate thickening of the jejunal loops and also had significant diarrhea. The patient closely monitored at this time. The patient has significant weight loss. The white count is 8.6, sodium is 140, potassium 3. The patient being followed by multiple consultants including surgery and Hematology/Oncology. Past medical history reviewed. The acute C diff is negative and the patient had rectal adenocarcinoma, the patient also had febrile neutropenia. REVIEW OF SYMPTOMS: Cardiovascular: No angina or palpitations. Respiration: As mentioned earlier. GI: As mentioned earlier. : No dysuria or hematuria. Nervous system: No numbness or weakness. CURRENT MEDICATIONS: Reviewed and include: Tylenol, Omnicef, Questran, Flagyl, KCl, Narcan, Zofran, Protonix, Compazine. Doses are reviewed. PHYSICAL EXAMINATION: Patient is alert, oriented x3. Pulse is 98, blood pressure is 128/82, respirations 20, temp 98.3, pulse ox 99% on room air. HEENT: Conjunctivae normal. Neck: No JVD. Cardiovascular: S1, S2 muffled. Respiratory: Breath sounds diminished in the bases. A few scattered rhonchi. Abdomen: Soft, nontender. No mass palpable. Legs are no edema. No swelling. Nervous system: No focal deficits. LABS: WBC 8.5, sodium 140, potassium 3. ASSESSMENT: 1. Acute gastrointestinal bleed. 2. Acute blood loss anemia secondary to gastrointestinal bleed. 3. Moderate wall thickening inflammatory versus posttransplant response. 4. Colorectal cancer, adenocarcinoma with mets to the liver. The patient refused any further chemo treatment. 5. Hypokalemia. 6. Neutropenic fever. 7. Lactic acidosis. 8. Pancytopenia. 9. Asymptomatic bacteriuria. 10.Elevated liver enzymes. 11.Metabolic acidosis. 12.Deep vein thrombosis prophylaxis. RECOMMENDATIONS AND DISCUSSION: Recommend to continue current medications. Continue symptomatic treatment. Repeat labs. The patient have severe hypokalemia. I would recommend potassium supplementation and continue to monitor and adjust medications and further recommendations to follow. MMODL / IJN: [id number] /
--- NOTE | 2021-02-01 23:23 | PN ---
PROGRESS NOTE DATE OF SERVICE: 02/01/2021 REASON FOR FOLLOWUP: Febrile neutropenia with enterocolitis. INTERVAL HISTORY: The patient is afebrile, breathing comfortably. Still has some diarrhea, though it has slowed down. No further blood in the stool. No chest pain, shortness of breath or cough. PHYSICAL EXAMINATION: Blood pressure 108/74 with a pulse of 98, temperature 98.3. He is 98% on room air. General description is a middle-aged male lying in bed in no distress. Respiratory system: Unlabored breathing, clear to auscultation anteriorly. Heart S1, S2. Regular rate and rhythm. Abdomen soft, no tenderness. LABS: Hemoglobin 8.3, white count 8.7, creatinine 0.93. DIAGNOSTIC IMPRESSION AND PLAN: Patient with febrile neutropenia concerning for enterocolitis, treated symptomatically and supportively, on Ceftin, Flagyl; to continue while monitoring his clinical course closely. Continue with supportive care. MMODL / IJN: [id number] /
--- NOTE | 2021-02-01 23:32 | P.PN ---
Subjective Progress Note Date: 02/01/21 The patient continues to have generalized weakness. He feels that his diarrhea is starting to slow down with about 4-5 bowel movements in the last 24 hours. He has noticed a small amounts of formed stool though majority of the volume is watery. He has not noticed any blood. 9 any significant abdominal pain. Abdomen is mildly distended. He is tolerating clear liquids to no fever/chills/nausea/mucositis Objective - Vital Signs Vital signs: Vital Signs Temp 98.6 F 02/01/21 19:30 Pulse 95 02/01/21 19:30 Resp 20 02/01/21 19:30 BP 112/76 02/01/21 19:30 Pulse Ox 98 02/01/21 19:30 Intake & Output 02/01/21 02/01/21 02/02/21 06:59 18:59 06:59 Intake Total 300 Output Total 60 Balance 240 Intake: Oral 300 Output: Post Void Residual 60 Other: Voiding Method Toilet Toilet Bedside Commode Bedside Commode Urinal Urinal # Voids 2 2 # Bowel Movements 2 - Constitutional General appearance: Present: no acute distress - EENT Eyes: Present: EOMI ENT: Present: hearing grossly normal, normal oropharynx - Respiratory Respiratory: bilateral: CTA - Cardiovascular Rhythm: regular Heart sounds: normal: S1, S2 - Gastrointestinal General gastrointestinal: Present: decreased bowel sounds, distended - Integumentary Integumentary: Present: normal - Neurologic Neurologic: Present: CNII-XII intact - Musculoskeletal Musculoskeletal: Present: generalized weakness, strength equal bilaterally - Psychiatric Psychiatric: Present: A&O x's 3, appropriate affect - Labs CBC & Chem 7: 02/01/21 06:20 02/01/21 06:20 Labs: Abnormal Lab Results - Last 24 Hours (Table) 02/01/21 02/01/21 02/01/21 Range/Units 06:20 06:20 06:20 RBC 2.64 L (4.30-5.90) m/uL Hgb 8.6 L (13.0-17.5) gm/dL Hct 26.1 L (39.0-53.0) % RDW 21.1 H (11.5-15.5) % Plt Count 116 L (150-450) k/uL Lymphocytes # 0.8 L (1.0-4.8) k/uL Potassium 3.0 L (3.5-5.1) mmol/L Chloride 118 H (98-107) mmol/L Carbon Dioxide 17 L (22-30) mmol/L BUN 7 L (9-20) mg/dL Glucose 107 H (74-99) mg/dL Calcium 7.5 L (8.4-10.2) mg/dL C-Reactive Protein 2.2 H (<1.0) mg/dL Assessment and Plan (1) Enterocolitis Narrative/Plan: Workup for infection, including C. difficile was negative. This confirms that the patient's diffuse enterocolitis is due to chemotherapy effect. As diarrhea was persistent he was started on low-dose Sandostatin subcutaneous yesterday. He has noticed some slowing of the diarrhea since. He is tolerating clear liquids. - Continue Sandostatin. - Continue supportive care - Maintain are clear liquids for now. Repeat abdominal x-ray and a.m., and follow-up with clinical exam. If the patient's symptoms are not improving, or getting worse, we will need to consider more complete bowel rest with nothing by mouth status, and TPN. Sandostatin dose can also be enhanced, depending on his tolerance - The patient was advised that his symptoms will be expected to resolve with ongoing supportive care, with increasing time from his last chemotherapy. Current Visit: Yes Status: Acute Code(s): K52.9 - NONINFECTIVE GASTROENTERITIS AND COLITIS, UNSPECIFIED SNOMED Code(s): 41895621 (2) Pancytopenia due to antineoplastic chemotherapy Narrative/Plan: This is steadily improving. White count has now been normal for some days. Plt count has shown steady improvement. Hemoglobin remains stable in the 8 range. Current Visit: Yes Status: Acute Priority: High Code(s): D61.810 - ANTINEOPLASTIC CHEMOTHERAPY INDUCED PANCYTOPENIA; T45.1X5A - ADVERSE EFFECT OF ANTINEOPLASTIC AND IMMUNOSUP DRUGS, INIT SNOMED Code(s): 178191650719936 (3) Rectal adenocarcinoma Narrative/Plan: The patient had presented with stage IV disease which was however limited to the right lobe of the liver. As noted in our initial consult, the patient was felt to be a candidate for curative treatment with aggressive neoadjuvant chemotherapy followed by plan for resection of liver metastases and the primary tumor if he responded. The patient has had a definite clinical response on imaging. - The patient was evaluated at [facility] and they had recommended Total neoadjuvant chemotherapy of 12 cycles. The patient has completed 10/12 cycles. Given his Ablative toxicity or the last 2-3 cycles, he was advised that at this time the plan would be to stop chemotherapy and refer him back for evaluation of surgery as and when his performance status is sufficiently improved. Current Visit: Yes Status: Acute Priority: High Code(s): C20 - MALIGNANT NEOPLASM OF RECTUM SNOMED Code(s): 322317281
[2021-02-02 06:10] LABS: Anisocytosis Moderate; Basophils % (A) 0 %; Eosinophils % (A) 1 %; HCT 23.4 % (39.0-53.0); HGB 7.8 gm/dL (13.0-17.5); Hypochromasia Slight; Lymphocytes # (A) 0.5 k/uL (1.0-4.8); Lymphocytes % (A) 9 %; MCH 33.2 pg (25.0-35.0); MCHC 33.2 g/dL (31.0-37.0); MCV 99.9 fL (80.0-100.0); Macrocytosis Moderate; Mean Platelet Volume 8.9; Monocytes # (A) 0.3 k/uL (0-1.0); Monocytes % (A) 6 %; Neutrophils # (A) 4.1 k/uL (1.3-7.7); Neutrophils % (A) 82 %; Platelet Count 118 k/uL (150-450); Poikilocytosis Moderate; RBC 2.34 m/uL (4.30-5.90); RDW 21.9 % (11.5-15.5)
--- NOTE | 2021-02-02 08:53 | XR ---
EXAMINATION TYPE: XR abdomen 2V DATE OF EXAM: 02/02/2021 COMPARISON: NONE HISTORY: 55 years Male. STUDY INDICATION GIVEN: Colitis, abdominal distention . TECHNIQUE: Supine and upright abdominal radiographs IMPRESSION: Mild dilatation of a colonic bowel loop in the left upper abdomen measuring up to 10 cm in diameter. Relative paucity of air within the remaining bowel loops. Continued follow-up recommended. No evidence for complete intestinal obstruction. No evidence for organomegaly. No abnormal calcifications seen. Limited evaluation of the lung bases due to technique. Mild S-shaped scoliosis noted. No acute osseous abnormality. Generalized bony demineralization noted. Asymmetric uncovering of the lateral aspect of the right femoral head is noted, likely chronic/congen ital.
[2021-02-02 08:58] LABS: African American GFR (CKD) 106.8 (60.0-200.0); Anion Gap 10.3 mmol/L (4.00-12.00); BUN/Creat Ratio 8.03 Ratio (12.00-20.00); Blood Urea Nitrogen 7.5 mg/dL (9.0-27.0); Calcium 7.2 mg/dL (8.7-10.3); Carbon Dioxide 14.2 mmol/L (21.6-31.8); Magnesium 1.7 mg/dL (1.5-2.4); Non-African American GFR(CKD) 92.1 (60.0-200.0); Potassium 3.4 mmol/L (3.5-5.5)
[2021-02-02] MEDS: metroNIDAZOLE 500 MG TAB PO SCH ×3 (09:37→21:34)
[2021-02-02] MEDS: CHOLESTYRAMINE (WITH SUGAR) 4 GM PACKET PO SCH ×3 (09:37→17:21)
[2021-02-02] MEDS: CEFDINIR 300 MG CAP PO SCH ×2 (09:38→21:34)
[2021-02-02] MEDS: OCTREOTIDE 100 MCG/ML INJ SQ SCH ×3 (09:38→21:38)
[2021-02-02] MEDS: NON FORMULARY DRUG (Vitamin B Complex [Vitamin B Complex] 1 EACH Capsule) PO SCH (09:38)
[2021-02-02] MEDS: PANTOPRAZOLE 40 MG/10 ML VIAL IVP SCH ×2 (09:38→21:38)
--- NOTE | 2021-02-02 12:52 | P.PN ---
Progress Note - Text Progress Note Date: 02/02/21 Patient's he will remain stable. He will today 7.8. He has no new complaints. He'll be reevaluated Dr. Frankel the morning.
--- NOTE | 2021-02-02 17:00 | PN ---
PROGRESS NOTE DATE OF SERVICE: 02/02/2021 REASON FOR FOLLOWUP: Febrile neutropenia with colitis. INTERVAL HISTORY: Patient is afebrile. The patient is currently breathing comfortably. Denies any chest pain. No shortness of breath or cough. The patient's diarrhea has slowed down. No blood or mucus in the stool. PHYSICAL EXAMINATION: Blood pressure 106/72 with a pulse of 89, temperature is 97.9. He is 99% on room air. General description is a middle-aged male lying in bed in no distress. Respiratory system: Unlabored breathing, clear to auscultation anteriorly. Heart S1, S2. Regular rate and rhythm. Abdomen soft, no tenderness. LABS: Hemoglobin 7.1, white count of 5.0, creatinine 0.9. DIAGNOSTIC IMPRESSION AND PLAN: Patient admitted to hospital with febrile neutropenia. colitis. Stool cultures have been negative. The patient is currently doing well on Ceftin and Flagyl to continue for about a week to finish a course of therapy and close outpatient followup. MMODL / IJN: [id number] /
--- NOTE | 2021-02-02 17:03 | P.PN ---
Subjective Progress Note Date: 02/02/21 The patient looks and feels stronger. He states that he definitely feels better. Abdominal discomfort including cramping is much improved. I frequency of bowel movements for the same he states that the bowel movements are much more formed. He reports improvement in appetite and states that he is not having any nausea, vomiting or exacerbation of abdominal pain with eating. He denies any mucositis at this time. No fevers or chills. No obvious blood in the stool. Objective - Vital Signs Vital signs: Vital Signs Temp 97.9 F 02/02/21 13:04 Pulse 89 02/02/21 13:04 Resp 16 02/02/21 13:04 BP 106/72 02/02/21 13:04 Pulse Ox 99 02/02/21 13:04 Intake & Output 02/01/21 02/02/21 02/02/21 18:59 06:59 18:59 Intake Total 800 Balance 800 Intake: Intake, IV Titration 200 Amount Potassium Chloride 20 meq 200 In Water For Injection 1 100ml.bag @ 50 mls/hr IVPB Q2H [facility] Rx#: [id number] Oral 600 Other: Voiding Method Toilet Toilet Toilet Bedside Commode Bedside Commode Bedside Commode Urinal Urinal Urinal # Voids 2 3 # Bowel Movements 3 - Constitutional General appearance: Present: no acute distress - EENT Eyes: Present: EOMI ENT: Present: hearing grossly normal, normal oropharynx - Respiratory Respiratory: bilateral: CTA - Cardiovascular Rhythm: regular Heart sounds: normal: S1, S2 - Gastrointestinal General gastrointestinal: Present: distended, normal bowel sounds - Integumentary Integumentary: Present: normal - Neurologic Neurologic: Present: CNII-XII intact - Musculoskeletal Musculoskeletal: Present: generalized weakness, strength equal bilaterally - Psychiatric Psychiatric: Present: A&O x's 3, appropriate affect - Labs CBC & Chem 7: 02/02/21 06:00 02/02/21 06:00 Labs: Abnormal Lab Results - Last 24 Hours (Table) 02/01/21 02/02/21 02/02/21 Range/Units 06:20 06:00 06:00 RBC 2.34 L (4.30-5.90) m/uL Hgb 7.8 L (13.0-17.5) gm/dL Hct 23.4 L (39.0-53.0) % RDW 21.9 H (11.5-15.5) % Plt Count 118 L (150-450) k/uL Lymphocytes # 0.5 L (1.0-4.8) k/uL Potassium 3.4 L (3.5-5.5) mmol/L Chloride 116 H (96-109) mmol/L Carbon Dioxide 14.2 L (21.6-31.8) mmol/L BUN 7.5 L (9.0-27.0) mg/dL BUN/Creatinine Ratio 8.03 L (12.00-20.00) Ratio Glucose 135 H (70-110) mg/dL Calcium 7.2 L (8.7-10.3) mg/dL C-Reactive Protein 2.2 H (<1.0) mg/dL Assessment and Plan (1) Enterocolitis Narrative/Plan: Due to chemotherapy. The patient appears to be symptomatically better. His ab dominal x-ray did not show any evidence of obstruction or significant ileus. While frequency of bowel movements is about the same, bowel movements are much more formed. - Continue Sandostatin, but we'll decrease the dose to twice a day - If patient is clinically stable, advance diet tomorrow Current Visit: Yes Status: Acute Code(s): K52.9 - NONINFECTIVE GASTROENTERITIS AND COLITIS, UNSPECIFIED SNOMED Code(s): 81620691 (2) Pancytopenia due to antineoplastic chemotherapy Narrative/Plan: Slight increase in plt count. WBC is normal.Hgb is adequate in the 7-8 range. Continue to monitor, and transfuse for Hgb < 7 Current Visit: Yes Status: Acute Priority: High Code(s): D61.810 - ANTINEOPLASTIC CHEMOTHERAPY INDUCED PANCYTOPENIA; T45.1X5A - ADVERSE EFFECT OF ANTINEOPLASTIC AND IMMUNOSUP DRUGS, INIT SNOMED Code(s): 748579150335085 (3) Rectal adenocarcinoma Narrative/Plan: Will need PT om discharge to improve PS. Chemo will be held, and pt referred back to [facility] to evaluate for surgery Current Visit: Yes Status: Acute Priority: High Code(s): C20 - MALIGNANT NEOPLASM OF RECTUM SNOMED Code(s): 685139449
[2021-02-02] MEDS: POTASSIUM CHLORIDE 20 MEQ in WATER FOR INJECTION 1 100ML.BAG IVPB SCH ×2 (17:20→19:38)
--- NOTE | 2021-02-02 19:39 | PN ---
PROGRESS NOTE DATE OF SERVICE: 02/02/2021 This 55-year-old gentleman admitted with GI bleed also had moderate thickening of the bowel jejunal loops, also. The patient also had significant diarrhea. The patient was started on empiric octreotide, with some improvement in the symptoms. No chest pain. No palpitations. Patient also has significant hypokalemia. Past medical reviewed. REVIEW OF SYSTEMS: CARDIOVASCULAR SYSTEM: No angina. RESPIRATION: As mentioned earlier. GI: As mentioned earlier. : No dysuria. NERVOUS SYSTEM: No numbness, weakness. CURRENT MEDICATIONS: Reviewed. They include Tylenol, Omnicef, Questran, Flagyl, Narcan, simvastatin, Zofran. PHYSICAL EXAMINATION: Patient is alert and oriented x3. Pulse is 89, blood pressure 106/70, respiration 16, temperature 97.9, pulse ox 99% on room air. HEENT: Conjunctivae normal. NECK: No jugular venous distention. CARDIOVASCULAR: S1, S2 muffled. RESPIRATION: Breath sounds diminished at the bases. A few scattered rhonchi and crackles. ABDOMEN: Soft, nontender. LEGS: No edema. No swelling. NERVOUS SYSTEM: No focal deficit. LABS: WBC 5, hemoglobin 7.8, sodium 140, potassium 3.4. CO2 2.2. ASSESSMENT: 1. Acute gastrointestinal bleed for evaluation. 2. Acute blood loss anemia secondary to acute gastrointestinal bleed. 3. Moderate bowel wall thickening and of the jejunum with inflammatory versus post- transplant response. 4. Colorectal cancer, adenocarcinoma with metastases to the liver. Patient has refused further chemo treatment at this time. 5. Diarrhea. 6. Hypokalemia. 7. Neutropenic fever. 8. Lactic acidosis. 9. Pancytopenia. 10.Asymptomatic bacteriuria. 11.Elevated liver enzymes. 12.Metabolic acidosis, acute. 13.Deep vein thrombosis prophylaxis. RECOMMENDATIONS AND DISCUSSION: I recommend to continue current medications, continue with symptomatic treatment. Continue with empiric octreotide. Will replace potassium. Otherwise, guarded prognosis because of multiple complex medical issues. Further recommendations to follow. The patient is also given a regular dose of potassium. MMODL / IJN: [id number] / MTDD
[2021-02-02] MEDS: POTASSIUM BICARBONATE/CIT AC 20 MEQ TABLET.EFF PO SCH (21:34)
[2021-02-03 06:30] LABS: African American GFR (CKD) >90 (>60 ml/min/1.73 sqM); Anion Gap 4 mmol/L; Blood Urea Nitrogen 7 mg/dL (9-20); Calcium 7.3 mg/dL (8.4-10.2); Carbon Dioxide 18 mmol/L (22-30); Chloride 117 mmol/L (98-107); Glucose 119 mg/dL (74-99); Magnesium 1.7 mg/dL (1.6-2.3); Non-African American GFR(CKD) >90 (>60 ml/min/1.73 sqM); Potassium 3.8 mmol/L (3.5-5.1); Sodium 139 mmol/L (137-145)
[2021-02-03 06:34] LABS: Anisocytosis Moderate; Basophils % (A) 0 %; Eosinophils % (A) 1 %; HCT 24.5 % (39.0-53.0); HGB 7.9 gm/dL (13.0-17.5); Hypochromasia Slight; Lymphocytes # (A) 0.4 k/uL (1.0-4.8); Lymphocytes % (A) 8 %; MCH 32.9 pg (25.0-35.0); MCHC 32.3 g/dL (31.0-37.0); Macrocytosis Moderate; Mean Platelet Volume 8.5; Monocytes # (A) 0.3 k/uL (0-1.0); Monocytes % (A) 6 %; Neutrophils # (A) 4.3 k/uL (1.3-7.7); Neutrophils % (A) 82 %; Platelet Count 121 k/uL (150-450); Poikilocytosis Moderate; RDW 21.1 % (11.5-15.5); WBC 5.2 k/uL (3.8-10.6)
[2021-02-03] MEDS: metroNIDAZOLE 500 MG TAB PO SCH ×3 (08:20→21:44)
[2021-02-03] MEDS: OCTREOTIDE 100 MCG/ML INJ SQ SCH ×2 (08:20→21:45)
[2021-02-03] MEDS: PANTOPRAZOLE 40 MG/10 ML VIAL IVP SCH ×2 (08:20→21:43)
[2021-02-03] MEDS: POTASSIUM BICARBONATE/CIT AC 20 MEQ TABLET.EFF PO SCH ×2 (08:20→21:44)
[2021-02-03] MEDS: CEFDINIR 300 MG CAP PO SCH ×2 (08:20→21:44)
[2021-02-03] MEDS ORDERED: POTASSIUM BICARBONATE/CIT AC 20 MEQ TABLET.EFF PO SCH (09:00)
--- NOTE | 2021-02-03 10:21 | P.PN ---
<Nathalie,Renee - Last Filed: 02/03/21 10:12> Subjective Progress Note Date: 02/03/21 CHIEF COMPLAINT: Generalized weakness HISTORY OF PRESENT ILLNESS: 55-year-old male who is being followed by general surgery in regards to GI bleed and enterocolitis. The patient states abdominal pain improved, he has had no nausea or vomiting. He is now having more of a soft stool and diarrhea has improved. He denies any blood in his stool. He denies any nausea or vomiting. He is tolerating a low fiber diet. He's been afebrile. WBC 5.2 hemoglobin stable at 7.9. PHYSICAL EXAM: VITAL SIGNS: Reviewed. GENERAL: Well-developed in no acute distress. HEENT: No sclera icterus. Extraocular movements grossly intact. Moist buccal mucosa. Head is atraumatic, normocephalic. ABDOMEN: Soft. Nondistended. Nontender. NEUROLOGIC: Alert and oriented. Cranial nerves II through XII grossly intact. ASSESSMENT: 1. Acute GI bleed with acute blood loss anemia 2. Enterocolitis 3. History of colorectal cancer with metastatic disease to the liver was been undergoing chemotherapy, currently on hold 4. Hypokalemia and hypomagnesemia resolved PLAN: 1. Continue low fiber diet 2. Continue to monitor hemoglobin 3. Continue to monitor for signs and symptoms of GI bleed, if no further bleeding and hemoglobin is stable patient is cleared for discharge from surgical services. Recommend patient follow-up with [facility] The impression and plan of care has been dictated as directed. Dr. Frankel I performed a history and examination of this patient, discussed the same with the dictator. I agree with the dictator's note ,documented as a scribe. Any additional findings or plans will be noted. Objective - Vital Signs Vital signs: Vital Signs Temp 97.9 F 02/03/21 05:00 Pulse 86 02/03/21 05:00 Resp 16 02/03/21 05:00 BP 110/73 02/03/21 05:00 Pulse Ox 97 02/03/21 05:00 Intake & Output 02/02/21 02/03/21 02/03/21 18:59 06:59 18:59 Other: Voiding Method Toilet Toilet Bedside Commode Bedside Commode Urinal Urinal # Voids 2 4 - Labs CBC & Chem 7: 02/03/21 05:58 02/03/21 05:58 Labs: Abnormal Lab Results - Last 24 Hours (Table) 02/03/21 02/03/21 Range/Units 05:58 05:58 RBC 2.40 L (4.30-5.90) m/uL Hgb 7.9 L (13.0-17.5) gm/dL Hct 24.5 L (39.0-53.0) % MCV 102.0 H (80.0-100.0) fL RDW 21.1 H (11.5-15.5) % Plt Count 121 L (150-450) k/uL Lymphocytes # 0.4 L (1.0-4.8) k/uL Chloride 117 H (98-107) mmol/L Carbon Dioxide 18 L (22-30) mmol/L BUN 7 L (9-20) mg/dL Glucose 119 H (74-99) mg/dL Calcium 7.3 L (8.4-10.2) mg/dL <Byron Frankel - Last Filed: 02/03/21 13:15> Subjective As above. Patient denies abdominal pain. No nausea or vomiting. Says he is still moving his bowels well. X-rays show relative lack of intra-abdominal gas. A single area of the distal transverse colon visualized measuring 9 cm. Patient is slightly more distended on examination and he was last week. Says he is eating more than he normally would at home. Still moving his bowels and they are soft in nature. Continue diet as tolerated. Once again discussed with the patient that some degree of colonic obstruction is felt to still be present. If this worsens may have no option but to do a diverting ostomy. Patient feels he is doing well enough to avoid that. He would like to go home and meet with his [facility] oncologic team. That is reasonable as long as he continues to tolerate his diet and have bowel function. Objective - Vital Signs Vital signs: Vital Signs Temp 98.0 F 02/03/21 11:20 Pulse 91 02/03/21 11:20 Resp 16 02/03/21 11:20 BP 120/84 02/03/21 11:20 Pulse Ox 100 02/03/21 11:20 Intake & Output 02/02/21 02/03/21 02/03/21 18:59 06:59 18:59 Other: Voiding Method Toilet Toilet Toilet Bedside Commode Bedside Commode Bedside Commode Urinal Urinal Urinal # Voids 2 4 - Labs CBC & Chem 7: 02/03/21 05:58 02/03/21 05:58 Labs: Abnormal Lab Results - Last 24 Hours (Table) 02/03/21 02/03/21 Range/Units 05:58 05:58 RBC 2.40 L (4.30-5.90) m/uL Hgb 7.9 L (13.0-17.5) gm/dL Hct 24.5 L (39.0-53.0) % MCV 102.0 H (80.0-100.0) fL RDW 21.1 H (11.5-15.5) % Plt Count 121 L (150-450) k/uL Lymphocytes # 0.4 L (1.0-4.8) k/uL Chloride 117 H (98-107) mmol/L Carbon Dioxide 18 L (22-30) mmol/L BUN 7 L (9-20) mg/dL Glucose 119 H (74-99) mg/dL Calcium 7.3 L (8.4-10.2) mg/dL Assessment and Plan (1) Enterocolitis Current Visit: Yes Status: Acute Code(s): K52.9 - NONINFECTIVE GASTROENTERITIS AND COLITIS, UNSPECIFIED SNOMED Code(s): 11418970
[2021-02-03] MEDS: MAGNESIUM SULFATE-D5W PMX 1 GM in DEXTROSE/WATER 1 100ML.BAG IVPB SCH ×2 (11:10→13:17)
[2021-02-03] MEDS: CHOLESTYRAMINE (WITH SUGAR) 4 GM PACKET PO SCH ×3 (11:10→17:28)
--- NOTE | 2021-02-03 11:17 | P.PN ---
Subjective Progress Note Date: 02/03/21 Principal diagnosis: Febrile Neutropenia still with diarrhea, despite mark, questran. cdiff negative Objective - Vital Signs Vital signs: Vital Signs Temp 97.9 F 02/03/21 05:00 Pulse 86 02/03/21 05:00 Resp 16 02/03/21 05:00 BP 110/73 02/03/21 05:00 Pulse Ox 97 02/03/21 05:00 Intake & Output 02/02/21 02/03/21 02/03/21 18:59 06:59 18:59 Other: Voiding Method Toilet Toilet Toilet Bedside Commode Bedside Commode Bedside Commode Urinal Urinal Urinal # Voids 2 4 - Exam - Constitutional General appearance: Present: cooperative, no acute distress, thin - EENT Eyes: Present: anicteric sclerae, EOMI ENT: Present: hearing grossly normal, normal oropharynx - Respiratory Respiratory: bilateral: CTA - Cardiovascular Rhythm: regular Heart sounds: normal: S1, S2 Abnormal Heart Sounds: Absent: systolic murmur, diastolic murmur, rub, S3 Gallop, S4 Gallop, click, other - Peripheral edema leg Peripheral Edema: bilateral: None - Gastrointestinal General gastrointestinal: Present: distended (visually), normal bowel sounds, soft. Absent: absent bowel sounds, decreased bowel sounds, hepatomegaly, hyperactive bowel sounds, organomegaly, rigid, scaphoid, splenomegaly, tenderness, umbilical hernia, ventral hernia - Integumentary Integumentary: Present: pale - Neurologic Neurologic: Present: CNII-XII intact - Musculoskeletal Musculoskeletal: Present: generalized weakness - Psychiatric Psychiatric: Present: A&O x's 3, appropriate affect, intact judgment & insight - Labs CBC & Chem 7: 02/03/21 05:58 02/03/21 05:58 Labs: Abnormal Lab Results - Last 24 Hours (Table) 02/03/21 02/03/21 Range/Units 05:58 05:58 RBC 2.40 L (4.30-5.90) m/uL Hgb 7.9 L (13.0-17.5) gm/dL Hct 24.5 L (39.0-53.0) % MCV 102.0 H (80.0-100.0) fL RDW 21.1 H (11.5-15.5) % Plt Count 121 L (150-450) k/uL Lymphocytes # 0.4 L (1.0-4.8) k/uL Chloride 117 H (98-107) mmol/L Carbon Dioxide 18 L (22-30) mmol/L BUN 7 L (9-20) mg/dL Glucose 119 H (74-99) mg/dL Calcium 7.3 L (8.4-10.2) mg/dL Assessment and Plan (1) Febrile neutropenia Current Visit: Yes Status: Acute Code(s): D70.9 - NEUTROPENIA, UNSPECIFIED; R50.81 - FEVER PRESENTING WITH CONDITIONS CLASSIFIED ELSEWHERE SNOMED Code(s): 538456410 (2) Rectal adenocarcinoma Current Visit: Yes Status: Acute Priority: High Code(s): C20 - MALIGNANT NEOPLASM OF RECTUM SNOMED Code(s): 761808950 (3) Pancytopenia due to antineoplastic chemotherapy Current Visit: Yes Status: Acute Priority: High Code(s): D61.810 - ANTINEOPLASTIC CHEMOTHERAPY INDUCED PANCYTOPENIA; T45.1X5A - ADVERSE EFFECT OF ANTINEOPLASTIC AND IMMUNOSUP DRUGS, INIT SNOMED Code(s): 637528283098451 (4) Fever Current Visit: Yes Status: Acute Code(s): R50.9 - FEVER, UNSPECIFIED SNOMED Code(s): 883436379 Plan: Assessment and Plan (1) Pancytopenia due to antineoplastic chemotherapy Narrative/Plan: Lower GI bleeding, seen in stool. Conservative management at this time. Surgery following Plt pending Pt received GCSF on 01/17, WBC normal, ANC 4.9 Effects of chemo induced pancytopneia are resolving, other then the anemia. Current Visit: Yes Status: Acute Priority: High Code(s): D61.810 - ANTINEOPLASTIC CHEMOTHERAPY INDUCED PANCYTOPENIA; T45.1X5A - ADVERSE EFFECT OF ANTINEOPLASTIC AND IMMUNOSUP DRUGS, INIT SNOMED Code(s): 730627323500110 (2) Rectal adenocarcinoma Narrative/Plan: - New diagnosis, metastatic disease. He has stage IV disease but, was being treated with intent of reevaluation of liver lesions to eval number and size to see local therapy would be an option. - Unfortunately, pt had not tolerated the last 3 cycles of treatment very well. He stated today that he no longer wants to do chemo. His appts for the same will be cancelled. Stool studies pending CT abnormal thickening in the colon and bladder, decrease in liver mass from 9.1cm to 7 cm. GI bleeding persistent as evidenced by bloody diarrhea. 2/2 colitis vs chemo induced. - Conservative mgmt. ID and Surgery following Mother at bedside Current Visit: Yes Status: Acute Priority: High Code(s): C20 - MALIGNANT NEOPLASM OF RECTUM SNOMED Code(s): 872724562 Decrease Sandostatin 50 q12, monitor close I and Os and loose stools. CBC stable Electrolytes improved Physician Attest: I have completed the full history and physical and agree with above dictation, dictated as a scribe
--- NOTE | 2021-02-03 14:30 | PN ---
PROGRESS NOTE DATE OF SERVICE: 02/03/2021. REASON FOR FOLLOWUP: Febrile neutropenia with colitis. INTERVAL HISTORY: The patient is afebrile. The patient is currently breathing comfortably. No chest pain, shortness of breath or cough. No abdominal pain. The diarrhea has improved and is having some formed stool. No blood in the stool. PHYSICAL EXAMINATION: Blood pressure 120/84 with pulse 91, temperature 98. He is 100% on room air. General description is a middle-aged male lying in bed in no distress. Respiratory system: Unlabored breathing, clear to auscultation anteriorly. Heart S1, S2. Regular rate and rhythm. Abdomen soft, no tenderness. LABS: Hemoglobin 10.1, white count of 5.2, creatinine 0.86. DIAGNOSTIC IMPRESSION AND PLAN: Patient with febrile neutropenia with colitis overall improvement. The patient is currently on Ceftin and Flagyl. Plan for short course and monitor clinical course closely. Continue supportive care. MMODL / NAYELIN: [id number] /
--- NOTE | 2021-02-03 14:48 | P.PN ---
Subjective Progress Note Date: 02/03/21 Patient is a pleasant 55 year old male with a known history of colorectal cancer status post chemotherapy, with subsequent acute GI bleed with enterocolitis. 02/03/2021 Patient is evaluated today in the bed. He states that his stools are starting to bulk up, however they're still loose. He is on Questran daily and sandostatin. Labs today show a hemoglobin of 7.9, stable, platelet 121, sodium 139, potassium 3.8, chloride 117, CO2 18, glucose 119, calcium 7.3, mag 1.7. Vitals today, afebrile 98, heart rate 91, blood pressure 120/84 and he is 100% on room air. His abdomen is still distended, continues to be slowly growing. Continues to have +2-3 lower extremity edema, he is requesting them to be Doron wrapped. Patient was hoping to be discharged today. He was advanced to a low fiber diet and is tolerating well, surgical services discharged to follow up with [facility]. Surgical services feels the patient may have an underlying bowel obstruction despite ongoing bowel movements and is still possible the patient may need a diverting ostomy in the future. Patient would like to be discharged to follow-up with his primary oncology team. Current medications reviewed. ROS Constitutional: Denied any fatigue denied any fever. Cardio vascular: denied any chest pain, palpitations Gastrointestinal denied any nausea vomiting, reports loose BM, no longer liquid, denies blood in the stool Pulmonary: Denied any shortness of breath cough Neurologic denied any new focal deficits All inpatient medications were reviewed and appropriate changes in these medications as dictated in the interval history and assessment and plan. PHYSICAL EXAMINATION: GENERAL: The patient is alert and oriented x3, not in any acute distress. Well developed, well nourished. HEENT: Pupils are round and equally reacting to light. EOMI. No scleral icterus. No conjunctival pallor. Normocephalic, atraumatic. No pharyngeal erythema. No thyromegaly. CARDIOVASCULAR: S1 and S2 present. No murmurs, rubs, or gallops. PULMONARY: Chest is clear to auscultation, no wheezing or crackles. ABDOMEN: Soft, nontender, abdominal distention, normoactive bowel sounds. No palpable organomegaly. MUSCULOSKELETAL: No joint swelling or deformity. EXTREMITIES: No cyanosis, clubbing, + 3 lower extremity pitting edema, slowly improving NEUROLOGICAL: Gross neurological examination did not reveal any focal deficits. SKIN: No rashes. Assessment and plan Assessment -Acute GI bleed with acute blood loss anemia, hemoglobin today 7.9 s/p 4 unit PRBC this admission -Inflammatory response to chemo vs. enterocolitis -Colorectal cancer/adenocarcinoma with mets to liver. Currently on cycle 10 chemotherapy, which is on hold. -Possible enterocolitis, ongoing diarrhea, questran ordered, C. diff negative, continue Flagyl -Hypokalemia secondary to ongoing diarrhea from enterocolitis -Neutropenic fever secondary to recent chemotherapy, resolved -Pancytopenia secondary to chemotherapy, platelet count improving, currently 121 -Lactic acidosis on admission, resolved -Asymptomatic bacteriuria -Mild elevated liver enzymes, resolving -Metabolic acidosis probably due to ongoing diarrhea, continue to monitor -DVT prophylaxis not on heparin due to thrombocytopenia. -Urinary stricture with hematuria s/p dilation with indwelling catheter by urology - catheter was removed patient passed voiding trial -Peripheral edema, BNP 338, lungs clear GI Prophylaxis: Protonix DVT Prophylaxis: Deferred due to pancytopenia FULL CODE Plan: Replace electrolytes per protocol, and continue daily potassium supplement Sandostatin decreased per oncology Continue with low fiber diet Continue PO antibiotics; Ceftin and Flagyl Continue to follow closely. Repeat labs tomorrow. PT/OT consult Possible DC in the next 24-48 hours. Objective - Vital Signs Vital signs: Vital Signs Temp 98.0 F 02/03/21 11:20 Pulse 91 02/03/21 11:20 Resp 16 02/03/21 11:20 BP 120/84 02/03/21 11:20 Pulse Ox 100 02/03/21 11:20 Intake & Output 02/02/21 02/03/21 02/03/21 18:59 06:59 18:59 Weight 58.4 kg Other: Voiding Method Toilet Toilet Toilet Bedside Commode Bedside Commode Bedside Commode Urinal Urinal Urinal # Voids 2 4 4 # Bowel Movements 4 - Labs CBC & Chem 7: 02/03/21 05:58 02/03/21 05:58 Labs: Abnormal Lab Results - Last 24 Hours (Table) 02/03/21 02/03/21 Range/Units 05:58 05:58 RBC 2.40 L (4.30-5.90) m/uL Hgb 7.9 L (13.0-17.5) gm/dL Hct 24.5 L (39.0-53.0) % MCV 102.0 H (80.0-100.0) fL RDW 21.1 H (11.5-15.5) % Plt Count 121 L (150-450) k/uL Lymphocytes # 0.4 L (1.0-4.8) k/uL Chloride 117 H (98-107) mmol/L Carbon Dioxide 18 L (22-30) mmol/L BUN 7 L (9-20) mg/dL Glucose 119 H (74-99) mg/dL Calcium 7.3 L (8.4-10.2) mg/dL Assessment and Plan Time with Patient: Greater than 30
[2021-02-04 06:31] LABS: Anisocytosis Moderate; Basophils % (A) 0 %; Eosinophils % (A) 0 %; HCT 24.7 % (39.0-53.0); Hypochromasia Moderate; Lymphocytes # (A) 0.5 k/uL (1.0-4.8); Lymphocytes % (A) 9 %; MCHC 32.2 g/dL (31.0-37.0); MCV 102.4 fL (80.0-100.0); Macrocytosis Moderate; Mean Platelet Volume 8.9; Monocytes # (A) 0.4 k/uL (0-1.0); Monocytes % (A) 7 %; Neutrophils # (A) 4.5 k/uL (1.3-7.7); Neutrophils % (A) 82 %; Platelet Count 141 k/uL (150-450); Poikilocytosis Moderate; RBC 2.41 m/uL (4.30-5.90); RDW 21.2 % (11.5-15.5); WBC 5.4 k/uL (3.8-10.6)
[2021-02-04] MEDS: metroNIDAZOLE 500 MG TAB PO SCH ×3 (09:44→21:20)
[2021-02-04] MEDS: CEFDINIR 300 MG CAP PO SCH ×2 (09:44→21:21)
[2021-02-04] MEDS: POTASSIUM BICARBONATE/CIT AC 20 MEQ TABLET.EFF PO SCH ×2 (09:44→21:20)
[2021-02-04] MEDS: PANTOPRAZOLE 40 MG/10 ML VIAL IVP SCH ×2 (09:44→21:20)
[2021-02-04] MEDS: CHOLESTYRAMINE (WITH SUGAR) 4 GM PACKET PO SCH (09:45)
--- NOTE | 2021-02-04 09:59 | P.PN ---
<Nathalie,Renee - Last Filed: 02/04/21 09:57> Subjective Progress Note Date: 02/04/21 CHIEF COMPLAINT: Generalized weakness HISTORY OF PRESENT ILLNESS: 55-year-old male who is being followed by general surgery in regards to GI bleed and enterocolitis. The patient states abdominal pain improved, he has had no nausea or vomiting. He states he had 5-6 soft brown stool yesterday. No blood in his stool. He is tolerating a low fiber diet. He's been afebrile. WBC 5.4 Hemoglobin stable at 8.0. PHYSICAL EXAM: VITAL SIGNS: Reviewed. GENERAL: Well-developed in no acute distress. HEENT: No sclera icterus. Extraocular movements grossly intact. Moist buccal mucosa. Head is atraumatic, normocephalic. ABDOMEN: Soft. Nondistended. Nontender. NEUROLOGIC: Alert and oriented. Cranial nerves II through XII grossly intact. ASSESSMENT: 1. Acute GI bleed with acute blood loss anemia 2. Enterocolitis 3. History of colorectal cancer with metastatic disease to the liver was been undergoing chemotherapy, currently on hold 4. Hypokalemia and hypomagnesemia resolved PLAN: 1. Continue low fiber diet 2. Continue to monitor hemoglobin 3. Once otherwise medically stable, she is cleared from surgical services for discharge. As with patient recommendation to follow-up with oncology team from [facility] on discharge. The impression and plan of care has been dictated as directed. Dr. Frankel I performed a history and examination of this patient, discussed the same with the dictator. I agree with the dictator's note ,documented as a scribe. Any additional findings or plans will be noted. Objective - Vital Signs Vital signs: Vital Signs Temp 97.7 F 02/04/21 05:00 Pulse 86 02/04/21 05:00 Resp 18 02/04/21 05:00 BP 114/76 02/04/21 05:00 Pulse Ox 97 02/04/21 05:00 Intake & Output 02/03/21 02/04/21 02/04/21 18:59 06:59 18:59 Intake Total 200 Balance 200 Weight 58.4 kg Intake: Intake, IV Titration 200 Amount Magnesium Sulfate-D5w Pmx 200 1 gm In Dextrose/Water 1 100ml.bag @ 100 mls/hr IVPB Q1H [facility] Rx#: [id number] Other: Voiding Method Toilet Toilet Bedside Commode Urinal Urinal # Voids 4 3 # Bowel Movements 3 - Labs CBC & Chem 7: 02/04/21 06:11 02/03/21 05:58 Labs: Abnormal Lab Results - Last 24 Hours (Table) 02/04/21 Range/Units 06:11 RBC 2.41 L (4.30-5.90) m/uL Hgb 8.0 L (13.0-17.5) gm/dL Hct 24.7 L (39.0-53.0) % MCV 102.4 H (80.0-100.0) fL RDW 21.2 H (11.5-15.5) % Plt Count 141 L (150-450) k/uL Lymphocytes # 0.5 L (1.0-4.8) k/uL <Byron Frankel - Last Filed: 02/04/21 13:13> Subjective As above. Patient denies nausea or vomiting. Still having soft stools. Tolerating diet. Says he feels less bloated than yesterday. His abdominal exam reveals mild abdominal distention which does seem improved from yesterday. Continue diet as tolerated. Possible discharge today. Objective - Vital Signs Vital signs: Vital Signs Temp 97.7 F 02/04/21 05:00 Pulse 86 02/04/21 08:00 Resp 18 02/04/21 08:00 BP 114/76 02/04/21 05:00 Pulse Ox 97 02/04/21 05:00 Intake & Output 02/03/21 02/04/21 02/04/21 18:59 06:59 18:59 Intake Total 200 Balance 200 Weight 58.4 kg Intake: Intake, IV Titration 200 Amount Magnesium Sulfate-D5w Pmx 200 1 gm In Dextrose/Water 1 100ml.bag @ 100 mls/hr IVPB Q1H [facility] Rx#: [id number] Other: Voiding Method Toilet Toilet Toilet Bedside Commode Urinal Urinal Urinal # Voids 4 3 # Bowel Movements 3 - Labs CBC & Chem 7: 02/04/21 06:11 02/04/21 06:11 Labs: Abnormal Lab Results - Last 24 Hours (Table) 02/04/21 02/04/21 Range/Units 06:11 06:11 RBC 2.41 L (4.30-5.90) m/uL Hgb 8.0 L (13.0-17.5) gm/dL Hct 24.7 L (39.0-53.0) % MCV 102.4 H (80.0-100.0) fL RDW 21.2 H (11.5-15.5) % Plt Count 141 L (150-450) k/uL Lymphocytes # 0.5 L (1.0-4.8) k/uL Chloride 116 H (96-109) mmol/L Carbon Dioxide 18.3 L (21.6-31.8) mmol/L BUN 6.1 L (9.0-27.0) mg/dL BUN/Creatinine Ratio 7.33 L (12.00-20.00) Ratio Glucose 115 H (70-110) mg/dL Calcium 7.3 L (8.7-10.3) mg/dL Assessment and Plan (1) Enterocolitis Current Visit: Yes Status: Acute Code(s): K52.9 - NONINFECTIVE GASTROENTERITIS AND COLITIS, UNSPECIFIED SNOMED Code(s): 13648401
[2021-02-04] MEDS: OCTREOTIDE 100 MCG/ML INJ SQ SCH ×2 (10:01→21:20)
[2021-02-04 10:04] LABS: African American GFR (CKD) 115.6 (60.0-200.0); Anion Gap 8.2 mmol/L (4.00-12.00); BUN/Creat Ratio 7.33 Ratio (12.00-20.00); Blood Urea Nitrogen 6.1 mg/dL (9.0-27.0); Calcium 7.3 mg/dL (8.7-10.3); Carbon Dioxide 18.3 mmol/L (21.6-31.8); Non-African American GFR(CKD) 99.8 (60.0-200.0); Potassium 3.8 mmol/L (3.5-5.5)
--- NOTE | 2021-02-04 18:49 | P.PN ---
Subjective Progress Note Date: 02/04/21 Patient is a pleasant 55 year old male with a known history of colorectal cancer status post chemotherapy, with subsequent acute GI bleed with enterocolitis. 02/03/2021 Patient is evaluated today in the bed. He states that his stools are starting to bulk up, however they're still loose. He is on Questran daily and sandostatin. Labs today show a hemoglobin of 7.9, stable, platelet 121, sodium 139, potassium 3.8, chloride 117, CO2 18, glucose 119, calcium 7.3, mag 1.7. Vitals today, afebrile 98, heart rate 91, blood pressure 120/84 and he is 100% on room air. His abdomen is still distended, continues to be slowly growing. Continues to have +2-3 lower extremity edema, he is requesting them to be Doron wrapped. Patient was hoping to be discharged today. He was advanced to a low fiber diet and is tolerating well, surgical services discharged to follow up with [facility]. Surgical services feels the patient may have an underlying bowel obstruction despite ongoing bowel movements and is still possible the patient may need a diverting ostomy in the future. Patient would like to be discharged to follow-up with his primary oncology team. 02/04/2021 Patient evaluated resting in bed. Sandostatin will be held today and monitoring for diarrhea and plan will be for discharge tomorrow if cleared by oncology. Labs today show a hemoglobin of 8, platelets 141, potassium 3.8, chloride 116, CO2 18.3, BUN 6.1, creatinine 0.8, magnesium 2.0. Vitals today: temperature 97.7, heart rate 86, blood pressure 114/76, 97% on room air. Patient is tolerating a diet well, abdomen continues to be distended with gas. Current medications reviewed. ROS Constitutional: Denied any fatigue denied any fever. Cardio vascular: denied any chest pain, palpitations Gastrointestinal denied any nausea vomiting, reports loose BM, no longer liquid, denies blood in the stool Pulmonary: Denied any shortness of breath cough Neurologic denied any new focal deficits All inpatient medications were reviewed and appropriate changes in these medications as dictated in the interval history and assessment and plan. PHYSICAL EXAMINATION: GENERAL: The patient is alert and oriented x3, not in any acute distress. Well developed, well nourished. HEENT: Pupils are round and equally reacting to light. EOMI. No scleral icterus. No conjunctival pallor. Normocephalic, atraumatic. No pharyngeal erythema. No thyromegaly. CARDIOVASCULAR: S1 and S2 present. No murmurs, rubs, or gallops. PULMONARY: Chest is clear to auscultation, no wheezing or crackles. ABDOMEN: Soft, nontender, abdominal distention, normoactive bowel sounds. No palpable organomegaly. MUSCULOSKELETAL: No joint swelling or deformity. EXTREMITIES: No cyanosis, clubbing, + 3 lower extremity pitting edema, slowly improving NEUROLOGICAL: Gross neurological examination did not reveal any focal deficits. SKIN: No rashes. Assessment and plan Assessment -Acute GI bleed with acute blood loss anemia, hemoglobin today 8.0 s/p 4 unit PRBC this admission -Inflammatory response to chemo vs. enterocolitis -Colorectal cancer/adenocarcinoma with mets to liver. Currently on cycle 10 chemotherapy, which is on hold. -Possible enterocolitis, ongoing diarrhea, questran ordered, C. diff negative, continue Flagyl -Hypokalemia secondary to ongoing diarrhea from enterocolitis -Neutropenic fever secondary to recent chemotherapy, resolved -Pancytopenia secondary to chemotherapy, platelet count improving, currently 141 -Lactic acidosis on admission, resolved -Asymptomatic bacteriuria -Mild elevated liver enzymes, resolving -Metabolic acidosis probably due to ongoing diarrhea, continue to monitor -DVT prophylaxis not on heparin due to thrombocytopenia. -Urinary stricture with hematuria s/p dilation with indwelling catheter by urology - catheter was removed patient passed voiding trial -Peripheral edema, BNP 338, lungs clear GI Prophylaxis: Protonix DVT Prophylaxis: Deferred due to pancytopenia FULL CODE Plan: Replace electrolytes per protocol, and continue daily potassium supplement Sandostatin O/H tonight Continue with low fiber diet Continue PO antibiotics; Ceftin and Flagyl Continue to follow closely. Repeat labs tomorrow. PT/OT consult Possible DC tomorrow Objective - Vital Signs Vital signs: Vital Signs Temp 98.1 F 02/04/21 12:45 Pulse 79 02/04/21 12:45 Resp 18 02/04/21 12:45 BP 118/80 02/04/21 12:45 Pulse Ox 97 02/04/21 12:45 Intake & Output 02/03/21 02/04/21 02/04/21 18:59 06:59 18:59 Intake Total 200 Balance 200 Weight 58.4 kg Intake: Intake, IV Titration 200 Amount Magnesium Sulfate-D5w Pmx 200 1 gm In Dextrose/Water 1 100ml.bag @ 100 mls/hr IVPB Q1H [facility] Rx#: [id number] Other: Voiding Method Toilet Toilet Toilet Bedside Commode Urinal Urinal Urinal # Voids 4 3 # Bowel Movements 3 - Labs CBC & Chem 7: 02/04/21 06:11 02/04/21 06:11 Labs: Abnormal Lab Results - Last 24 Hours (Table) 02/04/21 02/04/21 Range/Units 06:11 06:11 RBC 2.41 L (4.30-5.90) m/uL Hgb 8.0 L (13.0-17.5) gm/dL Hct 24.7 L (39.0-53.0) % MCV 102.4 H (80.0-100.0) fL RDW 21.2 H (11.5-15.5) % Plt Count 141 L (150-450) k/uL Lymphocytes # 0.5 L (1.0-4.8) k/uL Chloride 116 H (96-109) mmol/L Carbon Dioxide 18.3 L (21.6-31.8) mmol/L BUN 6.1 L (9.0-27.0) mg/dL BUN/Creatinine Ratio 7.33 L (12.00-20.00) Ratio Glucose 115 H (70-110) mg/dL Calcium 7.3 L (8.7-10.3) mg/dL Assessment and Plan Time with Patient: Greater than 30
[2021-02-04 20:03] VITALS: RESP 16
--- NOTE | 2021-02-04 20:20 | P.PN ---
Subjective Progress Note Date: 02/04/21 Principal diagnosis: Febrile Neutropenia Diarrhea has resolved, will discontinue sandostatin. Spoke with patient and primary team would like to monitor till morning and set up for home care at discharge for PT/OT. Objective - Vital Signs Vital signs: Vital Signs Temp 98.1 F 02/04/21 12:45 Pulse 79 02/04/21 12:45 Resp 18 02/04/21 12:45 BP 118/80 02/04/21 12:45 Pulse Ox 97 02/04/21 12:45 Intake & Output 02/04/21 02/04/21 02/05/21 06:59 18:59 06:59 Intake Total 720 Balance 720 Intake: Oral 720 Other: Voiding Method Toilet Toilet Urinal Urinal # Voids 3 3 - Exam - Constitutional General appearance: Present: cooperative, no acute distress, thin - EENT Eyes: Present: anicteric sclerae, EOMI ENT: Present: hearing grossly normal, normal oropharynx - Respiratory Respiratory: bilateral: CTA - Cardiovascular Rhythm: regular Heart sounds: normal: S1, S2 Abnormal Heart Sounds: Absent: systolic murmur, diastolic murmur, rub, S3 Gallop, S4 Gallop, click, other - Peripheral edema leg Peripheral Edema: bilateral: None - Gastrointestinal General gastrointestinal: Present: distended (visually), normal bowel sounds, soft. Absent: absent bowel sounds, decreased bowel sounds, hepatomegaly, hyperactive bowel sounds, organomegaly, rigid, scaphoid, splenomegaly, tenderness, umbilical hernia, ventral hernia - Integumentary Integumentary: Present: pale - Neurologic Neurologic: Present: CNII-XII intact - Musculoskeletal Musculoskeletal: Present: generalized weakness - Psychiatric Psychiatric: Present: A&O x's 3, appropriate affect, intact judgment & insight - Labs CBC & Chem 7: 02/04/21 06:11 02/04/21 06:11 Labs: Abnormal Lab Results - Last 24 Hours (Table) 02/04/21 02/04/21 Range/Units 06:11 06:11 RBC 2.41 L (4.30-5.90) m/uL Hgb 8.0 L (13.0-17.5) gm/dL Hct 24.7 L (39.0-53.0) % MCV 102.4 H (80.0-100.0) fL RDW 21.2 H (11.5-15.5) % Plt Count 141 L (150-450) k/uL Lymphocytes # 0.5 L (1.0-4.8) k/uL Chloride 116 H (96-109) mmol/L Carbon Dioxide 18.3 L (21.6-31.8) mmol/L BUN 6.1 L (9.0-27.0) mg/dL BUN/Creatinine Ratio 7.33 L (12.00-20.00) Ratio Glucose 115 H (70-110) mg/dL Calcium 7.3 L (8.7-10.3) mg/dL Assessment and Plan (1) Febrile neutropenia Current Visit: Yes Status: Acute Code(s): D70.9 - NEUTROPENIA, UNSPECIFIED; R50.81 - FEVER PRESENTING WITH CONDITIONS CLASSIFIED ELSEWHERE SNOMED Code(s): 599563447 (2) Rectal adenocarcinoma Current Visit: Yes Status: Acute Priority: High Code(s): C20 - MALIGNANT NEOPLASM OF RECTUM SNOMED Code(s): 687927914 (3) Pancytopenia due to antineoplastic chemotherapy Current Visit: Yes Status: Acute Priority: High Code(s): D61.810 - ANTINEOPLASTIC CHEMOTHERAPY INDUCED PANCYTOPENIA; T45.1X5A - ADVERSE EFFECT OF ANTINEOPLASTIC AND IMMUNOSUP DRUGS, INIT SNOMED Code(s): 715100185812638 (4) Fever Current Visit: Yes Status: Acute Code(s): R50.9 - FEVER, UNSPECIFIED SNOMED Code(s): 968088964 Plan: Assessment and Plan (1) Pancytopenia due to antineoplastic chemotherapy Narrative/Plan: Lower GI bleeding, seen in stool. Conservative management at this time. Surgery following Plt pending Pt received GCSF on 01/17, WBC normal, ANC 4.9 Effects of chemo induced pancytopneia are resolving, other then the anemia. Current Visit: Yes Status: Acute Priority: High Code(s): D61.810 - ANTINEOPLASTIC CHEMOTHERAPY INDUCED PANCYTOPENIA; T45.1X5A - ADVERSE EFFECT OF ANTINEOPLASTIC AND IMMUNOSUP DRUGS, INIT SNOMED Code(s): 587772174046819 (2) Rectal adenocarcinoma Narrative/Plan: - New diagnosis, metastatic disease. He has stage IV disease but, was being treated with intent of reevaluation of liver lesions to eval number and size to see local therapy would be an option. - Unfortunately, pt had not tolerated the last 3 cycles of treatment very well. He stated today that he no longer wants to do chemo. His appts for the same will be cancelled. Stool studies pending CT abnormal thickening in the colon and bladder, decrease in liver mass from 9.1cm to 7 cm. GI bleeding persistent as evidenced by bloody diarrhea. 2/2 colitis vs chemo induced. - Conservative mgmt. ID and Surgery following Mother at bedside Current Visit: Yes Status: Acute Priority: High Code(s): C20 - MALIGNANT NEOPLASM OF RECTUM SNOMED Code(s): 499436055 Discontinue Sandostatin and monitor to ensure no recurrent diarrhea Discussed with Primary team and plan to set up with PT/OT as outpatient. Electrolytes improved Physician Attest: I have completed the full history and physical and agree with above dictation, dictated as a scribe
--- NOTE | 2021-02-04 23:30 | PN ---
PROGRESS NOTE DATE OF SERVICE: 02/04/2021 REASON FOR FOLLOWUP: Febrile neutropenia with enterocolitis. INTERVAL HISTORY: The patient is afebrile. The patient has been breathing comfortably. The patient denies having any chest pain, shortness of breath or cough. No abdominal pain. The patient's diarrhea has improved. PHYSICAL EXAMINATION: Blood pressure 103/71, pulse of 95, temperature 98.1. He is 96% on room air. General description is a middle-aged male lying in bed in no distress. Respiratory system: Unlabored breathing, clear to auscultation anteriorly. Heart S1, S2. Regular rate and rhythm. Abdomen soft, no tenderness. LABS: Hemoglobin 8, white count 5.4, creatinine 0.8. DIAGNOSTIC IMPRESSION AND PLAN: Patient with febrile neutropenia in this patient did have evidence of enterocolitis. Patient has shown overall improvement on cefdinar and flagyl; to continue and monitor his clinical course closely. Continue supportive care. MMODL / IJN: [id number] / MTDD
[2021-02-05] MEDS: PANTOPRAZOLE 40 MG/10 ML VIAL IVP SCH (08:47)
[2021-02-05] MEDS: POTASSIUM BICARBONATE/CIT AC 20 MEQ TABLET.EFF PO SCH (08:47)
[2021-02-05] MEDS: metroNIDAZOLE 500 MG TAB PO SCH ×2 (08:47→15:18)
[2021-02-05] MEDS: CEFDINIR 300 MG CAP PO SCH (08:47)
--- NOTE | 2021-02-05 12:03 | P.PN ---
Subjective Progress Note Date: 02/05/21 Principal diagnosis: Enterocolitis Patient says he feels about the same today. He is moving his bowels. Bloating he says his unchanged. Denies nausea or vomiting. No significant discomfort. No bleeding. Objective - Vital Signs Vital signs: Vital Signs Temp 98.1 F 02/05/21 04:48 Pulse 82 02/05/21 08:00 Resp 16 02/05/21 08:00 BP 106/69 02/05/21 04:48 Pulse Ox 98 02/05/21 04:48 Intake & Output 02/04/21 02/05/21 02/05/21 18:59 06:59 18:59 Intake Total 720 480 Output Total 5 Balance 720 475 Intake: Oral 720 480 Output: Stool 5 Other: Voiding Method Toilet Toilet Toilet Urinal Urinal Urinal # Voids 3 - Exam Abdomen: Soft, nontender, mild abdominal distention, no tympany, unchanged from yesterday - Labs CBC & Chem 7: 02/04/21 06:11 02/04/21 06:11 Assessment and Plan (1) Enterocolitis Narrative/Plan: Patient seems to be doing about the same. Bleeding has stopped. Labs looked good. He denies pain nausea or vomiting. Patient still has abdominal distention to a certain degree. He would like to go home today. We discussed that if constipation or abdominal distention increased that he return to the hospital for evaluation and that colostomy would likely be required at that time. Patient also encouraged to follow up with his [facility] hepatic surgery and colorectal surgery team shortly after discharge. Current Visit: Yes Status: Acute Code(s): K52.9 - NONINFECTIVE GASTROENTERITIS AND COLITIS, UNSPECIFIED SNOMED Code(s): 75954022
--- NOTE | 2021-02-05 13:53 | P.PN ---
Progress Note - Text Progress Note Date: 02/05/21 REASON FOR FOLLOWUP: Febrile neutropenia with enterocolitis. INTERVAL HISTORY: The patient remains to be afebrile. The patient has been breathing comfortably. The patient denies having any chest pain, shortness of breath or cough. No abdominal pain. The patient's diarrhea has improved. PHYSICAL EXAMINATION: Blood pressure 105/70, pulse of 95, temperature 98.1. He is 96% on room air. General description is a middle-aged male lying in bed in no distress. Respiratory system: Unlabored breathing, clear to auscultation anteriorly. Heart S1, S2. Regular rate and rhythm. Abdomen soft, no tenderness. LABS: reviewed DIAGNOSTIC IMPRESSION AND PLAN: Patient with febrile neutropenia in this patient did have evidence of enterocolitis. Patient has shown overall improvement on cefdinar and flagyl; to continue for another 7 days on discharge , discussed with FISHER PURSE SEINE for medicine
[2021-02-05 14:08] VITALS: BP 108/73; PULSE 99; TEMP 97.6
--- NOTE | 2021-02-06 13:38 | P.DS ---
Providers Date of admission: 01/22/21 03:28 Attending physician: Darlene Corbin Consults: 01/22/21 03:19 Consult Physician Routine Consulting Provider: Ventura Giles Consult Reason/Comments: fever, sepsis Do you want consulting provider notified?: Yes 01/22/21 12:24 Consult Physician Routine Consulting Provider: Camelia Chapman Consult Reason/Comments: Sepsis, neutropenia Do you want consulting provider notified?: Yes 01/23/21 09:39 Consult Physician Routine Consulting Provider: Byron Frankel Consult Reason/Comments: bleeding rectal ca Do you want consulting provider notified?: Yes 01/24/21 10:18 Consult Physician Routine Consulting Provider: Power Morales Consult Reason/Comments: ICU management Do you want consulting provider notified?: Already Contacted 01/25/21 15:27 Consult Physician Urgent Consulting Provider: Mehul Rob Consult Reason/Comments: hematuria and restistance when placing phan Do you want consulting provider notified?: Yes Primary care physician: Jovan Francois [facility] Course: Final Diagnosis -Acute GI bleed with acute blood loss anemia, s/p 4 unit PRBC this admission -Inflammatory response to chemo vs. enterocolitis -Colorectal cancer/adenocarcinoma with mets to liver. Currently on cycle 10 chemotherapy, which is on hold. -Possible enterocolitis, ongoing diarrhea, questran ordered, C. diff negative, continue Flagyl -Hypokalemia secondary to ongoing diarrhea from enterocolitis -Neutropenic fever secondary to recent chemotherapy, resolved -Pancytopenia secondary to chemotherapy, platelet count improving, currently 141 -Lactic acidosis on admission, resolved -Asymptomatic bacteriuria -Mild elevated liver enzymes, resolving -Metabolic acidosis probably due to ongoing diarrhea, continue to monitor -DVT prophylaxis not on heparin due to thrombocytopenia. -Urinary stricture with hematuria s/p dilation with indwelling catheter by urology - catheter was removed patient passed voiding trial -Peripheral edema, BNP 338, lungs clear Discharge Disposition Patient is discharged home to follow-up with his hepatic surgery and colorectal surgery team at [facility] after discharge. He'll also follow-up with oncology and his primary care. Patient is instructed that if he has increased constipation or abdominal distention continues return to hospital for evaluation and a colostomy would likely be recommended at that time. Please refer to HPI and progress notes for additional information 02/05/2021 Patient is discharged home today after being cleared by oncology and surgical services. Rectal bleeding has stopped at this time and he is able to come off of the Sandostatin. Recommended MiraLAX for constipation as well as Questran when he is having diarrhea. He is going to follow closely with his surgery team. Patient does not wish to undergo any more chemotherapy. Today his abdomen is still distended, there is tympany with percussion. Lungs are clear to auscultation, S1 and S2 present. Lower extremities are edematous +2 pititing, this appears chronic for the patient. He is alert and oriented 3, focal neurological exam is negative. Vital signs show a temp of 97.6, heart rate 82, blood pressure 108/73 and he is 96% on room air. Please see medication reconciliation for a list of current medications. Thank you for allowing us to participate in the care of this patient. Plan - Discharge Summary New Discharge Prescriptions: New Acetaminophen Tab [Tylenol] 650 mg PO Q6HR PRN tab PRN Reason: Mild Pain Or Fever > 100.5 Cholestyramine (with Sugar) [Questran] 4 gm PO DAILY #7 packet Magnesium Oxide [Mag-Oxide] 200 mg PO BID 14 Days #28 tablet Potassium Chloride Oral Liquid 20 meq PO DAILY 14 Days #210 ml metroNIDAZOLE [Flagyl] 500 mg PO TID 7 Days #21 tab Cefdinir [Omnicef] 300 mg PO BID@0800,2100 7 Days #14 cap Continue Lidocaine-Prilocaine Cream [Emla Cream 2.5%/2.5%] 1 applic TOPICAL DAILY PRN PRN Reason: port access Ondansetron Odt [Zofran ODT] 8 mg PO Q8HR PRN PRN Reason: Nausea Vitamin B Complex 1 cap PO DAILY Changed polyethylene glycoL 3350 [Miralax] 8.5 gm PO DAILY PRN #7 packet PRN Reason: Constipation Discharge Medication List Lidocaine-Prilocaine Cream [Emla Cream 2.5%/2.5%] 1 applic TOPICAL DAILY PRN 01/22/21 [History] Ondansetron Odt [Zofran ODT] 8 mg PO Q8HR PRN 01/22/21 [History] Vitamin B Complex 1 cap PO DAILY 01/22/21 [History] Acetaminophen Tab [Tylenol] 650 mg PO Q6HR PRN tab 02/05/21 [Rx] Cefdinir [Omnicef] 300 mg PO BID@0800,2100 7 Days #14 cap 02/05/21 [Rx] Cholestyramine (with Sugar) [Questran] 4 gm PO DAILY #7 packet 02/05/21 [Rx] Magnesium Oxide [Mag-Oxide] 200 mg PO BID 14 Days #28 tablet 02/05/21 [Rx] Potassium Chloride Oral Liquid 20 meq PO DAILY 14 Days #210 ml 02/05/21 [Rx] metroNIDAZOLE [Flagyl] 500 mg PO TID 7 Days #21 tab 02/05/21 [Rx] polyethylene glycoL 3350 [Miralax] 8.5 gm PO DAILY PRN #7 packet 02/05/21 [Rx] Follow up Appointment(s)/Referral(s): Byron Frankel MD [Medical Doctor] - 02/12/21 2:00 pm Ventura Giles MD [STAFF PHYSICIAN] - 02/10/21 10:30 am (At [facility]) Jovan Francois DO [Primary Care Provider] - 1-2 days (Please call the office to make follow up.) Ambulatory/Diagnostic Orders: Basic Metabolic Panel [LAB.AMB] Location: None Selected Complete Blood Count w/diff [LAB.AMB] Time Frame: 2 Days, Location: None Selected Activity/Diet/Wound Care/Special Instructions: Patient needs to follow-up with his [facility] hepatic surgery and colorectal surgery team Return to the hospital if constipation and/or abdominal distention is increasing Close follow-up with PCP and oncology Continues MiraLAX for constipation and Questran for diarrhea Discharge Disposition: HOME WITH HOME HEALTH SERVICES
== END 2021-02-05 16:03 | disposition home health service (06) | DRG 809 ==
LOC: EC 00:53 → 3SCARD 03:28 → 2SICU 01-23 11:42 → 5NMEDONC 01-26 11:04
PROVIDERS: ADMIT Hospitalist; ATTEND Hospitalist
PROC: 30233K1 Transfusion of Nonautologous Frozen Plasma into Peripheral Vein, Percutaneous Approach (ICD-10-PCS; 2021-01-23)
PROC: 30233N1 Transfusion of Nonautologous Red Blood Cells into Peripheral Vein, Percutaneous Approach (ICD-10-PCS; 2021-01-23)
PROC: 30233R1 Transfusion of Nonautologous Platelets into Peripheral Vein, Percutaneous Approach (ICD-10-PCS; 2021-01-23)
PROC: 0T7D7ZZ Dilation of Urethra, Via Natural or Artificial Opening (ICD-10-PCS; principal; 2021-01-25)
DX: D70.1 Agranulocytosis secondary to cancer chemotherapy (principal); C19 Malignant neoplasm of rectosigmoid junction; C78.7 Secondary malignant neoplasm of liver and intrahepatic bile duct; D62 Acute posthemorrhagic anemia; E44.0 Moderate protein-calorie malnutrition; E87.2 Acidosis; K56.609 Unspecified intestinal obstruction, unspecified as to partial versus complete obstruction; T45.1X5A Adverse effect of antineoplastic and immunosuppressive drugs, initial encounter; N40.1 Benign prostatic hyperplasia with lower urinary tract symptoms; E83.42 Hypomagnesemia; E87.6 Hypokalemia; Z20.822 Contact with and (suspected) exposure to COVID-19; R31.0 Gross hematuria; R33.8 Other retention of urine; R50.81 Fever presenting with conditions classified elsewhere; E86.0 Dehydration; N35.812 Other bulbous urethral stricture, male; D61.810 Antineoplastic chemotherapy induced pancytopenia; K52.9 Noninfective gastroenteritis and colitis, unspecified; Z68.20 Body mass index [BMI] 20.0-20.9, adult; Z98.890 Other specified postprocedural states; Z88.8 Allergy status to other drugs, medicaments and biological substances; Z79.899 Other long term (current) drug therapy
CPT/HCPCS: 36415; 71046; 74019; 74177; 80048; 80053; 81001; 82607; 82728; 83010; 83540; 83550; 83605; 83615; 83630; 83735; 83880; 84132; 84450; 84460; 85025; 85027; 85379; 85384; 85610; 85652; 85730; 86140; 86850; 86900; 86901; 86920; 87040; 87045; 87046; 87086; 87328; 87329; 87493; 87635; 93005; 96361; 96374; 96375; 99285

== ENCOUNTER → 2021-04-11 | Outpatient (CLI) | payer BC | END | disposition home or self-care (01) | LOC: LABWHC1 11:16 | PROVIDERS: ATTEND Radiology Vascular & Interventional Radiology | DX: Z01.812 Encounter for preprocedural laboratory examination (principal); Z20.822 Contact with and (suspected) exposure to COVID-19 ==

== ENCOUNTER → 2021-04-12 | Outpatient (CLI) | payer BC ==
--- NOTE | 2021-04-12 08:37 | CT ---
EXAMINATION TYPE: CT chest w con DATE OF EXAM: 04/12/2021 COMPARISON: 10/25/2020 HISTORY: colon CA with mets CT DLP: 183.2 mGycm Automated exposure control for dose reduction was used. CONTRAST: CT scan of the chest is performed with IV Contrast, patient injected with 100 mL of Isovue 300. FINDINGS: LUNGS: The lungs are grossly clear, there is no concerning parenchymal mass or nodule identified. T here is no pleural effusion or pneumothorax seen. The tracheobronchial tree is patent. MEDIASTINUM: There are no greater than 1 cm hilar or mediastinal lymph nodes. No pericardial effusi on is seen. Thoracic aorta is of normal caliber. The heart is not enlarged. UPPER ABDOMEN: Mass at the hepatic dome is redemonstrated and measures approximately 6.4 x 5.7 cm. Pr evious maximal measurement of 9.0 cm. OTHER: No additional significant abnormality is seen. IMPRESSION: 1. No evidence for metastatic disease to the chest. 2. Mass at the dome of the liver persists although is smaller in size.
== END | disposition home or self-care (01) ==
LOC: RADCTMAIN 07:21
PROVIDERS: ATTEND Radiology Diagnostic Radiology
DX: C78.7 Secondary malignant neoplasm of liver and intrahepatic bile duct (principal); C18.9 Malignant neoplasm of colon, unspecified
CPT/HCPCS: 71260; Q9967

== ENCOUNTER → 2021-05-07 | Outpatient (CLI) | payer BC ==
[2021-05-08 13:55] LABS: Coronavirus SARS CoV-2 Not Detected (Not Detected)
== END | disposition home or self-care (01) ==
LOC: LABWHC1 08:27
PROVIDERS: ATTEND Radiology Vascular & Interventional Radiology
DX: Z01.812 Encounter for preprocedural laboratory examination (principal); Z20.822 Contact with and (suspected) exposure to COVID-19

== ENCOUNTER 2021-06-02 10:59 | Emergency (ER) | payer BC ==
[2021-06-02] MEDS ORDERED: SODIUM CHLORIDE 0.9% 1,000 ML IV STA ×2 (12:00)
[2021-06-02 12:36] LABS: Basophils % (A) 1 %; Eosinophils # (A) 0.1 k/uL (0-0.7); Eosinophils % (A) 2 %; HGB 10.6 gm/dL (13.0-17.5); Hypochromasia Marked; Lymphocytes # (A) 0.2 k/uL (1.0-4.8); Lymphocytes % (A) 7 %; MCH 27.8 pg (25.0-35.0); MCHC 31.2 g/dL (31.0-37.0); MCV 88.9 fL (80.0-100.0); Mean Platelet Volume 8.4; Monocytes # (A) 0.3 k/uL (0-1.0); Monocytes % (A) 9 %; Neutrophils # (A) 2.7 k/uL (1.3-7.7); Neutrophils % (A) 79 %; Platelet Count 188 k/uL (150-450); RBC 3.82 m/uL (4.30-5.90); RDW 15.7 % (11.5-15.5); WBC 3.4 k/uL (3.8-10.6)
[2021-06-02 12:49] LABS: ALT 19 U/L (4-49); AST 35 U/L (17-59); African American GFR (CKD) >90 (>60 ml/min/1.73 sqM); Albumin 3.7 g/dL (3.5-5.0); Alkaline Phosphatase 206 U/L (38-126); Anion Gap 9 mmol/L; Blood Urea Nitrogen 10 mg/dL (9-20); Calcium 8.7 mg/dL (8.4-10.2); Carbon Dioxide 23 mmol/L (22-30); Chloride 102 mmol/L (98-107); Glucose 93 mg/dL (74-99); Lipase 111 U/L (23-300); Non-African American GFR(CKD) >90 (>60 ml/min/1.73 sqM); Potassium 3.6 mmol/L (3.5-5.1); Sodium 134 mmol/L (137-145); Total Bilirubin 0.8 mg/dL (0.2-1.3); Total Protein 6.7 g/dL (6.3-8.2)
[2021-06-02 13:00] LABS: Prothrombin Time 10.9 sec (9.0-12.0)
--- NOTE | 2021-06-02 14:01 | CT ---
EXAMINATION TYPE: CT abdomen pelvis w con DATE OF EXAM: 06/02/2021 COMPARISON: CT dated 01/23/2021 HISTORY: Generalized abd pain, nausea, vomiting and constipation. History of rectal cancer. CT DLP: 757.6 mGycm Automated exposure control for dose reduction was used. TECHNIQUE: Helical acquisition of images was performed from the lung bases through the pelvis. CONTRAST: Performed without Oral Contrast and with IV Contrast, patient injected with 100 mL of Isovue 300. FINDINGS: LUNG BASES: Bilateral posterior basal minimal pulmonary atelectasis. Millimetric nodules in the right lung base, stable compared to March 2021 CT scan. Questionable few millimetric left lung base nodu le, not well appreciated previously, attention on follow-up. Small pericardial fluid LIVER/GB: Interval enlargement of the known right hepatic lobe segment 7 metastasis measuring up to 1 0.6 cm compared to 7 cm previously. Newly seen hepatic dome metastasis measuring 15 mm. Other newly s een tiny millimetric hepatic metastatic lesions are seen at the inferior aspect of segment 5 and segm ent 6 as well as the posterior aspect of the left hepatic lobe. This is consistent with progressive h epatic metastasis. No definite radiodense gallbladder calculi PANCREAS: No significant abnormality is seen. SPLEEN: No significant abnormality is seen. ADRENALS: No significant abnormality is seen. KIDNEYS: No significant abnormality is seen. FREE AIR: No free air is visualized. RETROPERITONEAL ADENOPATHY: None visualized REPRODUCTIVE ORGANS: No significant abnormality is seen URINARY BLADDER: Incompletely distended with thickened wall, please correlate with urinalysis result s PELVIC ADENOPATHY: No pathologically enlarged OSSEOUS STRUCTURES: Degenerative changes at L5-S1 level. No gross aggressive bone lesion. BOWEL: Undistended stomach. Unremarkable duodenum and small bowel. Wall thickening of the rectum wit h surrounding rectal fat stranding and fascial thickening, likely related to post treatment changes o f the known rectal cancer. Markedly thickened sigmoid colon wall and to a lesser extent descending co cristiane with significant fecal loading of the entire colon. Marked stenosis of the distal aspect of the s igmoid colon close to the rectosigmoid junction. This could represent mechanical colonic obstruction secondary to stricture at that location however associated colitis cannot be excluded. The colon byron ures up to 7.6 cm. OTHER: Minimal arterial atherosclerotic calcifications. No sizable ascites. Small fat-containing umbi lical hernia. IMPRESSION: Markedly reduced caliber of the rectosigmoid junction with markedly distended and severe fecal loadin g of the proximal colon, associated with wall thickening of the sigmoid colon and descending colon as detailed above. This could be related to severe large bowel obstruction secondary to severe strictur e/stenosis at the rectosigmoid junction however associated infection/colitis or Minot's syndrome ca n't be excluded, please correlate clinically. Recommend urgent surgical consultation. No free periton eal air or portal venous gas however colonic wall ischemia or impending rupture cannot be excluded. Progressive hepatic metastatic disease with other interval changes and incidental findings as detaile d above.
[2021-06-02 16:59] LABS: Appearance,Urine Clear (Clear); Bilirubin,Urine Negative (Negative); Blood,Urine Negative (Negative); Color,Urine Yellow; Glucose,Urine (UA) Negative (Negative); Ketones,Urine 3+ (Negative); Leukocyte Esterase,Urine Negative (Negative); Nitrite,Urine Negative (Negative); PH, Urine 5.5 (5.0-8.0); Protein,Urine Trace (Negative); Urobilinogen,Urine <2.0 mg/dL (<2.0)
[2021-06-02 17:00] LABS: Specific Gravity,Urine >1.050 (1.001-1.035)
--- NOTE | 2021-06-02 18:30 | ED ---
Abdominal Pain HPI - General Chief Complaint: Abdominal Pain Stated Complaint: colon ca, poss obstruction Time Seen by Provider: 06/02/21 11:54 Source: patient Mode of arrival: ambulatory Limitations: no limitations - History of Present Illness Initial Comments: This 55-year-old male presents with with a complaint of some lower abdominal pain bilaterally which she's had for the last 1-2 days. He also states that he has had a significant decrease in his fecal output for the last 4-5 days. He denies any fevers or chills. He is had a significant decrease in appetite and states that he essentially has not had anything to eat in the last 2 days. 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 He has known about this since November 2020. He's been Through Dr. Giles from oncology and also through [facility]'s system in [place]. He sees Dr. Augustus Scott from colorectal surgery at [facility] as well as the hepatology encountered similar. He apparently just had some implants into his liver 3 weeks ago at [facility] to fight off to cancer. They're waiting to do surgery on his colon for some reason. He denies any urinary symptoms. He denies any other complaints or modifying factors. - Related Data Home Medications Medication Instructions Recorded Confirmed Lidocaine-Prilocaine Cream [Emla 1 applic TOPICAL DAILY PRN 01/22/21 06/02/21 Cream 2.5%/2.5%] Multivit-Min/Folic/Vit K/Lycop 1 tab PO DAILY 06/02/21 06/02/21 [Men's Multivitamin Tablet] polyethylene glycoL 3350 [Miralax] 17 gm PO DAILY PRN 06/02/21 06/02/21 Allergies Allergy/AdvReac Type Severity Reaction Status Date / Time senna Allergy Unknown Verified 06/02/21 14:09 gabapentin AdvReac dizzy Verified 06/02/21 14:09 Review of Systems ROS Statement: Those systems with pertinent positive or pertinent negative responses have been documented in the HPI. ROS Other: All systems not noted in ROS Statement are negative. Past Medical History Past Medical History: Cancer Additional Past Medical History / Comment(s): Hx freq diarrhea. Rectal cancer, mets to liver History of Any Multi-Drug Resistant Organisms: None Reported Past Surgical History: Orthopedic Surgery Additional Past Surgical History / Comment(s): Right knee repair. Colonoscopy 08/06/20, right side chemoport Past Anesthesia/Blood Transfusion Reactions: No Reported Reaction Past Psychological History: No Psychological Hx Reported Smoking Status: Never smoker Past Alcohol Use History: None Reported Past Drug Use History: None Reported - Past Family History Mother Family Medical History: No Reported History General Exam - General Exam Comments Initial Comments: GENERAL: The patient is well nourished and well hydrated. VITAL SIGNS: Heart rate, blood pressure, respiratory rate reviewed as recorded in nurse's notes. EYES: Pupils are round and reactive. Extraocular movements are intact. No conjunctival / lid redness or swelling. ENT: No external evidence of injury, swelling, or ecchymosis. Airway is patent. Throat is clear. NECK: Nontender. No swelling or evidence of injury. No subcutaneous emphysema. Trachea is midline. No thyroid mass. HEART: Regular rate and rhythm. Good peripheral pulses. LUNGS/CHEST: Breath sounds clear and equal bilaterally. No rales, rhonchi, or wheezes. No ecchymosis, subcutaneous emphysema, or tenderness. ABDOMEN: Abdomen soft with mild tenderness bilateral lower abdomen. No palpable masses or organomegaly. No peritoneal signs. No abdominal wall swelling or ecch ymosis. EXTREMITIES: No extremity tenderness. Normal muscle tone and function. No thoracolumbar tenderness. NEUROLOGIC: Sensation is grossly intact. Cranial nerve exam reveals face is symmetrical, tongue is midline, speech is clear. SKIN: No abrasions or ecchymosis is noted. No induration or masses noted. PSYCHIATRIC: Alert and oriented. Appropriate behavior and judgment. Limitations: no limitations Course Vital Signs 06/02/21 06/02/21 11:21 15:28 Temperature 98 F Pulse Rate 92 86 Respiratory 16 18 Rate Blood Pressure 130/89 150/101 O2 Sat by Pulse 98 97 Oximetry Medical Decision Making - Medical Decision Making The patient was seen and examined. All diagnostics were reviewed. IV was established patient is hydrated. He refuses any pain medications. He does have a mild anemia as well as mild decrease in white blood cell count. The patient also had a computed tomography scan of the abdomen and pelvis with IV contrast and this shows significant stenosis at the rectosigmoid junction I clearly related to his cancer with associated stool burden proximally consistent with a bowel obstruction. Please see report for significant details but the radiologist is concerned regarding the potential of ischemia or rupture of the colon. Case is discussed with the patient's colorectal surgeon at [facility] and he states that he would be happy to see the patient at [facility] but would prefer that he go through the medical service for admission. The case is discussed with Dr. Morejon from medicine and he is agreeable with admission. Case is discussed with admission counselor at [facility] and they relate that it will likely take quite some time for transfer. They relate that he may get a bed tomorrow. Therefore, it is felt as though he should be admitted to our hospital in the interim and can be transferred when bed becomes available. Case is discussed with internal medicine and they're agreeable with admission to Dr. Evans. - Lab Data Result diagrams: 06/02/21 12:24 06/02/21 12:24 Lab Results 06/02/21 06/02/21 06/02/21 Range/Units 12:24 12:24 12:24 WBC 3.4 L (3.8-10.6) k/uL RBC 3.82 L (4.30-5.90) m/uL Hgb 10.6 L (13.0-17.5) gm/dL Hct 34.0 L (39.0-53.0) % MCV 88.9 (80.0-100.0) fL MCH 27.8 (25.0-35.0) pg MCHC 31.2 (31.0-37.0) g/dL RDW 15.7 H (11.5-15.5) % Plt Count 188 (150-450) k/uL MPV 8.4 Neutrophils % 79 % Lymphocytes % 7 % Monocytes % 9 % Eosinophils % 2 % Basophils % 1 % Neutrophils # 2.7 (1.3-7.7) k/uL Lymphocytes # 0.2 L (1.0-4.8) k/uL Monocytes # 0.3 (0-1.0) k/uL Eosinophils # 0.1 (0-0.7) k/uL Basophils # 0.0 (0-0.2) k/uL Hypochromasia Marked PT (9.0-12.0) sec INR (<1.2) APTT (22.0-30.0) sec Sodium 134 L (137-145) mmol/L Potassium 3.6 (3.5-5.1) mmol/L Chloride 102 (98-107) mmol/L Carbon Dioxide 23 (22-30) mmol/L Anion Gap 9 mmol/L BUN 10 (9-20) mg/dL Creatinine 0.61 L (0.66-1.25) mg/dL Est GFR (CKD-EPI)AfAm >90 (>60 ml/min/1.73 sqM) Est GFR (CKD-EPI)NonAf >90 (>60 ml/min/1.73 sqM) Glucose 93 (74-99) mg/dL Plasma Lactic Acid Amado (0.7-2.0) mmol/L Calcium 8.7 (8.4-10.2) mg/dL Total Bilirubin 0.8 (0.2-1.3) mg/dL AST 35 (17-59) U/L ALT 19 (4-49) U/L Alkaline Phosphatase 206 H (38-126) U/L Total Protein 6.7 (6.3-8.2) g/dL Albumin 3.7 (3.5-5.0) g/dL Lipase 111 (23-300) U/L Urine Color Yellow Urine Appearance Clear (Clear) Urine pH 5.5 (5.0-8.0) Ur Specific [place] >1.050 H (1.001-1.035) Urine Protein Trace H (Negative) Urine Glucose (UA) Negative (Negative) Urine Ketones 3+ H (Negative) Urine Blood Negative (Negative) Urine Nitrite Negative (Negative) Urine Bilirubin Negative (Negative) Urine Urobilinogen <2.0 (<2.0) mg/dL Ur Leukocyte Esterase Negative (Negative) Coronavirus (PCR) (Not Detectd) 06/02/21 06/02/21 06/02/21 Range/Units 12:24 12:24 16:48 WBC (3.8-10.6) k/uL RBC (4.30-5.90) m/uL Hgb (13.0-17.5) gm/dL Hct (39.0-53.0) % MCV (80.0-100.0) fL MCH (25.0-35.0) pg MCHC (31.0-37.0) g/dL RDW (11.5-15.5) % Plt Count (150-450) k/uL MPV Neutrophils % % Lymphocytes % % Monocytes % % Eosinophils % % Basophils % % Neutrophils # (1.3-7.7) k/uL Lymphocytes # (1.0-4.8) k/uL Monocytes # (0-1.0) k/uL Eosinophils # (0-0.7) k/uL Basophils # (0-0.2) k/uL Hypochromasia PT 10.9 (9.0-12.0) sec INR 1.0 (<1.2) APTT 27.0 (22.0-30.0) sec Sodium (137-145) mmol/L Potassium (3.5-5.1) mmol/L Chloride (98-107) mmol/L Carbon Dioxide (22-30) mmol/L Anion Gap mmol/L BUN (9-20) mg/dL Creatinine (0.66-1.25) mg/dL Est GFR (CKD-EPI)AfAm (>60 ml/min/1.73 sqM) Est GFR (CKD-EPI)NonAf (>60 ml/min/1.73 sqM) Glucose (74-99) mg/dL Plasma Lactic Acid Amado 1.2 (0.7-2.0) mmol/L Calcium (8.4-10.2) mg/dL Total Bilirubin (0.2-1.3) mg/dL AST (17-59) U/L ALT (4-49) U/L Alkaline Phosphatase (38-126) U/L Total Protein (6.3-8.2) g/dL Albumin (3.5-5.0) g/dL Lipase (23-300) U/L Urine Color Urine Appearance (Clear) Urine pH (5.0-8.0) Ur Specific [place] (1.001-1.035) Urine Protein (Negative) Urine Glucose (UA) (Negative) Urine Ketones (Negative) Urine Blood (Negative) Urine Nitrite (Negative) Urine Bilirubin (Negative) Urine Urobilinogen (<2.0) mg/dL Ur Leukocyte Esterase (Negative) Coronavirus (PCR) Not Detected (Not Detectd) Disposition Clinical Impression: Large bowel obstruction, Liver mass, right lobe, Colorectal cancer, Dehydration, Abdominal pain Disposition: ADMITTED IP TO THIS HOSP Condition: Fair Is patient prescribed a controlled substance at d/c from ED?: No Time of Disposition: 18:41 Decision Date: 06/02/21 Decision Time: 18:41
[2021-06-02] MEDS ORDERED: polyethylene glycoL 3350 17 GM POWD.PACK PO PRN (18:41)
[2021-06-02] MEDS ORDERED: MORPHINE SULFATE 4 MG/ML SYRINGE IV PRN (18:42)
[2021-06-02] MEDS ORDERED: traMADol 50 MG TAB PO PRN (18:42)
[2021-06-02] MEDS ORDERED: ACETAMINOPHEN TAB 325 MG TAB PO PRN (18:42)
[2021-06-02] MEDS ORDERED: NALOXONE 0.4 MG/ML 1 ML VIAL IV PRN (18:42)
[2021-06-02] MEDS ORDERED: ONDANSETRON 4 MG/2 ML VIAL IVP PRN (18:42)
[2021-06-02] MEDS ORDERED: SODIUM CHLORIDE 0.9% 1,000 ML IV SCH (18:45)
[2021-06-02] MEDS ORDERED: PANTOPRAZOLE 40 MG/10 ML VIAL IV SCH (18:45)
[2021-06-02] MEDS ORDERED: ENOXAPARIN 40 MG/0.4 ML SYRINGE SQ SCH (18:45)
[2021-06-02 22:51] VITALS: BP 146/99; PULSE 95; RESP 16; TEMP 99.1
[2021-06-03] MEDS ORDERED: MULTIVITAMINS, THERA 1 EACH TAB PO SCH (09:00)
== END 2021-06-03 00:51 ==
LOC: EC 10:59 → 5NMEDONC 18:42 → UNDOADMIN 18:42 → 5NMEDONC 06-03 → EC 06-03 00:51 → UNDODISIN 06-03 00:56
DX: K56.609 Unspecified intestinal obstruction, unspecified as to partial versus complete obstruction (principal); C19 Malignant neoplasm of rectosigmoid junction; C78.7 Secondary malignant neoplasm of liver and intrahepatic bile duct; E86.0 Dehydration; D64.9 Anemia, unspecified; Z20.822 Contact with and (suspected) exposure to COVID-19
CPT/HCPCS: 99285; 96374; 96375; 96361 ×2; 36415; 80053; 83605; 83690; 85025; 85610; 85730; 81003; 87635; 74177; J2405; J1650; C9113; Q9967

== ENCOUNTER 2021-08-27 10:25 | Emergency (ER) | payer BC ==
[2021-08-27 10:41] VITALS: TEMP 98.4
--- NOTE | 2021-08-27 11:40 | ED ---
General Adult HPI - General Chief complaint: Recheck/Abnormal Lab/Rx Stated complaint: ostomy problems, bleeding Time Seen by Provider: 08/27/21 10:49 Source: patient, RN notes reviewed Mode of arrival: ambulatory Limitations: no limitations - History of Present Illness Initial comments: This a 55-year-old male presents emergency Department chief complaint of bleeding in his ostomy. Patient states she's had some airman symptoms but over the last few days she's had blood within the stool of his ostomy. Patient states schedule have a changed today. Patient states that his oncologist Dr. Giles was aware of the symptoms was advised to present return if symptoms worsen. Patient states that he had bowel resection, colostomy performed over a year ago. Patient has a blood thinners. Patient has been jaundiced for several months and which she states she has metastatic colon cancer. Patient states that his neurologist to him about using vitamin K secondary to his bleeding. - Related Data Home Medications Medication Instructions Recorded Confirmed Lidocaine-Prilocaine Cream [Emla 1 applic TOPICAL DAILY PRN 01/22/21 06/02/21 Cream 2.5%/2.5%] Multivit-Min/Folic/Vit K/Lycop 1 tab PO DAILY 06/02/21 06/02/21 [Men's Multivitamin Tablet] polyethylene glycoL 3350 [Miralax] 17 gm PO DAILY PRN 06/02/21 06/02/21 Allergies Allergy/AdvReac Type Severity Reaction Status Date / Time senna Allergy Unknown Verified 08/27/21 10:41 gabapentin AdvReac dizzy Verified 08/27/21 10:41 Review of Systems ROS Statement: Those systems with pertinent positive or pertinent negative responses have been documented in the HPI. ROS Other: All systems not noted in ROS Statement are negative. Past Medical History Past Medical History: Cancer Additional Past Medical History / Comment(s): Hx freq diarrhea. Rectal cancer, mets to liver History of Any Multi-Drug Resistant Organisms: None Reported Past Surgical History: Orthopedic Surgery Additional Past Surgical History / Comment(s): Right knee repair. Colonoscopy 08/06/20, right side chemoport Past Anesthesia/Blood Transfusion Reactions: No Reported Reaction Past Psychological History: No Psychological Hx Reported Smoking Status: Never smoker Past Alcohol Use History: None Reported Past Drug Use History: None Reported - Past Family History Mother Family Medical History: No Reported History General Exam Limitations: no limitations General appearance: alert, in no apparent distress Head exam: Present: atraumatic, normocephalic, normal inspection Eye exam: Present: normal appearance, PERRL, EOMI. Absent: scleral icterus, conjunctival injection, periorbital swelling ENT exam: Present: normal exam, normal oropharynx, mucous membranes moist Neck exam: Present: normal inspection, full ROM. Absent: tenderness, meningismus, lymphadenopathy Respiratory exam: Present: normal lung sounds bilaterally. Absent: respiratory distress, wheezes, rales, rhonchi, stridor Cardiovascular Exam: Present: regular rate, normal rhythm, normal heart sounds. Absent: systolic murmur, diastolic murmur, rubs, gallop, clicks GI/Abdominal exam: Present: soft, normal bowel sounds. Absent: distended, tenderness, guarding, rebound, rigid Neurological exam: Present: alert Skin exam: Present: warm, dry, intact, normal color. Absent: rash Course Vital Signs 08/27/21 08/27/21 10:39 11:51 Temperature 98.4 F Pulse Rate 95 89 Respiratory 16 18 Rate Blood Pressure 107/77 109/84 O2 Sat by Pulse 96 95 Oximetry Medical Decision Making - Medical Decision Making 55-year-old male presented from for blood in his stool in colostomy bag. Hem oglobin is stable at 11.2 prior one was 11.1. Prior INR was 2.0, INR is 1.5. Patient is jaundiced but has been chronically jaundiced. I did discuss the case with Alix lyons following patient for oncology recommend patient to stay on his chemotherapy as his been responding well of recent. Patient feels comfortable with being discharge he was offered admission. Patient will have close follow-up with oncology return for any worsening or change of symptoms. - Lab Data Result diagrams: 08/27/21 11:37 08/27/21 11:37 Lab Results 08/27/21 08/27/21 08/27/21 Range/Units 11:37 11:37 11:37 WBC 7.7 (3.8-10.6) k/uL RBC 4.44 (4.30-5.90) m/uL Hgb 11.2 L (13.0-17.5) gm/dL Hct 34.2 L (39.0-53.0) % MCV 77.0 L (80.0-100.0) fL MCH 25.2 (25.0-35.0) pg MCHC 32.7 (31.0-37.0) g/dL RDW 22.9 H (11.5-15.5) % Plt Count 226 (150-450) k/uL MPV 7.0 Neutrophils % 83 % Lymphocytes % 6 % Monocytes % 8 % Eosinophils % 2 % Basophils % 0 % Neutrophils # 6.4 (1.3-7.7) k/uL Lymphocytes # 0.4 L (1.0-4.8) k/uL Monocytes # 0.6 (0-1.0) k/uL Eosinophils # 0.2 (0-0.7) k/uL Basophils # 0.0 (0-0.2) k/uL Hypochromasia Slight Anisocytosis Moderate Microcytosis Moderate PT (9.0-12.0) sec INR (<1.2) APTT 34.5 H (22.0-30.0) sec Sodium 132 L (137-145) mmol/L Potassium 3.1 L (3.5-5.1) mmol/L Chloride 96 L (98-107) mmol/L Carbon Dioxide 28 (22-30) mmol/L Anion Gap 8 mmol/L BUN 9 (9-20) mg/dL Creatinine 0.61 L (0.66-1.25) mg/dL Est GFR (CKD-EPI)AfAm >90 (>60 ml/min/1.73 sqM) Est GFR (CKD-EPI)NonAf >90 (>60 ml/min/1.73 sqM) Glucose 95 (74-99) mg/dL Calcium 7.4 L (8.4-10.2) mg/dL Magnesium 2.1 (1.6-2.3) mg/dL Total Bilirubin 22.2 H* (0.2-1.3) mg/dL AST 394 H (17-59) U/L ALT 165 H (4-49) U/L Alkaline Phosphatase 1018 H (38-126) U/L Total Protein 5.5 L (6.3-8.2) g/dL Albumin 2.4 L (3.5-5.0) g/dL 08/27/21 Range/Units 11:37 WBC (3.8-10.6) k/uL RBC (4.30-5.90) m/uL Hgb (13.0-17.5) gm/dL Hct (39.0-53.0) % MCV (80.0-100.0) fL MCH (25.0-35.0) pg MCHC (31.0-37.0) g/dL RDW (11.5-15.5) % Plt Count (150-450) k/uL MPV Neutrophils % % Lymphocytes % % Monocytes % % Eosinophils % % Basophils % % Neutrophils # (1.3-7.7) k/uL Lymphocytes # (1.0-4.8) k/uL Monocytes # (0-1.0) k/uL Eosinophils # (0-0.7) k/uL Basophils # (0-0.2) k/uL Hypochromasia Anisocytosis Microcytosis PT 15.5 H (9.0-12.0) sec INR 1.5 H (<1.2) APTT (22.0-30.0) sec Sodium (137-145) mmol/L Potassium (3.5-5.1) mmol/L Chloride (98-107) mmol/L Carbon Dioxide (22-30) mmol/L Anion Gap mmol/L BUN (9-20) mg/dL Creatinine (0.66-1.25) mg/dL Est GFR (CKD-EPI)AfAm (>60 ml/min/1.73 sqM) Est GFR (CKD-EPI)NonAf (>60 ml/min/1.73 sqM) Glucose (74-99) mg/dL Calcium (8.4-10.2) mg/dL Magnesium (1.6-2.3) mg/dL Total Bilirubin (0.2-1.3) mg/dL AST (17-59) U/L ALT (4-49) U/L Alkaline Phosphatase (38-126) U/L Total Protein (6.3-8.2) g/dL Albumin (3.5-5.0) g/dL Disposition Clinical Impression: At risk for chemotherapy-induced bleeding, Hematochezia Disposition: HOME SELF-CARE Condition: Stable Additional Instructions: Please return to the Emergency Department if symptoms worsen or any other concerns. Is patient prescribed a controlled substance at d/c from ED?: No Referrals: Jovan Francois DO [Primary Care Provider] - 1-2 days Time of Disposition: 13:49
[2021-08-27 11:43] LABS: Anisocytosis Moderate; Basophils % (A) 0 %; Eosinophils # (A) 0.2 k/uL (0-0.7); Eosinophils % (A) 2 %; HCT 34.2 % (39.0-53.0); HGB 11.2 gm/dL (13.0-17.5); Hypochromasia Slight; Lymphocytes # (A) 0.4 k/uL (1.0-4.8); Lymphocytes % (A) 6 %; MCH 25.2 pg (25.0-35.0); MCHC 32.7 g/dL (31.0-37.0); Microcytosis Moderate; Monocytes # (A) 0.6 k/uL (0-1.0); Monocytes % (A) 8 %; Neutrophils # (A) 6.4 k/uL (1.3-7.7); Neutrophils % (A) 83 %; Platelet Count 226 k/uL (150-450); RBC 4.44 m/uL (4.30-5.90); RDW 22.9 % (11.5-15.5); WBC 7.7 k/uL (3.8-10.6)
[2021-08-27 11:52] VITALS: RESP 18
[2021-08-27 12:08] LABS: ALT 165 U/L (4-49); AST 394 U/L (17-59); African American GFR (CKD) >90 (>60 ml/min/1.73 sqM); Albumin 2.4 g/dL (3.5-5.0); Alkaline Phosphatase 1018 U/L (38-126); Anion Gap 8 mmol/L; Blood Urea Nitrogen 9 mg/dL (9-20); Calcium 7.4 mg/dL (8.4-10.2); Carbon Dioxide 28 mmol/L (22-30); Chloride 96 mmol/L (98-107); Glucose 95 mg/dL (74-99); Magnesium 2.1 mg/dL (1.6-2.3); Non-African American GFR(CKD) >90 (>60 ml/min/1.73 sqM); Potassium 3.1 mmol/L (3.5-5.1); Sodium 132 mmol/L (137-145)
[2021-08-27 12:23] LABS: Total Bilirubin 22.2 mg/dL (0.2-1.3)
[2021-08-27 12:24] LABS: Total Protein 5.5 g/dL (6.3-8.2)
[2021-08-27 13:02] LABS: INR 1.5 (<1.2); Prothrombin Time 15.5 sec (9.0-12.0)
[2021-08-27 14:03] VITALS: BP 102/84; PULSE 84
== END 2021-08-27 14:15 | disposition home or self-care (01) ==
LOC: EC 10:25
DX: K92.1 Melena (principal)
CPT/HCPCS: 36415; 80053; 83735; 85025; 85610; 85730; 99284

== ENCOUNTER → 2021-09-01 | Outpatient (CLI) | payer BC ==
[2021-09-01 08:57] LABS: African American GFR (CKD) >90 (>60 ml/min/1.73 sqM); Blood Urea Nitrogen 13 mg/dL (9-20); Non-African American GFR(CKD) >90 (>60 ml/min/1.73 sqM)
--- NOTE | 2021-09-01 18:23 | CT ---
"EXAMINATION TYPE: CT ChestAbdPelvis w con DATE OF EXAM: 09/01/2021 COMPARISON: CT chest dated 04/12/[address] abdomen dated 06/02/2021 HISTORY: Rectal cancer CT DLP: 1285 mGycm Automated exposure control for dose reduction was used. CONTRAST: CT scan of the chest, abdomen and pelvis is performed with Oral Contrast and with IV Contrast, patien t injected with 100 mL of Isovue 300. FINDINGS: LUNGS: Newly seen extensive bilateral pulmonary nodules and soft tissue infiltration seen in all lobe s, measuring up to 2.7 cm in the left lower lobe likely representing widespread metastatic disease. L ymphangitis carcinomatosis cannot be excluded. Patent trachea and main bronchi. No pleural effusion. MEDIASTINUM: Newly seen multiple variable sized bilateral hilar and mediastinal lymph nodes, likely m etastatic, measuring up to 15 mm in the right hilum, 14 mm in subcarinal group and 9 mm in the left h ilum. No gross cardiomegaly. Small pericardial effusion. Scattered arterial atherosclerotic calcifica tion. OTHER: Osteopenia. No gross aggressive bone lesion. Bilateral gynecomastia changes. Suspected right s upraclavicular metastatic lymph node/nodule measuring 14 mm. LIVER/GB: Significant interval progression of the previously noted hepatic metastatic disease. The ri ght hepatic lobe and portion of segment 4 are almost completely replaced by a large conglomerate of h epatic metastasis, roughly measuring 13.8 x 14.6 cm compared to 4.2 x 2.6 cm previously. Other multip le newly seen necrotic hepatic metastasis are noted. For example, left hepatic lobe metastatic lesion measures 3.3 cm. Inferior segment 4 metastatic lesion measures 4 cm. Attenuated caliber of the hepat ic veins likely due to adjacent metastasis. No radiodense gallbladder calculi. PANCREAS: No significant abnormality is seen. SPLEEN: No significant abnormality is seen. ADRENALS: Newly seen adrenal lesions measuring up to 2.4 cm on the right side and 9 mm on the left si de, likely metastatic. KIDNEYS: No significant abnormality is seen. BOWEL: Unremarkable stomach and duodenum. Diffuse wall thickening of the colon and small bowel possi miguel due to serosal metastasis. Underlying primary lesion cannot be excluded. No evidence of bowel obs truction. Nonspecific wall thickening of the rectum with perirectal vascular congestion and fat stran ding. Left lower quadrant colostomy. Fecal loading of the colon. REPRODUCTIVE ORGANS: Enlarged prostate. LYMPH NODES: Newly seen multiple jonathan hepatis, portacaval and retroperitoneal metastatic lymph nodes . For example, a jonathan hepatis lymph node measures 2.2 cm. A portacaval lymph node measures 2 cm. A r etroperitoneal lymph node measures 13 mm. OSSEOUS STRUCTURES: Degenerative changes of the lumbar spine. No gross aggressive bone lesion. Osteop enia. OTHER: Scattered arterial atherosclerotic calcifications. Moderate amount of free abdominal fluid, po ssibly representing malignant fluid. Diffuse mesenteric fat stranding, congestion and tiny micronodul arity also involving the omentum. Peritoneal carcinomatosis cannot be excluded. IMPRESSION: Interval significant disease progression with extensive pulmonary, chest lymph nodes, hepatic, adrena l, abdominal lymph nodes and possibly peritoneal metastasis as detailed above. Other interval changes and incidental findings as described above. A Sheldon level critical message alert has been initiated for Ventura Giles MD~[id number] via the [employer] | Critical Results System on 09/01/2021 6:20 PM. This message alert has been sent to Ventura Giles MD~P [id number] via the preferences provided by the clinician for the receipt of Radiology Critical Findings. [place] ssage ID [id number]."
== END | disposition home or self-care (01) ==
LOC: RADPROMAIN 07:57
PROVIDERS: ATTEND Internal Medicine Hematology & Oncology
DX: C78.01 Secondary malignant neoplasm of right lung (principal); C78.02 Secondary malignant neoplasm of left lung; C78.7 Secondary malignant neoplasm of liver and intrahepatic bile duct; C77.8 Secondary and unspecified malignant neoplasm of lymph nodes of multiple regions; C20 Malignant neoplasm of rectum
CPT/HCPCS: 82565; 84520; 71260; 74177; J1642; Q9967 ×2